=== PATIENT | male | born 1965 | race Caucasian/White ===

== ENCOUNTER 2017-04-10 23:52 | Inpatient (IN) | payer SELFPAY ==
[~2017-04-10] VITALS: Ht 177.8 cm; Wt 84.5 kg
[2017-04-10 23:53] VITALS: BP 140/76; PULSE 131; O2SAT 83
[2017-04-10] MEDS ORDERED: PROPOFOL 500 MG/50 ML INJ 50 ML ONE (23:57)
[2017-04-11] VITALS (26 sets, daily range): BP systolic 83–136; BP diastolic 52–77; PULSE 100–130; RESP 18–32; TEMP 99.9–103.1; O2SAT 92–100
[2017-04-11] MEDS ORDERED: SUCCINYLCHOLINE CHLORIDE 200 MG/10 ML VIAL ONE (00:08)
[2017-04-11] MEDS ORDERED: SODIUM CHLOR 0.9% 1000 ML INJ 1,000 ML IV SCH (00:15)
[2017-04-11] MEDS ORDERED: VANCOMYCIN INJ 1,000 MG in SODIUM CHLOR 0.9% 250 ML INJ 250 ML IV ONE ×2 (00:15→10:00)
[2017-04-11] MEDS ORDERED: SODIUM CHLORIDE 0.9% FLUSH 10 ML FLUSH IV FLUSH PRN (00:15)
[2017-04-11] MEDS ORDERED: SUCCINYLCHOLINE CHLORIDE 100 MG/5 ML SYRINGE IV PUSH ONE ×2 (00:15→02:30)
[2017-04-11] MEDS ORDERED: THIAMINE INJ 100 MG in SODIUM CHLORIDE 0.9% INJ 100 ML IV ONE (00:15)
[2017-04-11] MEDS ORDERED: ETOMIDATE 20 MG/10 ML VIAL IV PUSH ONE (00:15)
[2017-04-11] MEDS ORDERED: PIPERACIL-TAZO 4.5 GM PREMIX 100 ML IV ONE (00:15)
[2017-04-11] MEDS ORDERED: LORazepam 2 MG/ML VIAL IV PUSH ONE ×2 (00:30)
--- NOTE | 2017-04-11 00:32 | PD ---
HPI Chief Complaint: Respiratory Distress Time Seen by Provider: 00:15 Travel History International Travel<30 days: No Contact w/Intl Traveler<30days: No Traveled to known affect area: No History of Present Illness HPI 51-year-old male presents to the emergency department by EMS transport from home where he was identified to have altered mental status and decreasing level of consciousness. Patient was also identified to have temperature elevation and paramedics identified room air O2 saturations to be 72%. Patient was immediately placed on supplemental oxygen without improvement of oxygenation or level of consciousness. Family members were concerned that patient may have overdosed on medications but the medications listed did not show any opiates. Patient's blood sugar was fine. No reported injury or trauma. Paramedics determined patient needed further ventilation support and attempted intubation in the field but this was unsuccessful and patient presents to the emergency department with ambu assisted ventilations. PFSH Past Medical History Narrative Medical Depression hypertension bronchodilator use dyslipidemia; alcohol use; nursing notes in medical record reviewed Depression: Yes Diabetes: No Diminished Hearing: No Seizures: No Social History Alcohol Use: No Tobacco Use: No Substance Use: No Allergies-Medications (Allergen,Severity, Reaction): Coded Allergies: No Allergy Information Available (Unverified , 04/11/17) Reported Meds & Prescriptions Reported Meds & Active Scripts Active Reported Quetiapine (Quetiapine Fumarate) 200 Mg Tab 200 Mg PO HS Simvastatin 20 Mg Tab 20 Mg PO DAILY Gabapentin 300 Mg Cap 300 Mg PO TID Combivent Respimat Inh (Ipratropium-Albuterol Inh) 20-100 Residential/Act Aero 1 Puff INH QID Lamotrigine 200 Mg Tab 200 Mg PO HS Lamotrigine 200 Mg Tab 200 Mg PO BID Lorazepam 1 Mg Tab 1 Mg PO BID PRN Effexor (Venlafaxine HCl) 75 Mg Tab 225 Mg DAILY Seroquel XR (Quetiapine Fumarate) 150 Mg Tab 150 Mg PO DAILY Naproxen Sodium 220 Mg Tab 220 Mg PO BID PRN Hydroxyzine HCl 50 Mg Tab 50 Mg PO BID Fenofibrate 160 Mg Tab 160 Mg PO DAILY Losartan (Losartan Potassium) 100 Mg Tab 100 Mg PO DAILY Review of Systems ROS Limitations: Intubated, Altered Mental Status Except as stated in HPI: all other systems reviewed are Neg Physical Exam Narrative GENERAL: Well-developed well-nourished male with respiratory distress and GCS 8 SKIN: Warm and dry. HEAD: Normocephalic. EYES: No scleral icterus. No injection or drainage. ENT: Left naso-pharyngeal airway in place dried secretions and blood about the nostril and mouth. No lacerations identified. NECK: Supple, trachea midline. No JVD or lymphadenopathy. CARDIOVASCULAR: increased Regular rate and rhythm without murmurs, gallops, or rubs. RESPIRATORY: Breath sounds equal bilaterally with ambu assisted ventilation poor spontaneous respiratory effort. GASTROINTESTINAL: Abdomen soft, non-tender, nondistended. MUSCULOSKELETAL: No cyanosis, or edema. BACK: Nontender without obvious deformity. Data Data Last Documented VS Vital Signs Date Time Temp Pulse Resp B/P (MAP) Pulse Ox O2 Delivery O2 Flow Rate FiO2 04/11/17 02:09 108 126/77 (93) 04/11/17 01:20 18 100 Ventilator 100 04/11/17 00:48 101.5 Orders Orders Propofol 500 Mg/50 Ml Inj (Diprivan 500 (04/10/17 23:57) Succinylcholine Inj (Quelicin Inj) (04/11/17 00:08) Chest, Single Ap (04/11/17 ) Electrocardiogram (04/11/17 00:15) Complete Blood Count With Diff (04/11/17:15) Comprehensive Metabolic Panel (04/11/17:15) Creatine Kinase (Cpk) (04/11/17 00:15) Prothrombin Time / Inr (Pt) (04/11/17:15) Act Partial Throm Time (Ptt) (04/11/17:15) Troponin I (04/11/17:15) Thyroid Stimulating Hormone (04/11/17:15) Urinalysis - C+S If Indicated (04/11/17:15) Lactic Acid Sepsis Protocol (04/11/17:15) Arterial Blood Gas (Abg) (04/11/17:15) Blood Culture (04/11/17:15) Ct Brain W/O Iv Contrast(Rout) (04/11/17 00:15) Blood Glucose (04/11/17 00:15) Ecg Monitoring (04/11/17 00:15) Iv Access Insert/Monitor (04/11/17:15) Oximetry (04/11/17:15) Sodium Chloride 0.9% Flush (Ns Flush) (04/11/17 00:15) Sodium Chlor 0.9% 1000 Ml Inj (Ns 1000 M (04/11/17 00:15) Thiamine Inj (Thiamine Inj) (04/11/17 00:15) Drug Screen, Random Urine (04/11/17 00:15) Alcohol (Ethanol) (04/11/17 00:15) Tylenol (Acetaminophen) (04/11/17 00:15) Salicylates (Aspirin) (04/11/17 00:15) Piperacil-Tazo 4.5 Gm Premix (Zosyn 4.5 (04/11/17 00:15) Vancomycin Inj (Vancomycin Inj) (04/11/17 00:15) Urinary Catheter Insert/Apply (04/11/17 00:15) Propofol 1000 Mg/100 Ml Inj (Diprivan 10 (04/11/17 00:15) Succinylcholine Inj (Quelicin Inj) (04/11/17 00:15) Etomidate Inj (Amidate Inj) (04/11/17 00:15) Magnesium (Mg) (04/11/17 00:15) Electrocardiogram (04/11/17 ) Resp Ventilation- Volume (04/11/17 ) Lorazepam Inj (Ativan Inj) (04/11/17 00:30) Lorazepam Inj (Ativan Inj) (04/11/17 00:30) Influenzae A/B Antigen (04/11/17 01:21) Acetaminophen Supp (Tylenol Supp) (04/11/17 01:30) Succinylcholine Inj (Quelicin Inj) (04/11/17 02:30) Karina-Gastric Tube Insert/Mon (04/11/17 02:28) Place Ng Tube To Low Intermit (04/11/17 02:28) Admit Order (Ed Use Only) (04/11/17 ) Data Recovery Planner / Telemetry JONO.Q8H (04/11/17 02:34) Diet Npo (04/11/17 Breakfast) Activity Bed Rest (04/11/17 02:34) Notify Dr: Other (04/11/17 02:34) Admit To Inpatient (04/11/17 ) Code Status (04/11/17 02:31) Vital Signs (Adult) JONO.Q1H (04/11/17 02:31) Activity Bed Rest (04/11/17 02:31) Elevate Head Of Bed (04/11/17 02:31) Neuro Checks . ORDERED (04/11/17 02:31) Intake + Output Q1H (04/11/17 02:31) Sodium Chlor 0.9% 1000 Ml Inj (Ns 1000 M (04/11/17 02:31) Sodium Chloride 0.9% Flush (Ns Flush) (04/11/17 02:45) Sodium Chloride 0.9% Flush (Ns Flush) (04/11/17 09:00) Acetaminophen (Tylenol) (04/11/17 02:45) Famotidine Inj (Pepcid Inj) (04/11/17 09:00) Artificial Tears Opth Soln (Tears Natura (04/11/17 09:00) Ondansetron Inj (Zofran Inj) (04/11/17 02:45) Albuterol-Ipratropium Neb (Duoneb Neb) (04/11/17 04:00) Albuterol-Ipratropium Neb (Duoneb Neb) (04/11/17 02:45) Complete Blood Count With Diff (04/12/17 04:00) Comprehensive Metabolic Panel (04/12/17 04:00) Act Partial Throm Time (Ptt) (04/12/17 04:00) Prothrombin Time / Inr (Pt) (04/12/17 04:00) Magnesium (Mg) (04/12/17 04:00) Phosphorus (Po4) (04/12/17 04:00) Electrocardiogram (04/11/17 02:31) Electrocardiogram (04/11/17 08:31) Pt Request For Service (04/11/17 02:31) Data Recovery Planner / Telemetry JONO.Q8H (04/11/17 02:31) Heparin Inj (Heparin Inj) (04/11/17 06:00) Scd Bilateral/Knee High JONO.BID (04/11/17 02:31) Anibal Bilateral/Knee High JONO.QSHIFT (04/11/17 02:31) ^ Initiate Protocol (04/11/17 02:31) Instruction (04/11/17 02:31) Misc Nursing Information (04/11/17 02:45) Chlorhexidine 2% Cloth (Chlorhexidine 2% (04/11/17 04:00) Chlorhexidine 2% Cloth (Chlorhexidine 2% (04/11/17 02:45) Mrsa Pcr Surveillance (04/11/17 02:31) Docusate Sodium-Senna (Nisa-Colace) (04/11/17 09:00) Magnesium Hydroxide Liq (Milk Of Magnesi (04/11/17 02:45) Sennosides (Senokot) (04/11/17 02:45) Bisacodyl Supp (Dulcolax Supp) (04/11/17 02:45) Lactulose Liq (Lactulose Liq) (04/11/17 02:45) Elevate Head Of Bed (04/11/17 02:31) Chlorhexidine 0.12% Liq (Peridex 0.12% L (04/11/17 08:00) Oral Hygiene Kit (04/11/17 02:45) Restraints Non-Violent JONO.Q3H (04/11/17 02:31) Ventilator Weaning Readiness JONO.DAILY@0800 (04/11/17 02:31) Propofol 1000 Mg/100 Ml Inj (Diprivan 10 (04/11/17 02:45) Inpatient Certification (04/11/17 ) CKMB (04/11/17 00:12) CKMB% (04/11/17 00:12) Labs Laboratory Tests Test 04/11/17 00:12 04/11/17 00:35 04/11/17 00:38 White Blood Count 16.2 TH/MM3 Red Blood Count 4.14 MIL/MM3 Hemoglobin 14.0 GM/DL Hematocrit 41.3 % Mean Corpuscular Volume 99.6 FL Mean Corpuscular Hemoglobin 33.8 PG Mean Corpuscular Hemoglobin Concent 33.9 % Red Cell Distribution Width 13.5 % Platelet Count 205 TH/MM3 Mean Platelet Volume 9.8 FL Neutrophils (%) (Auto) 86.7 % Lymphocytes (%) (Auto) 6.3 % Monocytes (%) (Auto) 6.9 % Eosinophils (%) (Auto) 0.0 % Basophils (%) (Auto) 0.1 % Neutrophils # (Auto) 14.1 TH/MM3 Lymphocytes # (Auto) 1.0 TH/MM3 Monocytes # (Auto) 1.1 TH/MM3 Eosinophils # (Auto) 0.0 TH/MM3 Basophils # (Auto) 0.0 TH/MM3 CBC Comment AUTO DIFF Differential Total Cells Counted 100 Neutrophils % (Manual) 73 % Band Neutrophils % 17 % Lymphocytes % 5 % Monocytes % 3 % Neutrophils # (Manual) 14.9 TH/MM3 Metamyelocytes 2 % Differential Comment FINAL DIFF MANUAL Platelet Estimate NORMAL Platelet Morphology Comment NORMAL Prothrombin Time 10.7 SEC Prothromb Time International Ratio 1.1 RATIO Activated Partial Thromboplast Time 25.2 SEC Blood Urea Nitrogen 26 MG/DL Creatinine 1.88 MG/DL Random Glucose 119 MG/DL Total Protein 6.8 GM/DL Albumin 3.6 GM/DL Calcium Level 8.4 MG/DL Magnesium Level 2.0 MG/DL Alkaline Phosphatase 51 U/L Aspartate Amino Transf (AST/SGOT) 455 U/L Alanine Aminotransferase (ALT/SGPT) 93 U/L Total Bilirubin 0.7 MG/DL Sodium Level 137 MEQ/L Potassium Level 4.4 MEQ/L Chloride Level 105 MEQ/L Carbon Dioxide Level 23.3 MEQ/L Anion Gap 9 MEQ/L Estimat Glomerular Filtration Rate 38 ML/MIN Total Creatine Kinase 30711 U/L Troponin I LESS THAN 0.02 NG/ML Thyroid Stimulating Hormone 3rd Gen 2.590 uIU/ML Acetaminophen Level LESS THAN 2.0 MCG/ML Ethyl Alcohol Level LESS THAN 3 MG/DL Lactic Acid Level 2.6 mmol/L Urine Opiates Screen NEG Urine Barbiturates Screen NEG Urine Amphetamines Screen NEG Urine Benzodiazepines Screen POS Urine Cocaine Screen NEG Urine Cannabinoids Screen NEG Salicylates Level 4.1 MG/DL MDM Medical Decision Making Medical Screen Exam Complete: Yes Emergency Medical Condition: Yes Medical Record Reviewed: Yes Interpretation(s) EKG: Sinus tachycardia rate [address] elevation injury pattern or ectopy noted Differential Diagnosis Altered mental status delirium respiratory failure pneumonia sepsis aspiration polysubstance ingestion overdose accidental versus intentional metabolic encephalopathy anoxia ICH neuroleptic malignant syndrome serotonin syndrome Narrative Course 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 Additional IV access obtained. Patient administered normal saline bolus along with presumptive IV antibiotic with Zosyn and vancomycin. Bedside glucose 160. Rectal temp 101.5F patient administered acetaminophen. Postintubation chest x-ray performed showing bilateral infiltrates. Patient placed on propofol sedation and administered ativan Patient administered additional IV fluids review of medication bottles at patient's bedside identified multiple antidepressants and [id number] cold preparation medications decongestants and antihistamines; specimens collected for acetaminophen salicylates and tox screen; concerning for neuroleptic malignant syndrome and serotonin syndrome as well as sepsis. At 2:30 AM mother is at bedside states patient has been depressed and has bipolar disorder may have overdosed was drinking alcohol last night all day today when she would walk by his room he was snoring she checked on him reportedly around 6 PM and noticed that he was difficult to arouse sometime thereafter she called EMS patient has also had cold symptoms patient has been taking NyQuil and has consumed 2 bottles in the past several days she does not know if he has had a fever. Patient's case discussed with Dr Bustillo for admission Critical Care Narrative Aggregate critical care time was 40 minutes. Time to perform other separately billable procedures was not included in the critical care time. My time did not include minutes spent treating any other patients simultaneously or on activities that did not directly contribute to the patient's treatment. The services I provided to this patient were to treat and/or prevent clinically significant deterioration that could result in: Respiratory arrest septic shock I provided critical care services requiring my management, as noted below: Chart data review, documentation time, medication orders and management, vital sign assessments/reviewing monitor data, ordering and reviewing lab tests, ordering and interpreting/reviewing x-rays and diagnostic studies, care of the patient and discussion of the patient with the admitting physicians. Sepsis Criteria SIRS Criteria (2 or more): Temp > 100.9 or < 96.8, Heart rate over 90 Sepsis Criteria (SIRS+source): Infect source susp/known (pulmonary) Severe Sepsis (+one): Lactate >2, Acute Oliguria/Renal Failure Physician Communication Physician Communication discussed with Dr Bustillo for admission Diagnosis Primary Impression: Sepsis Qualified Codes: A41.9 - Sepsis, unspecified organism Additional Impressions: Altered mental state Qualified Codes: R41.0 - Disorientation, unspecified Metabolic encephalopathy Bipolar affect, depressed Admitting Information Admitting Physician Requests: Admit Zahraa Anderson MD Apr 11, 2017 00:32
--- NOTE | 2017-04-11 00:54 | RADRPT ---
EXAM DATE/TIME: 04/11/2017 00:26 [facility] COMPARISON: No previous studies available for comparison. INDICATIONS : ET tube placement. Respiratory distress. MEDICAL HISTORY : None. SURGICAL HISTORY : None. ENCOUNTER: Initial ACUITY: 1 day PAIN SCORE: Non-responsive. LOCATION: Bilateral chest FINDINGS: A single view of the chest demonstrates endotracheal tube in good position. NG enters the stomach. Bi lateral mostly perihilar airspace disease present. No effusion. No pneumothorax. Previous fusion lowe r cervical spine. CONCLUSION: 1. Bilateral air space consolidation predominantly perihilar. Nasogastric tube and endotracheal tube in good position. Jone Daly MD on April 11, 2017 at 0:51 Board Certified Radiologist. This report was verified electronically.
[2017-04-11 01:25] LABS: AUTOMATED NEUTROPHIL # 14.1 TH/MM3 (1.8-7.7); BASOPHIL % 0.1 % (0.0-2.0); HEMATOCRIT 41.3 % (39.0-51.0); LYMPH % 6.3 % (9.0-44.0); MEAN CELL VOLUME 99.6 FL (80.0-100.0); MEAN CORPUSCULAR HEMOGLOBIN 33.8 PG (27.0-34.0); MEAN CORPUSCULAR HGB CONC 33.9 % (32.0-36.0); MEAN PLATELET VOLUME 9.8 FL (7.0-11.0); MONO % 6.9 % (0.0-8.0); MONOCYTE # 1.1 TH/MM3 (0-0.9); NEUT % 86.7 % (16.0-70.0); PLATELET COUNT 205 TH/MM3 (150-450); RED BLOOD COUNT 4.14 MIL/MM3 (4.50-5.90); RED CELL DISTRIBUTION WIDTH 13.5 % (11.6-17.2); WHITE BLOOD COUNT 16.2 TH/MM3 (4.0-11.0)
[2017-04-11] MEDS ORDERED: ACETAMINOPHEN 650 MG SUPP RECTAL ONE (01:30)
[2017-04-11 01:41] LABS: LACTIC ACID SEPSIS PROTOCOL 2.6 mmol/L (0.4-2.0)
[2017-04-11] MEDS: PROPOFOL 1000 MG/100 ML INJ 100 ML IV PRN ×7 (01:46→23:05)
[2017-04-11 01:51] LABS: ALBUMIN 3.6 GM/DL (3.4-5.0); ALT (GPT) 93 U/L (12-78); AST (GOT) 455 U/L (15-37); BICARBONATE 23.3 MEQ/L (21.0-32.0); BLOOD UREA NITROGEN 26 MG/DL (7-18); CALCIUM 8.4 MG/DL (8.5-10.1); CHLORIDE 105 MEQ/L (98-107); CREATININE 1.88 MG/DL (0.60-1.30); GLOMERULAR FILTRATION RATE 38 ML/MIN (>89); GLUCOSE,RANDOM 119 MG/DL (74-106); INTERNATIONAL NORMALIZED RATIO 1.1 RATIO; PROTHROMBIN TIME - PATIENT 10.7 SEC (9.8-11.6); SODIUM (NA) 137 MEQ/L (136-145)
[2017-04-11 02:04] LABS: ALKALINE PHOSPHATASE 51 U/L (45-117); TOTAL BILIRUBIN ADULT 0.7 MG/DL (0.2-1.0); TOTAL PROTEIN 6.8 GM/DL (6.4-8.2); TROPONIN I LESS THAN 0.02 NG/ML (0.02-0.05)
[2017-04-11] MEDS ORDERED: SENNOSIDES 8.6 MG TAB PO PRN (02:45)
[2017-04-11] MEDS ORDERED: LACTULOSE SYRUP 20 GM/30 ML CUP PO PRN (02:45)
[2017-04-11] MEDS ORDERED: BISACODYL 10 MG SUPP RECTAL PRN (02:45)
[2017-04-11] MEDS ORDERED: CHLORHEXIDINE GLUCONATE 2 % 1 PACK (2 CLOTHS) TOP PRN (02:45)
[2017-04-11] MEDS ORDERED: MAGNESIUM HYDROXIDE SUSP 30 ML CUP PO PRN (02:45)
[2017-04-11] MEDS ORDERED: ONDANSETRON HCL 4 MG/2 ML VIAL IV PUSH PRN (02:45)
[2017-04-11] MEDS ORDERED: MISCELLANEOUS NURSING INFORMATION XX SCH (02:45)
[2017-04-11] MEDS ORDERED: LORA1TAB12 PO (03:13)
[2017-04-11] MEDS ORDERED: LOSA100T PO (03:13)
[2017-04-11] MEDS ORDERED: VENL75TA (03:13)
[2017-04-11] MEDS ORDERED: HYDR50TA94 PO (03:13)
[2017-04-11] MEDS ORDERED: QUET150XR PO (03:13)
[2017-04-11] MEDS ORDERED: FENO160T PO (03:13)
[2017-04-11] MEDS: RESP: ALBUTEROL 2.5 MG/IPRATROPIUM 0.5 MG NEB (SCH) INH ×4 (03:13→20:29)
[2017-04-11] MEDS ORDERED: MEDI220T PO (03:13)
[2017-04-11] MEDS ORDERED: IPRAAER INH (03:16)
[2017-04-11] MEDS ORDERED: GABA300C5 PO (03:16)
[2017-04-11] MEDS ORDERED: LAMO200T PO ×2 (03:16)
[2017-04-11] MEDS ORDERED: SIMV20TA PO (03:16)
[2017-04-11] MEDS ORDERED: QUET1TAB9 PO (03:16)
[2017-04-11 03:17] LABS: BANDS 17 % (0-6); LYMPHOCYTES 5 % (9-44); METAMYELOCYTES 2 % (0-1); MONOCYTES 3 % (0-8); NEUTROPHIL # MANUAL DIFF 14.9 TH/MM3 (1.8-7.7); POLYS (SEG NEUTROPHILS) 73 % (16-70)
--- NOTE | 2017-04-11 03:57 | RADRPT ---
EXAM DATE/TIME: 04/11/2017 00:53 [facility] COMPARISON: No previous studies available for comparison. INDICATIONS : Altered mental status. RADIATION DOSE: 56.35 CTDIvol (mGy) MEDICAL HISTORY : None SURGICAL HISTORY : None. ENCOUNTER: Initial ACUITY: 1 day PAIN SCALE: Non-responsive LOCATION: cranial TECHNIQUE: Multiple contiguous axial images were obtained of the head. Using automated exposure control and adj ustment of the mA and/or kV according to patient size, radiation dose was kept as low as reasonably a chievable to obtain optimal diagnostic quality images. DICOM format image data is available electro nically for review and comparison. FINDINGS: CEREBRUM: The ventricles are normal for age. No evidence of midline shift, mass lesion, hemorrhage or acute in farction. No extra-axial fluid collections are seen. POSTERIOR FOSSA: The cerebellum and brainstem are intact. The 4th ventricle is midline. The cerebellopontine angle i s unremarkable. EXTRACRANIAL: The visualized portion of the orbits is intact. Air fluid level right maxillary sinus. SKULL: The calvaria is intact. No evidence of skull fracture. CONCLUSION: 1. No acute intracranial abnormality. Right maxillary sinusitis. Mucosal thickening in the ethmoid ai r cells. Jone Daly MD on April 11, 2017 at 3:53 Board Certified Radiologist. This report was verified electronically.
[2017-04-11] MEDS: CHLORHEXIDINE GLUCONATE 2 % 1 PACK (2 CLOTHS) TOP SCH (04:00)
[2017-04-11 04:01] LABS: ACETAMINOPHEN LESS THAN 2.0 MCG/ML (10.0-30.0)
--- NOTE | 2017-04-11 05:33 | HHI.HP ---
HPI Service Critical Care Medicine Primary Care Physician Unknown Admission Diagnosis Sepsis; pneumonia; metabolic/toxic encephalopathy Diagnosis: Travel History International Travel<30 Days: No Contact w/Intl Traveler <30 Da: No Traveled to Known Affected Are: No History of Present Illness 51-year-old male presents from home where he was identified to have altered mental status and decreasing level of consciousness. Patient was also identified to have temperature elevation and paramedics identified room air O2 saturations to be 72%. Patient was immediately placed on supplemental oxygen without improvement of oxygenation or level of consciousness. Family members were concerned that patient may have overdosed on medications but the medications listed did not show any opiates. Patient's blood sugar was fine. No reported injury or trauma. Paramedics determined patient needed further ventilation support and attempted intubation in the field but this was unsuccessful and patient presents to the emergency department with ambu assisted ventilations. Multiple attempts were made in the emergency department intubated the patient for an airway protection, which was extremely difficult and patient was finally intubated by log rider. Review of Systems ROS Unobtainable patient is sedated and intubated Past Family Social History Allergies: Coded Allergies: No Allergy Information Available (Unverified , 04/11/17) Past Medical History Depression Hypertension Dyslipidemia Asthma Past Surgical History Unable to obtain Reported Medications Reported Meds & Active Scripts Active Reported Quetiapine (Quetiapine Fumarate) 200 Mg Tab 200 Mg PO HS Simvastatin 20 Mg Tab 20 Mg PO DAILY Gabapentin 300 Mg Cap 300 Mg PO TID Combivent Respimat Inh (Ipratropium-Albuterol Inh) 20-100 Assisted/Act Aero 1 Puff INH QID Lamotrigine 200 Mg Tab 200 Mg PO HS Lamotrigine 200 Mg Tab 200 Mg PO BID Lorazepam 1 Mg Tab 1 Mg PO BID PRN Effexor (Venlafaxine HCl) 75 Mg Tab 225 Mg DAILY Seroquel XR (Quetiapine Fumarate) 150 Mg Tab 150 Mg PO DAILY Naproxen Sodium 220 Mg Tab 220 Mg PO BID PRN Hydroxyzine HCl 50 Mg Tab 50 Mg PO BID Fenofibrate 160 Mg Tab 160 Mg PO DAILY Losartan (Losartan Potassium) 100 Mg Tab 100 Mg PO DAILY Active Ordered Medications Current Medications Medications (Trade) Dose Ordered Sig/Yoko Route PRN Reason Start Time Stop Time Status Last Admin Dose Admin Sodium Chloride (NS Flush) 2 ml UNSCH PRN IV FLUSH FLUSH AFTER USING IV ACCESS 04/11/17 00:15 Propofol 100 ml @ 0 mls/hr TITRATE PRN IV SEDATION 04/11/17 00:15 04/11/17 05:08 Sodium Chloride 1,000 ml @ 124 mls/hr Q8H4M IV 04/11/17 02:31 Sodium Chloride (NS Flush) 2 ml UNSCH PRN IV FLUSH FLUSH AFTER USING IV ACCESS 04/11/17 02:45 Sodium Chloride (NS Flush) 2 ml BID IV FLUSH 04/11/17 09:00 Acetaminophen (Tylenol) 650 mg Q6H PRN PO PAIN 1-10 AND/OR FEVER >101F 04/11/17 02:45 Famotidine (Pepcid Inj) 20 mg Q12HR IV PUSH 04/11/17 09:00 Artificial Tears (Tears Naturale Opth Soln) 1 drop TID EACH EYE 04/11/17 09:00 Ondansetron HCl (Zofran Inj) 4 mg Q6H PRN IV PUSH NAUSEA OR VOMITING 04/11/17 02:45 Albuterol/ Ipratropium (Duoneb Neb) 1 ampule Q6HR NEB INH 04/11/17 04:00 04/11/17 03:13 Albuterol/ Ipratropium (Duoneb Neb) 1 ampule Q2HR NEB PRN INH WHEEZING 04/11/17 02:45 Heparin Sodium (Porcine) (Heparin Inj) 5,000 units Q8HR SQ 04/11/17 06:00 Miscellaneous Information 1 Q361D XX 04/11/17 02:45 04/11/17 04:00 Chlorhexidine Gluconate (Chlorhexidine 2% Cloth) 3 pack Taper DAILY@04 TOP 04/11/17 04:00 04/07/18 03:59 04/11/17 04:00 Chlorhexidine Gluconate (Chlorhexidine 2% Cloth) 3 pack UNSCH PRN TOP HYGIENIC CARE 04/11/17 02:45 Senna/Docusate Sodium (Nisa-Colace) 1 tab BID PO 04/11/17 09:00 Magnesium Hydroxide (Milk Of Magnesia Liq) 30 ml Q12H PRN PO Mild constipation 04/11/17 02:45 Sennosides (Senokot) 17.2 mg Q12H PRN PO Moderate constipation 04/11/17 02:45 Bisacodyl (Dulcolax Supp) 10 mg DAILY PRN RECTAL SEVERE CONSITIPATION 04/11/17 02:45 Lactulose (Lactulose Liq) 30 ml DAILY PRN PO SEVERE CONSITIPATION 04/11/17 02:45 Chlorhexidine Gluconate (Peridex 0.12% Liq) 15 ml BID@08,20 MT 04/11/17 08:00 Propofol 100 ml @ 0 mls/hr TITRATE PRN IV SEDATION 04/11/17 02:45 Family History Unable to obtain Social History Negative for tobacco, illicit drug, or alcohol abuse Physical Exam Vital Signs Vital Signs Date Time Temp Pulse Resp B/P (MAP) Pulse Ox O2 Delivery O2 Flow Rate FiO2 04/11/17 05:00 102 30 107/57 (74) 94 04/11/17 05:00 94 70 04/11/17 04:00 109 04/11/17 04:00 70 04/11/17 04:00 100.2 109 30 115/77 (90) 100 04/11/17 03:30 04/11/17 03:30 96 100 04/11/17 03:30 96 15.00 100 04/11/17 03:20 108 18 115/77 (90) 100 Ventilator 100 04/11/17 02:09 108 126/77 (93) 04/11/17 01:40 121/73 (89) 04/11/17 01:20 111 18 123/73 (90) 100 Ventilator 100 04/11/17 00:50 116 18 116/64 (81) 100 Ventilator 100 04/11/17 00:48 101.5 04/11/17 00:30 118 130/69 (89) 96 Ventilator 04/11/17 00:17 122 136/74 (94) 95 Ventilator 100 04/11/17 00:12 100 04/10/17 23:53 131 140/76 (97) 83 Physical Exam GENERAL: Well-nourished, well-developed patient. Sedated and intubated SKIN: Warm and dry. HEAD: Normocephalic. EYES: No scleral icterus. No injection or drainage. NECK: Supple, trachea midline. No JVD or lymphadenopathy. CARDIOVASCULAR: Regular rate and rhythm without murmurs, gallops, or rubs. RESPIRATORY: Breath sounds equal bilaterally. No accessory muscle use. GASTROINTESTINAL: Abdomen soft, non-tender, nondistended. MUSCULOSKELETAL: No cyanosis, or edema. BACK: Nontender without obvious deformity. NEURO EXAM: Sedated and intubated middle-aged gentleman Laboratory Laboratory Tests Test 04/11/17 00:12 04/11/17 00:35 04/11/17 00:38 04/11/17 01:09 White Blood Count 16.2 Red Blood Count 4.14 Hemoglobin 14.0 Hematocrit 41.3 Mean Corpuscular Volume 99.6 Mean Corpuscular Hemoglobin 33.8 Mean Corpuscular Hemoglobin Concent 33.9 Red Cell Distribution Width 13.5 Platelet Count 205 Mean Platelet Volume 9.8 Neutrophils (%) (Auto) 86.7 Lymphocytes (%) (Auto) 6.3 Monocytes (%) (Auto) 6.9 Eosinophils (%) (Auto) 0.0 Basophils (%) (Auto) 0.1 Neutrophils # (Auto) 14.1 Lymphocytes # (Auto) 1.0 Monocytes # (Auto) 1.1 Eosinophils # (Auto) 0.0 Basophils # (Auto) 0.0 CBC Comment AUTO DIFF Differential Total Cells Counted 100 Neutrophils % (Manual) 73 Band Neutrophils % 17 Lymphocytes % 5 Monocytes % 3 Neutrophils # (Manual) 14.9 Metamyelocytes 2 Differential Comment FINAL DIFF MANUAL Platelet Estimate NORMAL Platelet Morphology Comment NORMAL Prothrombin Time 10.7 Prothromb Time International Ratio 1.1 Activated Partial Thromboplast Time 25.2 Blood Urea Nitrogen 26 Creatinine 1.88 Random Glucose 119 Total Protein 6.8 Albumin 3.6 Calcium Level 8.4 Magnesium Level 2.0 Alkaline Phosphatase 51 Aspartate Amino Transf (AST/SGOT) 455 Alanine Aminotransferase (ALT/SGPT) 93 Total Bilirubin 0.7 Sodium Level 137 Potassium Level 4.4 Chloride Level 105 Carbon Dioxide Level 23.3 Anion Gap 9 Estimat Glomerular Filtration Rate 38 Total Creatine Kinase 07177 Creatine Kinase MB 56.7 Creatine Kinase MB % 0.2 Troponin I LESS THAN 0.02 Thyroid Stimulating Hormone 3rd Gen 2.590 Acetaminophen Level LESS THAN 2.0 Ethyl Alcohol Level LESS THAN 3 Lactic Acid Level 2.6 Urine Opiates Screen NEG Urine Barbiturates Screen NEG Urine Amphetamines Screen NEG Urine Benzodiazepines Screen POS Urine Cocaine Screen NEG Urine Cannabinoids Screen NEG Salicylates Level 4.1 Blood Gas Puncture Site RT RADIAL Blood Gas Patient Temperature 98.6 Blood Gas HCO3 21 Blood Gas Base Excess -4.0 Blood Gas Oxygen Saturation 95 Arterial Blood pH 7.32 Arterial Blood Partial Pressure CO2 42 Arterial Blood Partial Pressure O2 103 Arterial Blood Oxygen Content 16.4 Arterial Blood Carboxyhemoglobin 1.5 Arterial Blood Methemoglobin 0.9 Blood Gas Hemoglobin 12.2 Oxygen Delivery Device VENT Blood Gas Ventilator Setting SEE COMMENTS Blood Gas Inspired Oxygen 100 Test 04/11/17 04:00 04/11/17 04:24 Lactic Acid Level 1.9 Date/Time Source Procedure Growth Status 04/11/17 00:25 Blood Peripheral Aerobic Blood Culture Pending Received 04/11/17 00:25 Blood Peripheral Anaerobic Blood Culture Pending Received 04/11/17 03:20 Nasal Washing Influenza Types A,B Antigen (JERMAINE) - Final NEGATIVE FOR FLU A AND B ANTIGEN.... Complete Result Diagram: 04/11/17 0012 04/11/17 0012 Imaging Last 24 hours Impressions Chest X-Ray 04/11/17 0000 Signed Impressions: Service Date/Time: Tuesday, April 11, 2017 00:26 - CONCLUSION: 1. Bilateral air space consolidation predominantly perihilar. Nasogastric tube and endotracheal tube in good position. Jone Daly MD Septic Shock Reassessment Septic shock perfusion: reassessment completed Caprini VTE Risk Assessment Caprini VTE Risk Assessment: Mod/High Risk (score >= 2) Caprini Risk Assessment Model Point Value = 1 Point Value = 2 Point Value = 3 Point Value = 5 Age 41-60 Minor surgery BMI > 25 kg/m2 Swollen legs Varicose veins or History of unexplained or recurrent spontaneous Oral contraceptives or hormone replacement Sepsis (< 1 month) Serious lung disease, including pneumonia (< 1 month) Abnormal pulmonary function Acute myocardial infarction Congestive heart failure (< 1 month) History of inflammatory bowel disease Medical patient at bed rest Age 61-74 Arthroscopic surgery Major open surgery (> 45 min) Laparoscopic surgery (> 45 min) Malignancy Confined to bed (> 72 hours) Immobilizing plaster cast Central venous access Age >= 75 History of VTE Family history of VTE Factor V Leiden Prothrombin [id number] Lupus anticoagulant Anticardiolipin antibodies Elevated serum homocysteine Heparin-induced thrombocytopenia Other congenital or acquired thrombophilia Stroke (< 1 month) Elective arthroplasty Hip, pelvis, or leg fracture Acute spinal cord injury (< 1 month) Prophylaxis Regimen Total Risk Factor Score Risk Level Prophylaxis Regimen 0-1 Low Early ambulation 2 Moderate Order ONE of the following: *Sequential Compression Device (SCD) *Heparin 5000 units SQ BID 3-4 Higher Order ONE of the following medications: *Heparin 5000 units SQ TID *Enoxaparin/Lovenox 40 mg SQ daily (WT < 150 kg, CrCl > 30 mL/min) *Enoxaparin/Lovenox 30 mg SQ daily (WT < 150 kg, CrCl > 10-29 mL/min) *Enoxaparin/Lovenox 30 mg SQ BID (WT < 150 kg, CrCl > 30 mL/min) AND/OR *Sequential Compression Device (SCD) 5 or more Highest Order ONE of the following medications: *Heparin 5000 units SQ TID (Preferred with Epidurals) *Enoxaparin/Lovenox 40 mg SQ daily (WT < 150 kg, CrCl > 30 mL/min) *Enoxaparin/Lovenox 30 mg SQ daily (WT < 150 kg, CrCl > 10-29 mL/min) *Enoxaparin/Lovenox 30 mg SQ BID (WT < 150 kg, CrCl > 30 mL/min) AND *Sequential Compression Device (SCD) Assessment and Plan Assessment and Plan Respiratory failure - Intubated for an airway protection - Continue mechanical ventilation - No weaning until neurologically improved - Vent bundle - DuoNeb scheduled and when necessary Altered mental status - CT head negative - Possible overdose - History of depressions other psychological disorders - Supportive care Acute kidney injury - Unknown baseline - IV fluids - Strict I's and O's - Monitor creatinine and electrolytes level Depressions - Effexor - Seroquel - Hydroxyzine - Quetiapine Dyslipidemia - Simvastatin - Fenofibrate Seizure disorder - Lamictal Hypertension - Losartan DVT GI prophylaxis - Teds SCDs - Subcutaneous heparin - Pepcid Critical Care: The total critical care time was 35 minutes. Time to perform other separately billable procedures was not included in the critical care time. Odell Bustillo MD Apr 11, 2017 05:33
[2017-04-11] MEDS: SODIUM CHLOR 0.9% 1000 ML INJ 1,000 ML IV SCH ×3 (05:56→19:43)
[2017-04-11] MEDS: HEPARIN SODIUM - SQ 10,000 UNITS/ML VIAL SQ SCH ×3 (05:58→20:30)
[2017-04-11] MEDS ORDERED: RASS Change Order XX ONE (08:15)
[2017-04-11] MEDS ORDERED: SODIUM CHLOR 0.9% 1000 ML INJ 1,000 ML IV ONE (08:15)
[2017-04-11] MEDS: MIDAZOLAM 100 MG/NS 100 ML DRIP Premix IV PRN (08:44)
[2017-04-11] MEDS: lamoTRIgine 100 MG TAB PO SCH ×2 (08:48→20:29)
[2017-04-11] MEDS: SODIUM CHLORIDE 0.9% FLUSH 10 ML FLUSH IV FLUSH SCH ×2 (08:48→20:28)
[2017-04-11] MEDS: FAMOTIDINE 20 MG/2 ML VIAL IV PUSH SCH ×2 (08:48→20:28)
[2017-04-11] MEDS: GABAPENTIN 300 MG CAP PO SCH ×3 (08:48→18:03)
[2017-04-11] MEDS: hydrOXYzine HCL 50 MG TAB PO SCH ×2 (08:48→20:28)
[2017-04-11] MEDS: FENOFIBRATE 145 MG TAB PO SCH (08:48)
[2017-04-11] MEDS: PRAVASTATIN SOD 40 MG TAB PO SCH (08:48)
[2017-04-11] MEDS: ARTIFICIAL TEARS OPTH SOLN 15 ML BTL EACH EYE SCH ×3 (08:48→18:03)
[2017-04-11] MEDS: LOSARTAN 50 MG TAB PO SCH (08:49)
[2017-04-11] MEDS: DOCUSATE SODIUM 50 MG/SENNA 8.6 MG TAB PO SCH ×2 (08:49→20:29)
[2017-04-11] MEDS: QUEtiapine FUMARATE 25 MG TAB PO SCH ×2 (08:49→21:00)
[2017-04-11] MEDS ORDERED: VENLAFAXINE HCL XR 75 MG CAP PO SCH (09:00)
[2017-04-11] MEDS: CHLORHEXIDINE 0.12% (ORAL KIT) 15 ML CUP MT SCH ×2 (09:06→19:42)
[2017-04-11] MEDS ORDERED: ROCURONIUM INJ 50 MG/5 ML VIAL IV ONE (09:45)
[2017-04-11] MEDS: PIPERACIL-TAZO 4.5 GM PREMIX 100 ML IV SCH ×3 (10:44→20:30)
--- NOTE | 2017-04-11 16:42 | EKG ---
Date Performed: 04/11/2017 Time Performed: 09:19:15 PTAGE: 51 years EKG: SINUS TACHYCARDIA LOW QRS VOLTAGE IN EXTREMITY LEADS ABNORMAL RHYTHM ECG PREVIOUS TRACING : 04/11/2017 00.29 Since the prior tracing, there has been no significant granados DOCTOR: Santhosh Alonso Interpretating Date/Time 04/11/2017 16:41:11
--- NOTE | 2017-04-11 16:59 | EKG ---
Date Performed: 04/11/2017 Time Performed: 00:29:20 PTAGE: 51 years EKG: SINUS TACHYCARDIA LOW QRS VOLTAGE IN EXTREMITY LEADS ABNORMAL RHYTHM ECG NO PREVIOUS TRACING DOCTOR: Santhosh Alonso Interpretating Date/Time 04/11/2017 16:58:37
[2017-04-11] MEDS: ACETAMINOPHEN 325 MG TAB PO PRN (18:03)
[2017-04-11] MEDS: QUEtiapine FUMARATE 200 MG TAB PO SCH (20:29)
[2017-04-11 20:39] LABS: AMORPHOUS SEDIMENT, URINE RARE; BACTERIA, URINE OCC /hpf; BILIRUBIN, URINE NEG (NEG); BLOOD, URINE MOD (NEG); GLUCOSE,URINE NEG (NEG); KETONE, URINE NEG (NEG); MUCUS URINE FEW /lpf (OCC); NITRITE,URINE NEG (NEG); PH, URINE 5.5 (5.0-8.5); SQUAMOUS EPITHELIAL CELL URINE 1 /hpf (0-5); URINE COLOR YELLOW (YELLW/STRAW); URINE LEUKOCYTE ESTERASE SMALL (NEG)
[2017-04-12] VITALS (41 sets, daily range): BP systolic 80–130; BP diastolic 48–84; PULSE 82–115; RESP 17–39; TEMP 98.4–99.3; O2SAT 93–100
[2017-04-12] MEDS: SODIUM CHLOR 0.9% 1000 ML INJ 1,000 ML IV SCH ×5 (01:12→13:41)
[2017-04-12] MEDS: CHLORHEXIDINE GLUCONATE 2 % 1 PACK (2 CLOTHS) TOP SCH (04:00)
[2017-04-12] MEDS: RESP: ALBUTEROL 2.5 MG/IPRATROPIUM 0.5 MG NEB (SCH) INH ×4 (04:03→21:42)
[2017-04-12] MEDS: PIPERACIL-TAZO 4.5 GM PREMIX 100 ML IV SCH ×4 (04:45→20:39)
[2017-04-12] MEDS: HEPARIN SODIUM - SQ 10,000 UNITS/ML VIAL SQ SCH ×3 (04:46→20:42)
[2017-04-12] MEDS ORDERED: ALBUMIN 5% INJ 250 ML IV ONE (05:30)
--- NOTE | 2017-04-12 05:59 | PD.PROCEDR ---
Procedure Note Procedure Centerline placement A time-out was completed verifying correct patient, procedure, site, positioning , and special equipment if applicable. The patient was placed in a dependent position appropriate for central line placement based on the vein to be cannulated. The patients right shoulder was prepped and draped in sterile fashion. 1% Lidocaine was used to anesthetize the surrounding skin area. A triple lumen 9-[place] Cordis catheter was introduced into the the right subclavian vein using the Seldinger technique. The catheter was threaded smoothly over the guide wire and appropriate blood return was obtained. Each lumen of the catheter was evacuated of air and flushed with sterile saline. The catheter was then sutured in place to the skin and a sterile dressing applied. Perfusion to the extremity distal to the point of catheter insertion was checked and found to be adequate. Estimated Blood Loss: 1ml The patient tolerated the procedure well and there were no complications. Odell Bustillo MD Apr 12, 2017 05:59
--- NOTE | 2017-04-12 06:22 | RADRPT ---
EXAM DATE/TIME: 04/12/2017 05:54 [facility] COMPARISON: No previous studies available for comparison. INDICATIONS : Evaluate for central line placement MEDICAL HISTORY : None. SURGICAL HISTORY : None. ENCOUNTER: Subsequent ACUITY: 3 days PAIN SCORE: Non-responsive. LOCATION: Bilateral chest FINDINGS: Right subclavian line tip overlies the expected location the SVC. Cardiomegaly. Endotracheal tube tip at the level of the clavicles. Enteric tube courses beneath the diaphragm. Patchy bilateral airspace disease. Accessory bronchus suspected left upper lung. CONCLUSION: Right subclavian line placement as above. Zacarias Sylvester MD on April 12, 2017 at 6:19 Board Certified Radiologist. This report was verified electronically.
[2017-04-12] MEDS: PROPOFOL 1000 MG/100 ML INJ 100 ML IV PRN ×3 (06:29→20:41)
[2017-04-12] MEDS: MIDAZOLAM 100 MG/NS 100 ML DRIP Premix IV PRN (06:29)
[2017-04-12 07:01] LABS: ALBUMIN 2.2 GM/DL (3.4-5.0); BICARBONATE 20.4 MEQ/L (21.0-32.0); CREATININE 1.45 MG/DL (0.60-1.30); MAGNESIUM 2.1 MG/DL (1.5-2.5); TOTAL BILIRUBIN ADULT 0.4 MG/DL (0.2-1.0); TOTAL PROTEIN 5.2 GM/DL (6.4-8.2)
[2017-04-12 07:05] LABS: AUTOMATED NEUTROPHIL # 7.8 TH/MM3 (1.8-7.7); BASOPHIL % 0.5 % (0.0-2.0); EOSINOPHIL % 0.4 % (0.0-4.0); HEMATOCRIT 32.1 % (39.0-51.0); HEMOGLOBIN 10.5 GM/DL (13.0-17.0); LYMPH % 7.9 % (9.0-44.0); LYMPHOCYTE # 0.7 TH/MM3 (1.0-4.8); MEAN CELL VOLUME 103.6 FL (80.0-100.0); MEAN CORPUSCULAR HEMOGLOBIN 33.9 PG (27.0-34.0); MEAN CORPUSCULAR HGB CONC 32.7 % (32.0-36.0); MEAN PLATELET VOLUME 9.2 FL (7.0-11.0); MONO % 4.2 % (0.0-8.0); MONOCYTE # 0.4 TH/MM3 (0-0.9); PLATELET COUNT 140 TH/MM3 (150-450); RED CELL DISTRIBUTION WIDTH 13.5 % (11.6-17.2)
[2017-04-12 07:15] LABS: INTERNATIONAL NORMALIZED RATIO 1.4 RATIO; PROTHROMBIN TIME - PATIENT 14.4 SEC (9.8-11.6)
[2017-04-12] MEDS: hydrOXYzine HCL 50 MG TAB PO SCH (07:39)
[2017-04-12] MEDS: QUEtiapine FUMARATE 25 MG TAB PO SCH (07:40)
[2017-04-12] MEDS ORDERED: NOREPINEPHRINE INJ 4 MG in SODIUM CHLOR 0.9% 250 ML INJ 246 ML IV PRN (07:45)
[2017-04-12] MEDS ORDERED: TERBUTALINE INJ 1 MG/ML AMP SQ PRN (07:45)
[2017-04-12] MEDS: SODIUM CHLORIDE 0.9% FLUSH 10 ML FLUSH IV FLUSH SCH ×2 (08:28→20:41)
[2017-04-12] MEDS: lamoTRIgine 100 MG TAB PO SCH ×2 (09:00→20:40)
[2017-04-12] MEDS: LOSARTAN 50 MG TAB PO SCH (09:00)
[2017-04-12] MEDS ORDERED: VENLAFAXINE HCL 75 MG TAB PO SCH (10:00)
[2017-04-12] MEDS: ARTIFICIAL TEARS OPTH SOLN 15 ML BTL EACH EYE SCH ×3 (10:05→17:59)
[2017-04-12] MEDS: CHLORHEXIDINE 0.12% (ORAL KIT) 15 ML CUP MT SCH ×2 (10:05→20:41)
[2017-04-12] MEDS ORDERED: SODIUM CHLOR 0.9% 1000 ML INJ 1,000 ML IV ONE (10:30)
[2017-04-12] MEDS ORDERED: VANCOMYCIN INJ 1,000 MG in SODIUM CHLOR 0.9% 250 ML INJ 250 ML IV ONE (10:30)
[2017-04-12] MEDS ORDERED: Vancomycin Consult Pharmacy 1 EA OTHER SCH (10:30)
[2017-04-12] MEDS: GABAPENTIN 300 MG CAP PO SCH ×3 (10:32→17:58)
[2017-04-12] MEDS: DOCUSATE SODIUM 50 MG/SENNA 8.6 MG TAB PO SCH (10:32)
[2017-04-12] MEDS: PRAVASTATIN SOD 40 MG TAB PO SCH (10:32)
[2017-04-12] MEDS: FENOFIBRATE 145 MG TAB PO SCH (10:32)
[2017-04-12] MEDS: FAMOTIDINE 20 MG/2 ML VIAL IV PUSH SCH ×2 (10:33→20:40)
--- NOTE | 2017-04-12 10:39 | HHI.CCPN ---
Subjective Remarks/Hospital Course 51-year-old male presents from home where he was identified to have altered mental status and decreasing level of consciousness. Patient was also identified to have temperature elevation and paramedics identified room air O2 saturations to be 72%. Patient was immediately placed on supplemental oxygen without improvement of oxygenation or level of consciousness. Family members were concerned that patient may have overdosed on medications but the medications listed did not show any opiates. Patient's blood sugar was fine. No reported injury or trauma. Paramedics determined patient needed further ventilation support and attempted intubation in the field but this was unsuccessful and patient presents to the emergency department with ambu assisted ventilations. Multiple attempts were made in the emergency department intubated the patient for an airway protection, which was extremely difficult and patient was finally intubated by construction and maintenance inspector. 04/12: Continues to be critically ill intubated copious amount of ET tube secretions. Chest x-ray continues to show patchy bilateral infiltrates. Started on Levophed overnight to keep map above 65. Creat and WBC count have slightly improved. Gram neg rods in sputum gram stain. Currently on Zosyn, I will add vancomycin Objective Vital Signs Date Time Temp Pulse Resp B/P (MAP) Pulse Ox O2 Delivery O2 Flow Rate FiO2 04/12/17 08:18 98 45 04/12/17 06:00 106 04/12/17 04:00 99.3 28 96/62 (73) 04/11/17 03:30 15.00 04/11/17 03:20 Ventilator Intake and Output 04/12/17 04/12/17 04/12/17 07:59 15:59 23:59 Intake Total 3550 ml Output Total 400 ml Balance 3150 ml Result Diagram: 04/12/17 0530 04/12/17 0530 Other Results Microbiology Date/Time Source Procedure Growth Status 04/11/17 03:20 Nasal Washing Influenza Types A,B Antigen (JERMAINE) - Final NEGATIVE FOR FLU A AND B ANTIGEN.... Complete Imaging Last 24 hours Impressions Chest X-Ray 04/11/17 0000 Signed Impressions: Service Date/Time: Tuesday, April 11, 2017 00:26 - CONCLUSION: 1. Bilateral air space consolidation predominantly perihilar. Nasogastric tube and endotracheal tube in good position. Jone Daly MD Objective Remarks Drips: Propofol Versed Levophed Normal saline infusion GENERAL: Well-nourished, well-developed patient. Sedated and intubated, critically ill SKIN: Warm and dry. HEAD: Normocephalic. EYES: No scleral icterus. No injection or drainage. ENT: Orotracheally intubated with copious yellow secretions from ET tube NECK: Supple, trachea midline. No JVD or lymphadenopathy. CARDIOVASCULAR: Regular rate and rhythm without murmurs, gallops, or rubs. On Levophed for hypotension RESPIRATORY: Breath sounds equal bilaterally. Coarse rhonchi and crackles. GASTROINTESTINAL: Abdomen soft, non-tender, nondistended. MUSCULOSKELETAL: No cyanosis, or edema. NEURO EXAM: Sedated and intubated middle-aged gentleman. Moves extremities spontaneously Urinary Catheter: Yes Assessment to: Continue Vascular Central Line Catheter: Yes Assessment to: Continue A/P Assessment and Plan NEURO: Altered mental status/encephalopathy Possible drug overdose History of depressions other psychological disorders Seizure disorder - CT head negative - Drug screen positive only for benzodiazepines - Continue propofol for sedation wean to DC Versed - Hold Effexor, Seroquel, Hydroxyzine, Quetiapine - Daily sedation medication once respiratory status improves - Continue Lamictal for seizure disorder RESP: Acute hypoxemic respiratory failure Bilateral pneumonia Difficult airway - Intubated for an airway protection - Intubated in ED after multiple attempts by anesthesia - Continue mechanical ventilation, change mode to PC/AC - No weaning until neurologically, resp improved - Vent bundle, DuoNeb scheduled and when necessary - Broad-spectrum antibiotics with vancomycin and Zosyn CVS: Septic shock dyslipidemia - Give additional 1 L fluid bolus and normal saline at 125 mL/h - Levophed to keep map above 65 - Hold Simvastatin, Fenofibrate due to liver enzyme elevation - Hold Losartan GI: Elevated liver enzymes - Start tube feeds with Jevity, IV famotidine - Liver enzymes trending down, possible shock liver : Acute kidney injury Rhabdomyolysis (CPK >25,000) - Unknown baseline creat - IV fluids, monitor creat - Strict I's and O's ID Septic shock Multilobar pneumonia - Continue vancomycin and Zosyn - Follow up on cultures HEME: - Monitor CBC CMP coags ENDO: - Electrolyte replacement per protocol DVT GI prophylaxis - Teds SCDs - Subcutaneous heparin - Pepcid Critical Care: The total critical care time was 35 minutes. Time to perform other separately billable procedures was not included in the critical care time. Jenny Nieves MD Apr 12, 2017 10:39
[2017-04-12] MEDS: DOCUSATE SODIUM 100 MG/10 ML UDC PO SCH ×2 (10:45→20:40)
[2017-04-12] MEDS: VANCOMYCIN 1,500 MG/NS 500 ML IV SCH ×2 (13:41)
[2017-04-13] VITALS (49 sets, daily range): BP systolic 82–118; BP diastolic 50–78; PULSE 82–119; RESP 17–69; TEMP 98.2–101.4; O2SAT 89–100
[2017-04-13] MEDS: PROPOFOL 1000 MG/100 ML INJ 100 ML IV PRN ×4 (00:49→22:00)
[2017-04-13] MEDS: MIDAZOLAM 100 MG/NS 100 ML DRIP Premix IV PRN (01:17)
[2017-04-13] MEDS: SODIUM CHLOR 0.9% 1000 ML INJ 1,000 ML IV SCH ×2 (01:18→10:51)
[2017-04-13] MEDS: CHLORHEXIDINE GLUCONATE 2 % 1 PACK (2 CLOTHS) TOP SCH (04:00)
[2017-04-13] MEDS: RESP: ALBUTEROL 2.5 MG/IPRATROPIUM 0.5 MG NEB (SCH) INH ×4 (04:17→20:14)
[2017-04-13] MEDS: PIPERACIL-TAZO 4.5 GM PREMIX 100 ML IV SCH ×2 (04:52→10:51)
--- NOTE | 2017-04-13 05:01 | RADRPT ---
EXAM DATE/TIME: 04/13/2017 03:55 [facility] COMPARISON: No previous studies available for comparison. INDICATIONS : Short of breath. MEDICAL HISTORY : None. SURGICAL HISTORY : None. ENCOUNTER: Subsequent ACUITY: 2 days PAIN SCORE: 0/10 LOCATION: Bilateral chest FINDINGS: There is stable airspace disease in the upper lobes with stable bilateral lower lobe airspace disease , left greater right. Endotracheal tube, enteric tube and right subclavian line again seen. EKG leads are noted. Cardiomegaly. CONCLUSION: No significant change has occurred. Zacarias Sylvester MD on April 13, 2017 at 4:59 Board Certified Radiologist. This report was verified electronically.
[2017-04-13 06:01] LABS: AUTOMATED NEUTROPHIL # 10.3 TH/MM3 (1.8-7.7); BASOPHIL % 0.4 % (0.0-2.0); EOSINOPHIL # 0.1 TH/MM3 (0-0.4); EOSINOPHIL % 1.2 % (0.0-4.0); HEMATOCRIT 26.1 % (39.0-51.0); HEMOGLOBIN 9.1 GM/DL (13.0-17.0); LYMPH % 4.9 % (9.0-44.0); LYMPHOCYTE # 0.6 TH/MM3 (1.0-4.8); MEAN CORPUSCULAR HEMOGLOBIN 34.6 PG (27.0-34.0); MEAN CORPUSCULAR HGB CONC 34.9 % (32.0-36.0); MEAN PLATELET VOLUME 8.9 FL (7.0-11.0); MONOCYTE # 0.6 TH/MM3 (0-0.9); NEUT % 88.5 % (16.0-70.0); PLATELET COUNT 121 TH/MM3 (150-450); RED BLOOD COUNT 2.64 MIL/MM3 (4.50-5.90); RED CELL DISTRIBUTION WIDTH 13.6 % (11.6-17.2); WHITE BLOOD COUNT 11.6 TH/MM3 (4.0-11.0)
[2017-04-13 06:53] LABS: BICARBONATE 21.3 MEQ/L (21.0-32.0); CALCIUM 7.4 MG/DL (8.5-10.1); CALCIUM-PROTEIN CORRECTED 8.4 MG/DL (8.5-10.1); CREATININE 1.34 MG/DL (0.60-1.30); TOTAL BILIRUBIN ADULT 0.3 MG/DL (0.2-1.0); TOTAL PROTEIN 5.3 GM/DL (6.4-8.2)
[2017-04-13] MEDS: HEPARIN SODIUM - SQ 10,000 UNITS/ML VIAL SQ SCH ×3 (07:26→22:01)
[2017-04-13] MEDS: lamoTRIgine 100 MG TAB PO SCH ×2 (08:23→22:01)
[2017-04-13] MEDS: FAMOTIDINE 20 MG/2 ML VIAL IV PUSH SCH ×2 (08:24→22:01)
[2017-04-13] MEDS: GABAPENTIN 300 MG CAP PO SCH ×3 (08:24→18:21)
[2017-04-13] MEDS: CHLORHEXIDINE 0.12% (ORAL KIT) 15 ML CUP MT SCH (08:24)
[2017-04-13] MEDS: ARTIFICIAL TEARS OPTH SOLN 15 ML BTL EACH EYE SCH ×3 (08:25→18:21)
[2017-04-13] MEDS: VANCOMYCIN 1,500 MG/NS 500 ML IV SCH ×2 (08:25)
[2017-04-13] MEDS: DOCUSATE SODIUM 100 MG/10 ML UDC PO SCH ×2 (08:26→22:00)
[2017-04-13] MEDS: SODIUM CHLORIDE 0.9% FLUSH 10 ML FLUSH IV FLUSH SCH (08:26)
[2017-04-13] MEDS: RESP: ALBUTEROL 2.5 MG/IPRATROPIUM 0.5 MG NEB (PRN) INH (11:39)
[2017-04-13] MEDS ORDERED: ROCURONIUM INJ 50 MG/5 ML VIAL ONE (11:49)
--- NOTE | 2017-04-13 12:41 | HHI.CCPN ---
Subjective Remarks/Hospital Course 51-year-old male presents from home where he was identified to have altered mental status and decreasing level of consciousness. Patient was also identified to have temperature elevation and paramedics identified room air O2 saturations to be 72%. Patient was immediately placed on supplemental oxygen without improvement of oxygenation or level of consciousness. Family members were concerned that patient may have overdosed on medications but the medications listed did not show any opiates. Patient's blood sugar was fine. No reported injury or trauma. Paramedics determined patient needed further ventilation support and attempted intubation in the field but this was unsuccessful and patient presents to the emergency department with ambu assisted ventilations. Multiple attempts were made in the emergency department intubated the patient for an airway protection, which was extremely difficult and patient was finally intubated by account management specialist. 04/12: Continues to be critically ill intubated copious amount of ET tube secretions. Chest x-ray continues to show patchy bilateral infiltrates. Started on Levophed overnight to keep map above 65. Creat and WBC count have slightly improved. Gram neg rods in sputum gram stain. Currently on Zosyn, I will add vancomycin 04/13: Developed severe ventilator asynchrony today with low lung volumes. Most likely secondary to ET tube obstruction from secretions. After multiple suctioning volumes improved but patient remained tachypneic. Neuromuscularly paralyzed for hypoxia and asynchrony. Sputum culture growing Klebsiella Objective Vital Signs Date Time Temp Pulse Resp B/P (MAP) Pulse Ox O2 Delivery O2 Flow Rate FiO2 04/13/17 11:46 100 100 04/13/17 09:30 113 69 108/72 (84) 04/13/17 04:00 98.8 04/11/17 03:30 15.00 04/11/17 03:20 Ventilator Intake and Output 04/13/17 04/13/17 04/14/17 08:00 16:00 00:00 Intake Total 200 ml Output Total 550 ml Balance -350 ml Result Diagram: 04/13/17 0530 04/13/17 0530 Other Results Microbiology Date/Time Source Procedure Growth Status 04/11/17 13:40 Sputum Endotracheal Gram Stain - Final Complete 04/11/17 13:40 Sputum Culture - Final Klebsiella Pneumoniae Complete 04/11/17 03:20 Nasal Washing Influenza Types A,B Antigen (JERMAINE) - Final NEGATIVE FOR FLU A AND B ANTIGEN.... Complete 04/11/17 19:50 Urine Catheterized Urine Urine Culture - Final NO GROWTH IN 48 HOURS. Complete Imaging Last 24 hours Impressions Chest X-Ray 04/11/17 0000 Signed Impressions: Service Date/Time: Tuesday, April 11, 2017 00:26 - CONCLUSION: 1. Bilateral air space consolidation predominantly perihilar. Nasogastric tube and endotracheal tube in good position. Jone Daly MD Objective Remarks Drips: Propofol Versed Levophed Normal saline infusion 124 ml per hour GENERAL: Well-nourished, well-developed patient. Sedated and intubated, critically ill SKIN: Warm and dry. HEAD: Normocephalic. EYES: No scleral icterus. No injection or drainage. ENT: Orotracheally intubated with copious yellow secretions from ET tube NECK: Supple, trachea midline. No JVD or lymphadenopathy. CARDIOVASCULAR: Tachycardic rate and rhythm without murmurs, gallops, or rubs. RESPIRATORY: Breath sounds equal bilaterally. Coarse rhonchi and crackles. Few expiratory wheezes. Tachypneic asynchronous with the ventilator GASTROINTESTINAL: Abdomen soft, non-tender, nondistended. MUSCULOSKELETAL: No cyanosis, or edema. NEURO EXAM: Sedated and intubated middle-aged gentleman. Moves extremities spontaneously A/P Assessment and Plan NEURO: Altered mental status/encephalopathy Possible drug overdose History of depressions other psychological disorders Seizure disorder - CT head negative - Drug screen positive only for benzodiazepines - Continue propofol for sedation wean to DC Versed - Hold Effexor, Seroquel, Hydroxyzine, Quetiapine - Daily sedation medication once respiratory status improves - Continue Lamictal for seizure disorder - Psych consult once extubated RESP: Acute hypoxemic respiratory failure Bilateral pneumonia Difficult airway - Intubated for an airway protection - Intubated in ED after multiple attempts by anesthesia - Continue mechanical ventilation, PC/AC. Intermittent rocuronium for neuromuscular paralysis for vent synchrony - No weaning until neurologically, resp improved - Vent bundle, DuoNeb scheduled and when necessary - Broad-spectrum antibiotics with vancomycin and Zosyn-changed to Rocephin CVS: Septic shock dyslipidemia - Normal saline at 125 mL/h, reduce to 50 ml per hour - Levophed to keep map above 65 - Hold Simvastatin, Fenofibrate due to liver enzyme elevation - Hold Losartan GI: Elevated liver enzymes - Start tube feeds with Jevity, IV famotidine - Liver enzymes trending down, possible shock liver : Acute kidney injury Rhabdomyolysis (CPK >25,000) - Unknown baseline creat, CPK trending down - IV fluids, monitor creat - Strict I's and O's ID Septic shock Multilobar pneumonia/Klebsiella and sputum - Broad-spectrum antibiotics with vancomycin and Zosyn-change to Rocephin - Follow up on cultures HEME: - Monitor CBC CMP coags ENDO: - Electrolyte replacement per protocol DVT GI prophylaxis - Teds SCDs - Subcutaneous heparin - Pepcid Critical Care: The total critical care time was 35 minutes. Time to perform other separately billable procedures was not included in the critical care time. Jenny Nieves MD Apr 13, 2017 12:41
[2017-04-13] MEDS ORDERED: POTASSIUM PHOSPHATE MONOBASIC 500 MG TAB PO PRN (12:45)
[2017-04-13] MEDS ORDERED: MAGNESIUM SULFATE INJ 2 GM in SODIUM CHLORIDE 0.9% INJ 96 ML IV PRN (12:45)
[2017-04-13] MEDS ORDERED: MAGNESIUM OXIDE 400 MG TAB PO PRN (12:45)
[2017-04-13] MEDS ORDERED: SODIUM PHOSPHATE INJ 30 MMOL in SODIUM CHLOR 0.9% 250 ML INJ 240 ML IV PRN (12:45)
[2017-04-13] MEDS ORDERED: MAGNESIUM SULFATE INJ 4 GM in SODIUM CHLORIDE 0.9% INJ 92 ML IV PRN (12:45)
[2017-04-13] MEDS ORDERED: POTASSIUM CHLOR 20 MEQ PREMIX 100 ML IV PRN ×2 (12:45)
[2017-04-13] MEDS ORDERED: POTASSIUM PHOSPHATE MONOBASIC 500 MG TAB PO/TUBE PRN (12:45)
[2017-04-13] MEDS ORDERED: POTASSIUM CHLOR 40 MEQ PREMIX 100 ML IV PRN (12:45)
--- NOTE | 2017-04-13 12:58 | RADRPT ---
EXAM DATE/TIME: 04/13/2017 11:59 [facility] COMPARISON: CHEST SINGLE AP, April 13, 2017, 3:55. INDICATIONS : Shortness of breath. MEDICAL HISTORY : None. SURGICAL HISTORY : None. ENCOUNTER: Subsequent ACUITY: 3 days PAIN SCORE: Non-responsive. LOCATION: Bilateral chest FINDINGS: Portable AP view of the chest demonstrates a normal-sized cardiac silhouette. Endotracheal tube, naso gastric tube, and right subclavian central line remain present. Multiple EKG lines overlie the patien t. There is diffuse left lung airspace consolidation and patchy airspace opacity in the right upper a nd right lower lung zone. No pneumothorax or pleural effusion is visualized. Bones demonstrate no acu te finding. CONCLUSION: Stable chest x-ray with bilateral airspace opacity, left greater than right. Ezequiel Nobles MD on April 13, 2017 at 12:53 Board Certified Radiologist. This report was verified electronically.
--- NOTE | 2017-04-13 12:59 | RADRPT ---
EXAM DATE/TIME: 04/13/2017 12:02 [facility] COMPARISON: No previous studies available for comparison. INDICATIONS : Abdominal distention. MEDICAL HISTORY : None. SURGICAL HISTORY : None. ENCOUNTER: Subsequent ACUITY: 1 day PAIN SCORE: Non-responsive. LOCATION: abdomen FINDINGS: 2 supine frontal views of the abdomen demonstrate air within bowel in a nonobstructive pattern. Nasog astric tube overlies the stomach and Hargrove catheter is present. There is a relative paucity of bowel gas but no features to suggest obstruction. No organomegaly or concerning calcifications are identifi ed. The bones demonstrate no acute finding. CONCLUSION: No acute abdominal abnormality is identified. Ezequiel Nobles MD on April 13, 2017 at 12:55 Board Certified Radiologist. This report was verified electronically.
[2017-04-13] MEDS: cefTRIAXone INJ 2,000 MG in SODIUM CHLORIDE 0.9% INJ 100 ML IV SCH (14:13)
[2017-04-13] MEDS: POTASSIUM CHLOR 40 MEQ PREMIX 100 ML IV PRN (14:14)
--- NOTE | 2017-04-13 15:33 | MG ---
cc: VIOLA SUTTON M.D. Sex: M TECHNIQUE A 17 channel EEG. DESCRIPTION The background rhythm is generally slow mainly in the theta and delta frequencies ranging from 3-4 Hz. Amplitude is 20-30 microvolts. No lateralizing features identified and no epileptiform features are identified. Photic stimulation results in a poor driving response. INTERPRETATION Abnormal study consistent with moderately severe encephalopathy. MD STEVEN Tomas/TERI /2:57 PM /3:09 PM
[2017-04-14] VITALS (52 sets, daily range): BP systolic 93–145; BP diastolic 56–90; PULSE 83–121; RESP 20–45; TEMP 99.2–100; O2SAT 86–100
[2017-04-14] MEDS ORDERED: PHARMACY ORDERED LAB ONE (01:45)
[2017-04-14] MEDS: CHLORHEXIDINE GLUCONATE 2 % 1 PACK (2 CLOTHS) TOP SCH (04:00)
[2017-04-14] MEDS: PROPOFOL 1000 MG/100 ML INJ 100 ML IV PRN ×4 (04:13→18:02)
[2017-04-14] MEDS: SODIUM CHLOR 0.9% 1000 ML INJ 1,000 ML IV SCH (04:13)
[2017-04-14] MEDS: RESP: ALBUTEROL 2.5 MG/IPRATROPIUM 0.5 MG NEB (SCH) INH ×4 (04:19→20:46)
--- NOTE | 2017-04-14 04:35 | RADRPT ---
EXAM DATE/TIME: 04/14/2017 02:58 [facility] COMPARISON: CHEST SINGLE AP, April 13, 2017, 11:59. INDICATIONS : Short of breath. MEDICAL HISTORY : None. SURGICAL HISTORY : None. ENCOUNTER: Subsequent ACUITY: 4 - 6 days PAIN SCORE: 0/10 LOCATION: Bilateral chest FINDINGS: Patchy bilateral airspace disease greatest in the left lower lobe, unchanged. Cardiomegaly, right sub clavian line and endotracheal tube as well as enteric tube again seen. CONCLUSION: No significant change has occurred. Zacarias Sylvester MD on April 14, 2017 at 4:32 Board Certified Radiologist. This report was verified electronically.
[2017-04-14 05:41] LABS: AUTOMATED NEUTROPHIL # 10.9 TH/MM3 (1.8-7.7); BASOPHIL % 0.3 % (0.0-2.0); EOSINOPHIL # 0.2 TH/MM3 (0-0.4); EOSINOPHIL % 1.2 % (0.0-4.0); HEMATOCRIT 25.2 % (39.0-51.0); HEMOGLOBIN 8.8 GM/DL (13.0-17.0); LYMPH % 5.5 % (9.0-44.0); LYMPHOCYTE # 0.7 TH/MM3 (1.0-4.8); MEAN CELL VOLUME 98.8 FL (80.0-100.0); MEAN CORPUSCULAR HEMOGLOBIN 34.3 PG (27.0-34.0); MEAN CORPUSCULAR HGB CONC 34.7 % (32.0-36.0); MEAN PLATELET VOLUME 9.9 FL (7.0-11.0); MONO % 6.3 % (0.0-8.0); MONOCYTE # 0.8 TH/MM3 (0-0.9); NEUT % 86.7 % (16.0-70.0); PLATELET COUNT 151 TH/MM3 (150-450); RED BLOOD COUNT 2.56 MIL/MM3 (4.50-5.90); RED CELL DISTRIBUTION WIDTH 13.8 % (11.6-17.2); WHITE BLOOD COUNT 12.5 TH/MM3 (4.0-11.0)
[2017-04-14 06:24] LABS: ALBUMIN 1.8 GM/DL (3.4-5.0); ALKALINE PHOSPHATASE 61 U/L (45-117); ALT (GPT) 40 U/L (12-78); AST (GOT) 65 U/L (15-37); BICARBONATE 21.1 MEQ/L (21.0-32.0); BLOOD UREA NITROGEN 18 MG/DL (7-18); CHLORIDE 121 MEQ/L (98-107); CREATININE 1.17 MG/DL (0.60-1.30); GLOMERULAR FILTRATION RATE 66 ML/MIN (>89); GLUCOSE,RANDOM 120 MG/DL (74-106); MAGNESIUM 2.8 MG/DL (1.5-2.5); SODIUM (NA) 149 MEQ/L (136-145); TOTAL BILIRUBIN ADULT 0.2 MG/DL (0.2-1.0); TOTAL PROTEIN 5.6 GM/DL (6.4-8.2)
[2017-04-14] MEDS: HEPARIN SODIUM - SQ 10,000 UNITS/ML VIAL SQ SCH ×3 (06:34→23:10)
[2017-04-14 07:45] LABS: BANDS 11 % (0-6); BASOPHILS 1 % (0-2); CORRECTED NUCLEATED RBC 1 /100 WBC (0-0); LYMPHOCYTES 1 % (9-44); MONOCYTES 6 % (0-8); MYELOCYTES 2 % (0-0); NEUTROPHIL # MANUAL DIFF 11.5 TH/MM3 (1.8-7.7); NUCLEATED RED BLOOD CELL 1 (0-0); POLYS (SEG NEUTROPHILS) 79 % (16-70)
[2017-04-14] MEDS: lamoTRIgine 100 MG TAB PO SCH ×2 (09:22→23:10)
[2017-04-14] MEDS: ARTIFICIAL TEARS OPTH SOLN 15 ML BTL EACH EYE SCH ×3 (09:22→17:21)
[2017-04-14] MEDS: FAMOTIDINE 20 MG/2 ML VIAL IV PUSH SCH ×2 (09:22→23:10)
[2017-04-14] MEDS: DOCUSATE SODIUM 100 MG/10 ML UDC PO SCH ×2 (09:22→21:00)
[2017-04-14] MEDS: GABAPENTIN 300 MG CAP PO SCH ×3 (09:22→17:21)
[2017-04-14] MEDS: CHLORHEXIDINE 0.12% (ORAL KIT) 15 ML CUP MT SCH ×2 (09:23→23:08)
[2017-04-14] MEDS: SODIUM CHLORIDE 0.9% FLUSH 10 ML FLUSH IV FLUSH SCH ×2 (09:23→23:11)
--- NOTE | 2017-04-14 09:45 | HHI.CCPN ---
Subjective Remarks/Hospital Course 51-year-old male presents from home where he was identified to have altered mental status and decreasing level of consciousness. Patient was also identified to have temperature elevation and paramedics identified room air O2 saturations to be 72%. Patient was immediately placed on supplemental oxygen without improvement of oxygenation or level of consciousness. Family members were concerned that patient may have overdosed on medications but the medications listed did not show any opiates. Patient's blood sugar was fine. No reported injury or trauma. Paramedics determined patient needed further ventilation support and attempted intubation in the field but this was unsuccessful and patient presents to the emergency department with ambu assisted ventilations. Multiple attempts were made in the emergency department intubated the patient for an airway protection, which was extremely difficult and patient was finally intubated by possum trapper. 04/12: Continues to be critically ill intubated copious amount of ET tube secretions. Chest x-ray continues to show patchy bilateral infiltrates. Started on Levophed overnight to keep map above 65. Creat and WBC count have slightly improved. Gram neg rods in sputum gram stain. Currently on Zosyn, I will add vancomycin 04/13: Developed severe ventilator asynchrony today with low lung volumes. Most likely secondary to ET tube obstruction from secretions. After multiple suctioning volumes improved but patient remained tachypneic. Neuromuscularly paralyzed for hypoxia and asynchrony. Sputum culture growing Klebsiella 04/14: Remains intubated sedated continues to be asynchronous with the ventilator when sedation is lightened. Continues to have copious secretions. Fluid overloaded will start Lasix 20 every 12 with potassium supplementation Objective Vital Signs Date Time Temp Pulse Resp B/P (MAP) Pulse Ox O2 Delivery O2 Flow Rate FiO2 04/14/17 08:03 96 30 04/14/17 06:00 85 04/14/17 04:00 99.4 20 106/56 (73) 04/11/17 03:30 15.00 04/11/17 03:20 Ventilator Intake and Output 04/14/17 04/14/17 04/15/17 08:00 16:00 00:00 Intake Total 1375 ml 100 ml Output Total 2112 ml Balance -737 ml 100 ml Result Diagram: 04/14/17 0430 04/14/17 0430 Other Results Microbiology Date/Time Source Procedure Growth Status 04/11/17 13:40 Sputum Endotracheal Gram Stain - Final Complete 04/11/17 13:40 Sputum Culture - Final Klebsiella Pneumoniae Complete 04/11/17 19:50 Urine Catheterized Urine Urine Culture - Final NO GROWTH IN 48 HOURS. Complete Imaging Last 24 hours Impressions Chest X-Ray 04/11/17 0000 Signed Impressions: Service Date/Time: Tuesday, April 11, 2017 00:26 - CONCLUSION: 1. Bilateral air space consolidation predominantly perihilar. Nasogastric tube and endotracheal tube in good position. Jone Daly MD Objective Remarks Drips: Propofol Normal saline infusion 50 ml per hour GENERAL: Well-nourished, well-developed patient. Sedated and intubated, critically ill SKIN: Warm and dry. HEAD: Normocephalic. EYES: No scleral icterus. No injection or drainage. ENT: Orotracheally intubated with copious yellow secretions from ET tube NECK: Supple, trachea midline. No JVD or lymphadenopathy. CARDIOVASCULAR: Tachycardic rate and rhythm without murmurs, gallops, or rubs. RESPIRATORY: Breath sounds equal bilaterally. Coarse rhonchi and crackles, mild expiratory wheezes. GASTROINTESTINAL: Abdomen soft, non-tender, nondistended. MUSCULOSKELETAL: No cyanosis, or edema. NEURO EXAM: Sedated and intubated middle-aged man. Moves extremities spontaneously A/P Assessment and Plan NEURO: Altered mental status/encephalopathy Possible drug overdose/suicide attempt History of depressions other psychological disorders Seizure disorder - CT head negative - Drug screen positive only for benzodiazepines - Continue propofol for sedation, daily sedation location - Hold Effexor, Seroquel, Hydroxyzine, Quetiapine - Continue Lamictal for seizure disorder - Psych consult once extubated RESP: Acute hypoxemic respiratory failure Bilateral pneumonia Difficult airway - Intubated for an airway protection - Intubated in ED after multiple attempts by anesthesia - Continue mechanical ventilation, PC/AC. Intermittent rocuronium for neuromuscular paralysis for vent synchrony - No weaning until neurologically, resp improved - Vent bundle, DuoNeb scheduled and when necessary - Broad-spectrum antibiotics with vancomycin and Zosyn-changed to Rocephin CVS: Septic shock -resolved Fluid overload dyslipidemia - Discontinue IV fluids, start Lasix 20 mg IV every 12 - Levophed to keep map above 65, now off - Hold Simvastatin, Fenofibrate due to liver enzyme elevation - Hold Losartan GI: Elevated liver enzymes - Tube feeds with Jevity, IV famotidine - Liver enzymes trending down, possible shock liver : Acute kidney injury Rhabdomyolysis (CPK >25,000) - Unknown baseline creat, CPK trending down - IV Lasix as above, monitor creat - Strict I's and O's ID Septic shock improving Multilobar pneumonia/Klebsiella and sputum - Continue Rocephin - Sputum culture growing Klebsiella HEME: - Monitor CBC CMP coags ENDO: - Electrolyte replacement per protocol DVT GI prophylaxis - Teds SCDs - Subcutaneous heparin - Pepcid Critical Care: The total critical care time was 35 minutes. Time to perform other separately billable procedures was not included in the critical care time. Jenny Nieves MD Apr 14, 2017 09:45
[2017-04-14] MEDS: FUROSEMIDE 20 MG/2 ML VIAL IV PUSH SCH ×2 (10:58→17:21)
[2017-04-14] MEDS: ALBUMIN 25% INJ 100 ML IV SCH (10:58)
[2017-04-14] MEDS: POTASSIUM CHLORIDE 25 MEQ EFFERVESCENT TAB PO SCH ×2 (11:00→23:11)
[2017-04-14] MEDS: POTASSIUM CHLORIDE 25 MEQ EFFERVESCENT TAB PO PRN (11:09)
[2017-04-14] MEDS: cefTRIAXone INJ 2,000 MG in SODIUM CHLORIDE 0.9% INJ 100 ML IV SCH (13:58)
[2017-04-14] MEDS: POTASSIUM PHOSPHATE INJ 30 MMOL in SODIUM CHLOR 0.9% 250 ML INJ 250 ML IV PRN (18:07)
[2017-04-14 20:16] LABS: BLOOD, URINE LARGE (NEG); URINE COLOR RED (YELLW/STRAW)
[2017-04-14 20:17] LABS: BILIRUBIN, URINE LARGE (NEG); GLUCOSE,URINE 500 mg/dL (NEG); KETONE, URINE 80 mg/dL (NEG); NITRITE,URINE POS (NEG); PH, URINE GREATER THAN 9.0 (5.0-8.5)
[2017-04-14 20:18] LABS: RBC, URINE INNUM /hpf (0-3); URINE LEUKOCYTE ESTERASE LARGE (NEG)
[2017-04-14 20:19] LABS: BACTERIA, URINE FEW /hpf; SQUAMOUS EPITHELIAL CELL URINE 0-5 /hpf (0-5)
[2017-04-14] MEDS ORDERED: IOHEXOL 350 MG/ML 10 ML VIAL (for RAD DIAG) IVCONTRAST ONE (22:31)
--- NOTE | 2017-04-14 22:48 | RADRPT ---
EXAM DATE/TIME: 04/14/2017 22:16 [facility] COMPARISON: No previous studies available for comparison. INDICATIONS : Patient with sepsis, hematuria. Delayed images to evaluate ureters. IV CONTRAST: 100 cc Omnipaque 350 (iohexol) IV ORAL CONTRAST: No oral contrast ingested. RADIATION DOSE: 16.66 CTDIvol (mGy) MEDICAL HISTORY : None SURGICAL HISTORY : None. ENCOUNTER: Initial ACUITY: 1 day PAIN SCALE: 0/10 LOCATION: Abdomen/pelvis TECHNIQUE: Volumetric scanning of the abdomen and pelvis was performed. Using automated exposure control and ad justment of the mA and/or kV according to patient size, radiation dose was kept as low as reasonably achievable to obtain optimal diagnostic quality images. DICOM format image data is available electro nically for review and comparison. FINDINGS: CT Abdomen: The liver, spleen, pancreas, kidneys, adrenals are unremarkable. There is no evidence for any appreciable pathological adenopathy, free fluid, or bowel obstruction. Tiny bilateral pleural ef fusions are seen. There is dense airspace process in both lung bases nonspecific may be edema and/or pneumonia. CT pelvis: There is no evidence for mass, abscess formation, or any significant adenopathy within the pelvis. The prostate gland is inhomogeneous and measures 2.8 x 3.6 cm in AP and transverse diameters and nonspecific and there appears to be a possibleTURP defect. There is gas within the bladder could be due to Hargrove catheter. Has the patient had a Hargrove catheter in place. In the posterior portion of the bladder makes it there is inhomogeneity of the urine mixing with contrast, however floating debr is is difficult to exclude. There is an area of fluid and air collection within the posterior urethra measures 3.1 cm in maximum AP diameter. CONCLUSION: 1. Bilateral pleural effusions and bibasilar airspace process may represent edema and/or pneumonia. 2. There is an approximate 3.1 cm fluid-containing structure within the posterior urethra nonspecific and the exact etiology is not certain. There is gas within the bladder as well could be related to t he same process or possibly introduced iatrogenically there possibility of abscess in the posterior u rethra is not excluded. Arsen Galicia MD on April 14, 2017 at 22:40 Board Certified Radiologist. This report was verified electronically.
[2017-04-15] VITALS (19 sets, daily range): BP systolic 95–149; BP diastolic 52–90; PULSE 85–104; RESP 20–37; TEMP 99–100.5; O2SAT 92–98
[2017-04-15] MEDS: PROPOFOL 1000 MG/100 ML INJ 100 ML IV PRN ×5 (03:24→21:56)
[2017-04-15] MEDS: ALBUMIN 25% INJ 100 ML IV SCH ×3 (03:24→21:56)
[2017-04-15] MEDS: RESP: ALBUTEROL 2.5 MG/IPRATROPIUM 0.5 MG NEB (SCH) INH ×4 (03:43→19:33)
[2017-04-15] MEDS: CHLORHEXIDINE GLUCONATE 2 % 1 PACK (2 CLOTHS) TOP SCH (04:00)
[2017-04-15] MEDS: HEPARIN SODIUM - SQ 10,000 UNITS/ML VIAL SQ SCH ×2 (06:00→12:40)
[2017-04-15] MEDS: CHLORHEXIDINE 0.12% (ORAL KIT) 15 ML CUP MT SCH ×2 (08:00→20:00)
[2017-04-15] MEDS: DOCUSATE SODIUM 100 MG/10 ML UDC PO SCH ×2 (09:00→21:59)
[2017-04-15] MEDS: FUROSEMIDE 20 MG/2 ML VIAL IV PUSH SCH (09:58)
[2017-04-15] MEDS: FAMOTIDINE 20 MG/2 ML VIAL IV PUSH SCH ×2 (09:58→21:59)
[2017-04-15] MEDS: lamoTRIgine 100 MG TAB PO SCH ×2 (09:59→21:59)
[2017-04-15] MEDS: SODIUM CHLORIDE 0.9% FLUSH 10 ML FLUSH IV FLUSH PRN (09:59)
[2017-04-15] MEDS: SODIUM CHLORIDE 0.9% FLUSH 10 ML FLUSH IV FLUSH SCH ×2 (09:59→22:00)
[2017-04-15] MEDS: GABAPENTIN 300 MG CAP PO SCH ×3 (09:59→17:44)
[2017-04-15] MEDS: POTASSIUM CHLORIDE 25 MEQ EFFERVESCENT TAB PO SCH ×2 (09:59→21:59)
[2017-04-15] MEDS: ARTIFICIAL TEARS OPTH SOLN 15 ML BTL EACH EYE SCH ×3 (10:01→17:45)
--- NOTE | 2017-04-15 12:00 | PD.CONS ---
HPI Service Urology Consult Requested By Dr Nieves Reason for Consult Blood in urine Primary Care Physician Unknown Diagnosis: History of Present Illness Pt is currently sedated and intubated so his HPI was obtained from other Dr's notes: 51-year-old male presents from home where he was identified to have altered mental status and decreasing level of consciousness. Patient was also identified to have temperature elevation and paramedics identified room air O2 saturations to be 72%. Patient was immediately placed on supplemental oxygen without improvement of oxygenation or level of consciousness. Family members were concerned that patient may have overdosed on medications but the medications listed did not show any opiates. Patient's blood sugar was fine. No reported injury or trauma. Paramedics determined patient needed further ventilation support and attempted intubation in the field but this was unsuccessful and patient presents to the emergency department with ambu assisted ventilations. Multiple attempts were made in the emergency department intubated the patient for an airway protection, which was extremely difficult and patient was finally intubated by patient admitting representative. He remains intubated. Creatinine improves, White count is slightly elevated. He is on Heparin. Based on his current diagnoses he has Rhabdo which can cause blood in urine. His UA yesterday showed also pos. Nitrites and UC was sent, still pending. Pt is on antibiotics already. CT scan reviewed and his urethral cyst is a catheter balloon sitting at the prostatic urethra, his guzman was not advanced all the way to the bladder and bladder was still distended. Yesterday we recommended to advance guzman. He is not draining a lot of urine its mostly blood due to urethral trauma from previous guzman insertion. I tried to advanced guzman cath into the bladder but due to resistance was not able to succeed. 18Fr Coude Guzman catheter was used and was placed into the bladder with some difficulties due to the bladder spasms. 10cc ballon was inflated, 1500cc of clear yellow urine was drained right away and continued to drain well, no visible hematuria. Bag was placed to gravity. Review of Systems Except as stated in HPI: all other systems reviewed are Neg Past Family Social History Past Medical History Depression Hypertension Dyslipidemia Asthma Past Surgical History Unable to obtain Allergies: Coded Allergies: No Allergy Information Available (Unverified , 04/11/17) Family History Unable to obtain Social History Negative for tobacco, illicit drug, or alcohol abuse Physical Exam Vital Signs Date Time Temp Pulse Resp B/P (MAP) Pulse Ox O2 Delivery O2 Flow Rate FiO2 04/15/17 10:00 100 04/15/17 10:00 100 31 149/90 (109) 96 04/15/17 09:00 99 30 144/89 (107) 97 04/15/17 09:00 99 04/15/17 08:05 97 40 04/15/17 08:00 99.4 98 30 142/88 (106) 98 04/15/17 08:00 40 04/15/17 08:00 98 04/15/17 07:00 95 04/15/17 07:00 95 30 132/84 (100) 97 04/15/17 04:00 99.0 87 20 105/62 (76) 96 04/15/17 04:00 87 04/15/17 04:00 45 04/15/17 03:43 96 45 04/15/17 02:00 96 04/15/17 00:00 100.2 96 37 127/76 (93) 96 04/15/17 00:00 45 04/15/17 00:00 96 04/14/17 23:30 98 45 04/14/17 22:16 100 04/14/17 20:49 100 45 04/14/17 20:00 35 04/14/17 20:00 100.0 104 42 145/90 (108) 89 04/14/17 18:30 86 04/14/17 18:15 88 04/14/17 18:01 104 04/14/17 18:00 104 04/14/17 17:45 92 04/14/17 17:30 91 04/14/17 17:15 94 04/14/17 17:00 91 04/14/17 16:45 91 18 16:30 91 18 16:15 91 18 16:00 90 04/14/17 16:00 35 04/14/17 16:00 99.2 04/14/17 15:45 84 04/14/17 15:30 84 18 15:15 87 04/14/17 15:06 94 35 04/14/17 15:00 92 04/14/17 14:45 100 04/14/17 14:30 93 04/14/17 14:15 83 04/14/17 14:00 84 04/14/17 12:45 97 04/14/17 12:45 97 33 113/74 (87) 97 04/14/17 12:30 101 04/14/17 12:30 101 45 113/70 (84) 86 04/14/17 12:15 98 04/14/17 12:15 98 35 113/72 (86) 94 04/14/17 12:00 35 04/14/17 12:00 98 36 108/66 (80) 93 04/14/17 12:00 98 04/14/17 11:45 100 04/14/17 11:45 100 36 112/69 (83) 93 Physical Exam GENERAL: This is a well-nourished, well-developed patient, in no apparent distress. SKIN: No rashes, ecchymoses or lesions. Cool and dry. HEAD: Atraumatic. Normocephalic. No temporal or scalp tenderness. CARDIOVASCULAR: Regular rate and rhythm without murmurs, gallops, or rubs. RESPIRATORY: Intubated GASTROINTESTINAL: Abdomen soft, non-tender, ND GENITOURINARY:Bladder was distended, Guzman is not in a good position. normal genital exam. + scrotal edema MUSCULOSKELETAL: Extremities without clubbing, cyanosis, or edema. . NEUROLOGICAL: Sedated Lab results reviewed: Yes Laboratory Tests Test 04/14/17 17:10 Urine Color RED Urine Turbidity TURBID Urine pH GREATER THAN 9.0 Urine Specific [place] LESS THAN 1.005 Urine Protein 300 OR GREATER Urine Glucose (UA) 500 Urine Ketones 80 Urine Occult Blood LARGE Urine Nitrite POS Urine Bilirubin LARGE Urine Urobilinogen GREATER THAN 8.0 Urine Leukocyte Esterase LARGE Urine RBC INNUM Urine WBC 25-49 Urine Squamous Epithelial Cells 0-5 Urine Bacteria FEW Microscopic Urinalysis Comment CATH-CULTURE IND Date/Time Source Procedure Growth Status 04/11/17 00:25 Blood Peripheral Aerobic Blood Culture - Preliminary NO GROWTH IN 4 DAYS Resulted 04/11/17 00:25 Blood Peripheral Anaerobic Blood Culture - Preliminary NO GROWTH IN 4 DAYS Resulted 04/11/17 13:40 Sputum Endotracheal Gram Stain - Final Complete 04/11/17 13:40 Sputum Culture - Final Klebsiella Pneumoniae Complete 04/14/17 17:10 Urine Catheterized Urine Urine Culture Pending Received Result Diagram: 04/14/17 0430 04/14/17 0430 Imaging Last Impressions Chest X-Ray 04/14/17 0600 Signed Impressions: Service Date/Time: Friday, April 14, 2017 02:58 - CONCLUSION: No significant change has occurred. Zacarias Sylvester MD Abdomen/Pelvis CT 04/14/17 0000 Signed Impressions: Service Date/Time: Friday, April 14, 2017 22:16 - CONCLUSION: 1. Bilateral pleural effusions and bibasilar airspace process may represent edema and/or pneumonia. 2. There is an approximate 3.1 cm fluid-containing structure within the posterior urethra nonspecific and the exact etiology is not certain. There is gas within the bladder as well could be related to the same process or possibly introduced iatrogenically there possibility of abscess in the posterior urethra is not excluded. Arsen Galicia MD Abdomen X-Ray 04/13/17 0000 Signed Impressions: Service Date/Time: Thursday, April 13, 2017 12:02 - CONCLUSION: No acute abdominal abnormality is identified. Ezequiel Nobles MD Head CT 04/11/17 0015 Signed Impressions: Service Date/Time: Tuesday, April 11, 2017 00:53 - CONCLUSION: 1. No acute intracranial abnormality. Right maxillary sinusitis. Mucosal thickening in the ethmoid air cells. Jone Daly MD Assessment and Plan Assessment and Plan 51y.o. Male with respiratory distress and sepsis Urology consulted for hematuria. Plan: - Continue care as per CCU team - Pt has no hematuria and not oliguric/anuric His Guzman was not in a good position and he was draining some blood from previous urethral trauma from catheter placements. No urethral cystic structures on CT its his guzman balloon in urethra, bladder was not drained properly and was distended -Urology replaced existed guzman with a 18Fr Coude catheter and 1500cc of clear urine yellow, was drained - Keep Guzman catheter in for at least a week to help urethra heal and for I&O monitoring - Start pt on Flomax and Proscar daily - No additional intervention needed. he will need an outpt follow up with after discharge Urology remains available as needed Discussed Condition With Dr Devin PATEL attending who agrees with this plan Jm Latif Apr 15, 2017 12:00
[2017-04-15] MEDS: ACETAMINOPHEN 325 MG TAB PO PRN (12:39)
[2017-04-15] MEDS ORDERED: DEXMEDETOMIDINE INJ 200 MCG in SODIUM CHLORIDE 0.9% INJ 50 ML IV PRN (13:00)
--- NOTE | 2017-04-15 13:14 | HHI.CCPN ---
Subjective Remarks/Hospital Course 51-year-old male presents from home where he was identified to have altered mental status and decreasing level of consciousness. Patient was also identified to have temperature elevation and paramedics identified room air O2 saturations to be 72%. Patient was immediately placed on supplemental oxygen without improvement of oxygenation or level of consciousness. Family members were concerned that patient may have overdosed on medications but the medications listed did not show any opiates. Patient's blood sugar was fine. No reported injury or trauma. Paramedics determined patient needed further ventilation support and attempted intubation in the field but this was unsuccessful and patient presents to the emergency department with ambu assisted ventilations. Multiple attempts were made in the emergency department intubated the patient for an airway protection, which was extremely difficult and patient was finally intubated by order checker packer processer. 04/12: Continues to be critically ill intubated copious amount of ET tube secretions. Chest x-ray continues to show patchy bilateral infiltrates. Started on Levophed overnight to keep map above 65. Creat and WBC count have slightly improved. Gram neg rods in sputum gram stain. Currently on Zosyn, I will add vancomycin 04/13: Developed severe ventilator asynchrony today with low lung volumes. Most likely secondary to ET tube obstruction from secretions. After multiple suctioning volumes improved but patient remained tachypneic. Neuromuscularly paralyzed for hypoxia and asynchrony. Sputum culture growing Klebsiella 04/14: Remains intubated sedated continues to be asynchronous with the ventilator when sedation is lightened. Continues to have copious secretions. Fluid overloaded will start Lasix 20 every 12 with potassium supplementation 04/15: Oliguric to anuric with hematuria. CT abdomen pelvis 04/14 showing 3.1 cm fluid-containing structure within the posterior urethra nonspecific and there is gas within the bladder. Etiology unclear. Patient remains tachypneic on lightening sedation. Not following commands Objective Vital Signs Date Time Temp Pulse Resp B/P (MAP) Pulse Ox O2 Delivery O2 Flow Rate FiO2 04/15/17 12:08 97 40 04/15/17 12:00 100.5 104 34 149/88 (108) Intake and Output 04/15/17 04/15/17 04/15/17 07:59 15:59 23:59 Intake Total 590 ml Output Total 50 ml Balance 540 ml Result Diagram: 04/14/1742904/14/17 043 Imaging Last 24 hours Impressions Chest X-Ray 04/11/17 0000 Signed Impressions: Service Date/Time: Tuesday, April 11, 2017 00:26 - CONCLUSION: 1. Bilateral air space consolidation predominantly perihilar. Nasogastric tube and endotracheal tube in good position. Jone Daly MD Objective Remarks Drips: Propofol GENERAL: Well-nourished, well-developed patient. Sedated and intubated, critically ill SKIN: Warm and dry. HEAD: Normocephalic. EYES: No scleral icterus. No injection or drainage. ENT: Orotracheally intubated NECK: Supple, trachea midline. No JVD or lymphadenopathy. CARDIOVASCULAR: Tachycardic rate and rhythm without murmurs, gallops, or rubs. RESPIRATORY: Breath sounds equal bilaterally. Coarse rhonchi and crackles, mild expiratory wheezes. GASTROINTESTINAL: Abdomen soft, distended. Nontender : [place] with bloody urine MUSCULOSKELETAL: No cyanosis, or edema. NEURO EXAM: Sedated and intubated middle-aged man. Moves extremities spontaneously, do not follow commands A/P Assessment and Plan NEURO: Altered mental status/encephalopathy Possible drug overdose/suicide attempt History of depressions other psychological disorders Seizure disorder - CT head negative - Drug screen positive only for benzodiazepines - Continue propofol for sedation, daily sedation location. Precedex to facilitate vent weaning - Hold Effexor, Seroquel, Hydroxyzine, Quetiapine - Continue Lamictal for seizure disorder - Psych consult once extubated RESP: Acute hypoxemic respiratory failure Bilateral pneumonia Difficult airway - Intubated for airway protection - Intubated in ED after multiple attempts by anesthesia - Continue mechanical ventilation, PC/AC. Intermittent rocuronium for neuromuscular paralysis for vent synchrony - No weaning until neurologically, respiratory jones improved - Vent bundle, DuoNeb scheduled and when necessary - Continue Rocephin CVS: Septic shock -resolved Fluid overload dyslipidemia - Discontinue Lasix - Levophed to keep map above 65, now off - Hold Simvastatin, Fenofibrate due to liver enzyme elevation - Hold Losartan GI: Elevated liver enzymes - Tube feeds with Jevity, IV famotidine - Liver enzymes trending down, possible shock liver : Acute kidney injury Now with hematuria and acute oliguria Rhabdomyolysis (CPK >25,000) - Unknown baseline creat, CPK trending down - Urology consult for possible obstructive uropathy, 3 cm fluid collection in the posterior urethra, air in blader - Strict I's and O's ID Sepsis Multilobar pneumonia/Klebsiella and sputum - Continue Rocephin - Sputum culture growing Klebsiella HEME: - Monitor CBC CMP coags ENDO: - Electrolyte replacement per protocol DVT GI prophylaxis - Teds SCDs - Subcutaneous heparin-DC due to hematuria - Pepcid Critical Care: The total critical care time was 35 minutes. Time to perform other separately billable procedures was not included in the critical care time. Critically ill encephalopathy process now with oliguria/anuria and severe hematuria. Urology consult is pending Jenny Nieves MD Apr 15, 2017 13:14
[2017-04-15] MEDS: cefTRIAXone INJ 2,000 MG in SODIUM CHLORIDE 0.9% INJ 100 ML IV SCH (13:19)
[2017-04-15 16:11] LABS: ALBUMIN 2.8 GM/DL (3.4-5.0); ALKALINE PHOSPHATASE 63 U/L (45-117); ALT (GPT) 31 U/L (12-78); AST (GOT) 46 U/L (15-37); BICARBONATE 19.8 MEQ/L (21.0-32.0); BLOOD UREA NITROGEN 27 MG/DL (7-18); CALCIUM 8.7 MG/DL (8.5-10.1); CHLORIDE 121 MEQ/L (98-107); GLOMERULAR FILTRATION RATE 40 ML/MIN (>89); GLUCOSE,RANDOM 156 MG/DL (74-106); SODIUM (NA) 150 MEQ/L (136-145); TOTAL BILIRUBIN ADULT 0.4 MG/DL (0.2-1.0); TOTAL PROTEIN 6.7 GM/DL (6.4-8.2)
[2017-04-15] MEDS ORDERED: SODIUM BICARBONATE 8.4% INJ 50 MEQ/50 ML SYR IV PUSH ONE (16:30)
[2017-04-15] MEDS: SODIUM CHLORIDE 23.4% INJ 38.5 MEQ in WATER STERILE FOR INJ 1,000 ML IV SCH (17:43)
[2017-04-15] MEDS: DEXMEDETOMIDINE INJ 1,000 MCG in SODIUM CHLOR 0.9% 250 ML INJ 240 ML IV PRN (22:41)
[2017-04-16] VITALS (18 sets, daily range): BP systolic 106–140; BP diastolic 63–78; PULSE 70–105; RESP 23–30; TEMP 99–102.5; O2SAT 23–96
[2017-04-16] MEDS: PROPOFOL 1000 MG/100 ML INJ 100 ML IV PRN ×5 (00:12→23:18)
--- NOTE | 2017-04-16 02:08 | RADRPT ---
EXAM DATE/TIME: 04/16/2017 01:33 [facility] COMPARISON: CHEST SINGLE AP, April 14, 2017, 2:58. INDICATIONS : Evaluate for pneumonia- Respiratory failure MEDICAL HISTORY : None. SURGICAL HISTORY : None. ENCOUNTER: Subsequent ACUITY: 4 - 6 days PAIN SCORE: Non-responsive. LOCATION: Bilateral chest FINDINGS: There is worsening parenchymal process in both lungs since the prior exam and probable worsening pulm onary edema. Lines and tubes are present not significantly changed. The rest of the examination has n ot significantly changed. CONCLUSION: Probable worsening pulmonary edema. Arsen Galicia MD on April 16, 2017 at 2:05 Board Certified Radiologist. This report was verified electronically.
[2017-04-16] MEDS: RESP: ALBUTEROL 2.5 MG/IPRATROPIUM 0.5 MG NEB (SCH) INH ×4 (03:42→20:00)
[2017-04-16] MEDS: CHLORHEXIDINE GLUCONATE 2 % 1 PACK (2 CLOTHS) TOP SCH (04:00)
[2017-04-16] MEDS: SODIUM CHLORIDE 23.4% INJ 38.5 MEQ in WATER STERILE FOR INJ 1,000 ML IV SCH ×2 (04:06→18:06)
[2017-04-16 06:53] LABS: AUTOMATED NEUTROPHIL # 7.6 TH/MM3 (1.8-7.7); BASOPHIL # 0.1 TH/MM3 (0-0.2); BASOPHIL % 1.1 % (0.0-2.0); EOSINOPHIL # 0.3 TH/MM3 (0-0.4); HEMATOCRIT 22.1 % (39.0-51.0); HEMOGLOBIN 7.7 GM/DL (13.0-17.0); LYMPH % 10.1 % (9.0-44.0); MEAN CELL VOLUME 99.2 FL (80.0-100.0); MEAN CORPUSCULAR HEMOGLOBIN 34.4 PG (27.0-34.0); MEAN CORPUSCULAR HGB CONC 34.7 % (32.0-36.0); MEAN PLATELET VOLUME 9.9 FL (7.0-11.0); MONO % 6.8 % (0.0-8.0); MONOCYTE # 0.7 TH/MM3 (0-0.9); PLATELET COUNT 178 TH/MM3 (150-450); RED BLOOD COUNT 2.23 MIL/MM3 (4.50-5.90); RED CELL DISTRIBUTION WIDTH 14.3 % (11.6-17.2); WHITE BLOOD COUNT 9.7 TH/MM3 (4.0-11.0)
[2017-04-16 07:30] LABS: ALBUMIN 2.4 GM/DL (3.4-5.0); ALT (GPT) 28 U/L (12-78); AST (GOT) 42 U/L (15-37); BICARBONATE 23.4 MEQ/L (21.0-32.0); BLOOD UREA NITROGEN 32 MG/DL (7-18); CALCIUM 8.5 MG/DL (8.5-10.1); CHLORIDE 120 MEQ/L (98-107); CREATININE 1.48 MG/DL (0.60-1.30); GLOMERULAR FILTRATION RATE 50 ML/MIN (>89); GLUCOSE,RANDOM 131 MG/DL (74-106); SODIUM (NA) 151 MEQ/L (136-145)
[2017-04-16 07:31] LABS: ALKALINE PHOSPHATASE 63 U/L (45-117); TOTAL BILIRUBIN ADULT 0.2 MG/DL (0.2-1.0)
[2017-04-16] MEDS: POTASSIUM CHLORIDE 25 MEQ EFFERVESCENT TAB PO SCH ×2 (08:22→23:20)
[2017-04-16] MEDS: FAMOTIDINE 20 MG/2 ML VIAL IV PUSH SCH ×2 (08:23→23:19)
[2017-04-16] MEDS: CHLORHEXIDINE 0.12% (ORAL KIT) 15 ML CUP MT SCH ×2 (08:23→20:00)
[2017-04-16] MEDS: ARTIFICIAL TEARS OPTH SOLN 15 ML BTL EACH EYE SCH ×3 (08:23→18:09)
[2017-04-16] MEDS: lamoTRIgine 100 MG TAB PO SCH ×2 (08:23→23:20)
[2017-04-16] MEDS: GABAPENTIN 300 MG CAP PO SCH ×3 (08:24→18:06)
[2017-04-16 08:34] LABS: BANDS 23 % (0-6); CORRECTED NUCLEATED RBC 2 /100 WBC (0-0); LYMPHOCYTES 5 % (9-44); METAMYELOCYTES 4 % (0-1); MONOCYTES 6 % (0-8); MYELOCYTES 3 % (0-0); NEUTROPHIL # MANUAL DIFF 8.5 TH/MM3 (1.8-7.7); NUCLEATED RED BLOOD CELL 2 (0-0); POLYS (SEG NEUTROPHILS) 58 % (16-70)
[2017-04-16] MEDS: SODIUM CHLORIDE 0.9% FLUSH 10 ML FLUSH IV FLUSH SCH ×2 (08:36→23:19)
--- NOTE | 2017-04-16 08:47 | HHI.CCPN ---
Subjective Remarks/Hospital Course 51-year-old male presents from home where he was identified to have altered mental status and decreasing level of consciousness. Patient was also identified to have temperature elevation and paramedics identified room air O2 saturations to be 72%. Patient was immediately placed on supplemental oxygen without improvement of oxygenation or level of consciousness. Family members were concerned that patient may have overdosed on medications but the medications listed did not show any opiates. Patient's blood sugar was fine. No reported injury or trauma. Paramedics determined patient needed further ventilation support and attempted intubation in the field but this was unsuccessful and patient presents to the emergency department with ambu assisted ventilations. Multiple attempts were made in the emergency department intubated the patient for an airway protection, which was extremely difficult and patient was finally intubated by airfreight operations agent. 04/12: Continues to be critically ill intubated copious amount of ET tube secretions. Chest x-ray continues to show patchy bilateral infiltrates. Started on Levophed overnight to keep map above 65. Creat and WBC count have slightly improved. Gram neg rods in sputum gram stain. Currently on Zosyn, I will add vancomycin 04/13: Developed severe ventilator asynchrony today with low lung volumes. Most likely secondary to ET tube obstruction from secretions. After multiple suctioning volumes improved but patient remained tachypneic. Neuromuscularly paralyzed for hypoxia and asynchrony. Sputum culture growing Klebsiella 04/14: Remains intubated sedated continues to be asynchronous with the ventilator when sedation is lightened. Continues to have copious secretions. Fluid overloaded will start Lasix 20 every 12 with potassium supplementation 04/15: Oliguric to anuric with hematuria. CT abdomen pelvis 04/14 showing 3.1 cm fluid-containing structure within the posterior urethra nonspecific and there is gas within the bladder. Etiology unclear. Patient remains tachypneic on lightening sedation. Not following commands 04/16: Remains intubated sedated encephalopathic. Chest x-ray shows worsening pulmonary edema, bilateral crackles/rales on exam. Currently on Precedex and propofol and slowly weaned off propofol. Urine output increased after replacing Guzman. Apparently catheter balloon was sitting in prostatic urethra, his guzman was not advanced all the way to the bladder. This was replaced by urology with excellent UO now. On 03/04 NS for hyperNa Objective Vital Signs Date Time Temp Pulse Resp B/P (MAP) Pulse Ox O2 Delivery O2 Flow Rate FiO2 2/16/18 08:04 96 35 04/16/17 06:00 75 04/16/17 04:00 100.2 24 116/71 (86) Intake and Output 04/16/17 04/16/17 04/17/17 08:00 16:00 00:00 Intake Total 1643 ml Output Total 850 ml Balance 793 ml Result Diagram: 04/16/17 0520 04/16/17 0520 Other Results Laboratory Tests Test 04/15/17 13:25 Blood Gas Puncture Site RT RADIAL Blood Gas Patient Temperature 98.6 Blood Gas HCO3 19 mmol/L (22-26) Blood Gas Base Excess -5.1 mmol/L (-2-2) Blood Gas Oxygen Saturation 94 % (90-100) Arterial Blood pH 7.41 (7.380-7.420) Arterial Blood Partial Pressure CO2 30 mmHg (38-42) Arterial Blood Partial Pressure O2 82 mmHg (61-120) Arterial Blood Oxygen Content 15.9 Vol % (12.0-20.0) Arterial Blood Carboxyhemoglobin 1.0 % (0-4) Arterial Blood Methemoglobin 1.5 % (0-2) Blood Gas Hemoglobin 12.0 G/DL (12.0-16.0) Oxygen Delivery Device VENTILATOR Blood Gas Ventilator Setting Blood Gas Inspired Oxygen 40 % Imaging Last 24 hours Impressions Chest X-Ray 04/11/17 0000 Signed Impressions: Service Date/Time: Tuesday, April 11, 2017 00:26 - CONCLUSION: 1. Bilateral air space consolidation predominantly perihilar. Nasogastric tube and endotracheal tube in good position. Jone Daly MD Objective Remarks Drips: Propofol Precedex GENERAL: Well-nourished, well-developed patient. Sedated and intubated, critically ill SKIN: Warm and dry. HEAD: Normocephalic. EYES: No scleral icterus. No injection or drainage. ENT: Orotracheally intubated NECK: Supple, trachea midline. No JVD or lymphadenopathy. CARDIOVASCULAR: Tachycardia improved no murmurs, gallops, or rubs. RESPIRATORY: Breath sounds equal bilaterally. Coarse rhonchi and diffuse rales bilaterally GASTROINTESTINAL: Abdomen soft, distended. Nontender : Guzman with bloody urine, now clearing MUSCULOSKELETAL: No cyanosis, or edema. NEURO EXAM: Sedated and intubated middle-aged man. Moves extremities spontaneously, do not follow commands. Opening eyes to noxious stimuli A/P Assessment and Plan NEURO: Altered mental status/encephalopathy Possible drug overdose/suicide attempt History of depressions other psychological disorders Seizure disorder - CT head negative - Drug screen positive only for benzodiazepines - Continue propofol for sedation, daily sedation location. Precedex to facilitate vent weaning - Holding Effexor, Seroquel, Hydroxyzine. resume Seroquel today 04/16 - Continue Lamictal for seizure disorder - Psych consult once extubated RESP: Acute hypoxemic respiratory failure Bilateral pneumonia Difficult airway - Intubated for airway protection - Intubated in ED after multiple attempts by anesthesia - Continue mechanical ventilation, PC/AC. Intermittent rocuronium for neuromuscular paralysis for vent synchrony - No extubation until neurologically, respiratory jones improved. Attempt daily CPAP - Vent bundle, DuoNeb scheduled and when necessary - Continue Rocephin CVS: Septic shock -resolved Fluid overload/pulmonary edema dyslipidemia - Restart IV Lasix, 40 mg now and 20 every 12 due to fluid overload - Levophed to keep map above 65, now off - Hold Simvastatin, Fenofibrate due to liver enzyme elevation - Hold Losartan GI: Elevated liver enzymes - Tube feeds with Jevity, IV famotidine - Liver enzymes trending down, possible shock liver : Acute kidney injury Obstructive uropathy due to Guzman balloon inflated in the urethra Now with hematuria and acute oliguria Rhabdomyolysis (CPK >25,000) - Unknown baseline creat, CPK trending down - Urology consulted, replaced Guzman which was misplaced (Guzman balloon was inflated in the prostatic urethra) - Strict I's and O's ID Sepsis Multilobar pneumonia/Klebsiella and sputum - Continue Rocephin - Sputum culture growing Klebsiella HEME: - Monitor CBC CMP coags ENDO: - Electrolyte replacement per protocol DVT GI prophylaxis - Teds SCDs - Subcutaneous heparin-DCd due to hematuria, will resume today - Pepcid Critical Care: The total critical care time was 35 minutes. Time to perform other separately billable procedures was not included in the critical care time. Critically ill encephalopathic with persistent respiratory failure, pulmoanry edeam and pneumonia. Remains critically ill unable to ventilator wean at this time, requiring full life support Jenny Nieves MD Apr 16, 2017 08:47
[2017-04-16] MEDS: DOCUSATE SODIUM 100 MG/10 ML UDC PO SCH ×2 (09:00→23:20)
[2017-04-16] MEDS ORDERED: FUROSEMIDE 40 MG/4 ML VIAL IV PUSH ONE (09:00)
[2017-04-16] MEDS: cefTRIAXone INJ 2,000 MG in SODIUM CHLORIDE 0.9% INJ 100 ML IV SCH (14:00)
[2017-04-16] MEDS: HEPARIN SODIUM - SQ 10,000 UNITS/ML VIAL SQ SCH ×2 (14:01→23:21)
[2017-04-16] MEDS: ACETAMINOPHEN 325 MG TAB PO PRN (18:06)
[2017-04-16] MEDS: FUROSEMIDE 20 MG/2 ML VIAL IV PUSH SCH (23:19)
[2017-04-16] MEDS: QUEtiapine FUMARATE 200 MG TAB PO SCH (23:20)
[2017-04-16] MEDS: DEXMEDETOMIDINE INJ 1,000 MCG in SODIUM CHLOR 0.9% 250 ML INJ 240 ML IV PRN (23:35)
[2017-04-17] VITALS (42 sets, daily range): BP systolic 111–133; BP diastolic 66–84; PULSE 62–91; RESP 21–53; TEMP 98.4–101.2; O2SAT 19–100
[2017-04-17] MEDS: RESP: ALBUTEROL 2.5 MG/IPRATROPIUM 0.5 MG NEB (SCH) INH ×4 (03:37→21:49)
[2017-04-17] MEDS: CHLORHEXIDINE GLUCONATE 2 % 1 PACK (2 CLOTHS) TOP SCH (04:00)
--- NOTE | 2017-04-17 04:38 | RADRPT ---
EXAM DATE/TIME: 04/17/2017 03:46 [facility] COMPARISON: CHEST SINGLE AP, April 16, 2017, 1:33. INDICATIONS : Shortness of breath, possible pulmonary disease. MEDICAL HISTORY : None. SURGICAL HISTORY : None. ENCOUNTER: Subsequent ACUITY: 1 week PAIN SCORE: Non-responsive. LOCATION: Bilateral chest FINDINGS: There is diffuse bilateral mixed interstitial and alveolar process not significantly changed. Lines a nd tubes are present not significantly changed. The rest of the examination has not significantly león nged. CONCLUSION: No appreciable change. Arsen Galicia MD on April 17, 2017 at 4:36 Board Certified Radiologist. This report was verified electronically.
[2017-04-17] MEDS: PROPOFOL 1000 MG/100 ML INJ 100 ML IV PRN ×6 (05:06→22:25)
[2017-04-17] MEDS: SODIUM CHLORIDE 23.4% INJ 38.5 MEQ in WATER STERILE FOR INJ 1,000 ML IV SCH ×2 (05:07→16:22)
[2017-04-17] MEDS: HEPARIN SODIUM - SQ 10,000 UNITS/ML VIAL SQ SCH ×3 (05:16→19:52)
[2017-04-17 06:40] LABS: BASOPHIL # 0.1 TH/MM3 (0-0.2); BASOPHIL % 1.4 % (0.0-2.0); EOSINOPHIL # 0.3 TH/MM3 (0-0.4); EOSINOPHIL % 3.4 % (0.0-4.0); HEMATOCRIT 22.4 % (39.0-51.0); HEMOGLOBIN 7.6 GM/DL (13.0-17.0); LYMPHOCYTE # 1.1 TH/MM3 (1.0-4.8); MEAN CORPUSCULAR HEMOGLOBIN 33.4 PG (27.0-34.0); MEAN CORPUSCULAR HGB CONC 33.8 % (32.0-36.0); MEAN PLATELET VOLUME 9.8 FL (7.0-11.0); MONOCYTE # 0.6 TH/MM3 (0-0.9); NEUT % 78.2 % (16.0-70.0); PLATELET COUNT 233 TH/MM3 (150-450); RED BLOOD COUNT 2.26 MIL/MM3 (4.50-5.90); RED CELL DISTRIBUTION WIDTH 14.3 % (11.6-17.2); WHITE BLOOD COUNT 10.2 TH/MM3 (4.0-11.0)
[2017-04-17 07:08] LABS: ALBUMIN 2.1 GM/DL (3.4-5.0); ALT (GPT) 34 U/L (12-78); AST (GOT) 51 U/L (15-37); BICARBONATE 26.1 MEQ/L (21.0-32.0); BLOOD UREA NITROGEN 29 MG/DL (7-18); CALCIUM 8.5 MG/DL (8.5-10.1); CHLORIDE 114 MEQ/L (98-107); CREATININE 1.17 MG/DL (0.60-1.30); GLOMERULAR FILTRATION RATE 66 ML/MIN (>89); GLUCOSE,RANDOM 117 MG/DL (74-106); MAGNESIUM 2.8 MG/DL (1.5-2.5); SODIUM (NA) 148 MEQ/L (136-145)
[2017-04-17 07:09] LABS: ALKALINE PHOSPHATASE 66 U/L (45-117); TOTAL BILIRUBIN ADULT 0.3 MG/DL (0.2-1.0); TOTAL PROTEIN 5.8 GM/DL (6.4-8.2)
[2017-04-17] MEDS: CHLORHEXIDINE 0.12% (ORAL KIT) 15 ML CUP MT SCH ×2 (08:00→19:54)
[2017-04-17] MEDS: FUROSEMIDE 20 MG/2 ML VIAL IV PUSH SCH ×2 (08:16→19:52)
[2017-04-17] MEDS: POTASSIUM CHLORIDE 25 MEQ EFFERVESCENT TAB PO SCH ×2 (08:17→19:52)
[2017-04-17] MEDS: FAMOTIDINE 20 MG/2 ML VIAL IV PUSH SCH ×2 (08:17→19:52)
[2017-04-17] MEDS: GABAPENTIN 300 MG CAP PO SCH ×3 (08:18→18:59)
[2017-04-17] MEDS: POTASSIUM CHLORIDE 25 MEQ EFFERVESCENT TAB PO PRN (08:18)
[2017-04-17] MEDS: lamoTRIgine 100 MG TAB PO SCH ×2 (08:19→19:52)
[2017-04-17] MEDS: DOCUSATE SODIUM 100 MG/10 ML UDC PO SCH ×2 (08:25→19:51)
[2017-04-17] MEDS: SODIUM CHLORIDE 0.9% FLUSH 10 ML FLUSH IV FLUSH SCH ×2 (08:25→19:53)
[2017-04-17] MEDS: ARTIFICIAL TEARS OPTH SOLN 15 ML BTL EACH EYE SCH ×3 (08:25→18:58)
[2017-04-17 08:47] LABS: AMORPHOUS SEDIMENT, URINE RARE; BACTERIA, URINE FEW /hpf; BILIRUBIN, URINE NEG (NEG); BLOOD, URINE MOD (NEG); GLUCOSE,URINE NEG (NEG); HYALINE CAST, URINE 1 /lpf (RARE); KETONE, URINE NEG (NEG); MUCUS URINE FEW /lpf (OCC); NITRITE,URINE NEG (NEG); PH, URINE 5.5 (5.0-8.5); URINE COLOR YELLOW (YELLW/STRAW); URINE LEUKOCYTE ESTERASE SMALL (NEG)
[2017-04-17 09:56] LABS: BANDS 17 % (0-6); CORRECTED NUCLEATED RBC 2 /100 WBC (0-0); LYMPHOCYTES 8 % (9-44); METAMYELOCYTES 3 % (0-1); MONOCYTES 4 % (0-8); NEUTROPHIL # MANUAL DIFF 8.7 TH/MM3 (1.8-7.7); NUCLEATED RED BLOOD CELL 2 (0-0); POLYS (SEG NEUTROPHILS) 65 % (16-70)
[2017-04-17] MEDS: DEXMEDETOMIDINE INJ 1,000 MCG in SODIUM CHLOR 0.9% 250 ML INJ 240 ML IV PRN ×2 (12:15→22:24)
[2017-04-17] MEDS: ACETAMINOPHEN 325 MG TAB PO PRN (12:20)
--- NOTE | 2017-04-17 16:27 | HHI.CCPN ---
Subjective Remarks/Hospital Course 51-year-old male presents from home where he was identified to have altered mental status and decreasing level of consciousness. Patient was also identified to have temperature elevation and paramedics identified room air O2 saturations to be 72%. Patient was immediately placed on supplemental oxygen without improvement of oxygenation or level of consciousness. Family members were concerned that patient may have overdosed on medications but the medications listed did not show any opiates. Patient's blood sugar was fine. No reported injury or trauma. Paramedics determined patient needed further ventilation support and attempted intubation in the field but this was unsuccessful and patient presents to the emergency department with ambu assisted ventilations. Multiple attempts were made in the emergency department intubated the patient for an airway protection, which was extremely difficult and patient was finally intubated by publicist. 04/12: Continues to be critically ill intubated copious amount of ET tube secretions. Chest x-ray continues to show patchy bilateral infiltrates. Started on Levophed overnight to keep map above 65. Creat and WBC count have slightly improved. Gram neg rods in sputum gram stain. Currently on Zosyn, I will add vancomycin 04/13: Developed severe ventilator asynchrony today with low lung volumes. Most likely secondary to ET tube obstruction from secretions. After multiple suctioning volumes improved but patient remained tachypneic. Neuromuscularly paralyzed for hypoxia and asynchrony. Sputum culture growing Klebsiella 04/14: Remains intubated sedated continues to be asynchronous with the ventilator when sedation is lightened. Continues to have copious secretions. Fluid overloaded will start Lasix 20 every 12 with potassium supplementation 04/15: Oliguric to anuric with hematuria. CT abdomen pelvis 04/14 showing 3.1 cm fluid-containing structure within the posterior urethra nonspecific and there is gas within the bladder. Etiology unclear. Patient remains tachypneic on lightening sedation. Not following commands 04/16: Remains intubated sedated encephalopathic. Chest x-ray shows worsening pulmonary edema, bilateral crackles/rales on exam. Currently on Precedex and propofol and slowly weaned off propofol. Urine output increased after replacing Guzman. Apparently catheter balloon was sitting in prostatic urethra, his guzman was not advanced all the way to the bladder. This was replaced by urology with excellent UO now. On 03/04 NS for hyperNa. 04/17: Patient remains encephalopathic. Chest x-ray unchanged. Patient continued on Precedex infusion. Urine output within normal limits, creatinine improved today. Sodium level downtrending. Objective Vital Signs Date Time Temp Pulse Resp B/P (MAP) Pulse Ox O2 Delivery O2 Flow Rate FiO2 04/17/17 15:09 96 40 04/17/17 12:30 83 04/17/17 12:30 25 133/76 (95) 04/17/17 12:00 100.3 Intake and Output 04/17/17 04/17/17 04/18/17 08:00 16:00 00:00 Intake Total 1620 ml 90 ml Output Total 1900 ml Balance -280 ml 90 ml Result Diagram: 04/17/17 0510 04/17/17 0510 Other Results Microbiology Date/Time Source Procedure Growth Status 04/14/17 17:10 Urine Catheterized Urine Urine Culture - Final NO GROWTH IN 48 HOURS. Complete Imaging Last Impressions Chest X-Ray 04/17/17 0600 Signed Impressions: Service Date/Time: Monday, April 17, 2017 03:46 - CONCLUSION: No appreciable change. Arsen Galicia MD Abdomen/Pelvis CT 04/14/17 0000 Signed Impressions: Service Date/Time: Friday, April 14, 2017 22:16 - CONCLUSION: 1. Bilateral pleural effusions and bibasilar airspace process may represent edema and/or pneumonia. 2. There is an approximate 3.1 cm fluid-containing structure within the posterior urethra nonspecific and the exact etiology is not certain. There is gas within the bladder as well could be related to the same process or possibly introduced iatrogenically there possibility of abscess in the posterior urethra is not excluded. Arsen Galicia MD Abdomen X-Ray 04/13/17 0000 Signed Impressions: Service Date/Time: Thursday, April 13, 2017 12:02 - CONCLUSION: No acute abdominal abnormality is identified. Ezequiel Nobles MD Head CT 04/11/17 0015 Signed Impressions: Service Date/Time: Tuesday, April 11, 2017 00:53 - CONCLUSION: 1. No acute intracranial abnormality. Right maxillary sinusitis. Mucosal thickening in the ethmoid air cells. Jone Daly MD Last 24 hours Impressions Chest X-Ray 04/11/17 0000 Signed Impressions: Service Date/Time: Tuesday, April 11, 2017 00:26 - CONCLUSION: 1. Bilateral air space consolidation predominantly perihilar. Nasogastric tube and endotracheal tube in good position. Jone Daly MD Objective Remarks Drips: Propofol Precedex GENERAL: Well-nourished, well-developed patient. Sedated and intubated, critically ill SKIN: Warm and dry. HEAD: Normocephalic. EYES: No scleral icterus. No injection or drainage. ENT: Orotracheally intubated NECK: Supple, trachea midline. No JVD or lymphadenopathy. CARDIOVASCULAR: Tachycardia improved no murmurs, gallops, or rubs. RESPIRATORY: Breath sounds equal bilaterally. Coarse rhonchi and diffuse rales bilaterally GASTROINTESTINAL: Abdomen soft, distended. Nontender : Guzman with bloody urine, now clearing MUSCULOSKELETAL: No cyanosis, or edema. NEURO EXAM:RASS -3 Sedated and intubated middle-aged man. Moves extremities spontaneously, do not follow commands. Opening eyes to noxious stimuli A/P Assessment and Plan NEURO: Altered mental status/encephalopathy Possible drug overdose/suicide attempt History of depressions other psychological disorders Seizure disorder - CT head negative - Drug screen positive only for benzodiazepines - Continue propofol for sedation, daily sedation location. Precedex to facilitate vent weaning - Holding Effexor, Seroquel, Hydroxyzine. resume Seroquel today 04/16 - Continue Lamictal for seizure disorder - Psych consult once extubated RESP: Acute hypoxemic respiratory failure Bilateral pneumonia Difficult airway - Intubated for airway protection - Intubated in ED after multiple attempts by anesthesia - Continue mechanical ventilation, PC/AC. Intermittent rocuronium for neuromuscular paralysis for vent synchrony - No extubation until neurologically, respiratory jones improved. Attempt daily CPAP - Vent bundle, DuoNeb scheduled and when necessary - Continue Rocephin CVS: Septic shock -resolved Fluid overload/pulmonary edema dyslipidemia - Restart IV Lasix, 40 mg now and 20 every 12 due to fluid overload - Levophed to keep map above 65, now off - Hold Simvastatin, Fenofibrate due to liver enzyme elevation - Continue to Hold Losartan GI: Elevated liver enzymes - Tube feeds with Jevity, IV famotidine - Liver enzymes trending down, possible shock liver : Acute kidney injury Obstructive uropathy due to Guzman balloon inflated in the urethra Now with hematuria and acute oliguria Rhabdomyolysis (CPK >25,000) - Unknown baseline creat, CPK trending down - Urology consulted, replaced Guzman which was misplaced (Guzman balloon was inflated in the prostatic urethra) - Strict I's and O's ID Sepsis Multilobar pneumonia/Klebsiella and sputum - Continue Rocephin - Sputum culture growing Klebsiella HEME: - Monitor CBC CMP coags ENDO: - Electrolyte replacement per protocol DVT GI prophylaxis - Teds SCDs - Subcutaneous heparin-DCd due to hematuria, will resume today - Pepcid Critical Care: my billing statement This patient remains critically ill with one or more organ systems which are or may become a threat to life. I have spent in excess of 30minutes discontinuously in the care and management of this patient. This time is exclusive of procedures, and includes, but is not limited to, evaluation of the patient, review of the medical record, discussions with family, consultants, nursing staff, or respiratory therapy, and documentation in the medical record. Critically ill encephalopathic with persistent respiratory failure, pulmoanry edeam and pneumonia. Remains critically ill unable to ventilator wean at this time, requiring full life support Discussed possibility of tracheostomy and PEG with patient's mother at bedside, discussed with RECONSTRUCTIVE DENTIST at bedside (Candy) Physician Mecca Randle MD Apr 17, 2017 16:27
[2017-04-17] MEDS: cefTRIAXone INJ 2,000 MG in SODIUM CHLORIDE 0.9% INJ 100 ML IV SCH (16:47)
[2017-04-17] MEDS: QUEtiapine FUMARATE 200 MG TAB PO SCH (19:52)
[2017-04-18] VITALS (53 sets, daily range): BP systolic 111–129; BP diastolic 60–83; PULSE 61–109; RESP 14–40; TEMP 98.6–103.1; O2SAT 92–100
[2017-04-18] MEDS: SODIUM CHLORIDE 23.4% INJ 38.5 MEQ in WATER STERILE FOR INJ 1,000 ML IV SCH ×2 (02:55→17:02)
[2017-04-18] MEDS: PROPOFOL 1000 MG/100 ML INJ 100 ML IV PRN ×7 (02:55→21:25)
[2017-04-18] MEDS: DEXMEDETOMIDINE INJ 1,000 MCG in SODIUM CHLOR 0.9% 250 ML INJ 240 ML IV PRN ×3 (02:56→17:09)
[2017-04-18] MEDS: RESP: ALBUTEROL 2.5 MG/IPRATROPIUM 0.5 MG NEB (SCH) INH ×2 (03:18→07:53)
[2017-04-18] MEDS: CHLORHEXIDINE GLUCONATE 2 % 1 PACK (2 CLOTHS) TOP SCH (04:00)
--- NOTE | 2017-04-18 04:59 | RADRPT ---
EXAM DATE/TIME: 04/18/2017 04:10 [facility] COMPARISON: CHEST SINGLE AP, April 17, 2017, 3:46. INDICATIONS : Shortness of breath, possible pulmonary disease. MEDICAL HISTORY : None. SURGICAL HISTORY : None. ENCOUNTER: Subsequent ACUITY: 1 week PAIN SCORE: Non-responsive. LOCATION: Bilateral chest FINDINGS: A single view of the chest demonstrates endotracheal tube in good position. Right central line in sup erior vena cava. NG enters stomach. Bilateral airspace disease similar to April 17. No significant effusion. No pneumothorax. CONCLUSION: 1. Bilateral air space disease similar to April 17. Support apparatus unchanged. Jone Daly MD on April 18, 2017 at 4:56 Board Certified Radiologist. This report was verified electronically.
[2017-04-18] MEDS: HEPARIN SODIUM - SQ 10,000 UNITS/ML VIAL SQ SCH ×3 (06:00→21:26)
[2017-04-18 06:24] LABS: AUTOMATED NEUTROPHIL # 7.5 TH/MM3 (1.8-7.7); BASOPHIL # 0.1 TH/MM3 (0-0.2); BASOPHIL % 0.9 % (0.0-2.0); EOSINOPHIL # 0.3 TH/MM3 (0-0.4); EOSINOPHIL % 2.9 % (0.0-4.0); HEMATOCRIT 21.9 % (39.0-51.0); LYMPH % 10.7 % (9.0-44.0); MEAN CELL VOLUME 97.4 FL (80.0-100.0); MEAN CORPUSCULAR HEMOGLOBIN 35.5 PG (27.0-34.0); MEAN PLATELET VOLUME 9.1 FL (7.0-11.0); MONO % 4.9 % (0.0-8.0); MONOCYTE # 0.5 TH/MM3 (0-0.9); NEUT % 80.6 % (16.0-70.0); PLATELET COUNT 286 TH/MM3 (150-450); RED BLOOD COUNT 2.25 MIL/MM3 (4.50-5.90); RED CELL DISTRIBUTION WIDTH 13.9 % (11.6-17.2); WHITE BLOOD COUNT 9.4 TH/MM3 (4.0-11.0)
[2017-04-18 06:29] LABS: MEAN CORPUSCULAR HGB CONC 36.4 % (32.0-36.0)
[2017-04-18 06:41] LABS: BICARBONATE 27.5 MEQ/L (21.0-32.0); CALCIUM 8.5 MG/DL (8.5-10.1); CREATININE 0.91 MG/DL (0.60-1.30); MAGNESIUM 2.7 MG/DL (1.5-2.5)
[2017-04-18 06:49] LABS: PHOSPHORUS 4.4 MG/DL (2.5-4.9)
[2017-04-18] MEDS: CHLORHEXIDINE 0.12% (ORAL KIT) 15 ML CUP MT SCH ×2 (08:00→20:00)
[2017-04-18] MEDS: DOCUSATE SODIUM 100 MG/10 ML UDC PO SCH ×2 (08:08→21:25)
[2017-04-18] MEDS: FUROSEMIDE 20 MG/2 ML VIAL IV PUSH SCH ×2 (08:08→21:27)
[2017-04-18] MEDS: SODIUM CHLORIDE 0.9% FLUSH 10 ML FLUSH IV FLUSH SCH ×2 (08:08→21:00)
[2017-04-18] MEDS: POTASSIUM CHLORIDE 25 MEQ EFFERVESCENT TAB PO SCH ×2 (08:09→21:25)
[2017-04-18] MEDS: ARTIFICIAL TEARS OPTH SOLN 15 ML BTL EACH EYE SCH ×3 (08:09→17:03)
[2017-04-18] MEDS: FAMOTIDINE 20 MG/2 ML VIAL IV PUSH SCH ×2 (08:09→21:26)
[2017-04-18] MEDS: POTASSIUM CHLORIDE 25 MEQ EFFERVESCENT TAB PO PRN (08:10)
[2017-04-18] MEDS: lamoTRIgine 100 MG TAB PO SCH ×2 (08:10→21:26)
[2017-04-18] MEDS: GABAPENTIN 300 MG CAP PO SCH ×3 (08:10→17:03)
[2017-04-18 11:02] LABS: BANDS 11 % (0-6); LYMPHOCYTES 14 % (9-44); MONOCYTES 6 % (0-8); MYELOCYTES 2 % (0-0); NEUTROPHIL # MANUAL DIFF 7.1 TH/MM3 (1.8-7.7); POLYS (SEG NEUTROPHILS) 63 % (16-70)
[2017-04-18] MEDS: cefTRIAXone INJ 2,000 MG in SODIUM CHLORIDE 0.9% INJ 100 ML IV SCH (13:02)
[2017-04-18] MEDS: RESP: ALBUTEROL 2.5 MG/IPRATROPIUM 0.5 MG NEB (PRN) INH (14:28)
--- NOTE | 2017-04-18 15:15 | HHI.CCPN ---
Subjective Remarks/Hospital Course 51-year-old male presents from home where he was identified to have altered mental status and decreasing level of consciousness. Patient was also identified to have temperature elevation and paramedics identified room air O2 saturations to be 72%. Patient was immediately placed on supplemental oxygen without improvement of oxygenation or level of consciousness. Family members were concerned that patient may have overdosed on medications but the medications listed did not show any opiates. Patient's blood sugar was fine. No reported injury or trauma. Paramedics determined patient needed further ventilation support and attempted intubation in the field but this was unsuccessful and patient presents to the emergency department with ambu assisted ventilations. Multiple attempts were made in the emergency department intubated the patient for an airway protection, which was extremely difficult and patient was finally intubated by scraper meat. 04/12: Continues to be critically ill intubated copious amount of ET tube secretions. Chest x-ray continues to show patchy bilateral infiltrates. Started on Levophed overnight to keep map above 65. Creat and WBC count have slightly improved. Gram neg rods in sputum gram stain. Currently on Zosyn, I will add vancomycin 04/13: Developed severe ventilator asynchrony today with low lung volumes. Most likely secondary to ET tube obstruction from secretions. After multiple suctioning volumes improved but patient remained tachypneic. Neuromuscularly paralyzed for hypoxia and asynchrony. Sputum culture growing Klebsiella 04/14: Remains intubated sedated continues to be asynchronous with the ventilator when sedation is lightened. Continues to have copious secretions. Fluid overloaded will start Lasix 20 every 12 with potassium supplementation 04/15: Oliguric to anuric with hematuria. CT abdomen pelvis 04/14 showing 3.1 cm fluid-containing structure within the posterior urethra nonspecific and there is gas within the bladder. Etiology unclear. Patient remains tachypneic on lightening sedation. Not following commands 04/16: Remains intubated sedated encephalopathic. Chest x-ray shows worsening pulmonary edema, bilateral crackles/rales on exam. Currently on Precedex and propofol and slowly weaned off propofol. Urine output increased after replacing Guzman. Apparently catheter balloon was sitting in prostatic urethra, his guzman was not advanced all the way to the bladder. This was replaced by urology with excellent UO now. On 03/04 NS for hyperNa. 04/17: Patient remains encephalopathic. Chest x-ray unchanged. Patient continued on Precedex infusion. Urine output within normal limits, creatinine improved today. Sodium level downtrending. 04/18: Patient continues on Precedex and fentanyl infusion, moving extremities spontaneously and following commands. Pt complained of pain, oxycodone 5 mg every 8 hour total dosing, in anticipation of weaning IV fentanyl. Patient tolerated CPAP trials for approximately 3 hours today. Plan to consult general surgery for tracheostomy. Objective Vital Signs Date Time Temp Pulse Resp B/P (MAP) Pulse Ox O2 Delivery O2 Flow Rate FiO2 04/18/17 14:28 99 40 04/18/17 13:01 83 25 127/82 (97) 04/18/17 12:00 98.9 Intake and Output 04/18/17 04/18/17 04/18/17 07:59 15:59 23:59 Intake Total 2069 ml Output Total 3000 ml Balance -931 ml Result Diagram: 04/18/17 0600 04/18/17 0600 Imaging Last Impressions Chest X-Ray 04/17/17 0600 Signed Impressions: Service Date/Time: Monday, April 17, 2017 03:46 - CONCLUSION: No appreciable change. Arsen Galicia MD Abdomen/Pelvis CT 04/14/17 0000 Signed Impressions: Service Date/Time: Friday, April 14, 2017 22:16 - CONCLUSION: 1. Bilateral pleural effusions and bibasilar airspace process may represent edema and/or pneumonia. 2. There is an approximate 3.1 cm fluid-containing structure within the posterior urethra nonspecific and the exact etiology is not certain. There is gas within the bladder as well could be related to the same process or possibly introduced iatrogenically there possibility of abscess in the posterior urethra is not excluded. Arsen Galicia MD Abdomen X-Ray 04/13/17 0000 Signed Impressions: Service Date/Time: Thursday, April 13, 2017 12:02 - CONCLUSION: No acute abdominal abnormality is identified. Ezequiel Nobles MD Head CT 04/11/17 0015 Signed Impressions: Service Date/Time: Tuesday, April 11, 2017 00:53 - CONCLUSION: 1. No acute intracranial abnormality. Right maxillary sinusitis. Mucosal thickening in the ethmoid air cells. Jone Daly MD Last 24 hours Impressions Chest X-Ray 2/11/18 0000 Signed Impressions: Service Date/Time: Tuesday, April 11, 2017 00:26 - CONCLUSION: 1. Bilateral air space consolidation predominantly perihilar. Nasogastric tube and endotracheal tube in good position. Jone Daly MD Objective Remarks Drips: Propofol Precedex GENERAL: Well-nourished, well-developed patient. Sedated and intubated, critically ill SKIN: Warm and dry. HEAD: Normocephalic. EYES: No scleral icterus. No injection or drainage. ENT: Orotracheally intubated NECK: Supple, trachea midline. No JVD or lymphadenopathy. CARDIOVASCULAR: Tachycardia improved no murmurs, gallops, or rubs. RESPIRATORY: Breath sounds equal bilaterally. Coarse rhonchi and diffuse rales bilaterally GASTROINTESTINAL: Abdomen soft, distended. Nontender : Guzman with bloody urine, now clearing MUSCULOSKELETAL: No cyanosis, or edema. NEURO EXAM:RASS -3 Sedated and intubated middle-aged man. Moves extremities spontaneously, do not follow commands. Opening eyes to noxious stimuli A/P Assessment and Plan NEURO: Altered mental status/encephalopathy Possible drug overdose/suicide attempt History of depressions other psychological disorders Seizure disorder Generalized pain - CT head negative - Drug screen positive only for benzodiazepines - Continue propofol for sedation, daily sedation location. Precedex to facilitate vent weaning - Holding Effexor, Seroquel, Hydroxyzine. resume Seroquel today 04/16 - Continue Lamictal for seizure disorder - Psych consult once extubated -Oxycodone 5 milligrams every 8 hours, total dosing, begin weaning fentanyl infusion 04/18-patient following commands nodding head appropriately to yes and no questions RESP: Acute hypoxemic respiratory failure Bilateral pneumonia Difficult airway - Intubated for airway protection - Intubated in ED after multiple attempts by anesthesia - Continue mechanical ventilation, PC/AC. Intermittent rocuronium for neuromuscular paralysis for vent synchrony - No extubation until neurologically, respiratory jones improved. Attempt daily CPAP - Vent bundle, DuoNeb scheduled and when necessary - Continue Rocephin CVS: Septic shock -resolved Fluid overload/pulmonary edema dyslipidemia - Restart IV Lasix, 40 mg now and 20 every 12 due to fluid overload - Levophed to keep map above 65, now off - Hold Simvastatin, Fenofibrate due to liver enzyme elevation - Continue to Hold Losartan GI: Elevated liver enzymes - Tube feeds with Jevity, IV famotidine - Liver enzymes trending down, possible shock liver : Acute kidney injury Obstructive uropathy due to Guzman balloon inflated in the urethra Now with hematuria and acute oliguria Rhabdomyolysis (CPK >25,000) - Unknown baseline creat, CPK trending down - Urology consulted, replaced Guzman which was misplaced (Guzman balloon was inflated in the prostatic urethra) - Strict I's and O's ID Sepsis Multilobar pneumonia/Klebsiella and sputum - Continue Rocephin - Sputum culture growing Klebsiella HEME: - Monitor CBC CMP coags ENDO: - Electrolyte replacement per protocol DVT GI prophylaxis - Teds SCDs - Subcutaneous heparin-DCd due to hematuria, will resume today - Pepcid Critical Care: my billing statement This patient remains critically ill with one or more organ systems which are or may become a threat to life. I have spent in excess of 35 minutes discontinuously in the care and management of this patient. This time is exclusive of procedures, and includes, but is not limited to, evaluation of the patient, review of the medical record, discussions with family, consultants, nursing staff, or respiratory therapy, and documentation in the medical record. Critically ill encephalopathic with persistent respiratory failure, pulmonary edema and pneumonia. Remains critically ill unable to ventilator wean at this time, requiring full life support Discussed possibility of tracheostomy and PEG with patient's mother at bedside, discussed with LIMITED RADIOLOGY TECHNICIAN at bedside (Candy) Physician Mecca Randle MD Apr 18, 2017 15:15
[2017-04-18] MEDS ORDERED: MIDAZOLAM HCL 5 MG/ML VIAL (1 ML) ONE (15:41)
[2017-04-18] MEDS ORDERED: POTASSIUM CHLOR 20 MEQ PREMIX 100 ML IV SCH (17:00)
[2017-04-18] MEDS: ACETAMINOPHEN 325 MG TAB PO PRN (17:24)
[2017-04-18] MEDS ORDERED: VENLAFAXINE HCL 25 MG TAB PO SCH (18:00)
[2017-04-18 19:10] LABS: BILIRUBIN, URINE NEG (NEG); BLOOD, URINE SMALL (NEG); GLUCOSE,URINE NEG (NEG); KETONE, URINE NEG (NEG); NITRITE,URINE NEG (NEG); PH, URINE 5.5 (5.0-8.5); SQUAMOUS EPITHELIAL CELL URINE <1 /hpf (0-5); URINE COLOR YELLOW (YELLW/STRAW); URINE LEUKOCYTE ESTERASE NEG (NEG)
[2017-04-18] MEDS: QUEtiapine FUMARATE 200 MG TAB PO SCH (21:27)
[2017-04-18] MEDS: hydrOXYzine HCL 50 MG TAB PO SCH (21:41)
[2017-04-19] VITALS (18 sets, daily range): BP systolic 107–116; BP diastolic 64–73; PULSE 62–90; RESP 18–22; TEMP 97.6–99.2; O2SAT 94–100
[2017-04-19] MEDS: ACETAMINOPHEN 325 MG TAB PO PRN ×2 (00:08→18:50)
[2017-04-19] MEDS: PROPOFOL 1000 MG/100 ML INJ 100 ML IV PRN ×4 (00:08→07:00)
[2017-04-19] MEDS: DEXMEDETOMIDINE INJ 1,000 MCG in SODIUM CHLOR 0.9% 250 ML INJ 240 ML IV PRN ×5 (03:51→23:49)
[2017-04-19] MEDS: CHLORHEXIDINE GLUCONATE 2 % 1 PACK (2 CLOTHS) TOP SCH ×2 (04:00→22:38)
--- NOTE | 2017-04-19 04:39 | RADRPT ---
EXAM DATE/TIME: 04/19/2017 03:29 [facility] COMPARISON: CHEST SINGLE AP, April 18, 2017, 4:10. INDICATIONS : Shortness of breath, pneumonia. MEDICAL HISTORY : Sepsis. SURGICAL HISTORY : None. ENCOUNTER: Subsequent ACUITY: 1 week PAIN SCORE: Non-responsive. LOCATION: Bilateral chest FINDINGS: A single AP semierect view of the chest was obtained again demonstrates the endotracheal tube in plac e with the tip approximately 3 cm above the demetrius. The nasogastric tube and right subclavian central venous catheter remain in place as well. The heart size remains enlarged with air space opacities in both lungs. This appears slightly increased from the prior study. CONCLUSION: Apparently mild interval increase in airspace opacity from the prior study. Yury Saunders MD on April 19, 2017 at 4:36 Board Certified Radiologist. This report was verified electronically.
[2017-04-19] MEDS: HEPARIN SODIUM - SQ 10,000 UNITS/ML VIAL SQ SCH ×3 (05:31→23:47)
[2017-04-19] MEDS: SODIUM CHLORIDE 23.4% INJ 38.5 MEQ in WATER STERILE FOR INJ 1,000 ML IV SCH ×2 (06:13→18:12)
[2017-04-19] MEDS: CHLORHEXIDINE 0.12% (ORAL KIT) 15 ML CUP MT SCH ×2 (08:00→20:00)
[2017-04-19] MEDS: FUROSEMIDE 20 MG/2 ML VIAL IV PUSH SCH ×2 (08:20→23:47)
[2017-04-19] MEDS: DOCUSATE SODIUM 100 MG/10 ML UDC PO SCH ×2 (08:20→21:00)
[2017-04-19] MEDS: FAMOTIDINE 20 MG/2 ML VIAL IV PUSH SCH ×2 (08:20→21:00)
[2017-04-19] MEDS: POTASSIUM CHLORIDE 25 MEQ EFFERVESCENT TAB PO SCH (08:20)
[2017-04-19] MEDS: lamoTRIgine 100 MG TAB PO SCH ×2 (08:27→23:46)
[2017-04-19] MEDS: VENLAFAXINE HCL 75 MG TAB PO SCH ×3 (08:27→18:06)
[2017-04-19] MEDS: hydrOXYzine HCL 50 MG TAB PO SCH ×2 (08:27→23:46)
[2017-04-19] MEDS: GABAPENTIN 300 MG CAP PO SCH ×3 (08:27→18:06)
[2017-04-19] MEDS: SODIUM CHLORIDE 0.9% FLUSH 10 ML FLUSH IV FLUSH SCH ×2 (08:28→21:00)
[2017-04-19] MEDS: SODIUM CHLORIDE 0.9% FLUSH 10 ML FLUSH IV FLUSH PRN (08:28)
[2017-04-19] MEDS ORDERED: FUROSEMIDE 40 MG/4 ML VIAL IV PUSH ONE (10:30)
[2017-04-19] MEDS ORDERED: POTASSIUM CHLORIDE INJ 40 MEQ in SODIUM CHLORID 0.9% 500 ML INJ 500 ML IV-CENTRAL ONE (10:30)
--- NOTE | 2017-04-19 11:31 | HHI.CCPN ---
Subjective Remarks/Hospital Course 51-year-old male presents from home where he was identified to have altered mental status and decreasing level of consciousness. Patient was also identified to have temperature elevation and paramedics identified room air O2 saturations to be 72%. Patient was immediately placed on supplemental oxygen without improvement of oxygenation or level of consciousness. Family members were concerned that patient may have overdosed on medications but the medications listed did not show any opiates. Patient's blood sugar was fine. No reported injury or trauma. Paramedics determined patient needed further ventilation support and attempted intubation in the field but this was unsuccessful and patient presents to the emergency department with ambu assisted ventilations. Multiple attempts were made in the emergency department intubated the patient for an airway protection, which was extremely difficult and patient was finally intubated by financial investigator. 04/12: Continues to be critically ill intubated copious amount of ET tube secretions. Chest x-ray continues to show patchy bilateral infiltrates. Started on Levophed overnight to keep map above 65. Creat and WBC count have slightly improved. Gram neg rods in sputum gram stain. Currently on Zosyn, I will add vancomycin 04/13: Developed severe ventilator asynchrony today with low lung volumes. Most likely secondary to ET tube obstruction from secretions. After multiple suctioning volumes improved but patient remained tachypneic. Neuromuscularly paralyzed for hypoxia and asynchrony. Sputum culture growing Klebsiella 04/14: Remains intubated sedated continues to be asynchronous with the ventilator when sedation is lightened. Continues to have copious secretions. Fluid overloaded will start Lasix 20 every 12 with potassium supplementation 04/15: Oliguric to anuric with hematuria. CT abdomen pelvis 04/14 showing 3.1 cm fluid-containing structure within the posterior urethra nonspecific and there is gas within the bladder. Etiology unclear. Patient remains tachypneic on lightening sedation. Not following commands 04/16: Remains intubated sedated encephalopathic. Chest x-ray shows worsening pulmonary edema, bilateral crackles/rales on exam. Currently on Precedex and propofol and slowly weaned off propofol. Urine output increased after replacing Guzman. Apparently catheter balloon was sitting in prostatic urethra, his guzman was not advanced all the way to the bladder. This was replaced by urology with excellent UO now. On 03/04 NS for hyperNa. 04/17: Patient remains encephalopathic. Chest x-ray unchanged. Patient continued on Precedex infusion. Urine output within normal limits, creatinine improved today. Sodium level downtrending. 04/18: Patient continues on Precedex and fentanyl infusion, moving extremities spontaneously and following commands. Pt complained of pain, oxycodone 5 mg every 8 hour total dosing, in anticipation of weaning IV fentanyl. Patient tolerated CPAP trials for approximately 3 hours today. Plan to consult general surgery for tracheostomy. 04/19: Tolerating CPAP today, wide awake and following commands. +Ve cuff leak. Chest x-ray shows slight worsening bilateral infiltrates. Lasix 40 mg additional dose given Objective Vital Signs Date Time Temp Pulse Resp B/P (MAP) Pulse Ox O2 Delivery O2 Flow Rate FiO2 04/19/17 10:55 99 40 04/19/17 08:00 62 04/19/17 04:00 97.6 18 107/64 (78) Intake and Output 04/19/17 04/19/17 04/20/17 08:00 16:00 00:00 Intake Total 1133 ml 250 ml Output Total 3600 ml Balance -2467 ml 250 ml Result Diagram: 04/18/17 0604/18/17 06 Other Results Microbiology Date/Time Source Procedure Growth Status 04/17/17 07:00 Urine Catheterized Urine Urine Culture - Final NO GROWTH IN 48 HOURS. Complete Imaging Last Impressions Chest X-Ray 04/17/17 06 Signed Impressions: Service Date/Time: Monday, April 17, 2017 03:46 - CONCLUSION: No appreciable change. Arsen Galicia MD Abdomen/Pelvis CT 04/14/17 0000 Signed Impressions: Service Date/Time: Friday, April 14, 2017 22:16 - CONCLUSION: 1. Bilateral pleural effusions and bibasilar airspace process may represent edema and/or pneumonia. 2. There is an approximate 3.1 cm fluid-containing structure within the posterior urethra nonspecific and the exact etiology is not certain. There is gas within the bladder as well could be related to the same process or possibly introduced iatrogenically there possibility of abscess in the posterior urethra is not excluded. Arsen Galicia MD Abdomen X-Ray 04/13/17 0000 Signed Impressions: Service Date/Time: Thursday, April 13, 2017 12:02 - CONCLUSION: No acute abdominal abnormality is identified. Ezequiel Nobles MD Head CT 04/11/17 0015 Signed Impressions: Service Date/Time: Tuesday, April 11, 2017 00:53 - CONCLUSION: 1. No acute intracranial abnormality. Right maxillary sinusitis. Mucosal thickening in the ethmoid air cells. Jone Daly MD Last 24 hours Impressions Chest X-Ray 04/11/17 0000 Signed Impressions: Service Date/Time: Tuesday, April 11, 2017 00:26 - CONCLUSION: 1. Bilateral air space consolidation predominantly perihilar. Nasogastric tube and endotracheal tube in good position. Jone Daly MD Objective Remarks Drips: Propofol Precedex GENERAL: Well-nourished, well-developed patient. Sedated and intubated, critically ill SKIN: Warm and dry. HEAD: Normocephalic. EYES: No scleral icterus. No injection or drainage. ENT: Orotracheally intubated NECK: Supple, trachea midline. No JVD or lymphadenopathy. CARDIOVASCULAR: No murmurs, gallops, or rubs. RESPIRATORY: Breath sounds equal bilaterally. Coarse rhonchi and diffuse rales bilaterally GASTROINTESTINAL: Abdomen soft, distended. Nontender : Guzman with clear urine MUSCULOSKELETAL: No cyanosis, or edema. NEURO EXAM:RASS 0. On Precedex. Moves extremities spontaneously, following commands. Good muscle strength A/P Assessment and Plan NEURO: Altered mental status/encephalopathy Possible drug overdose/suicide attempt History of depressions other psychological disorders Seizure disorder Generalized pain - CT head negative - Drug screen positive only for benzodiazepines - Continue Precedex to facilitate vent weaning - Holding Effexor, Seroquel, Hydroxyzine. resumed Seroquel 04/16 - Continue Lamictal for seizure disorder - Psych consult once extubated - Oxycodone 5 milligrams every 8 hours, slowly weaning fentanyl. patient following commands nodding head appropriately to yes and no questions RESP: Acute hypoxemic respiratory failure Bilateral pneumonia Difficult airway - Intubated for airway protection. CPAP 5/8 FOR 45 MIN with parameters and ABG - Intubated in ED after multiple attempts by anesthesia - Vent bundle, DuoNeb scheduled and when necessary - Continue Rocephin CVS: Septic shock -resolved Fluid overload/pulmonary edema dyslipidemia - IV Lasix, 20 every 12 due to fluid overload. Give additional 40 mg IV x1 - Hold Simvastatin, Fenofibrate due to liver enzyme elevation - Continue to Hold Losartan GI: Elevated liver enzymes - Tube feeds with Jevity, IV famotidine - Liver enzymes trending down, possible shock liver : Acute kidney injury Obstructive uropathy due to Guzman balloon inflated in the urethra Now with hematuria and acute oliguria Rhabdomyolysis (CPK >25,000) - Unknown baseline creat, CPK trending down - Urology consulted, replaced Guzman which was misplaced (Guzman balloon was inflated in the prostatic urethra) - Strict I's and O's ID Sepsis Multilobar pneumonia/Klebsiella and sputum - Continue Rocephin - Sputum culture growing Klebsiella HEME: - Monitor CBC CMP coags ENDO: - Electrolyte replacement per protocol DVT GI prophylaxis - Teds SCDs - Subcutaneous heparin resumed - Pepcid Critical Care: my billing statement This patient remains critically ill with one or more organ systems which are or may become a threat to life. I have spent in excess of 35 minutes discontinuously in the care and management of this patient. This time is exclusive of procedures, and includes, but is not limited to, evaluation of the patient, review of the medical record, discussions with family, consultants, nursing staff, or respiratory therapy, and documentation in the medical record. Critically ill encephalopathic with persistent respiratory failure, pulmonary edema and pneumonia. Remains critically ill unable to ventilator wean at this time, requiring full life support Discussed possibility of tracheostomy and PEG with patient's mother at bedside, discussed with ELECTRONIC TRANSACTION IMPLEMENTER at bedside (Candy) Level 3. Extubate today Jenny Nieves MD Apr 19, 2017 11:31
--- NOTE | 2017-04-19 11:31 | PD.CONS ---
cc: Yury Bazzi MD HPI Service General Surgery Consult Requested By Dr. Hurley Reason for Consult Percutaneous tracheostomy tube placement Primary Care Physician Unknown History of Present Illness This is a 51-year-old male with past medical history depression, hypertension, dyslipidemia and asthma. The patient came to the Emergency Department via [facility] after patient was found by family with altered mental status and loss of consciousness at home. Several attempts were made to intubate the the patient in the field but was not successful. The patient was brought in using bag mask ventilation. It is reported by the Emergency Department notes that the patient was very difficult to intubate and ultimately intubated by anesthesia. There is a question of a possible intentional vs unintentional overdose. The patient has remained intubated and is currently on CPAP trial this morning. A General Surgery consultation has been requested for evaluation of possible percutaneous tracheostomy tube placement. Review of Systems ROS Limitations: Clinical Condition, Intubated Past Family Social History Past Medical History Depression Hypertension Dyslipidemia Asthma Past Surgical History Unknown Reported Medications Ipratropium-albuterol inhaler Fenofibrate Simvastatin Losartan Naproxen Gabapentin Lamotrigine Effexor Quetiapine Lorazepam Hydralazine Allergies: Coded Allergies: No Allergy Information Available (Unverified , 04/11/17) Active Ordered Medications Current Medications Medications (Trade) Dose Ordered Sig/Yoko Route Start Time Stop Time Status Last Admin (NS Flush) 2 ml UNSCH PRN IV FLUSH 04/11/17 02:45 04/19/17 08:28 (NS Flush) 2 ml BID IV FLUSH 04/11/17 09:00 04/19/17 08:28 (Tylenol) 650 mg Q6H PRN PO 04/11/17 02:45 04/19/17 00:08 (Pepcid Inj) 20 mg Q12HR IV PUSH 04/11/17 09:00 04/19/17 08:20 (Tears Naturale Opth Soln) 1 drop TID EACH EYE 04/11/17 09:00 04/18/17 17:03 (Zofran Inj) 4 mg Q6H PRN IV PUSH 04/11/17 02:45 (Duoneb Neb) 1 ampule Q2HR NEB PRN INH 04/11/17 02:45 04/18/17 14:28 (Heparin Inj) 5,000 units Q8HR SQ 04/11/17 06:00 Future hold 04/19/17 05:31 Miscellaneous Information 1 Q361D XX 04/11/17 02:45 04/11/17 04:00 (Chlorhexidine 2% Cloth) Taper DAILY@04 TOP 04/11/17 04:00 04/07/18 03:59 04/17/17 04:00 (Chlorhexidine 2% Cloth) 3 pack UNSCH PRN TOP 04/11/17 02:45 (Milk Of Magnesia Liq) 30 ml Q12H PRN PO 04/11/17 02:45 (Senokot) 17.2 mg Q12H PRN PO 04/11/17 02:45 (Dulcolax Supp) 10 mg DAILY PRN RECTAL 04/11/17 02:45 (Lactulose Liq) 30 ml DAILY PRN PO 04/11/17 02:45 (Peridex 0.12% Liq) 15 ml BID@08,20 MT 04/11/17 08:00 04/18/17 20:00 Propofol 100 ml @ 2.865 mls/ hr TITRATE PRN IV 04/11/17 02:45 04/19/17 07:00 (Neurontin) 300 mg TID PO 04/11/17 09:00 04/19/17 08:27 (Atarax) 50 mg BID PO 04/11/17 09:00 Future hold 04/19/17 08:27 (LaMICtal) 200 mg BID PO 04/11/17 09:00 04/19/17 08:27 (Cozaar) 100 mg DAILY PO 04/11/17 09:00 Future Hold 04/11/17 08:49 (SEROquel) 200 mg HS PO 04/11/17 21:00 Future hold 04/18/17 21:27 (Tricor) 145 mg DAILY PO 04/11/17 09:00 Future Hold 04/12/17 10:32 Patient Own Medication PT OWN MED: (Ipratropium-Albuter... QID INH 04/11/17 09:00 Future Hold (SEROquel) 75 mg BID PO 04/11/17 09:00 Future Hold 04/11/17 08:49 (Pravachol) 40 mg DAILY PO 04/11/17 09:00 Future Hold 04/12/17 10:32 (Brethine Inj) 1 mg UNSCH PRN SQ 04/12/17 07:45 (Effexor) 225 mg DAILY PO 04/12/17 10:00 Future Hold 04/12/17 10:32 (Colace Liq) 100 mg Q12HR PO 04/12/17 10:45 04/19/17 08:20 Potassium Chloride 100 ml @ 50 mls/hr Q2H PRN IV 04/13/17 12:45 04/13/17 14:14 Potassium Chloride 100 ml @ 50 mls/hr Q2H PRN IV 04/13/17 12:45 (K-Lyte Cl Eff) 50 meq UNSCH PRN PO 04/13/17 12:45 04/18/17 08:10 Potassium Chloride 100 ml @ 25 mls/hr UNSCH PRN IV 04/13/17 12:45 04/15/17 09:59 Potassium Chloride 100 ml @ 50 mls/hr Q2H PRN IV 04/13/17 12:45 Magnesium Sulfate 4 gm/Sodium Chloride 100 ml @ 50 mls/hr UNSCH PRN IV 04/13/17 12:45 (Mag-Ox) 800 mg UNSCH PRN PO 04/13/17 12:45 Magnesium Sulfate 2 gm/Sodium Chloride 100 ml @ 50 mls/hr UNSCH PRN IV 04/13/17 12:45 (K-Phos) 2,000 mg Q4H PRN PO 04/13/17 12:45 Sodium Phosphate 30 mmol/Sodium Chloride 250 ml @ 42 mls/hr UNSCH PRN IV 04/13/17 12:45 (K-Phos) 2,000 mg UNSCH PRN PO/TUBE 04/13/17 12:45 Potassium Phosphate 30 mmol/ Sodium Chloride 260 ml @ 42 mls/hr UNSCH PRN IV 04/13/17 12:45 04/14/17 18:07 Ceftriaxone Sodium 2000 mg/ Sodium Chloride 100 ml @ 200 mls/hr Q24H IV 04/13/17 14:00 04/18/17 13:02 (K-Lyte Cl Eff) 25 meq Q12HR PO 04/14/17 11:00 04/19/17 08:20 Sodium Chloride 38.5 meq/Sterile Water 1,009.625 ml @ 100 mls/hr Q10H6M IV 04/15/17 17:00 Future hold 04/19/17 06:13 Dexmedetomidine HCl 1000 mcg/ Sodium Chloride 250 ml @ 5.37 mls/hr TITRATE PRN IV 04/15/17 22:30 04/19/17 08:04 (Lasix Inj) 20 mg BID IV PUSH 04/16/17 21:00 04/19/17 08:20 (Effexor) 75 mg TID PO 04/19/17 09:00 04/19/17 08:27 (Lasix Inj) 40 mg ONCE ONCE IV PUSH 04/19/17 10:30 04/19/17 10:31 04/19/17 10:54 Potassium Chloride 40 meq/ Sodium Chloride 520 ml @ 130 mls/hr ONCE ONCE IV-CENTRAL 04/19/17 10:30 04/19/17 14:29 04/19/17 11:05 Family History Unable to obtain Social History Unable to obtain Physical Exam Vital Signs Vital Signs Date Time Temp Pulse Resp B/P (MAP) Pulse Ox O2 Delivery O2 Flow Rate FiO2 04/19/17 10:55 99 40 04/19/17 09:07 99 40 04/19/17 09:07 40 04/19/17 08:00 62 04/19/17 07:35 98 40 04/19/17 06:00 62 04/19/17 04:06 97 40 04/19/17 04:00 97.6 67 18 107/64 (78) 97 04/19/17 04:00 40 04/19/17 04:00 68 04/19/17 02:00 65 04/19/17 00:00 99.2 78 21 109/64 (79) 100 04/19/17 00:00 76 04/19/17 00:00 40 04/18/17 23:54 100 40 04/18/17 22:00 85 04/18/17 20:47 98 40 04/18/17 20:00 40 04/18/17 20:00 100.3 82 18 115/68 (84) 95 04/18/17 20:00 82 04/18/17 18:15 95 2/18/18 18:00 100 2/18/18 17:45 101 27 126/74 (91) 93 2/18/18 17:30 102 25 126/72 (90) 98 2/18/18 17:15 101 28 129/76 (93) 98 2/18/18 17:00 106 28 128/72 (90) 93 2/18/18 16:46 102 25 111/60 (77) 99 2/18/18 16:30 101 2/18/18 16:30 101 22 121/69 (86) 99 2/18/18 16:15 102 25 119/66 (83) 99 2/18/18 16:15 102 2/18/18 16:00 108 2/18/18 16:00 40 2/18/18 16:00 103.1 108 30 115/64 (81) 99 2/18/18 15:45 109 2/18/18 15:30 108 2/18/18 15:15 109 2/18/18 15:00 100 2/18/18 14:45 94 2/18/18 14:30 87 2/18/18 14:28 99 40 2/18/18 14:15 88 2/18/18 14:00 88 2/18/18 13:01 83 25 127/82 (97) 98 2/18/18 13:00 78 23 100 2/18/18 12:45 82 34 114/67 (83) 96 2/18/18 12:30 81 34 121/65 (83) 96 2/18/18 12:15 79 2/18/18 12:15 79 26 121/73 (89) 97 2/18/18 12:00 74 2/18/18 12:00 40 2/18/18 12:00 98.9 74 21 127/78 (94) 98 2/18/18 11:45 74 2/18/18 11:41 99 40 2/18/18 11:30 72 19 126/81 (96) 98 2/18/18 11:30 72 Physical Exam GENERAL: 51 year old male; critically ill; orally intubated. SKIN: Warm and dry. HEAD: Atraumatic. Normocephalic. EYES: Pupils equal and round. No scleral icterus. No injection or drainage. ENT: No nasal bleeding or discharge. Mucous membranes pink and moist. NECK: Trachea midline and palpable. No visible scars. CARDIOVASCULAR: Regular rate and rhythm. RESPIRATORY: No accessory muscle use. Clear to auscultation. Breath sounds equal bilaterally. GASTROINTESTINAL: Abdomen soft, non-tender, minimally distended. No visible scars or hernias. MUSCULOSKELETAL: Extremities without clubbing, cyanosis, or edema. No obvious deformities. NEUROLOGICAL: Intubated---unable to examine. PSYCHIATRIC: Intubated---unable to examine. Laboratory Laboratory Tests Test 04/18/17 17:35 Urine Color YELLOW Urine Turbidity CLEAR Urine pH 5.5 Urine Specific Gary 1.015 Urine Protein TRACE Urine Glucose (UA) NEG Urine Ketones NEG Urine Occult Blood SMALL Urine Nitrite NEG Urine Bilirubin NEG Urine Urobilinogen LESS THAN 2.0 Urine Leukocyte Esterase NEG Urine RBC 11 Urine WBC 1 Urine Squamous Epithelial Cells <1 Microscopic Urinalysis Comment CATH-CULT NOT IND Date/Time Source Procedure Growth Status 04/18/17 19:45 Blood Peripheral Aerobic Blood Culture - Preliminary NO GROWTH IN 1 DAY Resulted 04/18/17 19:45 Blood Peripheral Anaerobic Blood Culture - Preliminary NO GROWTH IN 1 DAY Resulted 04/18/17 17:36 Sputum Endotracheal Gram Stain - Final Resulted 04/18/17 17:36 Sputum Endotracheal Sputum Culture Pending Resulted 04/17/17 07:00 Urine Catheterized Urine Urine Culture - Final NO GROWTH IN 48 HOURS. Complete Result Diagram: 04/18/17 0604/18/17 0600 Imaging Last 48 hours Impressions Chest X-Ray 04/19/17 06 Signed Impressions: Service Date/Time: Wednesday, April 19, 2017 03:29 - CONCLUSION: Apparently mild interval increase in airspace opacity from the prior study. Yury Saunders MD Chest X-Ray 04/18/17 06 Signed Impressions: Service Date/Time: Tuesday, April 18, 2017 04:10 - CONCLUSION: 1. Bilateral air space disease similar to April 17. Support apparatus unchanged. Jone Daly MD Assessment and Plan Assessment and Plan 51 year old male with VDRF; on CPAP trial currently -If patient does not pass CPAP trial today will tentatively plan for tracheostomy tube placement tomorrow -Will follow up this afternoon with Dr. Nieves -If fails---will obtain consents, NPO after MN and hold anticoagulation for bedside procedure tomorrow -Thank you for this consult; We will continue to follow Attending Note - Dr. Bazzi Chest CTA Neck appropriate for bedside trach if needed. Dr. Nieves stated he will attempt extubation; if he fails, will be available to trach pt. The exam, history, and the medical decision-making described in the above note were completed with the assistance of the mid-level provider. I reviewed and agree with the findings presented. I attest that I had a [id number] encounter with the patient on the same day, and personally performed and documented my assessment and findings in the medical record. Discussed Condition With Ivana Victor Dr./First Mec[facility] VELAZCO Apr 19, 2017 11:31 Yury Bazzi MD Apr 19, 2017 17:55
[2017-04-19] MEDS: ARTIFICIAL TEARS OPTH SOLN 15 ML BTL EACH EYE SCH ×3 (13:00→18:00)
[2017-04-19] MEDS: cefTRIAXone INJ 2,000 MG in SODIUM CHLORIDE 0.9% INJ 100 ML IV SCH (13:12)
--- NOTE | 2017-04-19 16:45 | HHI.PR ---
Subjective Patient symptoms today Pt is currently sedated and intubated so his HPI was obtained from other Dr's notes: 51-year-old male presents from home where he was identified to have altered mental status and decreasing level of consciousness. Patient was also identified to have temperature elevation and paramedics identified room air O2 saturations to be 72%. Patient was immediately placed on supplemental oxygen without improvement of oxygenation or level of consciousness. Family members were concerned that patient may have overdosed on medications but the medications listed did not show any opiates. Patient's blood sugar was fine. No reported injury or trauma. Paramedics determined patient needed further ventilation support and attempted intubation in the field but this was unsuccessful and patient presents to the emergency department with ambu assisted ventilations. Multiple attempts were made in the emergency department intubated the patient for an airway protection, which was extremely difficult and patient was finally intubated by fabric sourcer. He remains intubated. Creatinine improves, White count is slightly elevated. He is on Heparin. Based on his current diagnoses he has Rhabdo which can cause blood in urine. His UA yesterday showed also pos. Nitrites and UC was sent, still pending. Pt is on antibiotics already. CT scan reviewed and his urethral cyst is a catheter balloon sitting at the prostatic urethra, his guzman was not advanced all the way to the bladder and bladder was still distended. Yesterday we recommended to advance guzman. He is not draining a lot of urine its mostly blood due to urethral trauma from previous guzman insertion. I tried to advanced guzman cath into the bladder but due to resistance was not able to succeed. 18Fr Coude Guzman catheter was used and was placed into the bladder with some difficulties due to the bladder spasms. 10cc ballon was inflated, 1500cc of clear yellow urine was drained right away and continued to drain well, no visible hematuria. Bag was placed to gravity. 04/19/17: Pt is recovering well, extupated, on CPAP now. Not confused, answers questions, NAD H/H is slightly low. VS are stable Guzman is in place draining clear yellow urine Objective Vital Signs Vital Signs Date Time Temp Pulse Resp B/P (MAP) Pulse Ox O2 Delivery O2 Flow Rate FiO2 04/19/17 16:00 88 04/19/17 16:00 99.1 88 18 116/73 (87) 96 04/19/17 14:00 90 04/19/17 12:00 99.1 85 22 115/70 (85) 94 04/19/17 12:00 85 04/19/17 11:55 95 Nasal Cannula 4.00 04/19/17 11:55 95 Nasal Cannula 4 04/19/17 10:55 99 40 04/19/17 10:00 73 04/19/17 09:07 99 40 04/19/17 09:07 40 04/19/17 08:00 62 04/19/17 08:00 40 04/19/17 08:00 98.7 62 19 109/72 (84) 99 04/19/17 07:35 98 40 04/19/17 06:00 62 04/19/17 04:06 97 40 04/19/17 04:00 97.6 67 18 107/64 (78) 97 04/19/17 04:00 40 04/19/17 04:00 68 04/19/17 02:00 65 04/19/17 00:00 99.2 78 21 109/64 (79) 100 04/19/17 00:00 76 04/19/17 00:00 40 04/18/17 23:54 100 40 18 22:00 85 18 20:47 98 40 18 20:00 40 04/18/17 20:00 100.3 82 18 115/68 (84) 95 18 20:00 82 18 18:15 95 18 18:00 100 18 17:45 101 27 126/74 (91) 93 18 17:30 102 25 126/72 (90) 98 1818 17:15 101 28 129/76 (93) 98 18 17:00 106 28 128/72 (90) 93 18 16:46 102 25 111/60 (77) 99 Intake & Output 04/19/17 04/19/17 07:00 19:00 Intake Total 1233 ml 250 ml Output Total 3600 ml Balance -2367 ml 250 ml Intake IV Total 550 ml 250 ml Tube Feeding 383 ml Other 300 ml Output Urine Total 3600 ml # Bowel Movements 0 Result Diagram: 04/18/17 0600 04/18/17 0600 Other Results Physical exam: GENERAL: Well-nourished, well-developed patient. SKIN: Warm and dry. HEAD: Normocephalic. EYES: No scleral icterus. No injection or drainage. CARDIOVASCULAR: No murmurs, gallops, or rubs. RESPIRATORY: Breath sounds equal bilaterally. Coarse rhonchi and diffuse rales bilaterally GASTROINTESTINAL: Abdomen soft, distended. : Guzman with clear urine Imaging Last 24 hours Impressions Chest X-Ray 04/19/17 0600 Signed Impressions: Service Date/Time: Wednesday, April 19, 2017 03:29 - CONCLUSION: Apparently mild interval increase in airspace opacity from the prior study. uYry Saunders MD Medications and IVs Current Medications Medications (Trade) Dose Ordered Sig/Yoko Route Start Time Stop Time Status Last Admin (NS Flush) 2 ml UNSCH PRN IV FLUSH 04/11/17 02:45 04/19/17 08:28 (NS Flush) 2 ml BID IV FLUSH 04/11/17 09:00 04/19/17 08:28 (Tylenol) 650 mg Q6H PRN PO 04/11/17 02:45 04/19/17 00:08 (Pepcid Inj) 20 mg Q12HR IV PUSH 04/11/17 09:00 04/19/17 08:20 (Tears Naturale Opth Soln) 1 drop TID EACH EYE 04/11/17 09:00 04/19/17 13:17 (Zofran Inj) 4 mg Q6H PRN IV PUSH 04/11/17 02:45 (Duoneb Neb) 1 ampule Q2HR NEB PRN INH 04/11/17 02:45 04/18/17 14:28 (Heparin Inj) 5,000 units Q8HR SQ 04/11/17 06:00 Future hold 04/19/17 13:11 Miscellaneous Information 1 Q361D XX 04/11/17 02:45 04/11/17 04:00 (Chlorhexidine 2% Cloth) Taper DAILY@04 TOP 04/11/17 04:00 04/07/18 03:59 04/17/17 04:00 (Chlorhexidine 2% Cloth) 3 pack UNSCH PRN TOP 04/11/17 02:45 (Milk Of Magnesia Liq) 30 ml Q12H PRN PO 04/11/17 02:45 (Senokot) 17.2 mg Q12H PRN PO 04/11/17 02:45 (Dulcolax Supp) 10 mg DAILY PRN RECTAL 04/11/17 02:45 (Lactulose Liq) 30 ml DAILY PRN PO 04/11/17 02:45 (Peridex 0.12% Liq) 15 ml BID@08,20 MT 04/11/17 08:00 04/18/17 20:00 Propofol 100 ml @ 2.865 mls/ hr TITRATE PRN IV 04/11/17 02:45 04/19/17 07:00 (Neurontin) 300 mg TID PO 04/11/17 09:00 04/19/17 08:27 (Atarax) 50 mg BID PO 04/11/17 09:00 Future hold 04/19/17 08:27 (LaMICtal) 200 mg BID PO 04/11/17 09:00 04/19/17 08:27 (Cozaar) 100 mg DAILY PO 04/11/17 09:00 Future Hold 04/11/17 08:49 (SEROquel) 200 mg HS PO 04/11/17 21:00 Future hold 04/18/17 21:27 (Tricor) 145 mg DAILY PO 04/11/17 09:00 Future Hold 04/12/17 10:32 Patient Own Medication PT OWN MED: (Ipratropium-Albuter... QID INH 04/11/17 09:00 Future Hold (SEROquel) 75 mg BID PO 04/11/17 09:00 Future Hold 04/11/17 08:49 (Pravachol) 40 mg DAILY PO 04/11/17 09:00 Future Hold 04/12/17 10:32 (Brethine Inj) 1 mg UNSCH PRN SQ 04/12/17 07:45 (Effexor) 225 mg DAILY PO 04/12/17 10:00 Future Hold 04/12/17 10:32 (Colace Liq) 100 mg Q12HR PO 04/12/17 10:45 04/19/17 08:20 Potassium Chloride 100 ml @ 50 mls/hr Q2H PRN IV 04/13/17 12:45 04/13/17 14:14 Potassium Chloride 100 ml @ 50 mls/hr Q2H PRN IV 04/13/17 12:45 (K-Lyte Cl Eff) 50 meq UNSCH PRN PO 04/13/17 12:45 04/18/17 08:10 Potassium Chloride 100 ml @ 25 mls/hr UNSCH PRN IV 04/13/17 12:45 04/15/17 09:59 Potassium Chloride 100 ml @ 50 mls/hr Q2H PRN IV 04/13/17 12:45 Magnesium Sulfate 4 gm/Sodium Chloride 100 ml @ 50 mls/hr UNSCH PRN IV 04/13/17 12:45 (Mag-Ox) 800 mg UNSCH PRN PO 04/13/17 12:45 Magnesium Sulfate 2 gm/Sodium Chloride 100 ml @ 50 mls/hr UNSCH PRN IV 04/13/17 12:45 (K-Phos) 2,000 mg Q4H PRN PO 04/13/17 12:45 Sodium Phosphate 30 mmol/Sodium Chloride 250 ml @ 42 mls/hr UNSCH PRN IV 04/13/17 12:45 (K-Phos) 2,000 mg UNSCH PRN PO/TUBE 04/13/17 12:45 Potassium Phosphate 30 mmol/ Sodium Chloride 260 ml @ 42 mls/hr UNSCH PRN IV 04/13/17 12:45 04/14/17 18:07 Ceftriaxone Sodium 2000 mg/ Sodium Chloride 100 ml @ 200 mls/hr Q24H IV 04/13/17 14:00 04/19/17 13:12 (K-Lyte Cl Eff) 25 meq Q12HR PO 04/14/17 11:00 04/19/17 08:20 Sodium Chloride 38.5 meq/Sterile Water 1,009.625 ml @ 100 mls/hr Q10H6M IV 04/15/17 17:00 Future hold 04/19/17 06:13 Dexmedetomidine HCl 1000 mcg/ Sodium Chloride 250 ml @ 5.37 mls/hr TITRATE PRN IV 04/15/17 22:30 04/19/17 14:03 (Lasix Inj) 20 mg BID IV PUSH 04/16/17 21:00 04/19/17 08:20 (Effexor) 75 mg TID PO 04/19/17 09:00 04/19/17 08:27 Assessment and Plan Assessment and Plan 51y.o. Male with respiratory distress and sepsis Urology consulted for hematuria. Plan: - Continue care as per CCU team - Guzman was advanced to the bladder at the time of initial consult. Urine remains clear yellow - Keep Guzman catheter for I&O monitoring, once its no longer needed by primary team Guzman can be removed - Please restart Flomax daily due to enlarged prostate. Also its helpful to have pt on Flomax prior to removing Guzman to make sure he will be able to void and empty bladder well. -.Pt to follow up after d/c with urology for further management of BPH - No additional recommendations at this point Jm Latif Apr 19, 2017 16:45
[2017-04-19] MEDS: QUEtiapine FUMARATE 200 MG TAB PO SCH (23:46)
[2017-04-20] VITALS (30 sets, daily range): BP systolic 117–136; BP diastolic 67–81; PULSE 82–110; RESP 20–40; TEMP 98–99.5; O2SAT 86–98
[2017-04-20] MEDS: SODIUM CHLORIDE 23.4% INJ 38.5 MEQ in WATER STERILE FOR INJ 1,000 ML IV SCH ×3 (03:08→13:59)
[2017-04-20] MEDS: HEPARIN SODIUM - SQ 10,000 UNITS/ML VIAL SQ SCH ×3 (06:00→22:00)
--- NOTE | 2017-04-20 06:41 | RADRPT ---
EXAM DATE/TIME: 04/20/2017 05:29 [facility] COMPARISON: CHEST SINGLE AP, April 19, 2017, 3:29. INDICATIONS : Short of breath. Interval extubation.. MEDICAL HISTORY : Sepsis. SURGICAL HISTORY : None. ENCOUNTER: Subsequent ACUITY: 1 week PAIN SCORE: 0/10 LOCATION: Bilateral chest FINDINGS: A single AP portable semierect view of the chest was obtained and demonstrates interval extubation an d removal of the nasogastric tube. The right subclavian central venous line remains in place. Bilater al airspace disease remains greatest in the right upper lobe. This appears improved in the left upper lobe. The heart size is mildly prominent. The left costophrenic angle appears blunted. CONCLUSION: 1. Interval extubation and removal of nasogastric tube. 2. Airspace disease with interval improvement in the left upper lobe. Yury Saunders MD on April 20, 2017 at 6:38 Board Certified Radiologist. This report was verified electronically.
[2017-04-20] MEDS: DEXMEDETOMIDINE INJ 1,000 MCG in SODIUM CHLOR 0.9% 250 ML INJ 240 ML IV PRN ×2 (06:52→13:59)
[2017-04-20 06:58] LABS: AUTOMATED NEUTROPHIL # 12.2 TH/MM3 (1.8-7.7); BASOPHIL # 0.1 TH/MM3 (0-0.2); BASOPHIL % 0.4 % (0.0-2.0); EOSINOPHIL # 0.1 TH/MM3 (0-0.4); HEMATOCRIT 23.8 % (39.0-51.0); HEMOGLOBIN 8.2 GM/DL (13.0-17.0); LYMPH % 9.4 % (9.0-44.0); LYMPHOCYTE # 1.4 TH/MM3 (1.0-4.8); MEAN CELL VOLUME 97.6 FL (80.0-100.0); MEAN CORPUSCULAR HEMOGLOBIN 33.6 PG (27.0-34.0); MEAN CORPUSCULAR HGB CONC 34.4 % (32.0-36.0); MEAN PLATELET VOLUME 9.6 FL (7.0-11.0); MONO % 5.8 % (0.0-8.0); MONOCYTE # 0.8 TH/MM3 (0-0.9); NEUT % 83.4 % (16.0-70.0); PLATELET COUNT 361 TH/MM3 (150-450); RED BLOOD COUNT 2.43 MIL/MM3 (4.50-5.90); RED CELL DISTRIBUTION WIDTH 13.7 % (11.6-17.2); WHITE BLOOD COUNT 14.6 TH/MM3 (4.0-11.0)
[2017-04-20 07:29] LABS: ALBUMIN 2.2 GM/DL (3.4-5.0); AST (GOT) 70 U/L (15-37); BICARBONATE 28.2 MEQ/L (21.0-32.0); CALCIUM 8.7 MG/DL (8.5-10.1); CHLORIDE 102 MEQ/L (98-107); CREATININE 0.79 MG/DL (0.60-1.30); GLOMERULAR FILTRATION RATE 104 ML/MIN (>89); GLUCOSE,RANDOM 83 MG/DL (74-106); MAGNESIUM 2.5 MG/DL (1.5-2.5); SODIUM (NA) 140 MEQ/L (136-145)
[2017-04-20 07:45] LABS: ALKALINE PHOSPHATASE 81 U/L (45-117); ALT (GPT) 60 U/L (12-78); BLOOD UREA NITROGEN 16 MG/DL (7-18); PHOSPHORUS 3.3 MG/DL (2.5-4.9); TOTAL BILIRUBIN ADULT 0.5 MG/DL (0.2-1.0); TOTAL PROTEIN 6.1 GM/DL (6.4-8.2)
[2017-04-20] MEDS: CHLORHEXIDINE 0.12% (ORAL KIT) 15 ML CUP MT SCH ×2 (08:00→20:00)
[2017-04-20 08:49] LABS: BANDS 6 % (0-6); LYMPHOCYTES 11 % (9-44); METAMYELOCYTES 1 % (0-1); MONOCYTES 8 % (0-8); MYELOCYTES 5 % (0-0); NEUTROPHIL # MANUAL DIFF 11.8 TH/MM3 (1.8-7.7); POLYS (SEG NEUTROPHILS) 69 % (16-70); TOXIC VACUOLATION PRESENT (NONE SEEN)
[2017-04-20] MEDS: SODIUM CHLORIDE 0.9% FLUSH 10 ML FLUSH IV FLUSH SCH (09:00)
[2017-04-20] MEDS: DOCUSATE SODIUM 100 MG/10 ML UDC PO SCH ×2 (09:23→21:00)
[2017-04-20] MEDS: GABAPENTIN 300 MG CAP PO SCH ×3 (09:23→18:50)
[2017-04-20] MEDS: lamoTRIgine 100 MG TAB PO SCH (09:23)
[2017-04-20] MEDS: hydrOXYzine HCL 50 MG TAB PO SCH (09:24)
[2017-04-20] MEDS: VENLAFAXINE HCL 75 MG TAB PO SCH ×3 (09:24→18:50)
[2017-04-20] MEDS: ARTIFICIAL TEARS OPTH SOLN 15 ML BTL EACH EYE SCH ×2 (09:24→13:15)
[2017-04-20] MEDS: FAMOTIDINE 20 MG/2 ML VIAL IV PUSH SCH ×2 (09:24→21:00)
[2017-04-20] MEDS: FUROSEMIDE 20 MG/2 ML VIAL IV PUSH SCH ×2 (09:24→21:00)
[2017-04-20] MEDS: POTASSIUM CHLORIDE 25 MEQ EFFERVESCENT TAB PO SCH ×2 (09:25→21:00)
[2017-04-20] MEDS: cefTRIAXone INJ 2,000 MG in SODIUM CHLORIDE 0.9% INJ 100 ML IV SCH (13:16)
--- NOTE | 2017-04-20 14:36 | PD.PSY.CON ---
Provisional Diagnosis Admission Date Apr 11, 2017 at 02:36 Ok[place] I. Bipolar disorder, depressed episode, history of anxiety, depression, alcohol use disorder Oktaha II. Deferred Oktaha III. BPH, DUGLAS, hypoxemia, sepsis, respiratory failure History of Present Illness Service Psychiatry Consult Requested By ICU Reason for Consult Suicidal attempt Primary Care Physician Unknown HPI The patient is a 51-year-old man, domiciled with his brother, single, unemployed, with self-reported psychiatric history of bipolar disorder, 3 previous psychiatric hospitalizations, the last hospitalization was in a hospital in [place], he has established outpatient care in [facility], he isn' t Seroquel 200 mg, Effexor 225, Lamictal 200 mg he has previous suicidal attempts, medical history of BPH, presents from home where he was identified to have altered mental status and decreasing level of consciousness. Patient was also identified to have temperature elevation and paramedics identified room air O2 saturations to be 72%. Patient was immediately placed on supplemental oxygen without improvement of oxygenation or level of consciousness. Family members were concerned that patient may have overdosed on medications but the medications listed did not show any opiates. Patient's blood sugar was fine. No reported injury or trauma. Paramedics determined patient needed further ventilation support and attempted intubation in the field but this was unsuccessful and patient presents to the emergency department with ambu assisted ventilations. Multiple attempts were made in the emergency department intubated the patient for an airway protection, which was extremely difficult and patient was finally intubated by academic interventionist now the patient is extubated, consulted to psychiatry for a potential suicidal attempt. Reviewed. Case discussed with nursing charge. On psychiatric evaluation the patient is kind of agitated, restless, restraint in 2 points, Confused and disorganized, but redirectable. The patient reports that the reason he is here is because after an argument with his brother he tried to commit suicide by overdosing. Patient reports that he has been stressed, overwhelmed, but he feels better now. At this right moment the patient is able to contract for safety in the ICU , he denies suicidal and homicidal ideation, he denies visual and auditory hallucinations. Due to the level of confusion the patient is unable to elaborate about circumstances and emotions behind suicidal attempt. He is partially oriented, oriented in person and place, but disoriented in time. No agitation, no aggressive behavior present or reported. Patient has been taking his medication, and compliant. Review of Systems Constitutional: DENIES: Diaphoretic episodes, Fatigue, Fever, Weight gain, Weight loss, Chills, Dizziness, Change in appetite, Night Sweats Endocrine: DENIES: Heat/cold intolerance, Polydipsia, Polyuria, Polyphagia Eyes: DENIES: Blurred vision, Diplopia, Eye inflammation, Eye pain, Vision loss , Photosensitivity, Double Vision Ears, nose, mouth, throat: DENIES: Tinnitus, Hearing loss, Vertigo, Nasal discharge, Oral lesions, Throat pain, Hoarseness, Ear Pain, Running Nose, Epistaxis, Sinus Pain, Toothache, Odynophagia Respiratory: DENIES: Apneas, Cough, Snoring, Wheezing, Hemoptysis, Sputum production, Shortness of breath Cardiovascular: DENIES: Chest pain, Palpitations, Syncope, Dyspnea on Exertion , PND, Lower Extremity Edema, Orthopnea, Claudication Gastrointestinal: DENIES: Abdominal pain, Black stools, Bloody stools, Constipation, Diarrhea, Nausea, Vomiting, Difficulty Swallowing, Anorexia Genitourinary: DENIES: Sexual dysfunction, Urinary frequency, Urinary incontinence, Urgency, Hematuria, Dysuria, Nocturia, Penile Discharge, Testicular Pain, Testicular Swelling Musculoskeletal: DENIES: Joint pain, Muscle aches, Stiffness, Joint Swelling, Back pain, Neck pain Integumentary: DENIES: Abnormal pigmentation, Nail changes, Pruritus, Rash Hematologic/lymphatic: DENIES: Bruising, Lymphadenopathy Immunologic/allergic: DENIES: Eczema, Urticaria Psychiatric: COMPLAINS OF: Confusion, Suicidal Ideation, Delusions Past Family Social History Coded Allergies: No Allergy Information Available (Unverified , 04/11/17) Reported Medications Quetiapine (Quetiapine) 200 Mg Tab, 200 MG PO HS, #30 TAB 0 Refills 04/11/17 Simvastatin (Simvastatin) 20 Mg Tab, 20 MG PO DAILY for Cholesterol Management, #30 TAB 0 Refills 04/11/17 Gabapentin (Gabapentin) 300 Mg Cap, 300 MG PO TID, #90 CAP 0 Refills 04/11/17 Ipratropium-Albuterol Inh (Combivent Respimat Inh) 20-100 Correction/Act Aero, 1 PUFF INH QID for Asthma Management, #1 INHALER 0 Refills 04/11/17 Lamotrigine (Lamotrigine) 200 Mg Tab, 200 MG PO HS for Control Seizures, #30 TAB 0 Refills 04/11/17 Lamotrigine (Lamotrigine) 200 Mg Tab, 200 MG PO BID for Control Seizures, #60 TAB 0 Refills 04/11/17 Lorazepam (Lorazepam) 1 Mg Tab, 1 MG PO BID Y for ANXIETY AND/OR INSOMNIA, TAB 0 Refills 04/11/17 Venlafaxine (Effexor) 75 Mg Tab, 225 MG DAILY, #30 TAB 0 Refills 04/11/17 Quetiapine XR (Seroquel XR) 150 Mg Tab, 150 MG PO DAILY, #30 TAB 0 Refills 04/11/17 Naproxen Sodium (Naproxen Sodium) 220 Mg Tab, 220 MG PO BID Y for Pain Management, TAB 0 Refills 04/11/17 Hydroxyzine HCl (Hydroxyzine HCl) 50 Mg Tab, 50 MG PO BID, TAB 0 Refills 04/11/17 Fenofibrate (Fenofibrate) 160 Mg Tab, 160 MG PO DAILY, #30 TAB 0 Refills 04/11/17 Losartan (Losartan) 100 Mg Tab, 100 MG PO DAILY for Blood Pressure Management, # 30 TAB 0 Refills 04/11/17 Current Medications Medications (Trade) Dose Ordered Sig/Yoko Route Start Time Stop Time Status Last Admin (NS Flush) 2 ml UNSCH PRN IV FLUSH 04/11/17 02:45 04/19/17 08:28 (NS Flush) 2 ml BID IV FLUSH 04/11/17 09:00 04/20/17 09:00 (Tylenol) 650 mg Q6H PRN PO 04/11/17 02:45 04/19/17 18:50 (Pepcid Inj) 20 mg Q12HR IV PUSH 04/11/17 09:00 04/20/17 09:24 (Tears Naturale Opth Soln) 1 drop TID EACH EYE 04/11/17 09:00 04/20/17 13:15 (Zofran Inj) 4 mg Q6H PRN IV PUSH 04/11/17 02:45 (Duoneb Neb) 1 ampule Q2HR NEB PRN INH 04/11/17 02:45 04/18/17 14:28 (Heparin Inj) 5,000 units Q8HR SQ 04/11/17 06:00 Future hold 04/20/17 13:16 Miscellaneous Information 1 Q361D XX 04/11/17 02:45 04/11/17 04:00 (Chlorhexidine 2% Cloth) Taper DAILY@04 TOP 04/11/17 04:00 04/07/18 03:59 04/17/17 04:00 (Chlorhexidine 2% Cloth) 3 pack UNSCH PRN TOP 04/11/17 02:45 (Milk Of Magnesia Liq) 30 ml Q12H PRN PO 04/11/17 02:45 (Senokot) 17.2 mg Q12H PRN PO 04/11/17 02:45 (Dulcolax Supp) 10 mg DAILY PRN RECTAL 04/11/17 02:45 (Lactulose Liq) 30 ml DAILY PRN PO 04/11/17 02:45 (Peridex 0.12% Liq) 15 ml BID@08,20 MT 04/11/17 08:00 04/20/17 08:00 Propofol 100 ml @ 2.865 mls/ hr TITRATE PRN IV 04/11/17 02:45 04/19/17 07:00 (Neurontin) 300 mg TID PO 04/11/17 09:00 04/20/17 13:16 (Atarax) 50 mg BID PO 04/11/17 09:00 Future hold 04/20/17 09:24 (LaMICtal) 200 mg BID PO 04/11/17 09:00 04/20/17 09:23 (Cozaar) 100 mg DAILY PO 04/11/17 09:00 Future Hold 04/11/17 08:49 (SEROquel) 200 mg HS PO 04/11/17 21:00 Future hold 04/19/17 23:46 (Tricor) 145 mg DAILY PO 04/11/17 09:00 Future Hold 04/12/17 10:32 Patient Own Medication PT OWN MED: (Ipratropium-Albuter... QID INH 04/11/17 09:00 Future Hold (SEROquel) 75 mg BID PO 04/11/17 09:00 Future Hold 04/11/17 08:49 (Pravachol) 40 mg DAILY PO 04/11/17 09:00 Future Hold 04/12/17 10:32 (Brethine Inj) 1 mg UNSCH PRN SQ 04/12/17 07:45 (Effexor) 225 mg DAILY PO 04/12/17 10:00 Future Hold 04/12/17 10:32 (Colace Liq) 100 mg Q12HR PO 04/12/17 10:45 04/20/17 09:23 Potassium Chloride 100 ml @ 50 mls/hr Q2H PRN IV 04/13/17 12:45 04/13/17 14:14 Potassium Chloride 100 ml @ 50 mls/hr Q2H PRN IV 04/13/17 12:45 (K-Lyte Cl Eff) 50 meq UNSCH PRN PO 04/13/17 12:45 04/18/17 08:10 Potassium Chloride 100 ml @ 25 mls/hr UNSCH PRN IV 04/13/17 12:45 04/15/17 09:59 Potassium Chloride 100 ml @ 50 mls/hr Q2H PRN IV 04/13/17 12:45 Magnesium Sulfate 4 gm/Sodium Chloride 100 ml @ 50 mls/hr UNSCH PRN IV 04/13/17 12:45 (Mag-Ox) 800 mg UNSCH PRN PO 04/13/17 12:45 Magnesium Sulfate 2 gm/Sodium Chloride 100 ml @ 50 mls/hr UNSCH PRN IV 04/13/17 12:45 (K-Phos) 2,000 mg Q4H PRN PO 04/13/17 12:45 Sodium Phosphate 30 mmol/Sodium Chloride 250 ml @ 42 mls/hr UNSCH PRN IV 04/13/17 12:45 (K-Phos) 2,000 mg UNSCH PRN PO/TUBE 04/13/17 12:45 Potassium Phosphate 30 mmol/ Sodium Chloride 260 ml @ 42 mls/hr UNSCH PRN IV 04/13/17 12:45 04/14/17 18:07 Ceftriaxone Sodium 2000 mg/ Sodium Chloride 100 ml @ 200 mls/hr Q24H IV 04/13/17 14:00 04/20/17 13:16 (K-Lyte Cl Eff) 25 meq Q12HR PO 04/14/17 11:00 04/20/17 09:25 Sodium Chloride 38.5 meq/Sterile Water 1,009.625 ml @ 100 mls/hr Q10H6M IV 04/15/17 17:00 Future hold 04/20/17 13:59 Dexmedetomidine HCl 1000 mcg/ Sodium Chloride 250 ml @ 5.37 mls/hr TITRATE PRN IV 04/15/17 22:30 04/20/17 13:59 (Lasix Inj) 20 mg BID IV PUSH 04/16/17 21:00 04/20/17 09:24 (Effexor) 75 mg TID PO 04/19/17 09:00 04/20/17 13:16 Family Psych History The patient denies family psychiatric history. Social History Patient was born in [place], he lives with his brother in [facility], he is single , he reports that his "happily singly christianson", he is unemployed at this moment, but he was a realtor in the past. Patient's Strengths (min. 2) Verbal communication Physical Exam Vital Signs Vital Signs Date Time Temp Pulse Resp B/P (MAP) Pulse Ox O2 Delivery O2 Flow Rate FiO2 04/20/17 12:00 87 04/20/17 11:45 29 91 04/20/17 11:00 121/67 (85) 04/20/17 08:00 98.9 04/20/17 07:39 Nasal Cannula 4.00 04/19/17 10:55 40 I/O 04/20/17 04/20/17 04/21/17 08:00 16:00 00:00 Intake Total 250 ml Output Total 800 ml Balance -550 ml Lab Results Test 04/20/17 05:15 White Blood Count 14.6 TH/MM3 Red Blood Count 2.43 MIL/MM3 Hemoglobin 8.2 GM/DL Hematocrit 23.8 % Mean Corpuscular Volume 97.6 FL Mean Corpuscular Hemoglobin 33.6 PG Mean Corpuscular Hemoglobin Concent 34.4 % Red Cell Distribution Width 13.7 % Platelet Count 361 TH/MM3 Mean Platelet Volume 9.6 FL Neutrophils (%) (Auto) 83.4 % Lymphocytes (%) (Auto) 9.4 % Monocytes (%) (Auto) 5.8 % Eosinophils (%) (Auto) 1.0 % Basophils (%) (Auto) 0.4 % Neutrophils # (Auto) 12.2 TH/MM3 Lymphocytes # (Auto) 1.4 TH/MM3 Monocytes # (Auto) 0.8 TH/MM3 Eosinophils # (Auto) 0.1 TH/MM3 Basophils # (Auto) 0.1 TH/MM3 CBC Comment AUTO DIFF Differential Total Cells Counted 100 Neutrophils % (Manual) 69 % Band Neutrophils % 6 % Lymphocytes % 11 % Monocytes % 8 % Neutrophils # (Manual) 11.8 TH/MM3 Metamyelocytes 1 % Myelocytes 5 % Differential Comment FINAL DIFF MANUAL Toxic Vacuolation PRESENT Platelet Estimate NORMAL Platelet Morphology Comment NORMAL Blood Urea Nitrogen 16 MG/DL Creatinine 0.79 MG/DL Random Glucose 83 MG/DL Total Protein 6.1 GM/DL Albumin 2.2 GM/DL Calcium Level 8.7 MG/DL Phosphorus Level 3.3 MG/DL Magnesium Level 2.5 MG/DL Alkaline Phosphatase 81 U/L Aspartate Amino Transf (AST/SGOT) 70 U/L Alanine Aminotransferase (ALT/SGPT) 60 U/L Total Bilirubin 0.5 MG/DL Sodium Level 140 MEQ/L Potassium Level 3.5 MEQ/L Chloride Level 102 MEQ/L Carbon Dioxide Level 28.2 MEQ/L Anion Gap 10 MEQ/L Estimat Glomerular Filtration Rate 104 ML/MIN Date/Time Source Procedure Growth Status 04/18/17 19:45 Blood Peripheral Aerobic Blood Culture - Preliminary NO GROWTH IN 2 DAYS Resulted 04/18/17 19:45 Blood Peripheral Anaerobic Blood Culture - Preliminary NO GROWTH IN 2 DAYS Resulted 04/18/17 17:36 Sputum Endotracheal Gram Stain - Final Complete 04/18/17 17:36 Sputum Culture - Final Klebsiella Pneumoniae Complete 04/17/17 07:00 Urine Catheterized Urine Urine Culture - Final NO GROWTH IN 48 HOURS. Complete Mental Status Examination Appearance: Appropriate Consciousness: Clouded Orientation: Person, Place Motor Activity: Normal gait Speech: Unremarkable Language: Adequate Fund of Knowledge: Adequate Attention and Concentration: Adequate Memory: Impaired Mood: Sad Affect: Sad Thought Process & Associations: Loose associations Thought Content: Bizarre thinking, Racing thoughts Hallucination Type: None Delusion Type: None Suicidal Ideation: No Suicidal Plan: No Suicidal Intention: No Homicidal Ideation: No Homicidal Plan: No Homicidal Intention: No Insight: Poor Judgment: Poor Assessment & Plan Problem List: (1) Bipolar affect, depressed ICD Codes: F31.30 - Bipolar disorder, current episode depressed, mild or moderate severity, unspecified Status: Acute Assessment & Plan: Psychiatric evaluation today the patient presents can of confused, partially oriented, fluctuation of consciousness, periodically lucidity. The patient reports history of bipolar disorder, multiple psychiatric hospitalizations, previous suicidal attempts, he is in psychotropics as mentioned above, he reports that before coming to the hospital he overdosed with the intention is to commit suicide after an argument with his brother. Due to the level of delirium, circumstances and emotions behind suicidal attempts are not clear. He presents some histrionic traits, cluster B. Patient definitely represents a danger to self, but more collateral information is important to complete the psychiatric assessment, but he needs to be admitted in psychiatry for safety and stabilization. Will restart his outpatient psychotropics. Brief supportive psychotherapy provided. Transfer to psychiatry once medically appropriate. Saha act placed. Assessment & Plan Estimated LOS: days Vince Rush MD Apr 20, 2017 14:36
[2017-04-20] MEDS: ACETAMINOPHEN 325 MG TAB PO PRN (15:50)
--- NOTE | 2017-04-20 17:27 | HHI.CCPN ---
Subjective Remarks/Hospital Course 51-year-old male presents from home where he was identified to have altered mental status and decreasing level of consciousness. Patient was also identified to have temperature elevation and paramedics identified room air O2 saturations to be 72%. Patient was immediately placed on supplemental oxygen without improvement of oxygenation or level of consciousness. Family members were concerned that patient may have overdosed on medications but the medications listed did not show any opiates. Patient's blood sugar was fine. No reported injury or trauma. Paramedics determined patient needed further ventilation support and attempted intubation in the field but this was unsuccessful and patient presents to the emergency department with ambu assisted ventilations. Multiple attempts were made in the emergency department intubated the patient for an airway protection, which was extremely difficult and patient was finally intubated by export coordinator. 04/12: Continues to be critically ill intubated copious amount of ET tube secretions. Chest x-ray continues to show patchy bilateral infiltrates. Started on Levophed overnight to keep map above 65. Creat and WBC count have slightly improved. Gram neg rods in sputum gram stain. Currently on Zosyn, I will add vancomycin 04/13: Developed severe ventilator asynchrony today with low lung volumes. Most likely secondary to ET tube obstruction from secretions. After multiple suctioning volumes improved but patient remained tachypneic. Neuromuscularly paralyzed for hypoxia and asynchrony. Sputum culture growing Klebsiella 04/14: Remains intubated sedated continues to be asynchronous with the ventilator when sedation is lightened. Continues to have copious secretions. Fluid overloaded will start Lasix 20 every 12 with potassium supplementation 04/15: Oliguric to anuric with hematuria. CT abdomen pelvis 04/14 showing 3.1 cm fluid-containing structure within the posterior urethra nonspecific and there is gas within the bladder. Etiology unclear. Patient remains tachypneic on lightening sedation. Not following commands 04/16: Remains intubated sedated encephalopathic. Chest x-ray shows worsening pulmonary edema, bilateral crackles/rales on exam. Currently on Precedex and propofol and slowly weaned off propofol. Urine output increased after replacing Guzman. Apparently catheter balloon was sitting in prostatic urethra, his guzman was not advanced all the way to the bladder. This was replaced by urology with excellent UO now. On 03/04 NS for hyperNa. 04/17: Patient remains encephalopathic. Chest x-ray unchanged. Patient continued on Precedex infusion. Urine output within normal limits, creatinine improved today. Sodium level downtrending. 04/18: Patient continues on Precedex and fentanyl infusion, moving extremities spontaneously and following commands. Pt complained of pain, oxycodone 5 mg every 8 hour total dosing, in anticipation of weaning IV fentanyl. Patient tolerated CPAP trials for approximately 3 hours today. Plan to consult general surgery for tracheostomy. 04/19: Tolerating CPAP today, wide awake and following commands. +Ve cuff leak. Chest x-ray shows slight worsening bilateral infiltrates. Lasix 40 mg additional dose given 04/20: Patient extubated yesterday, doing well. O2 saturation 97% on nasal cannula. The patient was Saha acted today secondary to suicidal ideations, with concrete planning of , etc. psychiatry following discussed with Dr. Rush. Patient to be transferred to inpatient psych when bed available. Objective Vital Signs Date Time Temp Pulse Resp B/P (MAP) Pulse Ox O2 Delivery O2 Flow Rate FiO2 04/20/17 15:00 88 26 131/77 (95) 94 04/20/17 12:00 99.5 04/20/17 07:39 Nasal Cannula 4.00 04/19/17 10:55 40 Intake and Output 04/20/17 04/20/17 04/21/17 08:00 16:00 00:00 Intake Total 250 ml Output Total 800 ml Balance -550 ml Result Diagram: 04/20/17 0515 04/20/17 0515 Other Results Microbiology Date/Time Source Procedure Growth Status 04/18/17 17:36 Sputum Endotracheal Gram Stain - Final Complete 04/18/17 17:36 Sputum Culture - Final Klebsiella Pneumoniae Complete Imaging Last Impressions Chest X-Ray 04/17/17 0600 Signed Impressions: Service Date/Time: Monday, April 17, 2017 03:46 - CONCLUSION: No appreciable change. Arsen Galicia MD Abdomen/Pelvis CT 04/14/17 0000 Signed Impressions: Service Date/Time: Friday, April 14, 2017 22:16 - CONCLUSION: 1. Bilateral pleural effusions and bibasilar airspace process may represent edema and/or pneumonia. 2. There is an approximate 3.1 cm fluid-containing structure within the posterior urethra nonspecific and the exact etiology is not certain. There is gas within the bladder as well could be related to the same process or possibly introduced iatrogenically there possibility of abscess in the posterior urethra is not excluded. Arsen Galicia MD Abdomen X-Ray 04/13/17 0000 Signed Impressions: Service Date/Time: Thursday, April 13, 2017 12:02 - CONCLUSION: No acute abdominal abnormality is identified. Ezequiel Nobles MD Head CT 04/11/17 0015 Signed Impressions: Service Date/Time: Tuesday, April 11, 2017 00:53 - CONCLUSION: 1. No acute intracranial abnormality. Right maxillary sinusitis. Mucosal thickening in the ethmoid air cells. Jone Daly MD Last 24 hours Impressions Chest X-Ray 04/11/17 0000 Signed Impressions: Service Date/Time: Tuesday, April 11, 2017 00:26 - CONCLUSION: 1. Bilateral air space consolidation predominantly perihilar. Nasogastric tube and endotracheal tube in good position. Jone Daly MD Objective Remarks GENERAL: Well-nourished, well-developed patient. Alert and oriented, at times tearful SKIN: Warm and dry. HEAD: Normocephalic. EYES: No scleral icterus. No injection or drainage. ENT: Orotracheally intubated NECK: Supple, trachea midline. No JVD or lymphadenopathy. CARDIOVASCULAR: No murmurs, gallops, or rubs. RESPIRATORY: Breath sounds equal bilaterally. Mild expiratory wheezing GASTROINTESTINAL: Abdomen soft, distended. Nontender : Guzman with clear urine MUSCULOSKELETAL: No cyanosis, or edema. NEURO EXAM:RASS). GCS 15. Moves extremities spontaneously, following commands. Good muscle strength A/P Assessment and Plan NEURO: Altered mental status/encephalopathy Possible drug overdose/suicide attempt History of depressions other psychological disorders Seizure disorder Generalized pain - CT head negative - Drug screen positive only for benzodiazepines - Resumed Effexor, Seroquel, Hydroxyzine - Continue Lamictal for seizure disorder - Psych consulted- Dr. Rush- Dustin Saha Acted - Oxycodone 5 milligrams every 8 hours, PRN pain RESP: Acute hypoxemic respiratory failure Bilateral pneumonia Difficult airway - Intubated for airway protection. CPAP 5/8 FOR 45 MIN with parameters and ABG - Intubated in ED after multiple attempts by anesthesia - Vent bundle, DuoNeb scheduled and when necessary - Continue Rocephin CVS: Septic shock -resolved Fluid overload/pulmonary edema dyslipidemia - IV Lasix, 20 every 12 due to fluid overload. Give additional 40 mg IV x1 - Hold Simvastatin, Fenofibrate due to liver enzyme elevation - Continue to Hold Losartan GI: Elevated liver enzymes - Tube feeds with Jevity, IV famotidine - Liver enzymes trending down, possible shock liver : Acute kidney injury Obstructive uropathy due to Guzman balloon inflated in the urethra Now with hematuria and acute oliguria Rhabdomyolysis (CPK >25,000) - Unknown baseline creat, CPK trending down - Urology consulted, replaced Guzman which was misplaced (Guzman balloon was inflated in the prostatic urethra) - Strict I's and O's ID Sepsis Multilobar pneumonia/Klebsiella and sputum - Continue Rocephin - Sputum culture growing Klebsiella HEME: - Monitor CBC CMP coags ENDO: - Electrolyte replacement per protocol DVT GI prophylaxis - Teds SCDs - Subcutaneous heparin resumed - Pepcid Critical Care: Level II follow-up. Plan transfer to [facility] in a.m. And transfer to inpatient psych unit when bed becomes available. Physician Mecca Randle MD Apr 20, 2017 17:27
[2017-04-20] MEDS: QUEtiapine FUMARATE 200 MG TAB PO SCH (21:00)
[2017-04-21] VITALS (14 sets, daily range): BP systolic 125–157; BP diastolic 74–88; PULSE 93–122; RESP 20–38; TEMP 97.7–98.9; O2SAT 94–96
[2017-04-21] MEDS: CHLORHEXIDINE GLUCONATE 2 % 1 PACK (2 CLOTHS) TOP SCH (02:09)
[2017-04-21 04:09] LABS: AUTOMATED NEUTROPHIL # 25.3 TH/MM3 (1.8-7.7); BASOPHIL # 0.1 TH/MM3 (0-0.2); BASOPHIL % 0.4 % (0.0-2.0); EOSINOPHIL % 0.1 % (0.0-4.0); HEMATOCRIT 28.4 % (39.0-51.0); LYMPH % 4.3 % (9.0-44.0); LYMPHOCYTE # 1.2 TH/MM3 (1.0-4.8); MEAN CELL VOLUME 98.1 FL (80.0-100.0); MEAN CORPUSCULAR HEMOGLOBIN 31.2 PG (27.0-34.0); MEAN CORPUSCULAR HGB CONC 31.8 % (32.0-36.0); MEAN PLATELET VOLUME 8.4 FL (7.0-11.0); MONO % 6.2 % (0.0-8.0); MONOCYTE # 1.8 TH/MM3 (0-0.9); PLATELET COUNT 602 TH/MM3 (150-450); RED CELL DISTRIBUTION WIDTH 13.7 % (11.6-17.2); WHITE BLOOD COUNT 28.4 TH/MM3 (4.0-11.0)
[2017-04-21 04:37] LABS: BICARBONATE 24.2 MEQ/L (21.0-32.0); CREATININE 0.62 MG/DL (0.60-1.30)
[2017-04-21] MEDS: HEPARIN SODIUM - SQ 10,000 UNITS/ML VIAL SQ SCH ×3 (06:00→21:15)
[2017-04-21 07:14] LABS: BANDS 6 % (0-6); LYMPHOCYTES 6 % (9-44); METAMYELOCYTES 1 % (0-1); MONOCYTES 6 % (0-8); MYELOCYTES 2 % (0-0); POLYS (SEG NEUTROPHILS) 79 % (16-70)
[2017-04-21] MEDS: CHLORHEXIDINE 0.12% (ORAL KIT) 15 ML CUP MT SCH ×2 (08:00→20:00)
[2017-04-21] MEDS: DOCUSATE SODIUM 100 MG/10 ML UDC PO SCH ×2 (09:00→21:00)
[2017-04-21] MEDS: SODIUM CHLORIDE 0.9% FLUSH 10 ML FLUSH IV FLUSH SCH ×2 (09:00→21:16)
[2017-04-21] MEDS: lamoTRIgine 100 MG TAB PO SCH ×2 (09:00→21:00)
[2017-04-21] MEDS: hydrOXYzine HCL 50 MG TAB PO SCH ×2 (09:00→22:41)
[2017-04-21] MEDS: GABAPENTIN 300 MG CAP PO SCH ×3 (09:56→18:01)
[2017-04-21] MEDS: POTASSIUM CHLORIDE 25 MEQ EFFERVESCENT TAB PO SCH ×2 (09:56→21:00)
[2017-04-21] MEDS: FAMOTIDINE 20 MG/2 ML VIAL IV PUSH SCH ×2 (10:00→21:15)
[2017-04-21] MEDS: FUROSEMIDE 20 MG/2 ML VIAL IV PUSH SCH ×2 (10:00→21:15)
[2017-04-21] MEDS: VENLAFAXINE HCL 75 MG TAB PO SCH ×3 (10:02→18:01)
[2017-04-21] MEDS ORDERED: Vancomycin Consult Pharmacy 1 EA OTHER SCH (12:15)
[2017-04-21] MEDS ORDERED: VANCOMYCIN INJ 1,250 MG in SODIUM CHLOR 0.9% 250 ML INJ 250 ML IV ONE (12:15)
--- NOTE | 2017-04-21 12:24 | HHI.PR ---
Subjective Remarks with sob and currently on oxygen via non-rebreather. tachycardia and tachypneic. afebrile. denies pain. d/w the RN. Objective Vitals Vital Signs Date Time Temp Pulse Resp B/P (MAP) Pulse Ox O2 Delivery O2 Flow Rate FiO2 04/21/17 10:00 116 32 138/83 (101) 96 04/21/17 10:00 116 04/21/17 08:30 95 Non-Rebreather 12.00 04/21/17 08:00 117 04/21/17 08:00 98.8 117 38 145/87 (106) 96 04/21/17 06:00 114 04/21/17 04:00 122 04/21/17 04:00 98.4 122 33 153/88 (109) 04/21/17 02:00 113 04/21/17 00:00 112 04/21/17 00:00 98.1 112 20 157/83 (107) 04/20/17 22:00 110 04/20/17 20:00 98.0 93 33 135/81 (99) 04/20/17 20:00 93 04/20/17 19:00 90 04/20/17 19:00 90 37 129/75 (93) 94 04/20/17 18:00 85 26 124/73 (90) 95 04/20/17 18:00 85 04/20/17 17:00 88 04/20/17 17:00 88 27 131/79 (96) 95 04/20/17 16:00 91 04/20/17 16:00 98.2 91 27 133/80 (97) 94 04/20/17 15:00 88 26 131/77 (95) 94 18 15:00 88 04/20/17 14:00 90 39 128/77 (94) 93 04/20/17 14:00 90 04/20/17 13:00 86 30 124/76 (92) 91 I/O 04/20/17 04/20/17 04/20/17 04/21/17 04/21/17 04/21/17 07:00 15:00 23:00 07:00 15:00 23:00 Intake Total 250 ml 100 ml 1920 ml Output Total 800 ml 2000 ml 1600 ml Balance -550 ml 100 ml -80 ml -1600 ml Intake Oral 1920 ml IV Total 250 ml 100 ml Output Urine Total 800 ml 2000 ml 1600 ml # Bowel Movements 0 1 1 Result Diagram: 04/21/17 0344 04/21/17 0344 Imaging Last Impressions Chest X-Ray 04/20/17 0600 Signed Impressions: Service Date/Time: Thursday, April 20, 2017 05:29 - CONCLUSION: 1. Interval extubation and removal of nasogastric tube. 2. Airspace disease with interval improvement in the left upper lobe. Yury Saunders MD Abdomen/Pelvis CT 04/14/17 0000 Signed Impressions: Service Date/Time: Friday, April 14, 2017 22:16 - CONCLUSION: 1. Bilateral pleural effusions and bibasilar airspace process may represent edema and/or pneumonia. 2. There is an approximate 3.1 cm fluid-containing structure within the posterior urethra nonspecific and the exact etiology is not certain. There is gas within the bladder as well could be related to the same process or possibly introduced iatrogenically there possibility of abscess in the posterior urethra is not excluded. Arsen Galicia MD Abdomen X-Ray 04/13/17 0000 Signed Impressions: Service Date/Time: Thursday, April 13, 2017 12:02 - CONCLUSION: No acute abdominal abnormality is identified. Ezequiel Nobles MD Head CT 04/11/17 0015 Signed Impressions: Service Date/Time: Tuesday, April 11, 2017 00:53 - CONCLUSION: 1. No acute intracranial abnormality. Right maxillary sinusitis. Mucosal thickening in the ethmoid air cells. Jone Daly MD Objective Remarks GENERAL: in respiratory distress- on oxygen via non-rebreather. CARDIOVASCULAR: Regular rate and regular rhythm without murmurs, gallops, or rubs. RESPIRATORY: Clear to auscultation. Breath sounds equal bilaterally. No wheezes , rales, or rhonchi. GASTROINTESTINAL: Abdomen soft, non-tender, nondistended. Normal, active bowel sounds MUSCULOSKELETAL: Extremities without clubbing, cyanosis, or edema. NEURO: Alert & Oriented x4 to person, place, time, situation. Moves all ext x4 Procedures endotracheal intubation. Medications and IVs Inpatient Medications Acetaminophen (Tylenol Supp) 650 mg ONCE ONCE RECTAL Last administered on 04/11at 03:26; Start 04/11/17 at 01:30; Stop 04/11/17 at 01:31; Status DC Acetaminophen (Tylenol) 650 mg Q6H PRN PO PAIN 1-10 AND/OR FEVER >101F Last administered on 04/20/17at 15:50; Start 04/11/17 at 02:45 Albumin Human 100 ml @ 60 mls/hr Q12H IV Last administered on 04/15/17at 21:56 ; Start 04/14/17 at 11:00; Stop 04/16/17 at 10:59; Status DC Albuterol/ Ipratropium (Duoneb Neb) 1 ampule Q6HR NEB INH Last administered on 04/18/17at 07:53; Start 04/14/17 at 10:00; Stop 04/18/17 at 09:59; Status DC Artificial Tears (Tears Naturale Opth Soln) 1 drop TID EACH EYE Last administered on 04/20/17at 13:15; Start 04/11/17 at 09:00; Stop 04/20/17 at 17:18 ; Status DC Bisacodyl (Dulcolax Supp) 10 mg DAILY PRN RECTAL SEVERE CONSITIPATION; Start at 02:45 Ceftriaxone Sodium 2000 mg/ Sodium Chloride 100 ml @ 200 mls/hr Q24H IV Last administered on 04/20/17at 13:16; Start 04/13/17 at 14:00 Chlorhexidine Gluconate (Chlorhexidine 2% Cloth) 3 pack UNSCH PRN TOP HYGIENIC CARE; Start 04/11/17 at 02:45 Chlorhexidine Gluconate (Peridex 0.12% Liq) 15 ml BID@08,20 MT Last administered on 04/20/17at 08:00; Start 04/11/17 at 08:00 Dexmedetomidine HCl 1000 mcg/ Sodium Chloride 250 ml @ 5.37 mls/hr TITRATE PRN IV SEDATION Last administered on 04/20/17at 13:59; Start 04/15/17 at 22:30; Stop 04/20/17 at 19:00; Status DC Dexmedetomidine HCl 200 mcg/ Sodium Chloride 52 ml @ 5.59 mls/hr TITRATE PRN IV SEDATION; Start 04/15/17 at 13:00; Stop 04/15/17 at 22:16; Status DC Docusate Sodium (Colace Liq) 100 mg Q12HR PO Last administered on 04/20/17at 09: 23; Start 04/12/17 at 10:45 Etomidate (Amidate Inj) 20 mg ONCE ONCE IV PUSH Last administered on at 01:38; Start 04/11/17 at 00:15; Stop 04/11/17 at 00:22; Status DC Famotidine (Pepcid Inj) 20 mg Q12HR IV PUSH Last administered on 04/21/17at 10: 00; Start 04/11/17 at 09:00 Fenofibrate (Tricor) 145 mg DAILY PO Last administered on 04/12/17at 10:32; Start 04/11/17 at 09:00; Status Future Hold Fentanyl Citrate (fentaNYL INJ) 100 mcg NOW ONCE IV PUSH ; Start 04/20/17 at 14 :00; Stop 04/20/17 at 14:01; Status DC Furosemide (Lasix Inj) 40 mg ONCE ONCE IV PUSH Last administered on 04/19/17at 10:54; Start 04/19/17 at 10:30; Stop 04/19/17 at 12:30; Status DC Gabapentin (Neurontin) 300 mg TID PO Last administered on 04/21/17at 09:56; Start 04/11/17 at 09:00 Heparin Sodium (Porcine) (Heparin Inj) 5,000 units Q8HR SQ Last administered on 04/21/17at 06:00; Start 04/11/17 at 06:00; Status Future hold Hydroxyzine HCl (Atarax) 50 mg BID PO Last administered on 04/21/17at 09:00; Start 04/11/17 at 09:00; Status Future hold Lactulose (Lactulose Liq) 30 ml DAILY PRN PO SEVERE CONSITIPATION; Start at 02:45 Lamotrigine (LaMICtal) 200 mg BID PO Last administered on 04/21/17at 09:00; Start 04/11/17 at 09:00 Lorazepam (Ativan Inj) 1 mg ONCE ONCE IV PUSH ; Start 04/11/17 at 00:30; Stop 04/11/17 at 00:31; Status DC Losartan Potassium (Cozaar) 100 mg DAILY PO Last administered on 04/11/17at 08: 49; Start 04/11/17 at 09:00; Status Future Hold Magnesium Hydroxide (Milk Of Anthony Liq) 30 ml Q12H PRN PO Mild constipation ; Start 04/11/17 at 02:45 Magnesium Oxide (Mag-Ox) 800 mg UNSCH PRN PO For Magnesium 1.2 - 1.6 mg/dL; Start 04/13/17 at 12:45 Magnesium Sulfate 2 gm/Sodium Chloride 100 ml @ 50 mls/hr UNSCH PRN IV For Magnesium 1.2 - 1.6 mg/dL; Start 04/13/17 at 12:45 Magnesium Sulfate 4 gm/Sodium Chloride 100 ml @ 50 mls/hr UNSCH PRN IV For Magnesium 0.9 - 1.1 mg/dL; Start 04/13/17 at 12:45 Midazolam HCl 100 ml @ 2 mls/hr TITRATE PRN IV SEDATION Last administered on at 01:17; Start 04/11/17 at 08:15; Stop 04/14/17 at 09:38; Status DC Miscellaneous Information SPECIFIC LAB TO BE DRAWN: VANCO TROUGH DATE TO... ONCE ONCE .XX ; Start 04/14/17 at 01:45; Stop 04/14/17 at 01:45; Status DC Miscellaneous Information (RASS Change Order) 1 ea ONCE ONCE XX Last administered on 04/11/17at 08:15; Start 04/11/17 at 08:15; Stop 04/11/17 at 08:16 ; Status DC Norepinephrine Bitartrate 4 mg/ Sodium Chloride 250 ml @ 7.5 mls/hr TITRATE PRN IV Blood pressure management Last administered on 04/12/17at 07:00; Start 02/15 at 07:45; Stop 04/14/17 at 09:38; Status DC Ondansetron HCl (Zofran Inj) 4 mg Q6H PRN IV PUSH NAUSEA OR VOMITING; Start 01/16 at 02:45 Patient Own Medication PT OWN MED: (Ipratropium-Albuter... QID INH ; Start 04/11 at 09:00; Status Future Hold Pharmacy Profile Note 0 ml @ 0 mls/hr UNSCH OTHER ; Start 04/12/17 at 10:30; Stop 04/13/17 at 12:39; Status DC Piperacillin Sod/ Tazobactam Sod 100 ml @ 200 mls/hr Q6H IV Last administered on 04/13/17at 10:51; Start 04/11/17 at 10:00; Stop 04/13/17 at 12:39; Status DC Potassium Chloride 40 meq/ Sodium Chloride 520 ml @ 130 mls/hr ONCE ONCE IV- CENTRAL Last administered on 04/19/17at 11:05; Start 04/19/17 at 10:30; Stop at 14:29; Status DC Potassium Phosphate (K-Phos) 2,000 mg UNSCH PRN PO/TUBE SEE LABEL COMMENTS; Start 04/13/17 at 12:45 Potassium Phosphate 30 mmol/ Sodium Chloride 260 ml @ 42 mls/hr UNSCH PRN IV SEE LABEL COMMENTS Last administered on 04/14/17at 18:07; Start 04/13/17 at 12:45 Potassium Bicarb/ Potassium Chloride (K-Lyte Cl Eff) 25 meq Q12HR PO Last administered on 04/21/17at 09:56; Start 04/14/17 at 11:00 Potassium Chloride 100 ml @ 50 mls/hr NOW IV Last administered on 04/18/17at 17 :03; Start 04/18/17 at 17:00; Stop 04/18/17 at 23:00; Status DC Pravastatin Sodium (Pravachol) 40 mg DAILY PO Last administered on 04/12/17at 10 :32; Start 04/11/17 at 09:00; Status Future Hold Propofol 100 ml @ 2.865 mls/ hr TITRATE PRN IV SEDATION Last administered on at 07:00; Start 04/11/17 at 02:45; Stop 04/20/17 at 17:18; Status DC Quetiapine Fumarate (SEROquel) 75 mg BID PO Last administered on 04/11/17at 08: 49; Start 04/11/17 at 09:00; Status Future Hold Rocuronium [place] (Zemuron Inj) 50 mg BOLUS ONCE IV Last administered on 04/11at 10:46; Start 04/11/17 at 09:45; Stop 04/11/17 at 10:00; Status DC Senna/Docusate Sodium (Nisa-Colace) 1 tab BID PO Last administered on at 10:32; Start 04/11/17 at 09:00; Stop 04/12/17 at 14:25; Status DC Sennosides (Senokot) 17.2 mg Q12H PRN PO Moderate constipation; Start 04/11/17 at 02:45 Sodium Bicarbonate (Sodium Bicarbonate 8.4% Inj) 50 meq ONCE ONCE IV PUSH Last administered on 04/15/17at 17:44; Start 04/15/17 at 16:30; Stop 04/15/17 at 16:33; Status DC Sodium Chloride (NS Flush) 2 ml BID IV FLUSH Last administered on 04/21/17at 09: 00; Start 04/11/17 at 09:00 Sodium Chloride 38.5 meq/Sterile Water 1,009.625 ml @ 100 mls/hr Q10H6M IV Last administered on 04/20/17at 13:59; Start 04/15/17 at 17:00; Status Future Hold Sodium Phosphate 30 mmol/Sodium Chloride 250 ml @ 42 mls/hr UNSCH PRN IV For Phosphorus < 2.5 mg/dL; Start 04/13/17 at 12:45 Succinylcholine Chloride (Quelicin Inj) 100 mg ONCE ONCE IV PUSH Last administered on 04/11/17at 03:42; Start 04/11/17 at 02:30; Stop 04/11/17 at 02:31 ; Status DC Terbutaline Sulfate (Brethine Inj) 1 mg UNSCH PRN SQ For Extravasation; Start 04/12/17 at 07:45 Thiamine HCl 100 mg/Sodium Chloride 101 ml @ 100 mls/hr ONCE ONCE IV ; Start 04/11/17 at 00:15; Stop 04/11/17 at 01:15; Status DC Vancomycin HCl 1000 mg/Sodium Chloride 250 ml @ 250 mls/hr ONCE ONCE IV Last administered on 04/11/17at 10:44; Start 04/11/17 at 10:00; Stop 04/11/17 at 10:59 ; Status DC Vancomycin HCl 1500 mg/Sodium Chloride 515 ml @ 257.5 mls/ hr Q18H IV Last administered on 04/13/17at 08:25; Start 04/12/17 at 14:00; Stop 04/13/17 at 12:39 ; Status DC Venlafaxine HCl (Effexor Xr) 225 mg DAILY PO ; Start 04/11/17 at 09:00; Stop 02/15 at 08:43; Status DC Venlafaxine HCl (Effexor) 75 mg TID PO Last administered on 04/21/17at 10:02; Start 04/19/17 at 09:00 A/P Assessment and Plan Altered mental status/encephalopathy Possible drug overdose/suicide attempt History of depressions other psychological disorders Seizure disorder Generalized pain - CT head negative - Drug screen positive only for benzodiazepines - Resumed Effexor, Seroquel, Hydroxyzine - Continue Lamictal for seizure disorder - Psych consulted- Dr. Rush- Pt Saha Acted - Oxycodone 5 milligrams every 8 hours, PRN pain Acute hypoxemic respiratory failure Bilateral pneumonia/sepsis Difficult airway - Intubated for airway protection. CPAP 5/8 FOR 45 MIN with parameters and ABG - Intubated in ED after multiple attempts by anesthesia - now has been extubated- on oxygen via non-rebreather. - stop Rocephin and change to broad-spectrum IV antibiotics; Vanco and Zosyn. -check ABG and CXR stat. -consult ID and pulmonary. Septic shock -resolved Fluid overload/pulmonary edema dyslipidemia - IV Lasix, 20 every 12 due to fluid overload. - Hold Simvastatin, Fenofibrate due to liver enzyme elevation - Continue to Hold Losartan Elevated liver enzymes - Liver enzymes trending down, possible shock liver Acute kidney injury Obstructive uropathy due to Guzman balloon inflated in the urethra Now with hematuria and acute oliguria Rhabdomyolysis (CPK >25,000) - Unknown baseline creat, CPK trending down - Urology consulted, replaced Guzman which was misplaced (Guzman balloon was inflated in the prostatic urethra) - Strict I's and O's -will guzman cath within the next one-two days when more stable. - Electrolyte replacement per protocol DVT GI prophylaxis - Teds SCDs - Subcutaneous heparin resumed - Pepcid patient is still with respiratory distress. will keep in the ICU for close monitoring with low-threshold for stone rigger reconsult. d/w the and Shannon Tierney MD Apr 21, 2017 12:24
--- NOTE | 2017-04-21 13:12 | RADRPT ---
EXAM DATE/TIME: 04/21/2017 12:42 [facility] COMPARISON: CHEST SINGLE AP, April 20, 2017, 5:29. INDICATIONS : Short of breath. MEDICAL HISTORY : None. SURGICAL HISTORY : None. ENCOUNTER: Subsequent ACUITY: 2 weeks PAIN SCORE: 0/10 LOCATION: Bilateral chest FINDINGS: Presently the central catheter is stable. Diffuse bilateral alveolar opacities persist, slightly more confluent than on yesterday's exam. The visualized cardiac contours are grossly stable. CONCLUSION: Slight interval worsening in aeration Ezeqiuel Eastman MD on April 21, 2017 at 13:09 Board Certified Radiologist. This report was verified electronically.
[2017-04-21] MEDS: ACETAMINOPHEN 325 MG TAB PO PRN (13:35)
--- NOTE | 2017-04-21 15:24 | HHI.PR ---
Addendum to Inpatient Note Additional Information pt seen earlier today full note to follow Rima Tee MD Apr 21, 2017 15:24
[2017-04-21] MEDS: RESP: ALBUTEROL 2.5 MG/IPRATROPIUM 0.5 MG NEB (SCH) NEB ×2 (15:38→19:54)
[2017-04-21] MEDS: PIPERACIL-TAZO 3.375 GM PREMIX 50 ML IV SCH ×2 (17:50→21:15)
[2017-04-21] MEDS: methylPREDNISolone SOD SUCC 40 MG/1 ML VIAL IV PUSH SCH (18:01)
[2017-04-21] MEDS: VANCOMYCIN INJ 1,700 MG in SODIUM CHLORID 0.9% 500 ML INJ 500 ML IV SCH (18:01)
--- NOTE | 2017-04-21 18:14 | MB ---
cc: Shawn CARRERA M.D. DATE OF CONSULTATION 04/21/2017 HISTORY Mr. Everett is a 51-year-old white male who apparently tried to commit suicide the day of this admission, was found by his mother delirious and then nearly obtunded. He was brought in by ambulance, very difficult intubation, but had to be intubated on presentation for airway management and then ended up on mechanical ventilatory support with sepsis and Klebsiella pneumonia. Klebsiella was first identified on the and again on the and again on the from sputum cultures. The patient is a smoker of probably two packs per day. According to his mother he has been smoking since he was in his 20s. Also may be drinking alcohol to excess that is difficult to quantitate, but both he and his mother indicate he has used no other illicit drugs by inhalation or intravenously. He has been followed by critical care and yesterday was extubated. Today on a non-rebreather mask he has had arterial blood gases with a pO2 of 99, pH 7.36 and a pCO2 of 42. His chest x-ray today reveals slight worsening in aeration. He has bilateral infiltrates right greater than left. White count has been trending upward currently 28,000. Electrolytes were normal. He had rhabdomyolysis on admission as well. CK was 25,000. BUN and creatinine were mildly elevated but they have stabilized at 13 and 0.6. I am asked to see the patient for continued pulmonary care. The patient really is not making an awful lot of sense. Does give some details of his history but also clearly has flight of ideas. He does have a psychiatric history at least of depression. He was seen for suicidal ideation here four years ago in the emergency room, temporarily Saha acted and then it was lifted and he went home and he has not been seen here since. No prior cardiovascular history. ALLERGIES No allergies known. MEDICATIONS Current medications reviewed in the EMR. PAST MEDICAL HISTORY 1. One prior surgery on his cervical spine. 2. He had effusion after an accident. PHYSICAL EXAMINATION VITAL SIGNS: 98, respirations 28, pulse is 100, blood pressure is 140/80, O2 saturations are 96-98%. HEENT: Sclerae anicteric. Mucous membranes are moist. NECK: The neck veins are flat. LUNGS: Minimal scattered congestion in his lungs with no wheezing. CARDIOVASCULAR: Regular rhythm. No harsh murmur. EXTREMITIES: No edema or calf tenderness. DISCUSSION Mr. Everett presented presumably after a drug overdose. Precise drugs taken are not known and the only thing on toxicology was benzodiazepines. In any event, he had a critical illness that has improved. He is extubated now but still quite hypoxic with a diffuse pneumonia, probably aspiration but Klebsiella has been documented. Will continue piperacillin along with his vancomycin, nebulized aerosol treatments and in light of the persistent infiltrates and prior history of smoking we will add IV Solu-Medrol for its anti-inflammatory effect. Further diagnostic and/or therapeutic intervention will depend on his ongoing clinical course. I did speak to his mother who is at the bedside at present. R. Meng Carrera MD RSW/KK /4:33 PM /5:57 PM
[2017-04-21] MEDS: QUEtiapine FUMARATE 200 MG TAB PO SCH (22:40)
--- NOTE | 2017-04-21 23:28 | PD.ID.CON ---
History of Present Illness Service ID Consult Requested By Dr Pierce Reason for Consult PNA Primary Care Physician Unknown Diagnoses: History of Present Illness 51m yo male with h/o tobaccoism, ETOH and benzo abuse presented with resp failure 10 days ago dagnosed with PNA grew remy S Klebsiella in multiple samples was extubated yday a dn on NRB His WBC went up to 28 K + diarrhea No fever Review of Systems Except as stated in HPI: all other systems reviewed are Neg Past Family Social History Allergies: Coded Allergies: No Allergy Information Available (Unverified , 04/11/17) Past Medical History Depression Hypertension Dyslipidemia Asthma Past Surgical History C spine surgery Active Ordered Medications Medications where reviewed in EMR Antibiotics Include: zosyn vancomycin Family History reviewed non contributory Social History + tobacco - 1 ppd x 30 yrs + benzos mixing with ETOH no IVDU Physical Exam Vital Signs Vital Signs Date Time Temp Pulse Resp B/P (MAP) Pulse Ox O2 Delivery O2 Flow Rate FiO2 04/21/17 22:00 100 04/21/17 20:00 99 04/21/17 20:00 97.7 99 24 139/83 (101) 94 04/21/17 19:54 95 Non-Rebreather 15.00 04/21/17 18:00 93 04/21/17 16:00 98.5 105 33 131/74 (93) 96 04/21/17 16:00 105 04/21/17 14:00 110 04/21/17 12:00 103 04/21/17 12:00 98.9 103 33 125/88 (100) 96 04/21/17 10:00 116 32 138/83 (101) 96 04/21/17 10:00 116 04/21/17 08:30 95 Non-Rebreather 12.00 04/21/17 08:00 117 04/21/17 08:00 98.8 117 38 145/87 (106) 96 04/21/17 06:00 114 04/21/17 04:00 122 04/21/17 04:00 98.4 122 33 153/88 (109) 04/21/17 02:00 113 04/21/17 00:00 112 04/21/17 00:00 98.1 112 20 157/83 (107) Physical Exam CONSTITUTIONAL/GENERAL: This is an adequately nourished patient, in no apparent distress. TUBES/LINES/DRAINS: SKIN: No jaundice, rashes, or lesions. Skin temperature appropriate. Not diaphoretic. HEAD: Atraumatic. Normocephalic. EYES: Pupils equal and round and reactive. Extraocular motions intact. No scleral icterus. No injection or drainage. Fundi not examined. ENT: Hearing grossly normal. Nose without bleeding or purulent drainage. Throat without visible erythema, exudates, masses, or lesions. NECK: Trachea midline. Supple, nontender. No palpable thyroid enlargement or nodularity. CARDIOVASCULAR: Regular rate and rhythm without murmurs, gallops, or rubs. No JVD. Peripheral pulses symmetric. RESPIRATORY/CHEST: Symmetric, unlabored respirations. Breath sounds equal bilaterally. + b/b rales GASTROINTESTINAL: Abdomen soft, non-tender, + distended. No hepato-splenomegaly , or palpable masses. No guarding. Bowel sounds present. GENITOURINARY: Without palpable bladder distension. Hargrove catheter in place with clear yellow urine MUSCULOSKELETAL: Extremities without clubbing, cyanosis, or edema. No joint tenderness or effusion noted. No calf tenderness. No mottling or clubbing. LYMPHATICS: No palpable cervical or supraclavicular adenopathy. NEUROLOGICAL: Awake and alert. Motor and sensory grossly within normal limits. Follows commands. Clear speech, not alwsays coherent p. Moves all extremities. PSYCHIATRIC: No obvious anxiety/depression. no apparent hallucinations or other psychotic thought process. Laboratory Laboratory Tests Test 04/21/17 03:44 04/21/17 12:45 White Blood Count 28.4 Red Blood Count 2.90 Hemoglobin 9.0 Hematocrit 28.4 Mean Corpuscular Volume 98.1 Mean Corpuscular Hemoglobin 31.2 Mean Corpuscular Hemoglobin Concent 31.8 Red Cell Distribution Width 13.7 Platelet Count 602 Mean Platelet Volume 8.4 Neutrophils (%) (Auto) 89.0 Lymphocytes (%) (Auto) 4.3 Monocytes (%) (Auto) 6.2 Eosinophils (%) (Auto) 0.1 Basophils (%) (Auto) 0.4 Neutrophils # (Auto) 25.3 Lymphocytes # (Auto) 1.2 Monocytes # (Auto) 1.8 Eosinophils # (Auto) 0.0 Basophils # (Auto) 0.1 CBC Comment AUTO DIFF Differential Total Cells Counted 100 Neutrophils % (Manual) 79 Band Neutrophils % 6 Lymphocytes % 6 Monocytes % 6 Neutrophils # (Manual) 25.0 Metamyelocytes 1 Myelocytes 2 Differential Comment FINAL DIFF MANUAL Atypical Lymphocytes Platelet Estimate HIGH Platelet Morphology Comment NORMAL Blood Urea Nitrogen 13 Creatinine 0.62 Random Glucose 96 Calcium Level 9.0 Sodium Level 136 Potassium Level 3.9 Chloride Level 99 Carbon Dioxide Level 24.2 Anion Gap 13 Estimat Glomerular Filtration Rate 137 Total Creatine Kinase 627 Creatine Kinase MB 2.0 Creatine Kinase MB % 0.3 Blood Gas Puncture Site RT RADIAL Blood Gas Patient Temperature 98.6 Blood Gas HCO3 23 Blood Gas Base Excess -1.2 Blood Gas Oxygen Saturation 95 Arterial Blood pH 7.36 Arterial Blood Partial Pressure CO2 43 Arterial Blood Partial Pressure O2 99 Arterial Blood Oxygen Content 11.7 Arterial Blood Carboxyhemoglobin 1.2 Arterial Blood Methemoglobin 1.4 Blood Gas Hemoglobin 8.7 Oxygen Delivery Device Non-Rebreathing Mask Blood Gas Liter Flow 12 Blood Gas Inspired Oxygen 100 Date/Time Source Procedure Growth Status 04/18/17 19:45 Blood Peripheral Aerobic Blood Culture - Preliminary NO GROWTH IN 3 DAYS Resulted 04/18/17 19:45 Blood Peripheral Anaerobic Blood Culture - Preliminary NO GROWTH IN 3 DAYS Resulted 04/18/17 17:36 Sputum Endotracheal Gram Stain - Final Complete 04/18/17 17:36 Sputum Culture - Final Klebsiella Pneumoniae Complete 04/17/17 07:00 Urine Catheterized Urine Urine Culture - Final NO GROWTH IN 48 HOURS. Complete Result Diagram: 04/21/17 0344 04/21/17 0344 Imaging Last Impressions Chest X-Ray 04/21/17 0000 Signed Impressions: Service Date/Time: Friday, April 21, 2017 12:42 - CONCLUSION: Slight interval worsening in aeration Ezequiel Eastman MD Abdomen/Pelvis CT 04/14/17 0000 Signed Impressions: Service Date/Time: Friday, April 14, 2017 22:16 - CONCLUSION: 1. Bilateral pleural effusions and bibasilar airspace process may represent edema and/or pneumonia. 2. There is an approximate 3.1 cm fluid-containing structure within the posterior urethra nonspecific and the exact etiology is not certain. There is gas within the bladder as well could be related to the same process or possibly introduced iatrogenically there possibility of abscess in the posterior urethra is not excluded. Arsen Galicia MD Abdomen X-Ray 04/13/17 0000 Signed Impressions: Service Date/Time: Thursday, April 13, 2017 12:02 - CONCLUSION: No acute abdominal abnormality is identified. Ezequiel Nobles MD Head CT 04/11/17 0015 Signed Impressions: Service Date/Time: Tuesday, April 11, 2017 00:53 - CONCLUSION: 1. No acute intracranial abnormality. Right maxillary sinusitis. Mucosal thickening in the ethmoid air cells. Jone Daly MD Assessment and Plan Assessment and Plan PNA< Kleb pneumo Resp failure, weaned of vent Leukocytosis Abx associated diarrhea cont current abx - fu repeat sputum clx r/o c.diff chk blood and urine clx Discussed Condition With Rima Dalton MD Apr 21, 2017 23:28
[2017-04-22] VITALS (36 sets, daily range): BP systolic 99–133; BP diastolic 58–77; PULSE 54–189; RESP 18–33; TEMP 97.6–99; O2SAT 84–100
[2017-04-22] MEDS: methylPREDNISolone SOD SUCC 40 MG/1 ML VIAL IV PUSH SCH ×3 (02:00→16:56)
[2017-04-22] MEDS: PIPERACIL-TAZO 3.375 GM PREMIX 50 ML IV SCH ×2 (02:00→07:51)
[2017-04-22] MEDS: CHLORHEXIDINE GLUCONATE 2 % 1 PACK (2 CLOTHS) TOP SCH ×2 (04:00→20:53)
[2017-04-22] MEDS: RESP: ALBUTEROL 2.5 MG/IPRATROPIUM 0.5 MG NEB (SCH) NEB ×4 (04:12→20:48)
[2017-04-22 04:44] LABS: AUTOMATED NEUTROPHIL # 20.1 TH/MM3 (1.8-7.7); BASOPHIL # 0.1 TH/MM3 (0-0.2); BASOPHIL % 0.4 % (0.0-2.0); HEMATOCRIT 24.7 % (39.0-51.0); HEMOGLOBIN 8.2 GM/DL (13.0-17.0); LYMPH % 3.3 % (9.0-44.0); LYMPHOCYTE # 0.7 TH/MM3 (1.0-4.8); MEAN CELL VOLUME 98.1 FL (80.0-100.0); MEAN CORPUSCULAR HEMOGLOBIN 32.6 PG (27.0-34.0); MEAN CORPUSCULAR HGB CONC 33.2 % (32.0-36.0); MEAN PLATELET VOLUME 8.4 FL (7.0-11.0); MONO % 6.6 % (0.0-8.0); MONOCYTE # 1.5 TH/MM3 (0-0.9); NEUT % 89.7 % (16.0-70.0); PLATELET COUNT 538 TH/MM3 (150-450); RED BLOOD COUNT 2.52 MIL/MM3 (4.50-5.90); RED CELL DISTRIBUTION WIDTH 13.7 % (11.6-17.2); WHITE BLOOD COUNT 22.4 TH/MM3 (4.0-11.0)
[2017-04-22 05:07] LABS: CREATININE 0.66 MG/DL (0.60-1.30)
[2017-04-22] MEDS: HEPARIN SODIUM - SQ 10,000 UNITS/ML VIAL SQ SCH ×3 (06:00→21:10)
[2017-04-22] MEDS ORDERED: LORazepam 2 MG/ML VIAL IV PUSH ONE (06:15)
[2017-04-22] MEDS ORDERED: DILTIAZEM HCL 25 MG/5 ML VIAL IV ONE ×2 (07:30→09:20)
[2017-04-22] MEDS: GABAPENTIN 300 MG CAP PO SCH ×3 (07:52→16:56)
[2017-04-22] MEDS: FAMOTIDINE 20 MG/2 ML VIAL IV PUSH SCH ×2 (07:52→21:10)
[2017-04-22] MEDS: lamoTRIgine 100 MG TAB PO SCH ×2 (07:52→21:11)
[2017-04-22] MEDS: hydrOXYzine HCL 50 MG TAB PO SCH ×2 (07:53→21:11)
[2017-04-22] MEDS: DOCUSATE SODIUM 100 MG/10 ML UDC PO SCH ×2 (07:53→21:10)
--- NOTE | 2017-04-22 07:58 | HHI.PR ---
Subjective Remarks f/u; respiratory failure still on oxygen via non-rebreather. noted that was placed on restraints. went into a-fib with RVR earleir. denies any chest pain. no fever. d/w the RN at the bedside. Objective Vitals Vital Signs Date Time Temp Pulse Resp B/P (MAP) Pulse Ox O2 Delivery O2 Flow Rate FiO2 04/22/17 06:00 159 04/22/17 04:00 98.0 189 28 110/74 (86) 89 04/22/17 04:00 189 04/22/17 03:00 101 04/22/17 02:00 96 04/22/17 02:00 96 04/22/17 00:00 97.6 96 27 133/69 (90) 98 04/22/17 00:00 96 04/21/17 22:00 100 04/21/17 20:00 99 04/21/17 20:00 97.7 99 24 139/83 (101) 94 04/21/17 19:54 95 Non-Rebreather 15.00 04/21/17 18:00 93 04/21/17 16:00 98.5 105 33 131/74 (93) 96 04/21/17 16:00 105 04/21/17 14:00 110 04/21/17 12:00 103 04/21/17 12:00 98.9 103 33 125/88 (100) 96 04/21/17 10:00 116 32 138/83 (101) 96 04/21/17 10:00 116 04/21/17 08:30 95 Non-Rebreather 12.00 04/21/17 08:00 117 04/21/17 08:00 98.8 117 38 145/87 (106) 96 I/O 04/21/17 04/21/17 04/21/17 04/22/17 04/22/17 04/22/17 07:00 15:00 23:00 07:00 15:00 23:00 Intake Total 250 ml Output Total 1600 ml Balance -1600 ml 250 ml IV Total 250 ml Output Urine Total 1600 ml # Bowel Movements 1 Result Diagram: 04/22/178 04/22/17 0408 Imaging Last Impressions Chest X-Ray 04/21/17 0000 Signed Impressions: Service Date/Time: Friday, April 21, 2017 12:42 - CONCLUSION: Slight interval worsening in aeration Ezequiel Eastman MD Abdomen/Pelvis CT 04/14/17 0000 Signed Impressions: Service Date/Time: Friday, April 14, 2017 22:16 - CONCLUSION: 1. Bilateral pleural effusions and bibasilar airspace process may represent edema and/or pneumonia. 2. There is an approximate 3.1 cm fluid-containing structure within the posterior urethra nonspecific and the exact etiology is not certain. There is gas within the bladder as well could be related to the same process or possibly introduced iatrogenically there possibility of abscess in the posterior urethra is not excluded. Arsen Galicia MD Abdomen X-Ray 04/13/17 0000 Signed Impressions: Service Date/Time: Thursday, April 13, 2017 12:02 - CONCLUSION: No acute abdominal abnormality is identified. Ezequiel Nobles MD Head CT 04/11/17 0015 Signed Impressions: Service Date/Time: Tuesday, April 11, 2017 00:53 - CONCLUSION: 1. No acute intracranial abnormality. Right maxillary sinusitis. Mucosal thickening in the ethmoid air cells. Jone Daly MD Objective Remarks GENERAL: in respiratory distress- on oxygen via non-rebreather. CARDIOVASCULAR: tachycardic RESPIRATORY: Clear to auscultation. Breath sounds equal bilaterally. No wheezes , rales, or rhonchi. GASTROINTESTINAL: Abdomen soft, non-tender, nondistended. Normal, active bowel sounds MUSCULOSKELETAL: Extremities without clubbing, cyanosis, or edema. NEURO: Alert & Oriented x4 to person, place, time, situation. Moves all ext x4 Procedures endotracheal intubation. Medications and IVs Inpatient Medications Acetaminophen (Tylenol Supp) 650 mg ONCE ONCE RECTAL Last administered on 04/11at 03:26; Start 04/11/17 at 01:30; Stop 04/11/17 at 01:31; Status DC Acetaminophen (Tylenol) 650 mg Q6H PRN PO PAIN 1-10 AND/OR FEVER >101F Last administered on 04/20/17at 15:50; Start 04/11/17 at 02:45 Albumin Human 100 ml @ 60 mls/hr Q12H IV Last administered on 04/15/17at 21:56 ; Start 04/14/17 at 11:00; Stop 04/16/17 at 10:59; Status DC Albuterol/ Ipratropium (Duoneb Neb) 1 ampule Q6HR NEB NEB Last administered on 04/22/17at 04:12; Start 04/21/17 at 16:00 Artificial Tears (Tears Naturale Opth Soln) 1 drop TID EACH EYE Last administered on 04/20/17at 13:15; Start 04/11/17 at 09:00; Stop 04/20/17 at 17:18 ; Status DC Bisacodyl (Dulcolax Supp) 10 mg DAILY PRN RECTAL SEVERE CONSITIPATION; Start at 02:45 Ceftriaxone Sodium 2000 mg/ Sodium Chloride 100 ml @ 200 mls/hr Q24H IV Last administered on 04/20/17at 13:16; Start 04/13/17 at 14:00; Stop 04/21/17 at 12:18 ; Status DC Chlorhexidine Gluconate (Chlorhexidine 2% Cloth) 3 pack UNSCH PRN TOP HYGIENIC CARE; Start 04/11/17 at 02:45 Chlorhexidine Gluconate (Peridex 0.12% Liq) 15 ml BID@08,20 MT Last administered on 04/20/17at 08:00; Start 04/11/17 at 08:00 Dexmedetomidine HCl 1000 mcg/ Sodium Chloride 250 ml @ 5.37 mls/hr TITRATE PRN IV SEDATION Last administered on 04/20/17at 13:59; Start 04/15/17 at 22:30; Stop 04/20/17 at 19:00; Status DC Dexmedetomidine HCl 200 mcg/ Sodium Chloride 52 ml @ 5.59 mls/hr TITRATE PRN IV SEDATION; Start 04/15/17 at 13:00; Stop 04/15/17 at 22:16; Status DC Diltiazem HCl (Cardizem Inj) 10 mg BOLUS ONCE IV ; Start 04/22/17 at 07:30; Stop 04/22/17 at 07:31; Status DC Diltiazem HCl 125 mg/Sodium Chloride 125 ml @ 5 mls/hr TITRATE PRN IV Tachycardia; Start 04/22/17 at 08:00 Docusate Sodium (Colace Liq) 100 mg Q12HR PO Last administered on 04/20/17at 09: 23; Start 04/12/17 at 10:45 Etomidate (Amidate Inj) 20 mg ONCE ONCE IV PUSH Last administered on at 01:38; Start 04/11/17 at 00:15; Stop 04/11/17 at 00:22; Status DC Famotidine (Pepcid Inj) 20 mg Q12HR IV PUSH Last administered on 04/21/17at 21: 15; Start 04/11/17 at 09:00 Fenofibrate (Tricor) 145 mg DAILY PO Last administered on 04/12/17at 10:32; Start 04/11/17 at 09:00; Status Future Hold Fentanyl Citrate (fentaNYL INJ) 100 mcg NOW ONCE IV PUSH ; Start 04/20/17 at 14 :00; Stop 04/20/17 at 14:01; Status DC Furosemide (Lasix Inj) 40 mg ONCE ONCE IV PUSH Last administered on 04/19/17at 10:54; Start 04/19/17 at 10:30; Stop 04/19/17 at 12:30; Status DC Gabapentin (Neurontin) 300 mg TID PO Last administered on 04/21/17at 18:01; Start 04/11/17 at 09:00 Heparin Sodium (Porcine) (Heparin Inj) 5,000 units Q8HR SQ Last administered on 04/22/17at 06:00; Start 04/11/17 at 06:00; Status Future hold Hydroxyzine HCl (Atarax) 50 mg BID PO Last administered on 04/21/17at 22:41; Start 04/11/17 at 09:00; Status Future hold Lactulose (Lactulose Liq) 30 ml DAILY PRN PO SEVERE CONSITIPATION; Start at 02:45 Lamotrigine (LaMICtal) 200 mg BID PO Last administered on 04/21/17at 09:00; Start 04/11/17 at 09:00 Lorazepam (Ativan Inj) 2 mg ONCE ONCE IV PUSH Last administered on 04/22/17at 06:15; Start 04/22/17 at 06:15; Stop 04/22/17 at 06:16; Status DC Losartan Potassium (Cozaar) 100 mg DAILY PO Last administered on 04/11/17at 08: 49; Start 04/11/17 at 09:00; Status Future Hold Magnesium Hydroxide (Milk Of Magnesia Liq) 30 ml Q12H PRN PO Mild constipation ; Start 04/11/17 at 02:45 Magnesium Oxide (Mag-Ox) 800 mg UNSCH PRN PO For Magnesium 1.2 - 1.6 mg/dL; Start 04/13/17 at 12:45 Magnesium Sulfate 2 gm/Sodium Chloride 100 ml @ 50 mls/hr UNSCH PRN IV For Magnesium 1.2 - 1.6 mg/dL; Start 04/13/17 at 12:45 Magnesium Sulfate 4 gm/Sodium Chloride 100 ml @ 50 mls/hr UNSCH PRN IV For Magnesium 0.9 - 1.1 mg/dL; Start 04/13/17 at 12:45 Methylprednisolone Sodium Succinate (SoluMEDROL INJ) 40 mg Q8H IV PUSH Last administered on 04/22/17at 02:00; Start 04/21/17 at 18:00 Midazolam HCl 100 ml @ 2 mls/hr TITRATE PRN IV SEDATION Last administered on at 01:17; Start 04/11/17 at 08:15; Stop 04/14/17 at 09:38; Status DC Miscellaneous Information SPECIFIC LAB TO BE DRAWN:VANCOMY... ONCE ONCE .XX ; Start 04/23/17 at 03:45; Stop 04/23/17 at 03:46 Miscellaneous Information (RASS Change Order) 1 ea ONCE ONCE XX Last administered on 04/11/17at 08:15; Start 04/11/17 at 08:15; Stop 04/11/17 at 08:16 ; Status DC Norepinephrine Bitartrate 4 mg/ Sodium Chloride 250 ml @ 7.5 mls/hr TITRATE PRN IV Blood pressure management Last administered on 04/12/17at 07:00; Start 02/15 at 07:45; Stop 04/14/17 at 09:38; Status DC Ondansetron HCl (Zofran Inj) 4 mg Q6H PRN IV PUSH NAUSEA OR VOMITING; Start 01/16 at 02:45 Patient Own Medication PT OWN MED: (Ipratropium-Albuter... QID INH ; Start 04/11 at 09:00; Status Future Hold Pharmacy Profile Note 0 ml @ 0 mls/hr UNSCH OTHER ; Start 04/21/17 at 12:15 Piperacillin Sod/ Tazobactam Sod 50 ml @ 100 mls/hr Q6H IV Last administered on 04/22/17at 02:00; Start 04/21/17 at 14:00 Potassium Chloride 40 meq/ Sodium Chloride 520 ml @ 130 mls/hr ONCE ONCE IV- CENTRAL Last administered on 04/19/17at 11:05; Start 04/19/17 at 10:30; Stop at 14:29; Status DC Potassium Phosphate (K-Phos) 2,000 mg UNSCH PRN PO/TUBE SEE LABEL COMMENTS; Start 04/13/17 at 12:45 Potassium Phosphate 30 mmol/ Sodium Chloride 260 ml @ 42 mls/hr UNSCH PRN IV SEE LABEL COMMENTS Last administered on 04/14/17at 18:07; Start 04/13/17 at 12:45 Potassium Bicarb/ Potassium Chloride (K-Lyte Cl Eff) 25 meq Q12HR PO Last administered on 04/21/17at 09:56; Start 04/14/17 at 11:00 Potassium Chloride 100 ml @ 50 mls/hr NOW IV Last administered on 04/18/17at 17 :03; Start 04/18/17 at 17:00; Stop 04/18/17 at 23:00; Status DC Pravastatin Sodium (Pravachol) 40 mg DAILY PO Last administered on 04/12/17at 10 :32; Start 04/11/17 at 09:00; Status Future Hold Propofol 100 ml @ 2.865 mls/ hr TITRATE PRN IV SEDATION Last administered on at 07:00; Start 04/11/17 at 02:45; Stop 04/20/17 at 17:18; Status DC Quetiapine Fumarate (SEROquel) 75 mg BID PO Last administered on 04/11/17at 08: 49; Start 04/11/17 at 09:00; Status Future Hold Rocuronium Sparks (Zemuron Inj) 50 mg BOLUS ONCE IV Last administered on 04/11at 10:46; Start 04/11/17 at 09:45; Stop 04/11/17 at 10:00; Status DC Senna/Docusate Sodium (Nisa-Colace) 1 tab BID PO Last administered on at 10:32; Start 04/11/17 at 09:00; Stop 04/12/17 at 14:25; Status DC Sennosides (Senokot) 17.2 mg Q12H PRN PO Moderate constipation; Start 04/11/17 at 02:45 Sodium Bicarbonate (Sodium Bicarbonate 8.4% Inj) 50 meq ONCE ONCE IV PUSH Last administered on 04/15/17at 17:44; Start 04/15/17 at 16:30; Stop 04/15/17 at 16:33; Status DC Sodium Chloride (NS Flush) 2 ml BID IV FLUSH Last administered on 04/21/17at 21: 16; Start 04/11/17 at 09:00 Sodium Chloride 38.5 meq/Sterile Water 1,009.625 ml @ 100 mls/hr Q10H6M IV Last administered on 04/20/17at 13:59; Start 04/15/17 at 17:00; Status Future Hold Sodium Phosphate 30 mmol/Sodium Chloride 250 ml @ 42 mls/hr UNSCH PRN IV For Phosphorus < 2.5 mg/dL; Start 04/13/17 at 12:45 Succinylcholine Chloride (Quelicin Inj) 100 mg ONCE ONCE IV PUSH Last administered on 04/11/17at 03:42; Start 04/11/17 at 02:30; Stop 04/11/17 at 02:31 ; Status DC Terbutaline Sulfate (Brethine Inj) 1 mg UNSCH PRN SQ For Extravasation; Start 04/12/17 at 07:45 Thiamine HCl 100 mg/Sodium Chloride 101 ml @ 100 mls/hr ONCE ONCE IV ; Start 04/11/17 at 00:15; Stop 04/11/17 at 01:15; Status DC Vancomycin HCl 1000 mg/Sodium Chloride 250 ml @ 250 mls/hr ONCE ONCE IV Last administered on 04/11/17at 10:44; Start 04/11/17 at 10:00; Stop 04/11/17 at 10:59 ; Status DC Vancomycin HCl 1500 mg/Sodium Chloride 515 ml @ 257.5 mls/ hr Q18H IV Last administered on 04/13/17at 08:25; Start 04/12/17 at 14:00; Stop 04/13/17 at 12:39 ; Status DC Vancomycin HCl 1700 mg/Sodium Chloride 517 ml @ 250 mls/hr Q12H IV Last administered on 04/21/17at 18:01; Start 04/21/17 at 16:00 Venlafaxine HCl (Effexor Xr) 225 mg DAILY PO ; Start 04/11/17 at 09:00; Stop 02/15 at 08:43; Status DC Venlafaxine HCl (Effexor) 75 mg TID PO Last administered on 04/21/17at 18:01; Start 04/19/17 at 09:00 A/P Assessment and Plan Altered mental status/encephalopathy Possible drug overdose/suicide attempt History of depressions other psychological disorders Seizure disorder Generalized pain - CT head negative - Drug screen positive only for benzodiazepines - Resumed Effexor, Seroquel, Hydroxyzine - Continue Lamictal for seizure disorder - Psych consulted- Dr. Rush- Pt Yifan Acted - Oxycodone 5 milligrams every 8 hours, PRN pain -restraints as needed. Acute hypoxemic respiratory failure Bilateral pneumonia/sepsis Difficult airway - Intubated for airway protection. CPAP 5/8 FOR 45 MIN with parameters and ABG - now has been extubated- on oxygen via non-rebreather. - continue broad-spectrum IV antibiotics; Vanco and Zosyn. -follow the cultures - ID and pulmonary consults appreciated. Septic shock -resolved Fluid overload/pulmonary edema dyslipidemia - IV Lasix, 20 every 12 due to fluid overload. - Hold Simvastatin, Fenofibrate due to liver enzyme elevation - Continue to Hold Losartan atrial flutter with RVR start on Cardizem drip- will check echo and consult cardiology. Elevated liver enzymes - Liver enzymes trending down, possible shock liver Acute kidney injury Obstructive uropathy due to Guzman balloon inflated in the urethra Now with hematuria and acute oliguria Rhabdomyolysis (CPK >25,000) - Unknown baseline creat, CPK trending down - Urology consulted, replaced Guzman which was misplaced (Guzman balloon was inflated in the prostatic urethra) - Strict I's and O's -will guzman cath within the next one-two days when more stable. - Electrolyte replacement per protocol DVT GI prophylaxis - Teds SCDs - Subcutaneous heparin resumed - Pepcid patient is still with respiratory distress and tachycardic. will keep in the ICU for close monitoring with low-threshold for [employer] reconsult. not ready for transfer. Shannon Whaley MD Apr 22, 2017 07:58
[2017-04-22] MEDS ORDERED: LORazepam 2 MG/ML VIAL IV PUSH PRN (08:00)
[2017-04-22] MEDS ORDERED: DILTIAZEM 125 MG/NS 100 ML IV PRN ×2 (08:00)
[2017-04-22 08:27] LABS: BANDS 11 % (0-6); LYMPHOCYTES 2 % (9-44); METAMYELOCYTES 1 % (0-1); MONOCYTES 5 % (0-8); NEUTROPHIL # MANUAL DIFF 20.8 TH/MM3 (1.8-7.7); POLYS (SEG NEUTROPHILS) 81 % (16-70); STOMATOCYTES 1+ (NORMAL)
[2017-04-22] MEDS ORDERED: DEXMEDETOMIDINE INJ 200 MCG in SODIUM CHLORIDE 0.9% INJ 50 ML IV PRN (09:00)
[2017-04-22] MEDS: SODIUM CHLORIDE 0.9% FLUSH 10 ML FLUSH IV FLUSH SCH ×2 (09:00→21:11)
[2017-04-22] MEDS: VENLAFAXINE HCL 75 MG TAB PO SCH ×3 (09:00→16:56)
[2017-04-22] MEDS: POTASSIUM CHLORIDE 25 MEQ EFFERVESCENT TAB PO SCH ×2 (09:00→21:10)
[2017-04-22] MEDS ORDERED: ETOMIDATE 40 MG/20 ML VIAL ONE (09:07)
[2017-04-22] MEDS ORDERED: MIDAZOLAM HCL 5 MG/ML VIAL (1 ML) ONE (09:08)
--- NOTE | 2017-04-22 09:19 | RADRPT ---
EXAM DATE/TIME: 04/22/2017 08:59 [facility] COMPARISON: CHEST SINGLE AP, April 21, 2017, 12:42. INDICATIONS : Short of breath. MEDICAL HISTORY : Sepsis. SURGICAL HISTORY : None. ENCOUNTER: Initial ACUITY: 1 week PAIN SCORE: Non-responsive. LOCATION: Bilateral chest FINDINGS: A single portable frontal view the chest shows diffuse bilateral intra-alveolar infiltrates. These morgan ve progressed from the prior exam. No discernible effusions. The heart is enlarged. Right subclavian central line. CONCLUSION: Worsening diffuse infiltrates. Chay Lerner Jr., MD on April 22, 2017 at 9:17 Board Certified Radiologist. This report was verified electronically.
[2017-04-22] MEDS ORDERED: METOPROLOL TARTRATE 5 MG/5 ML VIAL IV PUSH ONE (09:20)
[2017-04-22] MEDS ORDERED: FUROSEMIDE 40 MG/4 ML VIAL IV PUSH ONE (09:20)
[2017-04-22] MEDS ORDERED: PROPOFOL 500 MG/50 ML INJ 50 ML ONE (09:26)
[2017-04-22] MEDS ORDERED: BUMETANIDE INJ 100 ML IV SCH (09:26)
[2017-04-22] MEDS ORDERED: PHENYLEPHRINE INJ 80 MG in DEXTROSE 5% IN WATE 500 ML INJ 492 ML IV PRN ×2 (09:45)
[2017-04-22] MEDS ORDERED: ALBUMIN 25% INJ 100 ML IV ONE (09:45)
[2017-04-22] MEDS: BUMETANIDE 25 MG/100 ML CONTINOUS DRIP IV SCH (09:45)
[2017-04-22] MEDS ORDERED: TERBUTALINE INJ 1 MG/ML AMP SQ PRN (09:45)
--- NOTE | 2017-04-22 09:45 | HHI.CCPN ---
Subjective Remarks/Hospital Course 51-year-old male presents from home where he was identified to have altered mental status and decreasing level of consciousness. Patient was also identified to have temperature elevation and paramedics identified room air O2 saturations to be 72%. Patient was immediately placed on supplemental oxygen without improvement of oxygenation or level of consciousness. Family members were concerned that patient may have overdosed on medications but the medications listed did not show any opiates. Patient's blood sugar was fine. No reported injury or trauma. Paramedics determined patient needed further ventilation support and attempted intubation in the field but this was unsuccessful and patient presents to the emergency department with ambu assisted ventilations. Multiple attempts were made in the emergency department intubated the patient for an airway protection, which was extremely difficult and patient was finally intubated by otm consultant. 04/12: Continues to be critically ill intubated copious amount of ET tube secretions. Chest x-ray continues to show patchy bilateral infiltrates. Started on Levophed overnight to keep map above 65. Creat and WBC count have slightly improved. Gram neg rods in sputum gram stain. Currently on Zosyn, I will add vancomycin 04/13: Developed severe ventilator asynchrony today with low lung volumes. Most likely secondary to ET tube obstruction from secretions. After multiple suctioning volumes improved but patient remained tachypneic. Neuromuscularly paralyzed for hypoxia and asynchrony. Sputum culture growing Klebsiella 04/14: Remains intubated sedated continues to be asynchronous with the ventilator when sedation is lightened. Continues to have copious secretions. Fluid overloaded will start Lasix 20 every 12 with potassium supplementation 04/15: Oliguric to anuric with hematuria. CT abdomen pelvis 04/14 showing 3.1 cm fluid-containing structure within the posterior urethra nonspecific and there is gas within the bladder. Etiology unclear. Patient remains tachypneic on lightening sedation. Not following commands 04/16: Remains intubated sedated encephalopathic. Chest x-ray shows worsening pulmonary edema, bilateral crackles/rales on exam. Currently on Precedex and propofol and slowly weaned off propofol. Urine output increased after replacing Guzman. Apparently catheter balloon was sitting in prostatic urethra, his guzman was not advanced all the way to the bladder. This was replaced by urology with excellent UO now. On 03/04 NS for hyperNa. 04/17: Patient remains encephalopathic. Chest x-ray unchanged. Patient continued on Precedex infusion. Urine output within normal limits, creatinine improved today. Sodium level downtrending. 04/18: Patient continues on Precedex and fentanyl infusion, moving extremities spontaneously and following commands. Pt complained of pain, oxycodone 5 mg every 8 hour total dosing, in anticipation of weaning IV fentanyl. Patient tolerated CPAP trials for approximately 3 hours today. Plan to consult general surgery for tracheostomy. 04/19: Tolerating CPAP today, wide awake and following commands. +Ve cuff leak. Chest x-ray shows slight worsening bilateral infiltrates. Lasix 40 mg additional dose given 04/20: Patient extubated yesterday, doing well. O2 saturation 97% on nasal cannula. The patient was Saha acted today secondary to suicidal ideations, with concrete planning of , etc. psychiatry following discussed with Dr. Rush. Patient to be transferred to inpatient psych when bed available. [facility] RECONSULT NOTE: [facility] reconsulted for severe hypoxemic respiratory failure, severe bilateral infiltrates almost white out of bilateral lung valenzuela. Currently on 100% nonrebreather with PO2 only 79. Patient also developed atrial flutter with RVR overnight. On Cardizem infusion at 15 mg/h with heart rate 150 bpm. I evaluated the patient immediately she appears symptoms are severe respiratory distress, even with minimal movements and if he removes the mask even for a few seconds he desaturates to 60s. Decision made to endotracheally intubate the patient and mechanically ventilated. Known difficult airway. Patient rapidly desaturated after induction, in the few minutes taken for intubation. Intubated with the glide scope #4 blade grade 3 view saturation rapidly came back after intubation and mechanical ventilation. Additional workup with stat echo BNP ordered placed on Bumex infusion. PC/AC vent with high TV and PEEP for lung recruitment Objective Vital Signs Date Time Temp Pulse Resp B/P (MAP) Pulse Ox O2 Delivery O2 Flow Rate FiO2 04/22/17 06:00 159 04/22/17 04:00 98.0 28 110/74 (86) 89 04/21/17 19:54 Non-Rebreather 15.00 04/19/17 10:55 40 Result Diagram: 04/22/17 0408 04/22/17 0408 Other Results Laboratory Tests Test 04/21/17 12:45 04/22/17 07:15 Blood Gas Puncture Site RT RADIAL RT RADIAL Blood Gas Patient Temperature 98.6 98.6 Blood Gas HCO3 23 mmol/L (22-26) 26 mmol/L (22-26) Blood Gas Base Excess -1.2 mmol/L (-2-2) 0.8 mmol/L (-2-2) Blood Gas Oxygen Saturation 95 % (90-100) 92 % (90-100) Arterial Blood pH 7.36 (7.380-7.420) 7.36 (7.380-7.420) Arterial Blood Partial Pressure CO2 43 mmHg (38-42) 46 mmHg (38-42) Arterial Blood Partial Pressure O2 99 mmHg (61-120) 79 mmHg (61-120) Arterial Blood Oxygen Content 11.7 Vol % (12.0-20.0) 10.9 Vol % (12.0-20.0) Arterial Blood Carboxyhemoglobin 1.2 % (0-4) 1.2 % (0-4) Arterial Blood Methemoglobin 1.4 % (0-2) 1.4 % (0-2) Blood Gas Hemoglobin 8.7 G/DL (12.0-16.0) 8.3 G/DL (12.0-16.0) Oxygen Delivery Device Non-Rebreathing Mask NRB Blood Gas Liter Flow 12 L/M Blood Gas Inspired Oxygen 100 % Imaging Last Impressions Chest X-Ray 04/17/17 0600 Signed Impressions: Service Date/Time: Monday, April 17, 2017 03:46 - CONCLUSION: No appreciable change. Arsen Galicia MD Abdomen/Pelvis CT 04/14/17 0000 Signed Impressions: Service Date/Time: Friday, April 14, 2017 22:16 - CONCLUSION: 1. Bilateral pleural effusions and bibasilar airspace process may represent edema and/or pneumonia. 2. There is an approximate 3.1 cm fluid-containing structure within the posterior urethra nonspecific and the exact etiology is not certain. There is gas within the bladder as well could be related to the same process or possibly introduced iatrogenically there possibility of abscess in the posterior urethra is not excluded. Arsen Galicia MD Abdomen X-Ray 04/13/17 0000 Signed Impressions: Service Date/Time: Thursday, April 13, 2017 12:02 - CONCLUSION: No acute abdominal abnormality is identified. Ezequiel Nobles MD Head CT 04/11/17 0015 Signed Impressions: Service Date/Time: Tuesday, April 11, 2017 00:53 - CONCLUSION: 1. No acute intracranial abnormality. Right maxillary sinusitis. Mucosal thickening in the ethmoid air cells. Jone Daly MD Last 24 hours Impressions Chest X-Ray 04/11/17 0000 Signed Impressions: Service Date/Time: Tuesday, April 11, 2017 00:26 - CONCLUSION: 1. Bilateral air space consolidation predominantly perihilar. Nasogastric tube and endotracheal tube in good position. Jone Daly MD Procedures endotracheal intubation. Objective Remarks GENERAL: Well-nourished, well-developed patient. In severe respiratory distress tachypneic diaphoretic can hardly breathe SKIN: Poor, diaphoretic HEAD: Normocephalic. EYES: No scleral icterus. No injection or drainage. ENT: on 100% NRB. NECK: Supple, trachea midline. No JVD or lymphadenopathy. CARDIOVASCULAR: No murmurs, gallops, or rubs. RESPIRATORY: Breath sounds markedly diminished bilaterally with fine crackles throughout the lung valenzuela. Tachypneic breathing 40 breaths per minute, desaturates easily GASTROINTESTINAL: Abdomen soft, distended. Nontender : Guzman with clear urine MUSCULOSKELETAL: No cyanosis, or edema. NEURO EXAM:RASS). GCS 15. Moves extremities spontaneously, following commands. In acute respiratory distress tachypneic Urinary Catheter: Yes Assessment to: Continue Vascular Central Line Catheter: Yes Assessment to: Continue A/P Assessment and Plan NEURO: Altered mental status/encephalopathy Possible drug overdose/suicide attempt History of depressions other psychological disorders Seizure disorder Generalized pain - Propofol and fentanyl for sedation and vent synchrony after intubation - CT head negative on admission - Drug screen positive only for benzodiazepines - Continue Effexor, Seroquel, Hydroxyzine - Continue Lamictal for seizure disorder - Psych Dr. Rush- Dustin Saha Acted - Oxycodone 5 milligrams every 8 hours, PRN pain-Hold while on vent RESP: Acute hypoxemic respiratory failure Severe ARDS Bilateral pneumonia Difficult anterior airway - Intubated for airway protection on admission. Intubated in ED after multiple attempts by anesthesia - Extubated 04/19/17, was tolerating well now with severe hypoxemic respiratory failure - Intubated again 04/22/[address] Nieves. Anterior airway with GlideScope #4 blade Grade 2-3 view - PC/before meals mode of ventilation PEEP 12 IV 1.2 - Repeat sputum culture - Vent bundle, DuoNeb scheduled and when necessary - Start Zosyn and vancomycin to cover for healthcare associated pneumonia CVS: Fluid overload/pulmonary edema Atrial flutter with rapid ventricular response dyslipidemia - Currently on Cardizem infusion at 15 mg/h, give 50 mg bolus and increased to 20 mg/h - Because this is new onset and less than 4 hours duration, will attempt DCCV - Start echo ordered by hospitalist - Hold Simvastatin, Fenofibrate due to liver enzyme elevation - Continue to Hold Losartan - Discontinue Lasix and start Bumex infusion GI: Elevated liver enzymes - NPO, IV famotidine - Liver enzymes trending down, possible shock liver : Acute kidney injury Obstructive uropathy due to Guzman balloon inflated in the urethra Rhabdomyolysis (CPK >25,000) - Unknown baseline creat, CPK trending down - Urology consulted, replaced Guzman which was misplaced (Guzman balloon was inflated in the prostatic urethra) - Strict I's and O's ID Severe Sepsis Multilobar pneumonia/Klebsiella and sputum New HCAP - DC Rocephin. Start Zosyn vancomycin - Sputum culture growing Klebsiella - Repeat sputum and blood cultures HEME: - Monitor CBC CMP coags ENDO: - Electrolyte replacement per protocol DVT GI prophylaxis - Teds SCDs - Subcutaneous heparin. A flutter persists, start IV Heparin - Pepcid Critical Care: CCT 82 MIN, excluding procedures Jenny Nieves MD Apr 22, 2017 09:45
--- NOTE | 2017-04-22 09:52 | RADRPT ---
EXAM DATE/TIME: 04/22/2017 09:24 [facility] COMPARISON: CHEST SINGLE AP, April 22, 2017, 8:59. INDICATIONS : Post intubation. MEDICAL HISTORY : Sepsis. SURGICAL HISTORY : None. ENCOUNTER: Initial ACUITY: 1 week PAIN SCORE: Non-responsive. LOCATION: Bilateral chest FINDINGS: Endotracheal tube is present with tip 5 cm above the demetrius. Right subclavian central line extends to SVC. A nasogastric tube extends to the stomach. There has been slight improvement in aeration with d ecrease in confluence of diffuse bilateral infiltrates. Cardiac contours are grossly satisfactory for technique and projection. CONCLUSION: Intubation. Slight interval improvement in aeration. Ezequiel Eastman MD on April 22, 2017 at 9:50 Board Certified Radiologist. This report was verified electronically.
--- NOTE | 2017-04-22 09:52 | PD.PROCEDR ---
Procedure Note Procedure Indication: acute hypoxemic respiratory failure INTUBATION: The patient was put in optimal position for the procedure. Rapid sequence intubation was initiated by me using 20 milligrams of etomidate IV and 10 milligrams of Versed IV, rocuronium 50 mg given for neuromuscular paralysis. . Bag and mask ventilation conducted to get saturation up to 92%. GlideScope # 4 blade used with Grade 2-3 view.. The patient was intubated with a 8.0 cuffed endotracheal tube. In the few minutes taken for intubation patient desaturated down to mid 30s, rapidly came up with bag and mask ventilation to 90% after intubation, no hemodynamic compromise Tube placement was confirmed by visualization of the tube and balloon passing through the cords, capnometry and subsequent chest x-ray. Breath sounds were equal and well aerated bilaterally postintubation. No breath sounds over stomach. Jenny Nieves MD Apr 22, 2017 09:52
[2017-04-22] MEDS ORDERED: Vancomycin Consult Pharmacy 1 EA OTHER SCH (10:15)
[2017-04-22] MEDS ORDERED: VANCOMYCIN INJ 1,250 MG in SODIUM CHLOR 0.9% 250 ML INJ 250 ML IV ONE (10:15)
[2017-04-22] MEDS: fentaNYL DRIP 250 ML IV PRN ×2 (10:24→19:29)
--- NOTE | 2017-04-22 10:48 | PD.PROCEDR ---
Procedure Note Procedure Procedure: DC cardioversion Indication: new onset atrial flutter with RVR, hypotension, Duration of A Flutter < 6 hours Procedure: Patient was already on sedation with propofol and 50 mcg/min and fentanyl to 50 mcg/h. Additional sedation with 30 mg IV push of propofol provided. Pads placed. DC cardioversion with 50 J. Post cardioversion sinus rhythm heart rate 70 bpm. Jenny Nieves MD Apr 22, 2017 10:48
[2017-04-22 11:14] LABS: ALBUMIN 2.3 GM/DL (3.4-5.0); ALT (GPT) 95 U/L (12-78); AST (GOT) 101 U/L (15-37); BICARBONATE 27.4 MEQ/L (21.0-32.0); BLOOD UREA NITROGEN 17 MG/DL (7-18); CALCIUM 8.8 MG/DL (8.5-10.1); CHLORIDE 103 MEQ/L (98-107); GLOMERULAR FILTRATION RATE 119 ML/MIN (>89); GLUCOSE,RANDOM 132 MG/DL (74-106); MAGNESIUM 2.8 MG/DL (1.5-2.5); SODIUM (NA) 140 MEQ/L (136-145)
[2017-04-22 11:16] LABS: ALKALINE PHOSPHATASE 97 U/L (45-117); TOTAL BILIRUBIN ADULT 0.5 MG/DL (0.2-1.0); TOTAL PROTEIN 6.9 GM/DL (6.4-8.2)
--- NOTE | 2017-04-22 11:17 | HHI.PYPN ---
Subjective Remarks The patient was seen today for psychiatric reevaluation. Case was discussed with nurse in charge. On psychiatric evaluation the patient continues to be very confused, when I asked him if he recognizes me from previous encounter, he told me that "How are you Pro where you have been". Patient is disoriented in time and place, very agitated, presenting active visual hallucinations, stating that there are several people around the room, but he was redirectable. Review of Systems Psychiatric: COMPLAINS OF: Confusion, Hallucinations Mental Status Examination Appearance: Appropriate Consciousness: Clouded Orientation: Person, Place Motor Activity: Normal gait Speech: Unremarkable Language: Adequate Fund of Knowledge: Adequate Attention and Concentration: Adequate Memory: Impaired Mood: Sad Affect: Sad Thought Process & Associations: Loose associations Thought Content: Bizarre thinking, Racing thoughts Hallucination Type: Visual Delusion Type: None Suicidal Ideation: No Suicidal Plan: No Suicidal Intention: No Homicidal Ideation: No Homicidal Plan: No Homicidal Intention: No Insight: Poor Judgment: Poor Results Labs Test 04/21/17 12:45 04/22/17 04:08 04/22/17 07:15 04/22/17 10:00 Blood Gas Puncture Site RT RADIAL RT RADIAL Blood Gas Patient Temperature 98.6 98.6 Blood Gas HCO3 23 mmol/L 26 mmol/L Blood Gas Base Excess -1.2 mmol/L 0.8 mmol/L Blood Gas Oxygen Saturation 95 % 92 % Arterial Blood pH 7.36 7.36 Arterial Blood Partial Pressure CO2 43 mmHg 46 mmHg Arterial Blood Partial Pressure O2 99 mmHg 79 mmHg Arterial Blood Oxygen Content 11.7 Vol % 10.9 Vol % Arterial Blood Carboxyhemoglobin 1.2 % 1.2 % Arterial Blood Methemoglobin 1.4 % 1.4 % Blood Gas Hemoglobin 8.7 G/DL 8.3 G/DL Oxygen Delivery Device Non-Rebreathing Mask NRB Blood Gas Liter Flow 12 L/M Blood Gas Inspired Oxygen 100 % White Blood Count 22.4 TH/MM3 Red Blood Count 2.52 MIL/MM3 Hemoglobin 8.2 GM/DL Hematocrit 24.7 % Mean Corpuscular Volume 98.1 FL Mean Corpuscular Hemoglobin 32.6 PG Mean Corpuscular Hemoglobin Concent 33.2 % Red Cell Distribution Width 13.7 % Platelet Count 538 TH/MM3 Mean Platelet Volume 8.4 FL Neutrophils (%) (Auto) 89.7 % Lymphocytes (%) (Auto) 3.3 % Monocytes (%) (Auto) 6.6 % Eosinophils (%) (Auto) 0.0 % Basophils (%) (Auto) 0.4 % Neutrophils # (Auto) 20.1 TH/MM3 Lymphocytes # (Auto) 0.7 TH/MM3 Monocytes # (Auto) 1.5 TH/MM3 Eosinophils # (Auto) 0.0 TH/MM3 Basophils # (Auto) 0.1 TH/MM3 CBC Comment AUTO DIFF Differential Total Cells Counted 100 Neutrophils % (Manual) 81 % Band Neutrophils % 11 % Lymphocytes % 2 % Monocytes % 5 % Neutrophils # (Manual) 20.8 TH/MM3 Metamyelocytes 1 % Differential Comment FINAL DIFF MANUAL Platelet Estimate HIGH Platelet Morphology Comment NORMAL Stomatocytes 1+ Creatinine 0.66 MG/DL 0.70 MG/DL Estimat Glomerular Filtration Rate 128 ML/MIN 119 ML/MIN B-Type Natriuretic Peptide 449 PG/ML Blood Urea Nitrogen 17 MG/DL Random Glucose 132 MG/DL Albumin 2.3 GM/DL Calcium Level 8.8 MG/DL Magnesium Level 2.8 MG/DL Aspartate Amino Transf (AST/SGOT) 101 U/L Alanine Aminotransferase (ALT/SGPT) 95 U/L Sodium Level 140 MEQ/L Potassium Level 3.8 MEQ/L Chloride Level 103 MEQ/L Carbon Dioxide Level 27.4 MEQ/L Anion Gap 10 MEQ/L Date/Time Source Procedure Growth Status 04/22/17 04:13 Blood Peripheral Aerobic Blood Culture Pending Received 04/22/17 04:13 Blood Peripheral Anaerobic Blood Culture Pending Received 04/18/17 17:36 Sputum Endotracheal Gram Stain - Final Complete 04/18/17 17:36 Sputum Culture - Final Klebsiella Pneumoniae Complete 04/17/17 07:00 Urine Catheterized Urine Urine Culture - Final NO GROWTH IN 48 HOURS. Complete Vitals/IOs Vital Signs Date Time Temp Pulse Resp B/P (MAP) Pulse Ox O2 Delivery O2 Flow Rate FiO2 04/22/17 10:00 65 04/22/17 09:31 97 100 04/22/17 08:00 98.8 28 128/77 (94) 04/21/17 19:54 Non-Rebreather 15.00 Assessment & Plan Problem List: (1) Bipolar affect, depressed ICD Codes: F31.30 - Bipolar disorder, current episode depressed, mild or moderate severity, unspecified Status: Acute Assessment & Plan: Continue current psychotropic regimen. Continue CIWA protocol. Be careful with benzo/alcohol withdrawal. Patient may need psychiatric admission after medically stable. Assessment & Plan Estimated LOS: days Justification for Cont. Inpt. Patient may need psychiatric admission after medically stable. Vince Rush MD Apr 22, 2017 11:17
[2017-04-22 12:46] LABS: MAGNESIUM 2.9 MG/DL (1.5-2.5); PHOSPHORUS 2.8 MG/DL (2.5-4.9)
[2017-04-22 12:51] LABS: TROPONIN I 0.02 NG/ML (0.02-0.05)
[2017-04-22] MEDS: PIPERACIL-TAZO 4.5 GM PREMIX 100 ML IV SCH ×2 (13:02→21:10)
[2017-04-22] MEDS: PROPOFOL 1000 MG/100 ML INJ 100 ML IV PRN ×4 (13:36→22:54)
[2017-04-22] MEDS: VANCOMYCIN INJ 1,700 MG in SODIUM CHLORID 0.9% 500 ML INJ 500 ML IV SCH (16:00)
[2017-04-22 17:51] LABS: BICARBONATE 33.5 MEQ/L (21.0-32.0); CALCIUM 8.6 MG/DL (8.5-10.1); CREATININE 0.88 MG/DL (0.60-1.30)
[2017-04-22 17:54] LABS: TROPONIN I 0.02 NG/ML (0.02-0.05)
[2017-04-22] MEDS: POTASSIUM CHLOR 40 MEQ PREMIX 100 ML IV PRN (18:32)
--- NOTE | 2017-04-22 19:45 | EKG ---
Date Performed: 04/22/2017 Time Performed: 07:27:55 PTAGE: 51 years EKG: ATRIAL FLUTTER/TACHYCARDIA WITH RAPID VENTRICULAR RESPONSE LOW QRS VOLTAGE IN EXTREMITY JORGITO DS MODERATE ST DEPRESSION When compared to previous tracing, the patient is now in atrial Fibrillatio n. ABNORMAL ECG PREVIOUS TRACING : 04/11/2017 09.19 DOCTOR: Lona Kilgore Interpretating Date/Time 04/22/2017 19:44:43
[2017-04-22] MEDS: CHLORHEXIDINE 0.12% (ORAL KIT) 15 ML CUP MT SCH (20:00)
[2017-04-22] MEDS: QUEtiapine FUMARATE 200 MG TAB PO SCH (21:11)
[2017-04-22 22:54] LABS: TROPONIN I LESS THAN 0.02 NG/ML (0.02-0.05)
[2017-04-23] VITALS (46 sets, daily range): BP systolic 107–121; BP diastolic 58–96; PULSE 63–106; RESP 16–37; TEMP 98–99; O2SAT 90–100
[2017-04-23] MEDS: PIPERACIL-TAZO 4.5 GM PREMIX 100 ML IV SCH ×4 (01:59→20:23)
[2017-04-23] MEDS: methylPREDNISolone SOD SUCC 40 MG/1 ML VIAL IV PUSH SCH ×3 (01:59→17:48)
[2017-04-23] MEDS: PROPOFOL 1000 MG/100 ML INJ 100 ML IV PRN ×8 (01:59→23:33)
[2017-04-23] MEDS ORDERED: PHARMACY ORDERED LAB ONE (03:45)
[2017-04-23] MEDS: RESP: ALBUTEROL 2.5 MG/IPRATROPIUM 0.5 MG NEB (SCH) NEB ×4 (04:03→20:00)
[2017-04-23] MEDS: fentaNYL DRIP 250 ML IV PRN ×4 (04:44→22:34)
[2017-04-23] MEDS: HEPARIN SODIUM - SQ 10,000 UNITS/ML VIAL SQ SCH ×3 (04:44→20:23)
[2017-04-23] MEDS: VANCOMYCIN INJ 1,700 MG in SODIUM CHLORID 0.9% 500 ML INJ 500 ML IV SCH ×2 (05:07→17:48)
--- NOTE | 2017-04-23 06:31 | RADRPT ---
EXAM DATE/TIME: 04/23/2017 05:15 [facility] COMPARISON: CHEST SINGLE AP, April 22, 2017, 9:24. INDICATIONS : Evaluate for pneumonia- Respiratory failure MEDICAL HISTORY : Sepsis. SURGICAL HISTORY : None. ENCOUNTER: Subsequent ACUITY: 2 weeks PAIN SCORE: Non-responsive. LOCATION: Bilateral chest FINDINGS: Diffuse bilateral airspace opacities persists without significant change. No large effusion demonstra rohit. No pneumothorax. Endotracheal tube tip is approximately 4 cm above the demetrius. Nasogastric tube coiled in the stomach. Right subclavian central venous catheter again seen, tip in the superior vena cava. CONCLUSION: No significant change. Bilateral airspace opacities persist. Ezequiel Waters MD on April 23, 2017 at 6:28 Board Certified Radiologist. This report was verified electronically.
[2017-04-23 07:05] LABS: AUTOMATED NEUTROPHIL # 10.5 TH/MM3 (1.8-7.7); BASOPHIL # 0.2 TH/MM3 (0-0.2); BASOPHIL % 1.8 % (0.0-2.0); EOSINOPHIL # 0.1 TH/MM3 (0-0.4); EOSINOPHIL % 0.8 % (0.0-4.0); HEMATOCRIT 22.6 % (39.0-51.0); HEMOGLOBIN 7.6 GM/DL (13.0-17.0); LYMPH % 12.3 % (9.0-44.0); LYMPHOCYTE # 1.6 TH/MM3 (1.0-4.8); MEAN CELL VOLUME 98.6 FL (80.0-100.0); MEAN CORPUSCULAR HEMOGLOBIN 33.2 PG (27.0-34.0); MEAN CORPUSCULAR HGB CONC 33.7 % (32.0-36.0); MEAN PLATELET VOLUME 9.5 FL (7.0-11.0); MONO % 5.4 % (0.0-8.0); MONOCYTE # 0.7 TH/MM3 (0-0.9); NEUT % 79.7 % (16.0-70.0); PLATELET COUNT 616 TH/MM3 (150-450); RED BLOOD COUNT 2.29 MIL/MM3 (4.50-5.90); RED CELL DISTRIBUTION WIDTH 13.9 % (11.6-17.2); WHITE BLOOD COUNT 13.2 TH/MM3 (4.0-11.0)
[2017-04-23 07:35] LABS: ALBUMIN 2.6 GM/DL (3.4-5.0); ALKALINE PHOSPHATASE 84 U/L (45-117); ALT (GPT) 71 U/L (12-78); AST (GOT) 48 U/L (15-37); BICARBONATE 34.1 MEQ/L (21.0-32.0); BLOOD UREA NITROGEN 20 MG/DL (7-18); CALCIUM 8.8 MG/DL (8.5-10.1); CHLORIDE 101 MEQ/L (98-107); CREATININE 0.84 MG/DL (0.60-1.30); GLOMERULAR FILTRATION RATE 97 ML/MIN (>89); GLUCOSE,RANDOM 88 MG/DL (74-106); MAGNESIUM 2.5 MG/DL (1.5-2.5); PHOSPHORUS 1.8 MG/DL (2.5-4.9); SODIUM (NA) 142 MEQ/L (136-145); TOTAL BILIRUBIN ADULT 0.4 MG/DL (0.2-1.0); TOTAL PROTEIN 6.7 GM/DL (6.4-8.2)
[2017-04-23] MEDS: CHLORHEXIDINE 0.12% (ORAL KIT) 15 ML CUP MT SCH ×2 (08:00→19:32)
[2017-04-23] MEDS: FAMOTIDINE 20 MG/2 ML VIAL IV PUSH SCH ×2 (08:05→20:23)
[2017-04-23] MEDS: lamoTRIgine 100 MG TAB PO SCH ×2 (08:06→20:23)
[2017-04-23] MEDS: DOCUSATE SODIUM 100 MG/10 ML UDC PO SCH ×2 (08:06→20:23)
[2017-04-23] MEDS: GABAPENTIN 300 MG CAP PO SCH ×3 (08:06→17:48)
[2017-04-23] MEDS: hydrOXYzine HCL 50 MG TAB PO SCH ×2 (08:06→20:26)
[2017-04-23] MEDS: POTASSIUM CHLORIDE 25 MEQ EFFERVESCENT TAB PO SCH ×2 (08:06→20:23)
[2017-04-23] MEDS: VENLAFAXINE HCL 75 MG TAB PO SCH ×3 (08:11→17:48)
[2017-04-23] MEDS: POTASSIUM CHLOR 40 MEQ PREMIX 100 ML IV PRN ×2 (08:11→09:33)
[2017-04-23 08:55] LABS: BANDS 4 % (0-6); CORRECTED NUCLEATED RBC 2 /100 WBC (0-0); LYMPHOCYTES 10 % (9-44); METAMYELOCYTES 1 % (0-1); MONOCYTES 3 % (0-8); MYELOCYTES 6 % (0-0); NEUTROPHIL # MANUAL DIFF 11.2 TH/MM3 (1.8-7.7); NUCLEATED RED BLOOD CELL 2 (0-0); POLYS (SEG NEUTROPHILS) 74 % (16-70)
[2017-04-23 08:56] LABS: STOMATOCYTES 1+ (NORMAL)
[2017-04-23] MEDS: SODIUM CHLORIDE 0.9% FLUSH 10 ML FLUSH IV FLUSH SCH ×2 (09:00→20:30)
--- NOTE | 2017-04-23 11:20 | HHI.CCPN ---
Subjective Remarks/Hospital Course 51-year-old male presents from home where he was identified to have altered mental status and decreasing level of consciousness. Patient was also identified to have temperature elevation and paramedics identified room air O2 saturations to be 72%. Patient was immediately placed on supplemental oxygen without improvement of oxygenation or level of consciousness. Family members were concerned that patient may have overdosed on medications but the medications listed did not show any opiates. Patient's blood sugar was fine. No reported injury or trauma. Paramedics determined patient needed further ventilation support and attempted intubation in the field but this was unsuccessful and patient presents to the emergency department with ambu assisted ventilations. Multiple attempts were made in the emergency department intubated the patient for an airway protection, which was extremely difficult and patient was finally intubated by regulatory affairs coordinator. 04/12: Continues to be critically ill intubated copious amount of ET tube secretions. Chest x-ray continues to show patchy bilateral infiltrates. Started on Levophed overnight to keep map above 65. Creat and WBC count have slightly improved. Gram neg rods in sputum gram stain. Currently on Zosyn, I will add vancomycin 04/13: Developed severe ventilator asynchrony today with low lung volumes. Most likely secondary to ET tube obstruction from secretions. After multiple suctioning volumes improved but patient remained tachypneic. Neuromuscularly paralyzed for hypoxia and asynchrony. Sputum culture growing Klebsiella 04/14: Remains intubated sedated continues to be asynchronous with the ventilator when sedation is lightened. Continues to have copious secretions. Fluid overloaded will start Lasix 20 every 12 with potassium supplementation 04/15: Oliguric to anuric with hematuria. CT abdomen pelvis 04/14 showing 3.1 cm fluid-containing structure within the posterior urethra nonspecific and there is gas within the bladder. Etiology unclear. Patient remains tachypneic on lightening sedation. Not following commands 04/16: Remains intubated sedated encephalopathic. Chest x-ray shows worsening pulmonary edema, bilateral crackles/rales on exam. Currently on Precedex and propofol and slowly weaned off propofol. Urine output increased after replacing Guzman. Apparently catheter balloon was sitting in prostatic urethra, his guzman was not advanced all the way to the bladder. This was replaced by urology with excellent UO now. On 03/04 NS for hyperNa. 04/17: Patient remains encephalopathic. Chest x-ray unchanged. Patient continued on Precedex infusion. Urine output within normal limits, creatinine improved today. Sodium level downtrending. 04/18: Patient continues on Precedex and fentanyl infusion, moving extremities spontaneously and following commands. Pt complained of pain, oxycodone 5 mg every 8 hour total dosing, in anticipation of weaning IV fentanyl. Patient tolerated CPAP trials for approximately 3 hours today. Plan to consult general surgery for tracheostomy. 04/19: Tolerating CPAP today, wide awake and following commands. +Ve cuff leak. Chest x-ray shows slight worsening bilateral infiltrates. Lasix 40 mg additional dose given 04/20: Patient extubated yesterday, doing well. O2 saturation 97% on nasal cannula. The patient was Saha acted today secondary to suicidal ideations, with concrete planning of , etc. psychiatry following discussed with Dr. Rush. Patient to be transferred to inpatient psych when bed available. [facility] RECONSULT NOTE: 04/22: [facility] reconsulted for severe hypoxemic respiratory failure, severe bilateral infiltrates almost white out of bilateral lung valenzuela. Currently on 100% nonrebreather with PO2 only 79. Patient also developed atrial flutter with RVR overnight. On Cardizem infusion at 15 mg/h with heart rate 150 bpm. I evaluated the patient immediately she appears symptoms are severe respiratory distress, even with minimal movements and if he removes the mask even for a few seconds he desaturates to 60s. Decision made to endotracheally intubate the patient and mechanically ventilated. Known difficult airway. Patient rapidly desaturated after induction, in the few minutes taken for intubation. Intubated with the glide scope #4 blade grade 3 view saturation rapidly came back after intubation and mechanical ventilation. Additional workup with stat echo BNP ordered placed on Bumex infusion. PC/AC vent with high TV and PEEP for lung recruitment 04/23: Emergently intubated yesterday for acute hypoxemic respiratory failure and severe hypoxemia. Postintubation placed on Bumex infusion with excellent urine output. Chest x-ray improved today. Patient was cardioverted yesterday for atrial flutter with rapid ventricular response currently in sinus rhythm. Remains critically ill but stable FiO2 is down to 45% PEEP remains at 10 Objective Vital Signs Date Time Temp Pulse Resp B/P (MAP) Pulse Ox O2 Delivery O2 Flow Rate FiO2 04/23/17 10:00 98 04/23/17 08:54 100 45 04/23/17 08:00 98.8 18 114/96 (102) 04/21/17 19:54 Non-Rebreather 15.00 Intake and Output 04/23/17 04/23/17 04/24/17 08:00 16:00 00:00 Intake Total 550 ml Output Total 1300 ml Balance -750 ml Result Diagram: 04/23/17 0600 04/23/17 0600 Other Results Laboratory Tests Test 04/22/17 11:15 Blood Gas Puncture Site RT RADIAL Blood Gas Patient Temperature 98.6 Blood Gas HCO3 27 mmol/L (22-26) Blood Gas Base Excess 2.7 mmol/L (-2-2) Blood Gas Oxygen Saturation 96 % (90-100) Arterial Blood pH 7.44 (7.380-7.420) Arterial Blood Partial Pressure CO2 39 mmHg (38-42) Arterial Blood Partial Pressure O2 123 mmHg (61-120) Arterial Blood Oxygen Content 10.8 Vol % (12.0-20.0) Arterial Blood Carboxyhemoglobin 1.1 % (0-4) Arterial Blood Methemoglobin 1.2 % (0-2) Blood Gas Hemoglobin 7.8 G/DL (12.0-16.0) Oxygen Delivery Device PCAC20/IP30/1.2/+12 Blood Gas Inspired Oxygen 100 % Imaging Last Impressions Chest X-Ray 04/17/17 0600 Signed Impressions: Service Date/Time: Monday, April 17, 2017 03:46 - CONCLUSION: No appreciable change. Arsen Galicia MD Abdomen/Pelvis CT 04/14/17 0000 Signed Impressions: Service Date/Time: Friday, April 14, 2017 22:16 - CONCLUSION: 1. Bilateral pleural effusions and bibasilar airspace process may represent edema and/or pneumonia. 2. There is an approximate 3.1 cm fluid-containing structure within the posterior urethra nonspecific and the exact etiology is not certain. There is gas within the bladder as well could be related to the same process or possibly introduced iatrogenically there possibility of abscess in the posterior urethra is not excluded. Arsen Galicia MD Abdomen X-Ray 04/13/17 0000 Signed Impressions: Service Date/Time: Thursday, April 13, 2017 12:02 - CONCLUSION: No acute abdominal abnormality is identified. Ezequiel Nobles MD Head CT 04/11/17 0015 Signed Impressions: Service Date/Time: Tuesday, April 11, 2017 00:53 - CONCLUSION: 1. No acute intracranial abnormality. Right maxillary sinusitis. Mucosal thickening in the ethmoid air cells. Jone Daly MD Last 24 hours Impressions Chest X-Ray 04/11/17 0000 Signed Impressions: Service Date/Time: Tuesday, April 11, 2017 00:26 - CONCLUSION: 1. Bilateral air space consolidation predominantly perihilar. Nasogastric tube and endotracheal tube in good position. Jone Daly MD Procedures endotracheal intubation. Objective Remarks GENERAL: Well-nourished, well-developed patient. Sedated with propofol weeks obesely SKIN: Cool, diaphoretic HEAD: Normocephalic. EYES: No scleral icterus. No injection or drainage. ENT: Orotracheally intubated NECK: Supple, trachea midline. No JVD or lymphadenopathy. CARDIOVASCULAR: No murmurs, gallops, or rubs. RESPIRATORY: Breath sounds diminished bilaterally with fine crackles throughout the lung valenzuela. PC/AC with PEEP 12 GASTROINTESTINAL: Abdomen soft, distended. Nontender : Guzman with clear urine MUSCULOSKELETAL: No cyanosis, or edema. NEURO EXAM: Intubated sedated with propofol. Wakes up easily, nods to questions and follows commands A/P Assessment and Plan NEURO: Altered mental status/encephalopathy Possible drug overdose/suicide attempt History of depressions other psychological disorders Seizure disorder Generalized pain - Propofol and fentanyl for sedation and vent synchrony after intubation - CT head negative on admission - Drug screen positive only for benzodiazepines - Continue Effexor, Seroquel, Hydroxyzine - Continue Lamictal for seizure disorder - Psych Dr. Rush- Pt Yifan Acted - Oxycodone 5 milligrams every 8 hours, PRN pain-Hold while on vent RESP: Acute hypoxemic respiratory failure Severe ARDS vs cardiogenic pulmonary edema Bilateral pneumonia Difficult anterior airway - Intubated for airway protection on admission. Intubated in ED after multiple attempts by anesthesia - Extubated 04/19/17, was tolerating well developed severe hypoxemic respiratory failure 04/22 - Intubated again 04/22/[address] Nieves. Anterior airway with GlideScope #4 blade Grade 2-3 view - PC/AC with PEEP 12, change to ACV TV 500 PEEP 8 - CPAP trials staring am - Repeat sputum culture - Vent bundle, DuoNeb scheduled and when necessary - Zosyn and vancomycin to cover for healthcare associated pneumonia CVS: Fluid overload/pulmonary edema Atrial flutter with rapid ventricular response dyslipidemia - S/p DCCV on 04/22 with successful return to an maintenance of sinus rhythm. ( DCCV performed due to new onset less than 6 hour duration of a flutter with RVR with hemodynamic compromise) - Off Cardizem infusion. Start PO beta-blockers if needed - Echo report is pending - Hold Simvastatin, Fenofibrate due to liver enzyme elevation - Continue to Hold Losartan - Continue Bumex infusion, increase to 1 mg per hour - Diurese to dry weight GI: Elevated liver enzymes - NPO, IV famotidine. Start tube feeds with Jevity - Liver enzymes trending down, possible shock liver : Acute kidney injury-resolved Obstructive uropathy due to Guzman balloon inflated in the urethra Rhabdomyolysis (CPK >25,000) - Unknown baseline creat, CPK trending down - Urology consulted, replaced Guzman which was misplaced (Guzman balloon was inflated in the prostatic urethra) - Strict I's and O's - Bumex gtt as above ID Severe Sepsis Multilobar pneumonia/Klebsiella and sputum New HCAP - Continue Zosyn vancomycin - Sputum culture growing Klebsiella - F/U Repeat sputum and blood cultures HEME: - Monitor CBC CMP coags ENDO: - Electrolyte replacement per protocol DVT GI prophylaxis - Teds SCDs - Subcutaneous heparin. - Pepcid Critical Care: CCT 40 MIN, excluding procedures Jenny Nieves MD Apr 23, 2017 11:20
[2017-04-23] MEDS: BUMETANIDE 25 MG/100 ML CONTINOUS DRIP IV SCH (14:13)
[2017-04-23 15:33] LABS: ALBUMIN 2.4 GM/DL (3.4-5.0); ALT (GPT) 73 U/L (12-78); AST (GOT) 63 U/L (15-37); BICARBONATE 37.2 MEQ/L (21.0-32.0); BLOOD UREA NITROGEN 17 MG/DL (7-18); CALCIUM 8.2 MG/DL (8.5-10.1); CHLORIDE 101 MEQ/L (98-107); CREATININE 0.92 MG/DL (0.60-1.30); GLOMERULAR FILTRATION RATE 87 ML/MIN (>89); GLUCOSE,RANDOM 88 MG/DL (74-106); SODIUM (NA) 143 MEQ/L (136-145)
[2017-04-23 15:35] LABS: ALKALINE PHOSPHATASE 91 U/L (45-117); TOTAL BILIRUBIN ADULT 0.5 MG/DL (0.2-1.0); TOTAL PROTEIN 6.6 GM/DL (6.4-8.2)
[2017-04-23] MEDS: POTASSIUM PHOSPHATE INJ 30 MMOL in SODIUM CHLOR 0.9% 250 ML INJ 250 ML IV PRN (16:50)
[2017-04-23] MEDS: CHLORHEXIDINE GLUCONATE 2 % 1 PACK (2 CLOTHS) TOP SCH (19:47)
[2017-04-23] MEDS: QUEtiapine FUMARATE 200 MG TAB PO SCH (20:23)
--- NOTE | 2017-04-23 22:29 | HHI.IDPN ---
Subjective Subjective Remarks Intubated Sputum growing again GNB on vent PEEP 8 FiO2 40% afebnrile Antibiotics zosyn vanco Allergies: Coded Allergies: No Allergy Information Available (Unverified , 04/11/17) Objective . Vital Signs Date Time Temp Pulse Resp B/P (MAP) Pulse Ox O2 Delivery O2 Flow Rate FiO2 04/23/17 20:00 94 40 04/23/17 20:00 92 04/23/17 20:00 40 04/23/17 20:00 99.0 92 16 120/71 (87) 94 04/23/17 18:00 78 04/23/17 16:45 93 24 95 04/23/17 16:30 100 36 94 04/23/17 16:15 96 37 92 04/23/17 16:00 40 04/23/17 16:00 82 20 111/61 (78) 97 04/23/17 16:00 98.9 78 18 112/63 (79) 99 04/23/17 16:00 78 04/23/17 15:45 80 17 96 04/23/17 15:44 96 40 04/23/17 15:30 79 19 96 04/23/17 15:15 83 19 98 04/23/17 15:00 82 18 108/58 (75) 98 04/23/17 14:45 83 19 96 04/23/17 14:30 84 18 96 04/23/17 14:15 86 20 97 04/23/17 14:00 81 18 109/58 (75) 92 04/23/17 14:00 94 04/23/17 13:45 80 18 91 04/23/17 13:30 83 19 92 04/23/17 13:15 97 23 04/23/17 13:00 89 25 110/59 (76) 04/23/17 12:45 95 30 04/23/17 12:30 106 29 94 04/23/17 12:30 106 29 94 04/23/17 12:15 100 28 04/23/17 12:15 100 28 04/23/17 12:00 105 24 110/67 (81) 04/23/17 12:00 60 04/23/17 12:00 99.0 94 18 110/67 (81) 99 04/23/17 12:00 105 24 110/67 (81) 04/23/17 12:00 94 04/23/17 11:52 95 40 04/23/17 11:45 96 19 93 04/23/17 11:30 91 19 95 04/23/17 11:15 88 18 92 04/23/17 11:00 99 20 112/59 (76) 90 04/23/17 10:45 84 18 100 04/23/17 10:30 90 24 98 04/23/17 10:15 94 24 95 04/23/17 10:00 92 22 114/58 (76) 90 04/23/17 10:00 98 04/23/17 09:45 94 28 91 04/23/17 09:30 91 25 100 04/23/17 09:15 91 19 97 04/23/17 09:00 88 18 117/66 (83) 97 04/23/17 08:54 100 45 04/23/17 08:45 81 21 100 04/23/17 08:30 83 20 100 04/23/17 08:00 98.8 96 18 114/96 (102) 99 04/23/17 08:00 60 04/23/17 08:00 98 04/23/17 06:00 63 04/23/17 04:03 100 60 04/23/17 04:00 60 04/23/17 04:00 79 04/23/17 04:00 98.0 79 18 121/75 (90) 98 04/23/17 02:00 64 04/23/17 00:00 64 04/23/17 00:00 60 04/23/17 00:00 98.8 64 18 107/68 (81) 100 04/22/17 23:58 100 60 04/23/17 04/23/17 04/24/17 15:00 23:00 07:00 Intake Total 100 ml 870 ml Output Total 4200 ml Balance 100 ml -3330 ml IV Total 100 ml 870 ml Output Urine Total 4200 ml . Laboratory Tests Test 04/22/17 04:08 04/23/17 06:00 White Blood Count 22.4 TH/MM3 13.2 TH/MM3 Red Blood Count 2.52 MIL/MM3 2.29 MIL/MM3 Hemoglobin 8.2 GM/DL 7.6 GM/DL Hematocrit 24.7 % 22.6 % Mean Corpuscular Volume 98.1 FL 98.6 FL Mean Corpuscular Hemoglobin 32.6 PG 33.2 PG Mean Corpuscular Hemoglobin Concent 33.2 % 33.7 % Red Cell Distribution Width 13.7 % 13.9 % Platelet Count 538 TH/MM3 616 TH/MM3 Mean Platelet Volume 8.4 FL 9.5 FL Neutrophils (%) (Auto) 89.7 % 79.7 % Lymphocytes (%) (Auto) 3.3 % 12.3 % Monocytes (%) (Auto) 6.6 % 5.4 % Eosinophils (%) (Auto) 0.0 % 0.8 % Basophils (%) (Auto) 0.4 % 1.8 % Neutrophils # (Auto) 20.1 TH/MM3 10.5 TH/MM3 Lymphocytes # (Auto) 0.7 TH/MM3 1.6 TH/MM3 Monocytes # (Auto) 1.5 TH/MM3 0.7 TH/MM3 Eosinophils # (Auto) 0.0 TH/MM3 0.1 TH/MM3 Basophils # (Auto) 0.1 TH/MM3 0.2 TH/MM3 CBC Comment AUTO DIFF AUTO DIFF Differential Total Cells Counted 100 100 Neutrophils % (Manual) 81 % 74 % Band Neutrophils % 11 % 4 % Lymphocytes % 2 % 10 % Monocytes % 5 % 3 % Neutrophils # (Manual) 20.8 TH/MM3 11.2 TH/MM3 Metamyelocytes 1 % 1 % Differential Comment FINAL DIFF MANUAL FINAL DIFF MANUAL Platelet Estimate HIGH HIGH Platelet Morphology Comment NORMAL NORMAL Stomatocytes 1+ 1+ Eosinophils % 2 % Myelocytes 6 % Nucleated Red Blood Cells 2 /100 WBC Laboratory Tests Test 04/22/17 04:08 04/22/17 10:00 04/22/17 11:58 04/22/17 16:16 Creatinine 0.66 MG/DL 0.70 MG/DL 0.88 MG/DL Estimat Glomerular Filtration Rate 128 ML/MIN 119 ML/MIN 92 ML/MIN B-Type Natriuretic Peptide 449 PG/ML Blood Urea Nitrogen 17 MG/DL 20 MG/DL Random Glucose 132 MG/DL 125 MG/DL Total Protein 6.9 GM/DL Albumin 2.3 GM/DL Calcium Level 8.8 MG/DL 8.6 MG/DL Magnesium Level 2.8 MG/DL 2.9 MG/DL Alkaline Phosphatase 97 U/L Aspartate Amino Transf (AST/SGOT) 101 U/L Alanine Aminotransferase (ALT/SGPT) 95 U/L Total Bilirubin 0.5 MG/DL Sodium Level 140 MEQ/L 140 MEQ/L Potassium Level 3.8 MEQ/L 3.8 MEQ/L Chloride Level 103 MEQ/L 101 MEQ/L Carbon Dioxide Level 27.4 MEQ/L 33.5 MEQ/L Anion Gap 10 MEQ/L 6 MEQ/L Lactic Acid Level 1.2 mmol/L Phosphorus Level 2.8 MG/DL Total Creatine Kinase 280 U/L 207 U/L Creatine Kinase MB 1.8 NG/ML 1.3 NG/ML Troponin I 0.02 NG/ML 0.02 NG/ML Test 04/22/17 22:00 04/23/17 06:00 04/23/17 14:50 Total Creatine Kinase 179 U/L Creatine Kinase MB 1.0 NG/ML Troponin I LESS THAN 0.02 NG/ML Blood Urea Nitrogen 20 MG/DL 17 MG/DL Creatinine 0.84 MG/DL 0.92 MG/DL Random Glucose 88 MG/DL 88 MG/DL Total Protein 6.7 GM/DL 6.6 GM/DL Albumin 2.6 GM/DL 2.4 GM/DL Calcium Level 8.8 MG/DL 8.2 MG/DL Phosphorus Level 1.8 MG/DL Magnesium Level 2.5 MG/DL Alkaline Phosphatase 84 U/L 91 U/L Aspartate Amino Transf (AST/SGOT) 48 U/L 63 U/L Alanine Aminotransferase (ALT/SGPT) 71 U/L 73 U/L Total Bilirubin 0.4 MG/DL 0.5 MG/DL Sodium Level 142 MEQ/L 143 MEQ/L Potassium Level 2.9 MEQ/L 3.0 MEQ/L Chloride Level 101 MEQ/L 101 MEQ/L Carbon Dioxide Level 34.1 MEQ/L 37.2 MEQ/L Anion Gap 7 MEQ/L 5 MEQ/L Estimat Glomerular Filtration Rate 97 ML/MIN 87 ML/MIN Microbiology Date/Time Source Procedure Growth Status 04/22/17 12:09 Blood Peripheral Aerobic Blood Culture - Preliminary NO GROWTH IN 1 DAY Resulted 04/22/17 12:09 Blood Peripheral Anaerobic Blood Culture - Preliminary NO GROWTH IN 1 DAY Resulted 04/22/17 11:58 Blood Peripheral Aerobic Blood Culture - Preliminary NO GROWTH IN 1 DAY Resulted 04/22/17 11:58 Blood Peripheral Anaerobic Blood Culture - Preliminary NO GROWTH IN 1 DAY Resulted 04/22/17 04:13 Blood Peripheral Aerobic Blood Culture - Preliminary NO GROWTH IN 1 DAY Resulted 04/22/17 04:13 Blood Peripheral Anaerobic Blood Culture - Preliminary NO GROWTH IN 1 DAY Resulted 04/22/17 04:08 Blood Peripheral Aerobic Blood Culture - Preliminary NO GROWTH IN 1 DAY Resulted 04/22/17 04:08 Blood Peripheral Anaerobic Blood Culture - Preliminary NO GROWTH IN 1 DAY Resulted 04/22/17 11:15 Sputum Endotracheal Gram Stain - Final Resulted 04/22/17 11:15 Sputum Culture - Preliminary Gram Negative Reyes Resulted 04/22/17 11:20 Urine Catheterized Urine Urine Culture - Preliminary NO GROWTH IN 24 HOURS. Resulted Imaging Last Impressions Chest X-Ray 04/23/17 0000 Signed Impressions: Service Date/Time: Sunday, April 23, 2017 05:15 - CONCLUSION: No significant change. Bilateral airspace opacities persist. Ezequiel Waters MD Abdomen/Pelvis CT 04/14/17 0000 Signed Impressions: Service Date/Time: Friday, April 14, 2017 22:16 - CONCLUSION: 1. Bilateral pleural effusions and bibasilar airspace process may represent edema and/or pneumonia. 2. There is an approximate 3.1 cm fluid-containing structure within the posterior urethra nonspecific and the exact etiology is not certain. There is gas within the bladder as well could be related to the same process or possibly introduced iatrogenically there possibility of abscess in the posterior urethra is not excluded. Arsen Galicia MD Abdomen X-Ray 04/13/17 0000 Signed Impressions: Service Date/Time: Thursday, April 13, 2017 12:02 - CONCLUSION: No acute abdominal abnormality is identified. Ezequiel Nobles MD Head CT 04/11/17 0015 Signed Impressions: Service Date/Time: Tuesday, April 11, 2017 00:53 - CONCLUSION: 1. No acute intracranial abnormality. Right maxillary sinusitis. Mucosal thickening in the ethmoid air cells. Jone Daly MD Physical Exam CONSTITUTIONAL/GENERAL: This is an adequately nourished patient, in no apparent distress. TUBES/LINES/DRAINS: SKIN: No jaundice, rashes, or lesions. Skin temperature appropriate. Not diaphoretic. EYES: Pupils equal and round and reactive. Extraocular motions intact. No scleral icterus. No injection or drainage. Fundi not examined. ENT: Hearing grossly normal. Nose without bleeding or purulent drainage. Throat without visible erythema, exudates, masses, or lesions. Orally intubated NECK: Trachea midline. CARDIOVASCULAR: Regular rate and rhythm without murmurs, gallops, or rubs. No JVD. Peripheral pulses symmetric. RESPIRATORY/CHEST: Symmetric, unlabored respirations. L side rhonchi GASTROINTESTINAL: Abdomen soft, non-tender, + distended. No hepato-splenomegaly , or palpable masses. No guarding. Bowel sounds present. GENITOURINARY: Without palpable bladder distension. Hargrove catheter in place with clear yellow urine MUSCULOSKELETAL: Extremities without clubbing, cyanosis, or edema. No joint tenderness or effusion noted. No calf tenderness. No mottling or clubbing. LYMPHATICS: No palpable cervical or supraclavicular adenopathy. NEUROLOGICAL: Awake and alert. Motor and sensory grossly within normal limits. Follows commands. Clear speech, not alwsays coherent p. Moves all extremities. PSYCHIATRIC: No obvious anxiety/depression. no apparent hallucinations or other psychotic thought process. Assessment & Plan Remarks PNA Kleb pneumo repeat clx with GNB again Resp failure, - reintubated Leukocytosis: improved Abx associated diarrhea cont zosyn high dose - fu repeat sputum clx r/o c.diff if diarrhea recurrs chk blood and urine clx stop vancomycin Rima Tee MD Apr 23, 2017 22:29
[2017-04-24] VITALS (20 sets, daily range): BP systolic 110–122; BP diastolic 61–71; PULSE 67–94; RESP 14–20; TEMP 98.5–99.3; O2SAT 93–100
[2017-04-24] MEDS: methylPREDNISolone SOD SUCC 40 MG/1 ML VIAL IV PUSH SCH ×3 (01:17→17:16)
[2017-04-24] MEDS: PIPERACIL-TAZO 4.5 GM PREMIX 100 ML IV SCH ×4 (01:17→20:00)
[2017-04-24] MEDS: PROPOFOL 1000 MG/100 ML INJ 100 ML IV PRN ×6 (02:15→21:15)
[2017-04-24] MEDS: RESP: ALBUTEROL 2.5 MG/IPRATROPIUM 0.5 MG NEB (SCH) NEB ×3 (03:03→15:22)
[2017-04-24 04:17] LABS: AUTOMATED NEUTROPHIL # 10.6 TH/MM3 (1.8-7.7); BASOPHIL # 0.1 TH/MM3 (0-0.2); BASOPHIL % 0.6 % (0.0-2.0); EOSINOPHIL # 0.3 TH/MM3 (0-0.4); HEMATOCRIT 24.8 % (39.0-51.0); HEMOGLOBIN 8.4 GM/DL (13.0-17.0); LYMPH % 10.7 % (9.0-44.0); LYMPHOCYTE # 1.4 TH/MM3 (1.0-4.8); MEAN CELL VOLUME 98.3 FL (80.0-100.0); MEAN CORPUSCULAR HEMOGLOBIN 33.4 PG (27.0-34.0); MEAN CORPUSCULAR HGB CONC 33.9 % (32.0-36.0); MEAN PLATELET VOLUME 9.4 FL (7.0-11.0); MONO % 6.3 % (0.0-8.0); MONOCYTE # 0.8 TH/MM3 (0-0.9); NEUT % 80.4 % (16.0-70.0); PLATELET COUNT 778 TH/MM3 (150-450); RED BLOOD COUNT 2.53 MIL/MM3 (4.50-5.90); RED CELL DISTRIBUTION WIDTH 13.8 % (11.6-17.2); WHITE BLOOD COUNT 13.2 TH/MM3 (4.0-11.0)
[2017-04-24 04:23] LABS: ALBUMIN 2.7 GM/DL (3.4-5.0); AST (GOT) 59 U/L (15-37); BICARBONATE 39.8 MEQ/L (21.0-32.0); BLOOD UREA NITROGEN 17 MG/DL (7-18); CALCIUM 8.5 MG/DL (8.5-10.1); CHLORIDE 95 MEQ/L (98-107); CREATININE 0.81 MG/DL (0.60-1.30); GLOMERULAR FILTRATION RATE 101 ML/MIN (>89); GLUCOSE,RANDOM 102 MG/DL (74-106); MAGNESIUM 2.3 MG/DL (1.5-2.5); SODIUM (NA) 143 MEQ/L (136-145)
[2017-04-24 04:26] LABS: ALKALINE PHOSPHATASE 104 U/L (45-117); ALT (GPT) 79 U/L (12-78); TOTAL BILIRUBIN ADULT 0.5 MG/DL (0.2-1.0); TOTAL PROTEIN 7.2 GM/DL (6.4-8.2)
[2017-04-24] MEDS: HEPARIN SODIUM - SQ 10,000 UNITS/ML VIAL SQ SCH ×3 (05:33→22:42)
[2017-04-24] MEDS: POTASSIUM CHLOR 40 MEQ PREMIX 100 ML IV PRN ×2 (05:34→07:58)
[2017-04-24 05:46] LABS: BANDS 3 % (0-6); BASOPHILS 1 % (0-2); CORRECTED NUCLEATED RBC 1 /100 WBC (0-0); LYMPHOCYTES 4 % (9-44); METAMYELOCYTES 2 % (0-1); MONOCYTES 6 % (0-8); MYELOCYTES 3 % (0-0); NEUTROPHIL # MANUAL DIFF 11.2 TH/MM3 (1.8-7.7); NUCLEATED RED BLOOD CELL 1 (0-0); POLYS (SEG NEUTROPHILS) 77 % (16-70)
[2017-04-24 05:47] LABS: STOMATOCYTES 1+ (NORMAL)
--- NOTE | 2017-04-24 06:16 | RADRPT ---
EXAM DATE/TIME: 04/24/2017 04:44 [facility] COMPARISON: CHEST SINGLE AP, April 23, 2017, 5:15. INDICATIONS : Shortness of breath, possible pulmonary disease. MEDICAL HISTORY : Sepsis. SURGICAL HISTORY : None. ENCOUNTER: Subsequent ACUITY: 2 weeks PAIN SCORE: Non-responsive. LOCATION: Bilateral chest FINDINGS: Diffuse mild airspace opacities persist. An area of slightly more confluent consolidation again noted left lung base and probably with a small left pleural effusion. These findings are not significantly changed. I don't see a pneumothorax. Mild cardiomegaly is stable. Endotracheal tube tip 4 cm above the demetrius. Nasogastric tube courses into the stomach. CONCLUSION: No significant change. Please see above. Ezequiel Waters MD on April 24, 2017 at 6:14 Board Certified Radiologist. This report was verified electronically.
--- NOTE | 2017-04-24 07:52 | HHI.CCPN ---
Subjective Remarks/Hospital Course 51-year-old male presents from home where he was identified to have altered mental status and decreasing level of consciousness. Patient was also identified to have temperature elevation and paramedics identified room air O2 saturations to be 72%. Patient was immediately placed on supplemental oxygen without improvement of oxygenation or level of consciousness. Family members were concerned that patient may have overdosed on medications but the medications listed did not show any opiates. Patient's blood sugar was fine. No reported injury or trauma. Paramedics determined patient needed further ventilation support and attempted intubation in the field but this was unsuccessful and patient presents to the emergency department with ambu assisted ventilations. Multiple attempts were made in the emergency department intubated the patient for an airway protection, which was extremely difficult and patient was finally intubated by business area director. 04/12: Continues to be critically ill intubated copious amount of ET tube secretions. Chest x-ray continues to show patchy bilateral infiltrates. Started on Levophed overnight to keep map above 65. Creat and WBC count have slightly improved. Gram neg rods in sputum gram stain. Currently on Zosyn, I will add vancomycin 04/13: Developed severe ventilator asynchrony today with low lung volumes. Most likely secondary to ET tube obstruction from secretions. After multiple suctioning volumes improved but patient remained tachypneic. Neuromuscularly paralyzed for hypoxia and asynchrony. Sputum culture growing Klebsiella 04/14: Remains intubated sedated continues to be asynchronous with the ventilator when sedation is lightened. Continues to have copious secretions. Fluid overloaded will start Lasix 20 every 12 with potassium supplementation 04/15: Oliguric to anuric with hematuria. CT abdomen pelvis 04/14 showing 3.1 cm fluid-containing structure within the posterior urethra nonspecific and there is gas within the bladder. Etiology unclear. Patient remains tachypneic on lightening sedation. Not following commands 04/16: Remains intubated sedated encephalopathic. Chest x-ray shows worsening pulmonary edema, bilateral crackles/rales on exam. Currently on Precedex and propofol and slowly weaned off propofol. Urine output increased after replacing Guzman. Apparently catheter balloon was sitting in prostatic urethra, his guzman was not advanced all the way to the bladder. This was replaced by urology with excellent UO now. On 03/04 NS for hyperNa. 04/17: Patient remains encephalopathic. Chest x-ray unchanged. Patient continued on Precedex infusion. Urine output within normal limits, creatinine improved today. Sodium level downtrending. 04/18: Patient continues on Precedex and fentanyl infusion, moving extremities spontaneously and following commands. Pt complained of pain, oxycodone 5 mg every 8 hour total dosing, in anticipation of weaning IV fentanyl. Patient tolerated CPAP trials for approximately 3 hours today. Plan to consult general surgery for tracheostomy. 04/19: Tolerating CPAP today, wide awake and following commands. +Ve cuff leak. Chest x-ray shows slight worsening bilateral infiltrates. Lasix 40 mg additional dose given 04/20: Patient extubated yesterday, doing well. O2 saturation 97% on nasal cannula. The patient was Saha acted today secondary to suicidal ideations, with concrete planning of , etc. psychiatry following discussed with Dr. Rush. Patient to be transferred to inpatient psych when bed available. [facility] RECONSULT NOTE: 04/22: [facility] reconsulted for severe hypoxemic respiratory failure, severe bilateral infiltrates almost white out of bilateral lung valenzuela. Currently on 100% nonrebreather with PO2 only 79. Patient also developed atrial flutter with RVR overnight. On Cardizem infusion at 15 mg/h with heart rate 150 bpm. I evaluated the patient immediately she appears symptoms are severe respiratory distress, even with minimal movements and if he removes the mask even for a few seconds he desaturates to 60s. Decision made to endotracheally intubate the patient and mechanically ventilated. Known difficult airway. Patient rapidly desaturated after induction, in the few minutes taken for intubation. Intubated with the glide scope #4 blade grade 3 view saturation rapidly came back after intubation and mechanical ventilation. Additional workup with stat echo BNP ordered placed on Bumex infusion. PC/AC vent with high TV and PEEP for lung recruitment 04/23: Emergently intubated yesterday for acute hypoxemic respiratory failure and severe hypoxemia. Postintubation placed on Bumex infusion with excellent urine output. Chest x-ray improved today. Patient was cardioverted yesterday for atrial flutter with rapid ventricular response currently in sinus rhythm. Remains critically ill but stable FiO2 is down to 45% PEEP remains at 10 04/24: Diuresis excellent with Bumex more than 8 L in 24 hours. Bicarb increasing- give Diamox 500 mg IV 1. Increase potassium supplementation. On propofol 50 mcg/min patient is awake follows commands. Chest x-ray improved on my review but still has diffuse bilateral infiltrates and left effusion. CT of the chest to further evaluate for effusion and infiltrates Objective Vital Signs Date Time Temp Pulse Resp B/P (MAP) Pulse Ox O2 Delivery O2 Flow Rate FiO2 04/24/17 07:37 97 40 04/24/17 06:00 85 04/24/17 04:00 98.9 20 122/70 (87) 04/21/17 19:54 Non-Rebreather 15.00 Intake and Output 04/24/17 04/24/17 04/25/17 08:00 16:00 00:00 Intake Total 100 ml Output Total 3900 ml Balance -3800 ml Result Diagram: 04/24/17 0230 04/24/17 0230 Imaging Last Impressions Chest X-Ray 04/17/17 0600 Signed Impressions: Service Date/Time: Monday, April 17, 2017 03:46 - CONCLUSION: No appreciable change. Arsen Galicia MD Abdomen/Pelvis CT 04/14/17 0000 Signed Impressions: Service Date/Time: Friday, April 14, 2017 22:16 - CONCLUSION: 1. Bilateral pleural effusions and bibasilar airspace process may represent edema and/or pneumonia. 2. There is an approximate 3.1 cm fluid-containing structure within the posterior urethra nonspecific and the exact etiology is not certain. There is gas within the bladder as well could be related to the same process or possibly introduced iatrogenically there possibility of abscess in the posterior urethra is not excluded. Arsen Galicia MD Abdomen X-Ray 04/13/17 0000 Signed Impressions: Service Date/Time: Thursday, April 13, 2017 12:02 - CONCLUSION: No acute abdominal abnormality is identified. Ezequiel Nobles MD Head CT 04/11/17 0015 Signed Impressions: Service Date/Time: Tuesday, April 11, 2017 00:53 - CONCLUSION: 1. No acute intracranial abnormality. Right maxillary sinusitis. Mucosal thickening in the ethmoid air cells. Jone Daly MD Last 24 hours Impressions Chest X-Ray 04/11/17 0000 Signed Impressions: Service Date/Time: Tuesday, April 11, 2017 00:26 - CONCLUSION: 1. Bilateral air space consolidation predominantly perihilar. Nasogastric tube and endotracheal tube in good position. Jone Daly MD Procedures endotracheal intubation. Objective Remarks GENERAL: Well-nourished, well-developed patient. Sedated with propofol wakes up easily SKIN: Cool, diaphoretic HEAD: Normocephalic. EYES: No scleral icterus. No injection or drainage. ENT: Orotracheally intubated NECK: Supple, trachea midline. No JVD or lymphadenopathy. CARDIOVASCULAR: No murmurs, gallops, or rubs. RESPIRATORY: Breath sounds diminished bilaterally with fine crackles throughout the lung valenzuela. ACV with PEEP 8 GASTROINTESTINAL: Abdomen soft, distended. Nontender : Guzman with clear urine MUSCULOSKELETAL: No cyanosis, or edema. NEURO EXAM: Intubated sedated with propofol. Wakes up easily, nods to questions and follows commands. No focal deficits Urinary Catheter: Yes Assessment to: Continue Vascular Central Line Catheter: Yes Assessment to: Continue A/P Assessment and Plan NEURO: Altered mental status/encephalopathy Drug overdose/suicide attempt History of depressions other psychological disorders Seizure disorder Generalized pain - Propofol and fentanyl for sedation and vent synchrony after intubation - CT head negative on admission - Drug screen positive only for benzodiazepines - Continue Effexor, Seroquel, Hydroxyzine - Continue Lamictal for seizure disorder - Psych Dr. Rush- Pt Yifan Acted - Oxycodone 5 milligrams every 8 hours, PRN pain-Hold while on vent RESP: Acute hypoxemic respiratory failure Severe ARDS vs cardiogenic pulmonary edema Bilateral pneumonia Difficult anterior airway - Intubated for airway protection on admission. Intubated in ED after multiple attempts by anesthesia - Extubated 04/19/17, was tolerating well developed severe hypoxemic respiratory failure/severe pulmonary edema 04/22 - Intubated again 04/22/[address] Nieves. Anterior airway with GlideScope #4 blade , Grade 2-3 view - ACV TV 500 PEEP 8. Titrate FiO2 to keep saturation above 90% - CPAP trials starting today - Sputum culture GNR. Await final ID - Vent bundle, DuoNeb scheduled and when necessary - Zosyn and vancomycin to cover for healthcare associated pneumonia CVS: Fluid overload/pulmonary edema Atrial flutter with rapid ventricular response dyslipidemia - S/p DCCV on 04/22 with successful return to an maintenance of sinus rhythm. ( DCCV performed due to new onset < 6 hour duration of a flutter with RVR with hypotension) - Off Cardizem infusion. Start PO beta-blockers if needed - Echo report is pending-will call Echo lab - Hold Simvastatin, Fenofibrate due to liver enzyme elevation - Continue to Hold Losartan - Continue Bumex infusion, decrease to 0.5 mg per hour. Diamox 500 mg IV x1 - Diurese to dry weight-getting closer to admission weight now GI: Elevated liver enzymes - IV famotidine. Tube feeds with Jevity - Liver enzymes trending down, possible shock liver : Acute kidney injury-resolved Obstructive uropathy due to Guzman balloon inflated in the urethra Rhabdomyolysis (CPK >25,000) - Unknown baseline creat, CPK trending down - Urology consulted, replaced Guzman which was misplaced (Guzman balloon was inflated in the prostatic urethra) - Strict I's and O's - Bumex gtt, Diamox as above ID Severe Sepsis Multilobar pneumonia/Klebsiella and sputum New HCAP - Continue Zosyn vancomycin - Sputum culture growing GNR, previously Klebsiella treated - F/U Repeat sputum and blood cultures HEME: - Monitor CBC CMP coags ENDO: - Electrolyte replacement per protocol DVT GI prophylaxis - Teds SCDs - Subcutaneous heparin. - Pepcid Critical Care: CCT 30 MIN, excluding procedures Jenny Nieves MD Apr 24, 2017 07:52
[2017-04-24] MEDS: POTASSIUM CHLORIDE 25 MEQ EFFERVESCENT TAB PO SCH ×2 (07:58→20:05)
[2017-04-24] MEDS: lamoTRIgine 100 MG TAB PO SCH ×2 (07:58→20:04)
[2017-04-24] MEDS: hydrOXYzine HCL 50 MG TAB PO SCH ×2 (07:59→20:05)
[2017-04-24] MEDS: GABAPENTIN 300 MG CAP PO SCH ×3 (07:59→17:17)
[2017-04-24] MEDS: FAMOTIDINE 20 MG/2 ML VIAL IV PUSH SCH ×2 (07:59→20:04)
[2017-04-24] MEDS: DOCUSATE SODIUM 100 MG/10 ML UDC PO SCH ×2 (07:59→20:04)
[2017-04-24] MEDS: VENLAFAXINE HCL 75 MG TAB PO SCH ×3 (07:59→17:17)
[2017-04-24] MEDS ORDERED: BUMETANIDE INJ 100 ML IV SCH ×2 (08:00→20:00)
[2017-04-24] MEDS: SODIUM CHLORIDE 0.9% FLUSH 10 ML FLUSH IV FLUSH SCH ×2 (08:00→20:04)
[2017-04-24] MEDS: CHLORHEXIDINE 0.12% (ORAL KIT) 15 ML CUP MT SCH ×2 (08:01→20:04)
[2017-04-24] MEDS: BENEPROTEIN POWDER 1 PACK G-TUBE SCH ×3 (08:01→17:16)
[2017-04-24] MEDS: fentaNYL DRIP 250 ML IV PRN ×2 (08:32→18:51)
--- NOTE | 2017-04-24 10:23 | RADRPT ---
EXAM DATE/TIME: 04/24/2017 09:59 [facility] COMPARISON: CHEST SINGLE AP, April 14, 2017, 2:58. CT ABDOMEN & PELVIS W CONTRAST, April 14, 2017, 22:16. CHEST SINGLE AP, April 24, 2017, 4:44. INDICATIONS : Abnormal chest xray. Evaluate for infiltrates. RADIATION DOSE: 9.59 CTDIvol (mGy) MEDICAL HISTORY : None SURGICAL HISTORY : None. ENCOUNTER: Initial ACUITY: 1 day PAIN SCALE: Non-responsive LOCATION: chest TECHNIQUE: Volumetric scanning of the chest was performed. Using automated exposure control and adjustment of t he mA and/or kV according to patient size, radiation dose was kept as low as reasonably achievable to obtain optimal diagnostic quality images. DICOM format image data is available electronically for r eview and comparison. Follow-up recommendations for detected pulmonary nodules are based at a minimum on nodule size and pa tient risk factors according to Fleischner Society Guidelines. FINDINGS: LUNGS: There is diffuse increased interstitial markings throughout. There are multiple areas of confluent al veolar density seen in the periphery of the upper lungs being more prominent on the right and at the bases bilaterally. PLEURAE: There are mild bilateral pleural effusions and worse on the right. MEDIASTINUM: Significant adenopathy is not seen. There is a mild amount of pericardial fluid seen. There is suspec rohit pericardial fluid seen adjacent to the ascending aorta. AXILLAE: Within normal limits. No lymphadenopathy. MUSCULOSKELETAL: Within normal limits for patient age. MISCELLANEOUS: The visualized upper abdominal organs demonstrate no acute abnormality. There is a right internal jug ular central line, ET tube and NG tube in place. CONCLUSION: Diffuse mixed interstitial nodular consolidation with small bilateral pleural effusions. This is nons pecific. This could be secondary to noncardiogenic pulmonary edema. Heart size is not appear enlarged . Diffuse infection, hypersensitivity reactions, or ARDS could have a similar appearance. Ezequiel Hummel MD on April 24, 2017 at 10:15 Board Certified Radiologist. This report was verified electronically.
[2017-04-24 17:39] LABS: ALKALINE PHOSPHATASE 111 U/L (45-117); ALT (GPT) 70 U/L (12-78); AST (GOT) 49 U/L (15-37); BICARBONATE 39.9 MEQ/L (21.0-32.0); BLOOD UREA NITROGEN 21 MG/DL (7-18); CALCIUM 9.4 MG/DL (8.5-10.1); CHLORIDE 96 MEQ/L (98-107); CREATININE 1.12 MG/DL (0.60-1.30); GLOMERULAR FILTRATION RATE 69 ML/MIN (>89); GLUCOSE,RANDOM 151 MG/DL (74-106); SODIUM (NA) 141 MEQ/L (136-145); TOTAL BILIRUBIN ADULT 0.5 MG/DL (0.2-1.0); TOTAL PROTEIN 7.6 GM/DL (6.4-8.2)
--- NOTE | 2017-04-24 18:42 | HHI.IDPN ---
Subjective Subjective Remarks Intubated Sputum growing PSAE on vent afebnrile not much secretions Antibiotics zosyn 4.5 Allergies: Coded Allergies: No Allergy Information Available (Unverified , 04/11/17) Objective . Vital Signs Date Time Temp Pulse Resp B/P (MAP) Pulse Ox O2 Delivery O2 Flow Rate FiO2 04/24/17 18:00 72 04/24/17 16:00 40 04/24/17 16:00 40 04/24/17 16:00 99.3 94 14 114/68 (83) 94 04/24/17 16:00 94 04/24/17 15:22 95 40 04/24/17 15:20 40 04/24/17 14:00 86 04/24/17 12:00 89 04/24/17 12:00 99.1 89 17 113/71 (85) 96 04/24/17 11:14 96 40 04/24/17 10:17 97 100 04/24/17 10:00 67 04/24/17 09:00 40 04/24/17 08:25 40 04/24/17 08:00 99.0 81 20 111/61 (78) 100 04/24/17 08:00 40 04/24/17 08:00 81 04/24/17 07:37 97 40 04/24/17 06:00 85 04/24/17 04:23 95 50 04/24/17 04:00 88 04/24/17 04:00 40 04/24/17 04:00 98.9 88 20 122/70 (87) 96 04/24/17 02:00 84 04/24/17 00:04 95 50 04/24/17 00:00 98.9 79 16 111/64 (80) 97 04/24/17 00:00 79 04/24/17 00:00 40 04/23/17 22:00 77 04/23/17 20:00 94 40 04/23/17 20:00 92 04/23/17 20:00 40 04/23/17 20:00 99.0 92 16 120/71 (87) 94 04/24/17 04/24/17 04/25/17 15:00 23:00 07:00 Intake Total 300 ml 645 ml Output Total 1700 ml 400 ml Balance -1400 ml 245 ml IV Total 300 ml 424 ml Tube Feeding 221 ml Output Urine Total 1700 ml 400 ml . Laboratory Tests Test 04/23/17 06:00 04/24/17 02:30 White Blood Count 13.2 TH/MM3 13.2 TH/MM3 Red Blood Count 2.29 MIL/MM3 2.53 MIL/MM3 Hemoglobin 7.6 GM/DL 8.4 GM/DL Hematocrit 22.6 % 24.8 % Mean Corpuscular Volume 98.6 FL 98.3 FL Mean Corpuscular Hemoglobin 33.2 PG 33.4 PG Mean Corpuscular Hemoglobin Concent 33.7 % 33.9 % Red Cell Distribution Width 13.9 % 13.8 % Platelet Count 616 TH/MM3 778 TH/MM3 Mean Platelet Volume 9.5 FL 9.4 FL Neutrophils (%) (Auto) 79.7 % 80.4 % Lymphocytes (%) (Auto) 12.3 % 10.7 % Monocytes (%) (Auto) 5.4 % 6.3 % Eosinophils (%) (Auto) 0.8 % 2.0 % Basophils (%) (Auto) 1.8 % 0.6 % Neutrophils # (Auto) 10.5 TH/MM3 10.6 TH/MM3 Lymphocytes # (Auto) 1.6 TH/MM3 1.4 TH/MM3 Monocytes # (Auto) 0.7 TH/MM3 0.8 TH/MM3 Eosinophils # (Auto) 0.1 TH/MM3 0.3 TH/MM3 Basophils # (Auto) 0.2 TH/MM3 0.1 TH/MM3 CBC Comment AUTO DIFF AUTO DIFF Differential Total Cells Counted 100 100 Neutrophils % (Manual) 74 % 77 % Band Neutrophils % 4 % 3 % Lymphocytes % 10 % 4 % Monocytes % 3 % 6 % Eosinophils % 2 % 4 % Neutrophils # (Manual) 11.2 TH/MM3 11.2 TH/MM3 Metamyelocytes 1 % 2 % Myelocytes 6 % 3 % Nucleated Red Blood Cells 2 /100 WBC 1 /100 WBC Differential Comment FINAL DIFF MANUAL FINAL DIFF MANUAL Platelet Estimate HIGH HIGH Platelet Morphology Comment NORMAL NORMAL Stomatocytes 1+ 1+ Basophils % 1 % Laboratory Tests Test 04/22/17 22:00 04/23/17 06:00 04/23/17 14:50 04/24/17 02:30 Total Creatine Kinase 179 U/L Creatine Kinase MB 1.0 NG/ML Troponin I LESS THAN 0.02 NG/ML Blood Urea Nitrogen 20 MG/DL 17 MG/DL 17 MG/DL Creatinine 0.84 MG/DL 0.92 MG/DL 0.81 MG/DL Random Glucose 88 MG/DL 88 MG/DL 102 MG/DL Total Protein 6.7 GM/DL 6.6 GM/DL 7.2 GM/DL Albumin 2.6 GM/DL 2.4 GM/DL 2.7 GM/DL Calcium Level 8.8 MG/DL 8.2 MG/DL 8.5 MG/DL Phosphorus Level 1.8 MG/DL Magnesium Level 2.5 MG/DL 2.3 MG/DL Alkaline Phosphatase 84 U/L 91 U/L 104 U/L Aspartate Amino Transf (AST/SGOT) 48 U/L 63 U/L 59 U/L Alanine Aminotransferase (ALT/SGPT) 71 U/L 73 U/L 79 U/L Total Bilirubin 0.4 MG/DL 0.5 MG/DL 0.5 MG/DL Sodium Level 142 MEQ/L 143 MEQ/L 143 MEQ/L Potassium Level 2.9 MEQ/L 3.0 MEQ/L 3.0 MEQ/L Chloride Level 101 MEQ/L 101 MEQ/L 95 MEQ/L Carbon Dioxide Level 34.1 MEQ/L 37.2 MEQ/L 39.8 MEQ/L Anion Gap 7 MEQ/L 5 MEQ/L 8 MEQ/L Estimat Glomerular Filtration Rate 97 ML/MIN 87 ML/MIN 101 ML/MIN Test 04/24/17 05:46 04/24/17 16:00 Phosphorus Level 6.4 MG/DL Blood Urea Nitrogen 21 MG/DL Creatinine 1.12 MG/DL Random Glucose 151 MG/DL Total Protein 7.6 GM/DL Albumin 3.0 GM/DL Calcium Level 9.4 MG/DL Alkaline Phosphatase 111 U/L Aspartate Amino Transf (AST/SGOT) 49 U/L Alanine Aminotransferase (ALT/SGPT) 70 U/L Total Bilirubin 0.5 MG/DL Sodium Level 141 MEQ/L Potassium Level 3.8 MEQ/L Chloride Level 96 MEQ/L Carbon Dioxide Level 39.9 MEQ/L Anion Gap 5 MEQ/L Estimat Glomerular Filtration Rate 69 ML/MIN Microbiology Date/Time Source Procedure Growth Status 04/22/17 12:09 Blood Peripheral Aerobic Blood Culture - Preliminary NO GROWTH IN 2 DAYS Resulted 04/22/17 12:09 Blood Peripheral Anaerobic Blood Culture - Preliminary NO GROWTH IN 2 DAYS Resulted 04/22/17 11:58 Blood Peripheral Aerobic Blood Culture - Preliminary NO GROWTH IN 2 DAYS Resulted 04/22/17 11:58 Blood Peripheral Anaerobic Blood Culture - Preliminary NO GROWTH IN 2 DAYS Resulted 04/22/17 04:13 Blood Peripheral Aerobic Blood Culture - Preliminary NO GROWTH IN 2 DAYS Resulted 04/22/17 04:13 Blood Peripheral Anaerobic Blood Culture - Preliminary NO GROWTH IN 2 DAYS Resulted 04/22/17 04:08 Blood Peripheral Aerobic Blood Culture - Preliminary NO GROWTH IN 2 DAYS Resulted 04/22/17 04:08 Blood Peripheral Anaerobic Blood Culture - Preliminary NO GROWTH IN 2 DAYS Resulted 04/22/17 11:15 Sputum Endotracheal Gram Stain - Final Complete 04/22/17 11:15 Sputum Culture - Final Pseudomonas Aeruginosa Complete 04/22/17 11:20 Urine Catheterized Urine Urine Culture - Final NO GROWTH IN 48 HOURS. Complete Imaging Last Impressions Chest X-Ray 04/24/17 0600 Signed Impressions: Service Date/Time: Monday, April 24, 2017 04:44 - CONCLUSION: No significant change. Please see above. Ezequiel Waters MD Chest CT 04/24/17 0000 Signed Impressions: Service Date/Time: Monday, April 24, 2017 09:59 - CONCLUSION: Diffuse mixed interstitial nodular consolidation with small bilateral pleural effusions. This is nonspecific. This could be secondary to noncardiogenic pulmonary edema. Heart size is not appear enlarged. Diffuse infection, hypersensitivity reactions, or ARDS could have a similar appearance. Ezequiel Hummel MD Abdomen/Pelvis CT 04/14/17 0000 Signed Impressions: Service Date/Time: Friday, April 14, 2017 22:16 - CONCLUSION: 1. Bilateral pleural effusions and bibasilar airspace process may represent edema and/or pneumonia. 2. There is an approximate 3.1 cm fluid-containing structure within the posterior urethra nonspecific and the exact etiology is not certain. There is gas within the bladder as well could be related to the same process or possibly introduced iatrogenically there possibility of abscess in the posterior urethra is not excluded. Arsen Galicia MD Abdomen X-Ray 04/13/17 0000 Signed Impressions: Service Date/Time: Thursday, April 13, 2017 12:02 - CONCLUSION: No acute abdominal abnormality is identified. Ezequiel Nobles MD Head CT 04/11/17 0015 Signed Impressions: Service Date/Time: Tuesday, April 11, 2017 00:53 - CONCLUSION: 1. No acute intracranial abnormality. Right maxillary sinusitis. Mucosal thickening in the ethmoid air cells. Jone Daly MD Physical Exam CONSTITUTIONAL/GENERAL: This is an adequately nourished patient, in no apparent distress. TUBES/LINES/DRAINS: SKIN: No jaundice, rashes, or lesions. Skin temperature appropriate. Not diaphoretic. EYES: Pupils equal and round and reactive. Extraocular motions intact. No scleral icterus. No injection or drainage. Fundi not examined. ENT: Hearing grossly normal. Nose without bleeding or purulent drainage. Throat without visible erythema, exudates, masses, or lesions. Orally intubated CARDIOVASCULAR: Regular rate and rhythm without murmurs, gallops, or rubs. No JVD. Peripheral pulses symmetric. RESPIRATORY/CHEST: Symmetric, unlabored respirations. L side rhonchi GASTROINTESTINAL: Abdomen soft, non-tender, + distended. No hepato-splenomegaly , or palpable masses. No guarding. Bowel sounds present. GENITOURINARY: Without palpable bladder distension. Hargrove catheter in place with clear yellow urine MUSCULOSKELETAL: Extremities without clubbing, cyanosis, or edema. No joint tenderness or effusion noted. No calf tenderness. No mottling or clubbing. LYMPHATICS: No palpable cervical or supraclavicular adenopathy. NEUROLOGICAL: Awake and alert. Motor and sensory grossly within normal limits. Follows commands. Clear speech, not alwsays coherent p. Moves all extremities. PSYCHIATRIC: somewaht agitarted Assessment & Plan Remarks PNA Kleb pneumo repeat clx with GNB again Resp failure, - reintubated Leukocytosis: improved Abx associated diarrhea cont zosyn high dose r/o c.diff if diarrhea recurrs fu blood and urine clx dw Rima Faith MD Apr 24, 2017 18:42
[2017-04-24] MEDS: QUEtiapine FUMARATE 200 MG TAB PO SCH (20:04)
[2017-04-24] MEDS: CHLORHEXIDINE GLUCONATE 2 % 1 PACK (2 CLOTHS) TOP SCH (23:09)
[2017-04-25] VITALS (17 sets, daily range): BP systolic 103–132; BP diastolic 56–82; PULSE 60–100; RESP 14–22; TEMP 98.2–98.9; O2SAT 93–99
[2017-04-25] MEDS: PIPERACIL-TAZO 4.5 GM PREMIX 100 ML IV SCH ×4 (00:35→20:18)
[2017-04-25] MEDS: PROPOFOL 1000 MG/100 ML INJ 100 ML IV PRN ×2 (00:36→04:18)
[2017-04-25] MEDS: methylPREDNISolone SOD SUCC 40 MG/1 ML VIAL IV PUSH SCH ×3 (00:36→16:45)
[2017-04-25] MEDS: RESP: ALBUTEROL 2.5 MG/IPRATROPIUM 0.5 MG NEB (SCH) NEB ×4 (03:45→20:59)
[2017-04-25] MEDS: HEPARIN SODIUM - SQ 10,000 UNITS/ML VIAL SQ SCH ×3 (04:48→20:21)
[2017-04-25] MEDS: fentaNYL DRIP 250 ML IV PRN (04:48)
--- NOTE | 2017-04-25 05:03 | RADRPT ---
EXAM DATE/TIME: 04/25/2017 04:14 [facility] COMPARISON: CHEST SINGLE AP, April 24, 2017, 4:44. INDICATIONS : Shortness of breath, possible pulmonary disease. MEDICAL HISTORY : Sepsis. SURGICAL HISTORY : None. ENCOUNTER: Subsequent ACUITY: 2 weeks PAIN SCORE: Non-responsive. LOCATION: Bilateral chest FINDINGS: Mild diffuse air space opacities are again seen in both lungs. An area of slightly more confluent con solidation of the left base again seen. These findings are not significantly changed. Possible small left pleural effusion. No large effusion demonstrated. No pneumothorax. Heart size stable, mildly enlarged. Endotracheal tube tip is approximately 4 cm above the demetrius. Nasogastric tube has tip in the stomach . There is a right subclavian central venous catheter with tip at the atriocaval junction. CONCLUSION: No significant change. Ezequiel Waters MD on April 25, 2017 at 5:01 Board Certified Radiologist. This report was verified electronically.
[2017-04-25 06:55] LABS: AUTOMATED NEUTROPHIL # 10.1 TH/MM3 (1.8-7.7); BASOPHIL # 0.2 TH/MM3 (0-0.2); BASOPHIL % 1.6 % (0.0-2.0); EOSINOPHIL % 0.1 % (0.0-4.0); HEMATOCRIT 25.6 % (39.0-51.0); HEMOGLOBIN 8.6 GM/DL (13.0-17.0); LYMPH % 6.3 % (9.0-44.0); LYMPHOCYTE # 0.7 TH/MM3 (1.0-4.8); MEAN CELL VOLUME 99.8 FL (80.0-100.0); MEAN CORPUSCULAR HEMOGLOBIN 33.4 PG (27.0-34.0); MEAN CORPUSCULAR HGB CONC 33.5 % (32.0-36.0); MEAN PLATELET VOLUME 9.5 FL (7.0-11.0); MONO % 4.7 % (0.0-8.0); MONOCYTE # 0.5 TH/MM3 (0-0.9); NEUT % 87.3 % (16.0-70.0); PLATELET COUNT 790 TH/MM3 (150-450); RED BLOOD COUNT 2.56 MIL/MM3 (4.50-5.90); RED CELL DISTRIBUTION WIDTH 13.9 % (11.6-17.2); WHITE BLOOD COUNT 11.6 TH/MM3 (4.0-11.0)
[2017-04-25 07:09] LABS: AST (GOT) 36 U/L (15-37); BLOOD UREA NITROGEN 25 MG/DL (7-18); CALCIUM 9.5 MG/DL (8.5-10.1); CHLORIDE 98 MEQ/L (98-107); CREATININE 1.24 MG/DL (0.60-1.30); GLOMERULAR FILTRATION RATE 62 ML/MIN (>89); GLUCOSE,RANDOM 192 MG/DL (74-106); SODIUM (NA) 142 MEQ/L (136-145)
[2017-04-25 07:18] LABS: ALKALINE PHOSPHATASE 106 U/L (45-117); ALT (GPT) 60 U/L (12-78); PHOSPHORUS 5.3 MG/DL (2.5-4.9); TOTAL BILIRUBIN ADULT 0.4 MG/DL (0.2-1.0); TOTAL PROTEIN 7.4 GM/DL (6.4-8.2)
[2017-04-25] MEDS: DOCUSATE SODIUM 100 MG/10 ML UDC PO SCH ×2 (07:58→20:21)
[2017-04-25] MEDS: GABAPENTIN 300 MG CAP PO SCH ×3 (07:59→16:46)
[2017-04-25] MEDS: lamoTRIgine 100 MG TAB PO SCH ×2 (07:59→20:20)
[2017-04-25] MEDS: POTASSIUM CHLORIDE 25 MEQ EFFERVESCENT TAB PO SCH ×2 (07:59→20:19)
[2017-04-25] MEDS: VENLAFAXINE HCL 75 MG TAB PO SCH ×3 (07:59→16:47)
[2017-04-25] MEDS: hydrOXYzine HCL 50 MG TAB PO SCH ×2 (07:59→20:20)
[2017-04-25] MEDS: CHLORHEXIDINE 0.12% (ORAL KIT) 15 ML CUP MT SCH ×2 (08:00→20:00)
[2017-04-25] MEDS: FAMOTIDINE 20 MG/2 ML VIAL IV PUSH SCH ×2 (08:00→20:20)
[2017-04-25] MEDS: BENEPROTEIN POWDER 1 PACK G-TUBE SCH ×3 (08:00→16:45)
[2017-04-25] MEDS: SODIUM CHLORIDE 0.9% FLUSH 10 ML FLUSH IV FLUSH SCH ×2 (08:00→20:19)
--- NOTE | 2017-04-25 09:28 | HHI.CCPN ---
Subjective Remarks/Hospital Course 51-year-old male presents from home where he was identified to have altered mental status and decreasing level of consciousness. Patient was also identified to have temperature elevation and paramedics identified room air O2 saturations to be 72%. Patient was immediately placed on supplemental oxygen without improvement of oxygenation or level of consciousness. Family members were concerned that patient may have overdosed on medications but the medications listed did not show any opiates. Patient's blood sugar was fine. No reported injury or trauma. Paramedics determined patient needed further ventilation support and attempted intubation in the field but this was unsuccessful and patient presents to the emergency department with ambu assisted ventilations. Multiple attempts were made in the emergency department intubated the patient for an airway protection, which was extremely difficult and patient was finally intubated by hide and skin classer. 04/12: Continues to be critically ill intubated copious amount of ET tube secretions. Chest x-ray continues to show patchy bilateral infiltrates. Started on Levophed overnight to keep map above 65. Creat and WBC count have slightly improved. Gram neg rods in sputum gram stain. Currently on Zosyn, I will add vancomycin 04/13: Developed severe ventilator asynchrony today with low lung volumes. Most likely secondary to ET tube obstruction from secretions. After multiple suctioning volumes improved but patient remained tachypneic. Neuromuscularly paralyzed for hypoxia and asynchrony. Sputum culture growing Klebsiella 04/14: Remains intubated sedated continues to be asynchronous with the ventilator when sedation is lightened. Continues to have copious secretions. Fluid overloaded will start Lasix 20 every 12 with potassium supplementation 04/15: Oliguric to anuric with hematuria. CT abdomen pelvis 04/14 showing 3.1 cm fluid-containing structure within the posterior urethra nonspecific and there is gas within the bladder. Etiology unclear. Patient remains tachypneic on lightening sedation. Not following commands 04/16: Remains intubated sedated encephalopathic. Chest x-ray shows worsening pulmonary edema, bilateral crackles/rales on exam. Currently on Precedex and propofol and slowly weaned off propofol. Urine output increased after replacing Guzman. Apparently catheter balloon was sitting in prostatic urethra, his guzman was not advanced all the way to the bladder. This was replaced by urology with excellent UO now. On 03/04 NS for hyperNa. 04/17: Patient remains encephalopathic. Chest x-ray unchanged. Patient continued on Precedex infusion. Urine output within normal limits, creatinine improved today. Sodium level downtrending. 04/18: Patient continues on Precedex and fentanyl infusion, moving extremities spontaneously and following commands. Pt complained of pain, oxycodone 5 mg every 8 hour total dosing, in anticipation of weaning IV fentanyl. Patient tolerated CPAP trials for approximately 3 hours today. Plan to consult general surgery for tracheostomy. 04/19: Tolerating CPAP today, wide awake and following commands. +Ve cuff leak. Chest x-ray shows slight worsening bilateral infiltrates. Lasix 40 mg additional dose given 04/20: Patient extubated yesterday, doing well. O2 saturation 97% on nasal cannula. The patient was Saha acted today secondary to suicidal ideations, with concrete planning of , etc. psychiatry following discussed with Dr. Rush. Patient to be transferred to inpatient psych when bed available. [facility] RECONSULT NOTE: 04/22: [facility] reconsulted for severe hypoxemic respiratory failure, severe bilateral infiltrates almost white out of bilateral lung valenzuela. Currently on 100% nonrebreather with PO2 only 79. Patient also developed atrial flutter with RVR overnight. On Cardizem infusion at 15 mg/h with heart rate 150 bpm. I evaluated the patient immediately she appears symptoms are severe respiratory distress, even with minimal movements and if he removes the mask even for a few seconds he desaturates to 60s. Decision made to endotracheally intubate the patient and mechanically ventilated. Known difficult airway. Patient rapidly desaturated after induction, in the few minutes taken for intubation. Intubated with the glide scope #4 blade grade 3 view saturation rapidly came back after intubation and mechanical ventilation. Additional workup with stat echo BNP ordered placed on Bumex infusion. PC/AC vent with high TV and PEEP for lung recruitment 04/23: Emergently intubated yesterday for acute hypoxemic respiratory failure and severe hypoxemia. Postintubation placed on Bumex infusion with excellent urine output. Chest x-ray improved today. Patient was cardioverted yesterday for atrial flutter with rapid ventricular response currently in sinus rhythm. Remains critically ill but stable FiO2 is down to 45% PEEP remains at 10 04/24: Diuresis excellent with Bumex more than 8 L in 24 hours. Bicarb increasing- give Diamox 500 mg IV 1. Increase potassium supplementation. On propofol 50 mcg/min patient is awake follows commands. Chest x-ray improved on my review but still has diffuse bilateral infiltrates and left effusion. CT of the chest to further evaluate for effusion and infiltrates 04/25: Tolerating CPAP very well today. On 07/03 40% FiO2 saturation 98% following commands. Chest x-ray continues to show bilateral infiltrates but clinically improved and on my review chest x-rays improved compared to day of intubation. Will check ABG CPAP for 2 hours proceed with extubation if meeting parameters. Remains on Bumex infusion at 0.25 mg/h Objective Vital Signs Date Time Temp Pulse Resp B/P (MAP) Pulse Ox O2 Delivery O2 Flow Rate FiO2 04/25/17 07:32 97 40 04/25/17 06:00 75 04/25/17 04:00 98.9 14 103/60 (74) 04/21/17 19:54 Non-Rebreather 15.00 Intake and Output 04/25/17 04/25/17 04/26/17 08:00 16:00 00:00 Intake Total 1240 ml Output Total 1000 ml Balance 240 ml Result Diagram: 04/25/17 0518 04/25/17 0607 Other Results Microbiology Date/Time Source Procedure Growth Status 04/22/17 11:15 Sputum Endotracheal Gram Stain - Final Complete 04/22/17 11:15 Sputum Culture - Final Pseudomonas Aeruginosa Complete 04/22/17 11:20 Urine Catheterized Urine Urine Culture - Final NO GROWTH IN 48 HOURS. Complete Imaging Last Impressions Chest X-Ray 04/17/17 0600 Signed Impressions: Service Date/Time: Monday, April 17, 2017 03:46 - CONCLUSION: No appreciable change. Arsen Galicia MD Abdomen/Pelvis CT 04/14/17 0000 Signed Impressions: Service Date/Time: Friday, April 14, 2017 22:16 - CONCLUSION: 1. Bilateral pleural effusions and bibasilar airspace process may represent edema and/or pneumonia. 2. There is an approximate 3.1 cm fluid-containing structure within the posterior urethra nonspecific and the exact etiology is not certain. There is gas within the bladder as well could be related to the same process or possibly introduced iatrogenically there possibility of abscess in the posterior urethra is not excluded. Arsen Galicia MD Abdomen X-Ray 04/13/17 0000 Signed Impressions: Service Date/Time: Thursday, April 13, 2017 12:02 - CONCLUSION: No acute abdominal abnormality is identified. Ezequiel Nobles MD Head CT 04/11/17 0015 Signed Impressions: Service Date/Time: Tuesday, April 11, 2017 00:53 - CONCLUSION: 1. No acute intracranial abnormality. Right maxillary sinusitis. Mucosal thickening in the ethmoid air cells. Jone Daly MD Last 24 hours Impressions Chest X-Ray 04/11/17 0000 Signed Impressions: Service Date/Time: Tuesday, April 11, 2017 00:26 - CONCLUSION: 1. Bilateral air space consolidation predominantly perihilar. Nasogastric tube and endotracheal tube in good position. Jone Daly MD Procedures endotracheal intubation. Objective Remarks GENERAL: Well-nourished, well-developed patient. Off all sedation SKIN: Cool, diaphoretic HEAD: Normocephalic. EYES: No scleral icterus. No injection or drainage. ENT: Orotracheally intubated. Minimal secretions NECK: Supple, trachea midline. No JVD or lymphadenopathy. CARDIOVASCULAR: No murmurs, gallops, or rubs. RESPIRATORY: Breath sounds diminished bilaterally with fine crackles throughout the lung valenzuela. CPAP 5/5 on 40% FiO2 GASTROINTESTINAL: Abdomen soft, distended. Nontender : Guzman with clear urine MUSCULOSKELETAL: No cyanosis, or edema. NEURO EXAM: Intubated off all sedation. Wakes up easily, nods to questions and follows commands. No focal deficits Urinary Catheter: Yes Assessment to: Continue A/P Assessment and Plan NEURO: Altered mental status/encephalopathy Drug overdose/suicide attempt History of depressions other psychological disorders Seizure disorder Generalized pain - Hold Propofol and fentanyl for weaning trial - CT head negative on admission - Drug screen positive only for benzodiazepines - Continue Effexor, Seroquel, Hydroxyzine - Continue Lamictal for seizure disorder - Psych Dr. Rush- Dustin Saha Acted - Oxycodone 5 milligrams every 8 hours, PRN pain-Hold while on vent RESP: Acute hypoxemic respiratory failure ARDS vs cardiogenic pulmonary edema Bilateral Pseudomonas pneumonia Difficult anterior airway - Intubated for airway protection on admission. Intubated in ED after multiple attempts by anesthesia - Extubated 04/19/17, was tolerating well developed severe hypoxemic respiratory failure/severe pulmonary edema 04/22 - Intubated again 04/22/[address] Nieves. Anterior airway with GlideScope #4 blade , Grade 2-3 view - CPAP trial with probable extubation today - Sputum culture pansensitive Pseudomonas - Vent bundle, DuoNeb scheduled and when necessary - Zosyn to cover for healthcare associated pneumonia CVS: Fluid overload/pulmonary edema Atrial flutter with rapid ventricular response dyslipidemia - S/p DCCV on 04/22 with successful return to an maintenance of sinus rhythm. ( DCCV performed due to new onset < 6 hour duration of a flutter with RVR with hypotension) - Off Cardizem infusion. Start PO beta-blockers if needed - Echo report is pending-prelim EF 40-50%, Mild MR/TR - Hold Simvastatin, Fenofibrate due to liver enzyme elevation - Continue to Hold Losartan - Continue Bumex infusion 0.25 mg per hour. Diamox 500 mg IV x1, repeat dose - Diurese to dry weight GI: Elevated liver enzymes - IV famotidine. Tube feeds with Jevity - Liver enzymes trending down, possible shock liver : Acute kidney injury-resolved Obstructive uropathy due to Guzman balloon inflated in the urethra Rhabdomyolysis (CPK >25,000) - Unknown baseline creat, CPK trending down - Urology consulted, replaced Guzman which was misplaced (Guzman balloon was inflated in the prostatic urethra) - Strict I's and O's - Bumex gtt, Diamox as above ID Severe Sepsis Multilobar pneumonia/Klebsiella and sputum New HCAP with Pseudomonas - Continue Zosyn - Sputum culture growing PSAE, previously Klebsiella treated - F/U Repeat sputum and blood cultures HEME: - Monitor CBC CMP coags ENDO: - Electrolyte replacement per protocol DVT GI prophylaxis - Teds SCDs - Subcutaneous heparin. - Pepcid Critical Care: Level 3 Jenny Nieves MD Apr 25, 2017 09:28
[2017-04-25] MEDS ORDERED: RESP: RACEPINEPHRINE 2.25% 0.5 ML NEB NEB PRN (10:00)
[2017-04-25 10:34] LABS: BANDS 2 % (0-6); CORRECTED NUCLEATED RBC 1 /100 WBC (0-0); LYMPHOCYTES 5 % (9-44); MONOCYTES 6 % (0-8); MYELOCYTES 1 % (0-0); NEUTROPHIL # MANUAL DIFF 10.3 TH/MM3 (1.8-7.7); NUCLEATED RED BLOOD CELL 1 (0-0); POLYS (SEG NEUTROPHILS) 86 % (16-70)
[2017-04-25 10:35] LABS: STOMATOCYTES 1+ (NORMAL)
[2017-04-25 16:21] LABS: ALBUMIN 3.1 GM/DL (3.4-5.0); ALKALINE PHOSPHATASE 106 U/L (45-117); ALT (GPT) 74 U/L (12-78); AST (GOT) 83 U/L (15-37); BICARBONATE 36.6 MEQ/L (21.0-32.0); BLOOD UREA NITROGEN 26 MG/DL (7-18); CALCIUM 9.4 MG/DL (8.5-10.1); CHLORIDE 94 MEQ/L (98-107); CREATININE 1.31 MG/DL (0.60-1.30); GLOMERULAR FILTRATION RATE 58 ML/MIN (>89); GLUCOSE,RANDOM 131 MG/DL (74-106); SODIUM (NA) 137 MEQ/L (136-145); TOTAL BILIRUBIN ADULT 0.4 MG/DL (0.2-1.0); TOTAL PROTEIN 7.5 GM/DL (6.4-8.2)
[2017-04-25] MEDS: POTASSIUM CHLOR 40 MEQ PREMIX 100 ML IV PRN (16:47)
[2017-04-25] MEDS ORDERED: FUROSEMIDE 20 MG/2 ML VIAL IV PUSH SCH (20:00)
[2017-04-25] MEDS: QUEtiapine FUMARATE 200 MG TAB PO SCH (20:20)
[2017-04-26] VITALS (21 sets, daily range): BP systolic 98–116; BP diastolic 61–88; PULSE 57–100; RESP 15–35; TEMP 98–98.8; O2SAT 91–100
[2017-04-26] MEDS: CHLORHEXIDINE GLUCONATE 2 % 1 PACK (2 CLOTHS) TOP SCH (03:30)
[2017-04-26] MEDS: methylPREDNISolone SOD SUCC 40 MG/1 ML VIAL IV PUSH SCH ×3 (03:30→20:32)
[2017-04-26] MEDS: PIPERACIL-TAZO 4.5 GM PREMIX 100 ML IV SCH ×4 (03:30→20:33)
[2017-04-26] MEDS: RESP: ALBUTEROL 2.5 MG/IPRATROPIUM 0.5 MG NEB (SCH) NEB ×4 (03:59→20:41)
[2017-04-26] MEDS: HEPARIN SODIUM - SQ 10,000 UNITS/ML VIAL SQ SCH ×3 (06:00→20:32)
--- NOTE | 2017-04-26 06:06 | RADRPT ---
EXAM DATE/TIME: 04/26/2017 04:12 [facility] COMPARISON: CHEST SINGLE AP, April 25, 2017, 4:14. INDICATIONS : Shortness of breath, possible pulmonary disease. MEDICAL HISTORY : Sepsis. SURGICAL HISTORY : None. ENCOUNTER: Subsequent ACUITY: 2 weeks PAIN SCORE: Non-responsive. LOCATION: Bilateral chest FINDINGS: Patient has been extubated with NG tube removed. There is a stable right subclavian catheter in place . Persistent bilateral diffuse patchy airspace disease, slightly more confluent in the left lower bina g zone. Cardiomediastinal contours are stable. Remainder of the exam is unchanged. CONCLUSION: 1. No significant interval change following extubation. 2. Persistent patchy diffuse airspace disease, slightly more confluent in the left lower lung zone. Foreign Chamorro MD on April 26, 2017 at 6:04 Board Certified Radiologist. This report was verified electronically.
[2017-04-26] MEDS: CHLORHEXIDINE 0.12% (ORAL KIT) 15 ML CUP MT SCH ×2 (08:00→20:00)
--- NOTE | 2017-04-26 08:31 | HHI.CCPN ---
Subjective Remarks/Hospital Course 51-year-old male presents from home where he was identified to have altered mental status and decreasing level of consciousness. Patient was also identified to have temperature elevation and paramedics identified room air O2 saturations to be 72%. Patient was immediately placed on supplemental oxygen without improvement of oxygenation or level of consciousness. Family members were concerned that patient may have overdosed on medications but the medications listed did not show any opiates. Patient's blood sugar was fine. No reported injury or trauma. Paramedics determined patient needed further ventilation support and attempted intubation in the field but this was unsuccessful and patient presents to the emergency department with ambu assisted ventilations. Multiple attempts were made in the emergency department intubated the patient for an airway protection, which was extremely difficult and patient was finally intubated by director speech language. 04/12: Continues to be critically ill intubated copious amount of ET tube secretions. Chest x-ray continues to show patchy bilateral infiltrates. Started on Levophed overnight to keep map above 65. Creat and WBC count have slightly improved. Gram neg rods in sputum gram stain. Currently on Zosyn, I will add vancomycin 04/13: Developed severe ventilator asynchrony today with low lung volumes. Most likely secondary to ET tube obstruction from secretions. After multiple suctioning volumes improved but patient remained tachypneic. Neuromuscularly paralyzed for hypoxia and asynchrony. Sputum culture growing Klebsiella 04/14: Remains intubated sedated continues to be asynchronous with the ventilator when sedation is lightened. Continues to have copious secretions. Fluid overloaded will start Lasix 20 every 12 with potassium supplementation 04/15: Oliguric to anuric with hematuria. CT abdomen pelvis 04/14 showing 3.1 cm fluid-containing structure within the posterior urethra nonspecific and there is gas within the bladder. Etiology unclear. Patient remains tachypneic on lightening sedation. Not following commands 04/16: Remains intubated sedated encephalopathic. Chest x-ray shows worsening pulmonary edema, bilateral crackles/rales on exam. Currently on Precedex and propofol and slowly weaned off propofol. Urine output increased after replacing Guzman. Apparently catheter balloon was sitting in prostatic urethra, his guzman was not advanced all the way to the bladder. This was replaced by urology with excellent UO now. On 03/04 NS for hyperNa. 04/17: Patient remains encephalopathic. Chest x-ray unchanged. Patient continued on Precedex infusion. Urine output within normal limits, creatinine improved today. Sodium level downtrending. 04/18: Patient continues on Precedex and fentanyl infusion, moving extremities spontaneously and following commands. Pt complained of pain, oxycodone 5 mg every 8 hour total dosing, in anticipation of weaning IV fentanyl. Patient tolerated CPAP trials for approximately 3 hours today. Plan to consult general surgery for tracheostomy. 04/19: Tolerating CPAP today, wide awake and following commands. +Ve cuff leak. Chest x-ray shows slight worsening bilateral infiltrates. Lasix 40 mg additional dose given 04/20: Patient extubated yesterday, doing well. O2 saturation 97% on nasal cannula. The patient was Saha acted today secondary to suicidal ideations, with concrete planning of , etc. psychiatry following discussed with Dr. Rush. Patient to be transferred to inpatient psych when bed available. [facility] RECONSULT NOTE: 04/22: [facility] reconsulted for severe hypoxemic respiratory failure, severe bilateral infiltrates almost white out of bilateral lung valenzuela. Currently on 100% nonrebreather with PO2 only 79. Patient also developed atrial flutter with RVR overnight. On Cardizem infusion at 15 mg/h with heart rate 150 bpm. I evaluated the patient immediately she appears symptoms are severe respiratory distress, even with minimal movements and if he removes the mask even for a few seconds he desaturates to 60s. Decision made to endotracheally intubate the patient and mechanically ventilated. Known difficult airway. Patient rapidly desaturated after induction, in the few minutes taken for intubation. Intubated with the glide scope #4 blade grade 3 view saturation rapidly came back after intubation and mechanical ventilation. Additional workup with stat echo BNP ordered placed on Bumex infusion. PC/AC vent with high TV and PEEP for lung recruitment 04/23: Emergently intubated yesterday for acute hypoxemic respiratory failure and severe hypoxemia. Postintubation placed on Bumex infusion with excellent urine output. Chest x-ray improved today. Patient was cardioverted yesterday for atrial flutter with rapid ventricular response currently in sinus rhythm. Remains critically ill but stable FiO2 is down to 45% PEEP remains at 10 04/24: Diuresis excellent with Bumex more than 8 L in 24 hours. Bicarb increasing- give Diamox 500 mg IV 1. Increase potassium supplementation. On propofol 50 mcg/min patient is awake follows commands. Chest x-ray improved on my review but still has diffuse bilateral infiltrates and left effusion. CT of the chest to further evaluate for effusion and infiltrates 04/25: Tolerating CPAP very well today. On 07/03 40% FiO2 saturation 98% following commands. Chest x-ray continues to show bilateral infiltrates but clinically improved and on my review chest x-rays improved compared to day of intubation. Will check ABG CPAP for 2 hours proceed with extubation if meeting parameters. Remains on Bumex infusion at 0.25 mg/h 04/26: Patient breathing comfortably on nasal cannula oxygen saturation 98%. Chest x-ray continues to show bilateral diffuse infiltrates but clinically improving. Bumex drip was discontinued yesterday now on scheduled IV Lasix and Aldactone. Objective Vital Signs Date Time Temp Pulse Resp B/P (MAP) Pulse Ox O2 Delivery O2 Flow Rate FiO2 04/26/17 06:00 75 04/26/17 06:00 110/66 (81) 04/26/17 04:00 98.2 34 100 04/25/17 19:20 Nasal Cannula 3.00 04/25/17 07:32 40 Intake and Output 04/26/17 04/26/17 04/27/17 08:00 16:00 00:00 Output Total 1700 ml Balance -1700 ml Result Diagram: 04/25/17 0518 04/25/17 1441 Other Results Laboratory Tests Test 04/25/17 09:25 Blood Gas Puncture Site RT RADIAL Blood Gas Patient Temperature 98.6 Blood Gas HCO3 36 mmol/L (22-26) Blood Gas Base Excess 10.9 mmol/L (-2-2) Blood Gas Oxygen Saturation 95 % (90-100) Arterial Blood pH 7.38 (7.380-7.420) Arterial Blood Partial Pressure CO2 63 mmHg (38-42) Arterial Blood Partial Pressure O2 115 mmHg (61-120) Arterial Blood Oxygen Content 11.9 Vol % (12.0-20.0) Arterial Blood Carboxyhemoglobin 1.1 % (0-4) Arterial Blood Methemoglobin 1.6 % (0-2) Blood Gas Hemoglobin 8.7 G/DL (12.0-16.0) Oxygen Delivery Device VENTILATOR Blood Gas Ventilator Setting CPAP,PEEP5,PS5 Blood Gas Inspired Oxygen 40 % Imaging Last Impressions Chest X-Ray 04/17/17 0600 Signed Impressions: Service Date/Time: Monday, April 17, 2017 03:46 - CONCLUSION: No appreciable change. Arsen Galicia MD Abdomen/Pelvis CT 04/14/17 0000 Signed Impressions: Service Date/Time: Friday, April 14, 2017 22:16 - CONCLUSION: 1. Bilateral pleural effusions and bibasilar airspace process may represent edema and/or pneumonia. 2. There is an approximate 3.1 cm fluid-containing structure within the posterior urethra nonspecific and the exact etiology is not certain. There is gas within the bladder as well could be related to the same process or possibly introduced iatrogenically there possibility of abscess in the posterior urethra is not excluded. Arsen Galicia MD Abdomen X-Ray 04/13/17 0000 Signed Impressions: Service Date/Time: Thursday, April 13, 2017 12:02 - CONCLUSION: No acute abdominal abnormality is identified. Ezequiel Nobles MD Head CT 04/11/17 0015 Signed Impressions: Service Date/Time: Tuesday, April 11, 2017 00:53 - CONCLUSION: 1. No acute intracranial abnormality. Right maxillary sinusitis. Mucosal thickening in the ethmoid air cells. Jone Daly MD Last 24 hours Impressions Chest X-Ray 04/11/17 0000 Signed Impressions: Service Date/Time: Tuesday, April 11, 2017 00:26 - CONCLUSION: 1. Bilateral air space consolidation predominantly perihilar. Nasogastric tube and endotracheal tube in good position. Jone Daly MD Procedures endotracheal intubation. Objective Remarks GENERAL: Well-nourished, well-developed patient. Alert awake oriented normal speech SKIN: Cool, dry HEAD: Normocephalic. EYES: No scleral icterus. No injection or drainage. ENT: Airway patent NECK: Supple, trachea midline. No JVD or lymphadenopathy. CARDIOVASCULAR: No murmurs, gallops, or rubs. RESPIRATORY: Breath sounds diminished bilaterally with fine crackles at bases GASTROINTESTINAL: Abdomen soft, distended. Nontender : Guzman with clear urine MUSCULOSKELETAL: No cyanosis, or edema. NEURO EXAM: Alert awake oriented 3, normal speech, no focal deficits A/P Assessment and Plan NEURO: Altered mental status/encephalopathy Drug overdose/suicide attempt History of depressions other psychological disorders Seizure disorder Generalized pain - Minimize sedation - CT head negative on admission - Drug screen positive only for benzodiazepines - Continue Effexor, Seroquel, Hydroxyzine - Continue Lamictal for seizure disorder - Psych Dr. Rush- Pt Saha Acted - Oxycodone 5 milligrams every 8 hours, PRN pain RESP: Acute hypoxemic respiratory failure ARDS vs cardiogenic pulmonary edema Bilateral Pseudomonas pneumonia Difficult anterior airway - Intubated for airway protection on admission. Intubated in ED after multiple attempts by anesthesia - Extubated 04/19/17, was tolerating well developed severe hypoxemic respiratory failure/severe pulmonary edema 04/22 - Intubated again 04/22/[address] Nieves. Anterior airway with GlideScope #4 blade , Grade 2-3 view - Extubated 04/25/17, tolerated well - Sputum culture pansensitive Pseudomonas, on Zosyn - DuoNeb scheduled and when necessary CVS: Fluid overload/pulmonary edema Atrial flutter with rapid ventricular response dyslipidemia - S/p DCCV on 04/22 with successful return to an maintenance of sinus rhythm. ( DCCV performed due to new onset < 6 hour duration of a flutter with RVR with hypotension) - Start PO beta-blockers if needed - Echo report is pending-prelim EF 40-50%, Mild MR/TR - Hold Simvastatin, Fenofibrate due to liver enzyme elevation - Continue to Hold Losartan - Off Bumex infusion, continue IV Lasix 20 mg twice daily. Start Aldactone 25 mg twice daily - Diurese to dry weight GI: Elevated liver enzymes - IV famotidine-cahnge to PO. Speech eval and change to heart healthy diet - Liver enzymes trending down, possible shock liver : Acute kidney injury-resolved Obstructive uropathy due to Guzman balloon inflated in the urethra Rhabdomyolysis (CPK >25,000) - Unknown baseline creat, CPK trending down - Urology consulted, replaced Guzman which was misplaced (Guzman balloon was inflated in the prostatic urethra) - Strict I's and O's - IV lasix and Aldactone as above ID Severe Sepsis Multilobar pneumonia/Klebsiella and sputum New HCAP with Pseudomonas - Continue Zosyn - Sputum culture growing PSAE, previously Klebsiella treated - F/U Repeat sputum and blood cultures HEME: - Monitor CBC CMP coags ENDO: - Electrolyte replacement per protocol DVT GI prophylaxis - Teds SCDs - Subcutaneous heparin. - Pepcid Critical Care: Level 3. PT Jenny Pa MD Apr 26, 2017 08:31
[2017-04-26 08:45] LABS: HEMOGLOBIN 8.7 GM/DL (13.0-17.0); MEAN CELL VOLUME 97.9 FL (80.0-100.0); MEAN CORPUSCULAR HEMOGLOBIN 32.5 PG (27.0-34.0); MEAN CORPUSCULAR HGB CONC 33.2 % (32.0-36.0); MEAN PLATELET VOLUME 8.4 FL (7.0-11.0); PLATELET COUNT 899 TH/MM3 (150-450); RED BLOOD COUNT 2.66 MIL/MM3 (4.50-5.90); RED CELL DISTRIBUTION WIDTH 13.5 % (11.6-17.2); WHITE BLOOD COUNT 12.6 TH/MM3 (4.0-11.0)
[2017-04-26] MEDS: BENEPROTEIN POWDER 1 PACK G-TUBE SCH ×3 (09:00→15:59)
[2017-04-26] MEDS ORDERED: SPIRONOLACTONE 25 MG TAB PO SCH (09:00)
[2017-04-26 09:24] LABS: ALBUMIN 2.9 GM/DL (3.4-5.0); ALKALINE PHOSPHATASE 93 U/L (45-117); ALT (GPT) 85 U/L (12-78); BICARBONATE 29.6 MEQ/L (21.0-32.0); BLOOD UREA NITROGEN 23 MG/DL (7-18); CALCIUM 9.2 MG/DL (8.5-10.1); CHLORIDE 98 MEQ/L (98-107); CREATININE 1.05 MG/DL (0.60-1.30); GLOMERULAR FILTRATION RATE 75 ML/MIN (>89); GLUCOSE,RANDOM 97 MG/DL (74-106); MAGNESIUM 2.5 MG/DL (1.5-2.5); PHOSPHORUS 2.9 MG/DL (2.5-4.9); SODIUM (NA) 135 MEQ/L (136-145); TOTAL BILIRUBIN ADULT 0.4 MG/DL (0.2-1.0); TOTAL PROTEIN 7.3 GM/DL (6.4-8.2)
[2017-04-26 09:26] LABS: AST (GOT) 99 U/L (15-37); BANDS 5 % (0-6); CORRECTED NUCLEATED RBC 1 /100 WBC (0-0); LYMPHOCYTES 15 % (9-44); METAMYELOCYTES 3 % (0-1); MONOCYTES 6 % (0-8); MYELOCYTES 3 % (0-0); NUCLEATED RED BLOOD CELL 1 (0-0); POLYS (SEG NEUTROPHILS) 68 % (16-70)
[2017-04-26] MEDS: GABAPENTIN 300 MG CAP PO SCH ×3 (10:11→17:43)
[2017-04-26] MEDS: FAMOTIDINE 20 MG TAB PO SCH ×2 (10:12→20:31)
[2017-04-26] MEDS: POTASSIUM CHLORIDE 25 MEQ EFFERVESCENT TAB PO SCH ×2 (10:12→20:33)
[2017-04-26] MEDS: hydrOXYzine HCL 50 MG TAB PO SCH ×2 (10:12→20:31)
[2017-04-26] MEDS: VENLAFAXINE HCL 75 MG TAB PO SCH ×3 (10:12→17:43)
[2017-04-26] MEDS: SODIUM CHLORIDE 0.9% FLUSH 10 ML FLUSH IV FLUSH SCH ×2 (10:13→20:33)
[2017-04-26] MEDS: lamoTRIgine 100 MG TAB PO SCH ×2 (10:13→20:31)
[2017-04-26] MEDS: DOCUSATE SODIUM 100 MG/10 ML UDC PO SCH ×2 (10:14→20:31)
[2017-04-26] MEDS: FUROSEMIDE 20 MG/2 ML VIAL IV PUSH SCH ×2 (13:43→20:32)
--- NOTE | 2017-04-26 16:03 | ECHRPT ---
Indication: CONCLUSIONS Normal left ventricular size. The left ventricular systolic function is moderately reduced with an estimated ejection fraction in the range of 40-50. Trace mitral valve regurgitation. No aortic valve regurgitation. No aortic valve stenosis. There is mild tricuspid valve regurgitation. The estimated pulmonary arterial pressure is 37.9 mmHg. technically limited study BP: / HR: Rhythm: MEASUREMENTS (Male / Female) Normal Values Technical Quality:Technically difficult study 2D ECHO LV Diastolic Diameter PLAX 3.8 cm 4.2 - 5.9 / 3.9 - 5.3 cm LV Systolic Diameter PLAX 3.2 cm IVS Diastolic Thickness 1.4 cm 0.6 - 1.0 / 0.6 - 0.9 cm LVPW Diastolic Thickness 1.0 cm 0.6 - 1.0 / 0.6 - 0.9 cm LV Relative Wall Thickness 0.6 RV Internal Dim ED PLAX 2.0 cm M-MODE Aortic Root Diameter MM 3.7 cm LA Systolic Diameter MM 4.2 cm LA Ao Ratio MM 1.1 AV Cusp Separation MM 1.6 cm DOPPLER TR Peak Velocity 264.0 cm/s TR Peak Gradient 27.9 mmHg Right Atrial Pressure 10.0 mmHg Pulmonary Artery Systolic Pressu 37.9 mmHg Right Ventricular Systolic Press 37.9 mmHg FINDINGS LEFT VENTRICLE Normal left ventricular size. The left ventricular systolic function is moderately reduced with an estimated ejection fraction in the range of 40-50. RIGHT VENTRICLE Normal right ventricular size and systolic function. LEFT ATRIUM The left atrial size is normal. RIGHT ATRIUM The right atrial size is normal. ATRIAL SEPTUM Normal atrial septal thickness without atrial level shunting by limited color doppler interrogation. AORTA The aortic root and proximal ascending aorta are normal in size on limited imaging. MITRAL VALVE Structurally normal mitral valve. Trace mitral valve regurgitation. AORTIC VALVE Trileaflet aortic valve. No aortic valve regurgitation. No aortic valve stenosis. TRICUSPID VALVE Structurally normal tricuspid valve. There is mild tricuspid valve regurgitation. The estimated pulmonary arterial pressure is 37.9 mmHg. PULMONARY VALVE No pulmonary valve regurgitation or stenosis. VESSELS The inferior vena cava is normal in size. PERICARDIUM No pericardial effusion. Tha Tee MD, FACC, FSCAI Edited by: Measy CV Casino Investigator (Electronically Signed) Final Date:22 April 2017 11:32 Amended: 26 April 2017 16:02
[2017-04-26] MEDS: SPIRONOLACTONE 50 MG TAB PO SCH (17:43)
--- NOTE | 2017-04-26 18:11 | HHI.IDPN ---
Subjective Subjective Remarks Extubated afebnrile OOB in chair doing well Blolod and urine clx are negative Antibiotics zosyn 4.5 Allergies: Coded Allergies: No Allergy Information Available (Unverified , 04/11/17) Objective . Vital Signs Date Time Temp Pulse Resp B/P (MAP) Pulse Ox O2 Delivery O2 Flow Rate FiO2 04/26/17 16:00 81 17 96 04/26/17 16:00 81 04/26/17 14:48 90 04/26/17 14:00 78 04/26/17 12:00 98.8 78 26 100 04/26/17 12:00 78 04/26/17 11:00 78 20 100 04/26/17 10:18 90 04/26/17 10:00 100 35 04/26/17 10:00 100 04/26/17 09:00 79 22 116/69 (85) 99 04/26/17 09:00 79 04/26/17 08:07 80 04/26/17 08:00 81 04/26/17 08:00 98.3 81 23 98 04/26/17 07:00 99 Nasal Cannula 3.00 04/26/17 07:00 70 21 110/66 (81) 91 04/26/17 06:00 75 04/26/17 06:00 75 110/66 (81) 04/26/17 05:00 71 104/61 (75) 04/26/17 04:00 67 111/72 (85) 04/26/17 04:00 98.2 67 34 111/72 (85) 100 04/26/17 04:00 67 04/26/17 03:00 66 98/61 (73) 04/26/17 02:00 78 105/66 (79) 04/26/17 02:00 78 04/26/17 01:00 82 102/75 (84) 04/26/17 00:00 98.3 74 15 104/66 (79) 100 04/26/17 00:00 57 104/66 (79) 04/26/17 00:00 74 04/25/17 22:00 67 04/25/17 20:00 74 04/25/17 20:00 98.2 74 16 123/80 (94) 97 04/25/17 19:20 99 Nasal Cannula 3.00 04/25/17 19:00 97 Nasal Cannula 3.00 . Laboratory Tests Test 04/25/17 05:18 04/26/17 08:30 White Blood Count 11.6 TH/MM3 12.6 TH/MM3 Red Blood Count 2.56 MIL/MM3 2.66 MIL/MM3 Hemoglobin 8.6 GM/DL 8.7 GM/DL Hematocrit 25.6 % 26.0 % Mean Corpuscular Volume 99.8 FL 97.9 FL Mean Corpuscular Hemoglobin 33.4 PG 32.5 PG Mean Corpuscular Hemoglobin Concent 33.5 % 33.2 % Red Cell Distribution Width 13.9 % 13.5 % Platelet Count 790 TH/MM3 899 TH/MM3 Mean Platelet Volume 9.5 FL 8.4 FL Neutrophils (%) (Auto) 87.3 % Lymphocytes (%) (Auto) 6.3 % Monocytes (%) (Auto) 4.7 % Eosinophils (%) (Auto) 0.1 % Basophils (%) (Auto) 1.6 % Neutrophils # (Auto) 10.1 TH/MM3 Lymphocytes # (Auto) 0.7 TH/MM3 Monocytes # (Auto) 0.5 TH/MM3 Eosinophils # (Auto) 0.0 TH/MM3 Basophils # (Auto) 0.2 TH/MM3 CBC Comment AUTO DIFF AUTO DIFF Differential Total Cells Counted 100 100 Neutrophils % (Manual) 86 % 68 % Band Neutrophils % 2 % 5 % Lymphocytes % 5 % 15 % Monocytes % 6 % 6 % Neutrophils # (Manual) 10.3 TH/MM3 10.0 TH/MM3 Myelocytes 1 % 3 % Nucleated Red Blood Cells 1 /100 WBC 1 /100 WBC Differential Comment FINAL DIFF MANUAL FINAL DIFF MANUAL Platelet Estimate HIGH HIGH Platelet Morphology Comment NORMAL NORMAL Basophilic Stippling MOD Stomatocytes 1+ Metamyelocytes 3 % Laboratory Tests Test 04/25/17 06:07 04/25/17 14:41 04/26/17 08:30 Blood Urea Nitrogen 25 MG/DL 26 MG/DL 23 MG/DL Creatinine 1.24 MG/DL 1.31 MG/DL 1.05 MG/DL Random Glucose 192 MG/DL 131 MG/DL 97 MG/DL Total Protein 7.4 GM/DL 7.5 GM/DL 7.3 GM/DL Albumin 3.0 GM/DL 3.1 GM/DL 2.9 GM/DL Calcium Level 9.5 MG/DL 9.4 MG/DL 9.2 MG/DL Phosphorus Level 5.3 MG/DL 2.9 MG/DL Alkaline Phosphatase 106 U/L 106 U/L 93 U/L Aspartate Amino Transf (AST/SGOT) 36 U/L 83 U/L 99 U/L Alanine Aminotransferase (ALT/SGPT) 60 U/L 74 U/L 85 U/L Total Bilirubin 0.4 MG/DL 0.4 MG/DL 0.4 MG/DL Sodium Level 142 MEQ/L 137 MEQ/L 135 MEQ/L Potassium Level 4.1 MEQ/L 3.2 MEQ/L 3.6 MEQ/L Chloride Level 98 MEQ/L 94 MEQ/L 98 MEQ/L Carbon Dioxide Level 38.0 MEQ/L 36.6 MEQ/L 29.6 MEQ/L Anion Gap 6 MEQ/L 6 MEQ/L 7 MEQ/L Estimat Glomerular Filtration Rate 62 ML/MIN 58 ML/MIN 75 ML/MIN Magnesium Level 2.5 MG/DL Imaging Last Impressions Chest X-Ray 04/26/17 0600 Signed Impressions: Service Date/Time: Wednesday, April 26, 2017 04:12 - CONCLUSION: 1. No significant interval change following extubation. 2. Persistent patchy diffuse airspace disease, slightly more confluent in the left lower lung zone. Foreign Chamorro MD Chest CT 04/24/17 0000 Signed Impressions: Service Date/Time: Monday, April 24, 2017 09:59 - CONCLUSION: Diffuse mixed interstitial nodular consolidation with small bilateral pleural effusions. This is nonspecific. This could be secondary to noncardiogenic pulmonary edema. Heart size is not appear enlarged. Diffuse infection, hypersensitivity reactions, or ARDS could have a similar appearance. Ezequiel Hummel MD Abdomen/Pelvis CT 04/14/17 0000 Signed Impressions: Service Date/Time: Friday, April 14, 2017 22:16 - CONCLUSION: 1. Bilateral pleural effusions and bibasilar airspace process may represent edema and/or pneumonia. 2. There is an approximate 3.1 cm fluid-containing structure within the posterior urethra nonspecific and the exact etiology is not certain. There is gas within the bladder as well could be related to the same process or possibly introduced iatrogenically there possibility of abscess in the posterior urethra is not excluded. Arsen Galicia MD Abdomen X-Ray 04/13/17 0000 Signed Impressions: Service Date/Time: Thursday, April 13, 2017 12:02 - CONCLUSION: No acute abdominal abnormality is identified. Ezequiel Nobles MD Head CT 04/11/17 0015 Signed Impressions: Service Date/Time: Tuesday, April 11, 2017 00:53 - CONCLUSION: 1. No acute intracranial abnormality. Right maxillary sinusitis. Mucosal thickening in the ethmoid air cells. Jone Daly MD Physical Exam CONSTITUTIONAL/GENERAL: This is an adequately nourished patient, in no apparent distress. TUBES/LINES/DRAINS: SKIN: No jaundice, rashes, or lesions. Skin temperature appropriate. Not diaphoretic. EYES: Pupils equal and round and reactive. Extraocular motions intact. No scleral icterus. No injection or drainage. Fundi not examined. ENT: Hearing grossly normal. Nose without bleeding or purulent drainage. Throat without visible erythema, exudates, masses, or lesions. Orally intubated CARDIOVASCULAR: Regular rate and rhythm without murmurs, gallops, or rubs. No JVD. Peripheral pulses symmetric. RESPIRATORY/CHEST: Symmetric, unlabored respirations. Clear to auscultation b/ l GASTROINTESTINAL: Abdomen soft, non-tender,not distended. No hepato- splenomegaly, or palpable masses. No guarding. Bowel sounds present. GENITOURINARY: Without palpable bladder distension. Catheter in place with clear yellow urine MUSCULOSKELETAL: Extremities without clubbing, cyanosis, or edema. No joint tenderness or effusion noted. No calf tenderness. No mottling or clubbing. NEUROLOGICAL: Awake and alert. Motor and sensory grossly within normal limits. Follows commands. Clear speech, not alwsays coherent p. Moves all extremities. PSYCHIATRIC: calm and cooperative Assessment & Plan Remarks PNA Kleb pneumo repeat clx with GNB again Resp failure, - reintubated Leukocytosis: improved Abx associated diarrhea cont zosyn high dose 1 week total if cont to do well clinically, longer course if problems r/o c.diff if diarrhea recurrs dw Rima Faith MD Apr 26, 2017 18:11
[2017-04-26] MEDS: QUEtiapine FUMARATE 200 MG TAB PO SCH (20:31)
[2017-04-27] VITALS (13 sets, daily range): BP systolic 93–123; BP diastolic 51–80; PULSE 75–92; RESP 18–25; TEMP 98.2–98.8; O2SAT 87–100
[2017-04-27] MEDS: PIPERACIL-TAZO 4.5 GM PREMIX 100 ML IV SCH ×4 (02:00→20:26)
[2017-04-27] MEDS: RESP: ALBUTEROL 2.5 MG/IPRATROPIUM 0.5 MG NEB (SCH) NEB ×4 (03:50→20:22)
[2017-04-27] MEDS: CHLORHEXIDINE GLUCONATE 2 % 1 PACK (2 CLOTHS) TOP SCH (04:00)
[2017-04-27] MEDS: FUROSEMIDE 20 MG/2 ML VIAL IV PUSH SCH ×2 (05:18→20:27)
[2017-04-27] MEDS: HEPARIN SODIUM - SQ 10,000 UNITS/ML VIAL SQ SCH ×3 (05:19→20:27)
[2017-04-27 05:24] LABS: AUTOMATED NEUTROPHIL # 11.4 TH/MM3 (1.8-7.7); BASOPHIL # 0.1 TH/MM3 (0-0.2); BASOPHIL % 0.6 % (0.0-2.0); EOSINOPHIL # 0.1 TH/MM3 (0-0.4); EOSINOPHIL % 0.4 % (0.0-4.0); HEMATOCRIT 27.5 % (39.0-51.0); HEMOGLOBIN 9.3 GM/DL (13.0-17.0); LYMPH % 15.3 % (9.0-44.0); LYMPHOCYTE # 2.3 TH/MM3 (1.0-4.8); MEAN CELL VOLUME 97.2 FL (80.0-100.0); MEAN CORPUSCULAR HEMOGLOBIN 32.7 PG (27.0-34.0); MEAN CORPUSCULAR HGB CONC 33.7 % (32.0-36.0); MEAN PLATELET VOLUME 8.3 FL (7.0-11.0); MONO % 6.3 % (0.0-8.0); MONOCYTE # 0.9 TH/MM3 (0-0.9); NEUT % 77.4 % (16.0-70.0); PLATELET COUNT 907 TH/MM3 (150-450); RED BLOOD COUNT 2.83 MIL/MM3 (4.50-5.90); RED CELL DISTRIBUTION WIDTH 13.6 % (11.6-17.2); WHITE BLOOD COUNT 14.8 TH/MM3 (4.0-11.0)
--- NOTE | 2017-04-27 05:25 | RADRPT ---
EXAM DATE/TIME: 04/27/2017 03:43 [facility] COMPARISON: CT THORAX W/O CONTRAST, April 24, 2017, 9:59. CHEST SINGLE AP, April 25, 2017, 4:14. CHEST SI NGLE AP, April 26, 2017, 4:12. INDICATIONS : Short of breath. MEDICAL HISTORY : Sepsis. SURGICAL HISTORY : None. ENCOUNTER: Subsequent ACUITY: 3 weeks PAIN SCORE: 0/10 LOCATION: Bilateral chest FINDINGS: Persistent diffuse patchy airspace and interstitial opacities, slightly more confluent in the left lo wer lung zone. Probable trace left pleural effusion. Cardiac silhouette remains enlarged. Remainder o f the exam is unchanged. CONCLUSION: 1. Persistent mixed interstitial and diffuse patchy airspace disease, slightly more confluent in the left lung base with probable trace left effusion. 2. No significant interval change. Foreign Chamorro MD on April 27, 2017 at 5:22 Board Certified Radiologist. This report was verified electronically.
[2017-04-27 05:42] LABS: ALBUMIN 3.1 GM/DL (3.4-5.0); ALT (GPT) 89 U/L (12-78); AST (GOT) 63 U/L (15-37); BICARBONATE 29.9 MEQ/L (21.0-32.0); BLOOD UREA NITROGEN 19 MG/DL (7-18); CALCIUM 9.5 MG/DL (8.5-10.1); CHLORIDE 98 MEQ/L (98-107); CREATININE 0.95 MG/DL (0.60-1.30); GLOMERULAR FILTRATION RATE 84 ML/MIN (>89); GLUCOSE,RANDOM 110 MG/DL (74-106); MAGNESIUM 2.5 MG/DL (1.5-2.5); SODIUM (NA) 135 MEQ/L (136-145)
[2017-04-27 05:43] LABS: ALKALINE PHOSPHATASE 87 U/L (45-117); TOTAL BILIRUBIN ADULT 0.4 MG/DL (0.2-1.0); TOTAL PROTEIN 7.2 GM/DL (6.4-8.2)
[2017-04-27 07:38] LABS: BANDS 6 % (0-6); BASOPHILS 1 % (0-2); LYMPHOCYTES 12 % (9-44); METAMYELOCYTES 7 % (0-1); MONOCYTES 3 % (0-8); NEUTROPHIL # MANUAL DIFF 12.3 TH/MM3 (1.8-7.7); POLYS (SEG NEUTROPHILS) 70 % (16-70)
[2017-04-27] MEDS: CHLORHEXIDINE 0.12% (ORAL KIT) 15 ML CUP MT SCH ×2 (08:00→19:53)
[2017-04-27] MEDS: BENEPROTEIN POWDER 1 PACK G-TUBE SCH ×3 (08:50→17:04)
[2017-04-27] MEDS: POTASSIUM CHLORIDE 25 MEQ EFFERVESCENT TAB PO SCH (08:50)
[2017-04-27] MEDS: SODIUM CHLORIDE 0.9% FLUSH 10 ML FLUSH IV FLUSH SCH ×2 (08:50→20:27)
[2017-04-27] MEDS: lamoTRIgine 100 MG TAB PO SCH ×2 (08:51→20:28)
[2017-04-27] MEDS: FAMOTIDINE 20 MG TAB PO SCH ×2 (08:51→20:28)
[2017-04-27] MEDS: hydrOXYzine HCL 50 MG TAB PO SCH ×2 (08:51→20:28)
[2017-04-27] MEDS: VENLAFAXINE HCL 75 MG TAB PO SCH ×3 (08:51→18:29)
[2017-04-27] MEDS: methylPREDNISolone SOD SUCC 40 MG/1 ML VIAL IV PUSH SCH ×2 (08:51→20:26)
[2017-04-27] MEDS: GABAPENTIN 300 MG CAP PO SCH ×3 (08:51→18:29)
[2017-04-27] MEDS: DOCUSATE SODIUM 100 MG/10 ML UDC PO SCH (08:51)
[2017-04-27] MEDS: SPIRONOLACTONE 50 MG TAB PO SCH ×2 (08:54→18:29)
[2017-04-27] MEDS ORDERED: RESP: ALBUTEROL 2.5 MG/3 ML NEB (PRN) NEB (14:30)
--- NOTE | 2017-04-27 14:34 | HHI.CCPN ---
Subjective Remarks/Hospital Course 51-year-old male presents from home where he was identified to have altered mental status and decreasing level of consciousness. Patient was also identified to have temperature elevation and paramedics identified room air O2 saturations to be 72%. Patient was immediately placed on supplemental oxygen without improvement of oxygenation or level of consciousness. Family members were concerned that patient may have overdosed on medications but the medications listed did not show any opiates. Patient's blood sugar was fine. No reported injury or trauma. Paramedics determined patient needed further ventilation support and attempted intubation in the field but this was unsuccessful and patient presents to the emergency department with ambu assisted ventilations. Multiple attempts were made in the emergency department intubated the patient for an airway protection, which was extremely difficult and patient was finally intubated by early childhood education coordinator. 04/12: Continues to be critically ill intubated copious amount of ET tube secretions. Chest x-ray continues to show patchy bilateral infiltrates. Started on Levophed overnight to keep map above 65. Creat and WBC count have slightly improved. Gram neg rods in sputum gram stain. Currently on Zosyn, I will add vancomycin 04/13: Developed severe ventilator asynchrony today with low lung volumes. Most likely secondary to ET tube obstruction from secretions. After multiple suctioning volumes improved but patient remained tachypneic. Neuromuscularly paralyzed for hypoxia and asynchrony. Sputum culture growing Klebsiella 04/14: Remains intubated sedated continues to be asynchronous with the ventilator when sedation is lightened. Continues to have copious secretions. Fluid overloaded will start Lasix 20 every 12 with potassium supplementation 04/15: Oliguric to anuric with hematuria. CT abdomen pelvis 04/14 showing 3.1 cm fluid-containing structure within the posterior urethra nonspecific and there is gas within the bladder. Etiology unclear. Patient remains tachypneic on lightening sedation. Not following commands 04/16: Remains intubated sedated encephalopathic. Chest x-ray shows worsening pulmonary edema, bilateral crackles/rales on exam. Currently on Precedex and propofol and slowly weaned off propofol. Urine output increased after replacing Guzman. Apparently catheter balloon was sitting in prostatic urethra, his guzman was not advanced all the way to the bladder. This was replaced by urology with excellent UO now. On 03/04 NS for hyperNa. 04/17: Patient remains encephalopathic. Chest x-ray unchanged. Patient continued on Precedex infusion. Urine output within normal limits, creatinine improved today. Sodium level downtrending. 04/18: Patient continues on Precedex and fentanyl infusion, moving extremities spontaneously and following commands. Pt complained of pain, oxycodone 5 mg every 8 hour total dosing, in anticipation of weaning IV fentanyl. Patient tolerated CPAP trials for approximately 3 hours today. Plan to consult general surgery for tracheostomy. 04/19: Tolerating CPAP today, wide awake and following commands. +Ve cuff leak. Chest x-ray shows slight worsening bilateral infiltrates. Lasix 40 mg additional dose given 04/20: Patient extubated yesterday, doing well. O2 saturation 97% on nasal cannula. The patient was S[place] acted today secondary to suicidal ideations, with concrete planning of , etc. psychiatry following discussed with Dr. Rush. Patient to be transferred to inpatient psych when bed available. [facility] RECONSULT NOTE: 04/22: [facility] reconsulted for severe hypoxemic respiratory failure, severe bilateral infiltrates almost white out of bilateral lung valenzuela. Currently on 100% nonrebreather with PO2 only 79. Patient also developed atrial flutter with RVR overnight. On Cardizem infusion at 15 mg/h with heart rate 150 bpm. I evaluated the patient immediately she appears symptoms are severe respiratory distress, even with minimal movements and if he removes the mask even for a few seconds he desaturates to 60s. Decision made to endotracheally intubate the patient and mechanically ventilated. Known difficult airway. Patient rapidly desaturated after induction, in the few minutes taken for intubation. Intubated with the glide scope #4 blade grade 3 view saturation rapidly came back after intubation and mechanical ventilation. Additional workup with stat echo BNP ordered placed on Bumex infusion. PC/AC vent with high TV and PEEP for lung recruitment 04/23: Emergently intubated yesterday for acute hypoxemic respiratory failure and severe hypoxemia. Postintubation placed on Bumex infusion with excellent urine output. Chest x-ray improved today. Patient was cardioverted yesterday for atrial flutter with rapid ventricular response currently in sinus rhythm. Remains critically ill but stable FiO2 is down to 45% PEEP remains at 10 04/24: Diuresis excellent with Bumex more than 8 L in 24 hours. Bicarb increasing- give Diamox 500 mg IV 1. Increase potassium supplementation. On propofol 50 mcg/min patient is awake follows commands. Chest x-ray improved on my review but still has diffuse bilateral infiltrates and left effusion. CT of the chest to further evaluate for effusion and infiltrates 04/25: Tolerating CPAP very well today. On 07/03 40% FiO2 saturation 98% following commands. Chest x-ray continues to show bilateral infiltrates but clinically improved and on my review chest x-rays improved compared to day of intubation. Will check ABG CPAP for 2 hours proceed with extubation if meeting parameters. Remains on Bumex infusion at 0.25 mg/h 04/26: Patient breathing comfortably on nasal cannula oxygen saturation 98%. Chest x-ray continues to show bilateral diffuse infiltrates but clinically improving. Bumex drip was discontinued yesterday now on scheduled IV Lasix and Aldactone. Subjective 04/27: Resting in chair with mother at bedside on room air in no acute distress. Very talkative. Denies chest pain or shortness of breath currently. Objective Vital Signs Date Time Temp Pulse Resp B/P (MAP) Pulse Ox O2 Delivery O2 Flow Rate FiO2 04/27/17 12:00 83 04/27/17 12:00 19 118/68 (85) 95 04/27/17 08:49 21 04/27/17 08:01 98.6 04/27/17 07:00 Room Air 04/26/17 20:45 2.00 Intake and Output 04/27/17 04/27/17 04/28/17 08:00 16:00 00:00 Intake Total 578 ml 100 ml Output Total 1600 ml 250 ml Balance -1022 ml -150 ml Result Diagram: 04/27/17 0445 04/27/17 0445 Other Results Microbiology Date/Time Source Procedure Growth Status 04/22/17 12:09 Blood Peripheral Aerobic Blood Culture - Final NO GROWTH IN 5 DAYS Complete 04/22/17 12:09 Blood Peripheral Anaerobic Blood Culture - Final NO GROWTH IN 5 DAYS Complete 04/22/17 11:15 Sputum Endotracheal Gram Stain - Final Complete 04/22/17 11:15 Sputum Culture - Final Pseudomonas Aeruginosa Complete 04/22/17 11:20 Urine Catheterized Urine Urine Culture - Final NO GROWTH IN 48 HOURS. Complete Imaging Last Impressions Chest X-Ray 04/27/17 0600 Signed Impressions: Service Date/Time: Thursday, April 27, 2017 03:43 - CONCLUSION: 1. Persistent mixed interstitial and diffuse patchy airspace disease, slightly more confluent in the left lung base with probable trace left effusion. 2. No significant interval change. Foreign Chamorro MD Chest CT 04/24/17 0000 Signed Impressions: Service Date/Time: Monday, April 24, 2017 09:59 - CONCLUSION: Diffuse mixed interstitial nodular consolidation with small bilateral pleural effusions. This is nonspecific. This could be secondary to noncardiogenic pulmonary edema. Heart size is not appear enlarged. Diffuse infection, hypersensitivity reactions, or ARDS could have a similar appearance. Ezequiel Hummel MD Abdomen/Pelvis CT 04/14/17 0000 Signed Impressions: Service Date/Time: Friday, April 14, 2017 22:16 - CONCLUSION: 1. Bilateral pleural effusions and bibasilar airspace process may represent edema and/or pneumonia. 2. There is an approximate 3.1 cm fluid-containing structure within the posterior urethra nonspecific and the exact etiology is not certain. There is gas within the bladder as well could be related to the same process or possibly introduced iatrogenically there possibility of abscess in the posterior urethra is not excluded. Arsen Galicia MD Abdomen X-Ray 04/13/17 0000 Signed Impressions: Service Date/Time: Thursday, April 13, 2017 12:02 - CONCLUSION: No acute abdominal abnormality is identified. Ezequiel Nobles MD Head CT 04/11/17 0015 Signed Impressions: Service Date/Time: Tuesday, April 11, 2017 00:53 - CONCLUSION: 1. No acute intracranial abnormality. Right maxillary sinusitis. Mucosal thickening in the ethmoid air cells. Jone Daly MD Procedures endotracheal intubation. Objective Remarks GENERAL: Well-nourished, well-developed patient. Alert awake oriented normal speech SKIN: Cool, dry HEAD: Normocephalic. EYES: No scleral icterus. No injection or drainage. ENT: Airway patent NECK: Supple, trachea midline. No JVD or lymphadenopathy. CARDIOVASCULAR: No murmurs, gallops, or rubs. RESPIRATORY: Breath sounds diminished bilaterally with fine crackles at bases GASTROINTESTINAL: Abdomen soft, distended. Nontender : Guzman with clear urine MUSCULOSKELETAL: No cyanosis, or edema. NEURO EXAM: Alert awake oriented 3, normal speech, no focal deficits A/P Assessment and Plan NEURO/PSYCH: Bipolar disorder Altered mental status/encephalopathy Drug overdose/suicide attempt History of depressions other psychological disorders Seizure disorder Generalized pain Currently on hydroxyzine 50 mg twice daily, quetiapine 200 mg p.o. at bedtime and venlafaxine 75 mg 3 times daily and lamotrigine 200 mg twice daily/home medications\ Lorazepam 1 mg every 6 hours as needed anxiety Home medications are gabapentin 300 3 times daily, lamotrigine 200 mg twice daily, and venlafaxine 225 mg daily and quetiapine 200 mg at night with lorazepam 1 mg twice daily and hydroxyzine 50 mg twice daily - CT head negative on admission - Psych Dr. Rush- Pt Yifan Acted Acetaminophen 650 mg p.o. every 6 hours as needed fever/pain 1 through 10 RESP: Acute hypoxemic respiratory failure ARDS vs cardiogenic pulmonary edema Bilateral Pseudomonas pneumonia Difficult anterior airway - Intubated for airway protection on admission. Intubated in ED after multiple attempts by anesthesia - Extubated 04/19/17, was tolerating well developed severe hypoxemic respiratory failure/severe pulmonary edema 04/22 - Intubated again 04/22/[address] Nieves. Anterior airway with GlideScope #4 blade , Grade 2-3 view - Extubated 04/25/17, tolerated well -Nasal cannula to maintain saturations greater than or equal to 92% -Incentives spirometry while awake - Albuterol/ipratropium aerosols every 6 hours with albuterol aerosols every 2 hours as needed dyspnea -Methylprednisolone succinate 20 mg IV twice daily Follow chest x-ray in a.m. 04/28 CVS: Acute systolic heart failure Atrial flutter with rapid ventricular response Dyslipidemia - S/p DCCV on 04/22 with successful return to an maintenance of sinus rhythm. ( DCCV performed due to new onset < 6 hour duration of a flutter with RVR with hypotension) - Echo report EF 40-50%. Decreased LV systolic motion. PAP 35 mmHg - Hold Simvastatin 20 mg daily/pravastatin 40 mg possible substitution, Fenofibrate 145 mg daily due to liver enzyme elevation - Continue to Hold Losartan 100 mg daily - Off Bumex infusion, continue IV furosemide 20 mg IV twice daily with spironolactone 50 mg p.o. twice daily - Diurese to dry weight GI: Elevated liver enzymes Hypoalbuminemia Heart healthy diet -Famotidine for GI prophylaxis Docusate sodium/senna 1 tablet twice daily for bowel regimen - Liver enzymes trending down, possible shock liver/rhabdo and recheck in a.m. Renal/: Acute kidney injury-resolved Obstructive uropathy due to Guzman balloon inflated in the urethra Rhabdomyolysis (CPK >25,000) -resolved - Unknown baseline creat, CPK trending down - Urology consulted, replaced Guzman which was misplaced (Guzman balloon was inflated in the prostatic urethra) - Strict I's and O's - I recheck BMP in a.m. ID Severe Sepsis Multilobar pneumonia/Klebsiella and sputum New HCAP with Pseudomonas - Continue piperacillin/tazobactam per infectious disease - Sputum culture 04/23 growing PSAE, previously Klebsiella 04/11, 04/16 04/18 treated HEME: Leukocytosis Normocytic anemia Thrombocytosis - Monitor CBC CMP coags FEN/ENDO: - Electrolyte replacement per protocol DVT GI prophylaxis - Teds SCDs - Subcutaneous heparin. Famotidine Level 2 follow-up Lon Herr MD Apr 27, 2017 14:34
[2017-04-27] MEDS: QUEtiapine FUMARATE 200 MG TAB PO SCH (20:27)
[2017-04-27] MEDS: DOCUSATE SODIUM 50 MG/SENNA 8.6 MG TAB PO SCH (20:28)
[2017-04-28] VITALS (17 sets, daily range): BP systolic 103–120; BP diastolic 62–78; PULSE 66–114; RESP 16–35; TEMP 98–98.6; O2SAT 88–98
[2017-04-28] MEDS: PIPERACIL-TAZO 4.5 GM PREMIX 100 ML IV SCH ×4 (02:00→20:08)
[2017-04-28] MEDS: CHLORHEXIDINE GLUCONATE 2 % 1 PACK (2 CLOTHS) TOP SCH (03:40)
[2017-04-28] MEDS: RESP: ALBUTEROL 2.5 MG/IPRATROPIUM 0.5 MG NEB (SCH) NEB ×4 (03:45→19:49)
--- NOTE | 2017-04-28 05:42 | RADRPT ---
EXAM DATE/TIME: 04/28/2017 04:21 [place] COMPARISON: CHEST SINGLE AP, April 27, 2017, 3:43. INDICATIONS : Short of breath. MEDICAL HISTORY : Sepsis. SURGICAL HISTORY : None. ENCOUNTER: Subsequent ACUITY: 1 week PAIN SCORE: 0/10 LOCATION: Bilateral chest FINDINGS: Cardiac silhouette is enlarged. Mild interstitial prominence with apparent interval improvement of pa tchy diffuse airspace disease. Remainder of exam is unchanged. CONCLUSION: 1. Cardiomegaly with mild positive fluid balance. 2. Improving diffuse patchy airspace disease. Foreign Chamorro MD on April 28, 2017 at 5:39 Board Certified Radiologist. This report was verified electronically.
[2017-04-28] MEDS: HEPARIN SODIUM - SQ 10,000 UNITS/ML VIAL SQ SCH ×3 (05:47→22:16)
[2017-04-28 07:26] LABS: AUTOMATED NEUTROPHIL # 12.9 TH/MM3 (1.8-7.7); BASOPHIL # 0.3 TH/MM3 (0-0.2); BASOPHIL % 1.4 % (0.0-2.0); EOSINOPHIL # 0.1 TH/MM3 (0-0.4); EOSINOPHIL % 0.8 % (0.0-4.0); HEMATOCRIT 29.3 % (39.0-51.0); HEMOGLOBIN 9.9 GM/DL (13.0-17.0); LYMPH % 18.7 % (9.0-44.0); LYMPHOCYTE # 3.4 TH/MM3 (1.0-4.8); MEAN CELL VOLUME 97.3 FL (80.0-100.0); MEAN CORPUSCULAR HGB CONC 33.9 % (32.0-36.0); MEAN PLATELET VOLUME 8.3 FL (7.0-11.0); MONO % 7.7 % (0.0-8.0); MONOCYTE # 1.4 TH/MM3 (0-0.9); NEUT % 71.4 % (16.0-70.0); PLATELET COUNT 897 TH/MM3 (150-450); RED BLOOD COUNT 3.01 MIL/MM3 (4.50-5.90); RED CELL DISTRIBUTION WIDTH 13.6 % (11.6-17.2)
[2017-04-28 07:30] LABS: INTERNATIONAL NORMALIZED RATIO 1.1 RATIO; PROTHROMBIN TIME - PATIENT 11.6 SEC (9.8-11.6)
[2017-04-28 07:45] LABS: ALBUMIN 3.4 GM/DL (3.4-5.0); ALT (GPT) 90 U/L (12-78); AST (GOT) 54 U/L (15-37); BICARBONATE 26.1 MEQ/L (21.0-32.0); BLOOD UREA NITROGEN 14 MG/DL (7-18); CALCIUM 9.9 MG/DL (8.5-10.1); CHLORIDE 101 MEQ/L (98-107); CREATININE 0.89 MG/DL (0.60-1.30); GLOMERULAR FILTRATION RATE 90 ML/MIN (>89); GLUCOSE,RANDOM 103 MG/DL (74-106); MAGNESIUM 2.5 MG/DL (1.5-2.5); PHOSPHORUS 3.3 MG/DL (2.5-4.9); SODIUM (NA) 137 MEQ/L (136-145)
[2017-04-28 07:47] LABS: ALKALINE PHOSPHATASE 92 U/L (45-117); C-REACTIVE PROTEIN 3.18 MG/DL (0.00-0.30); TOTAL BILIRUBIN ADULT 0.4 MG/DL (0.2-1.0); TOTAL PROTEIN 7.4 GM/DL (6.4-8.2)
[2017-04-28] MEDS: CHLORHEXIDINE 0.12% (ORAL KIT) 15 ML CUP MT SCH ×2 (08:00→20:00)
[2017-04-28 08:25] LABS: BANDS 2 % (0-6); LYMPHOCYTES 14 % (9-44); METAMYELOCYTES 1 % (0-1); MONOCYTES 12 % (0-8); MYELOCYTES 9 % (0-0); NEUTROPHIL # MANUAL DIFF 13.1 TH/MM3 (1.8-7.7); POLYS (SEG NEUTROPHILS) 61 % (16-70)
[2017-04-28 08:27] LABS: POLYCHROMASIA 2.4 % (0.0-1.9)
[2017-04-28 08:28] LABS: CORRECTED NUCLEATED RBC 1 /100 WBC (0-0); NUCLEATED RED BLOOD CELL 1 (0-0)
[2017-04-28] MEDS: ASPIRIN 81 MG CHEW TAB CHEW SCH (08:42)
[2017-04-28] MEDS: FUROSEMIDE 20 MG/2 ML VIAL IV PUSH SCH (08:43)
[2017-04-28] MEDS: VENLAFAXINE HCL 75 MG TAB PO SCH ×3 (08:43→18:07)
[2017-04-28] MEDS: SODIUM CHLORIDE 0.9% FLUSH 10 ML FLUSH IV FLUSH PRN (08:43)
[2017-04-28] MEDS: hydrOXYzine HCL 50 MG TAB PO SCH ×2 (08:43→20:10)
[2017-04-28] MEDS: SODIUM CHLORIDE 0.9% FLUSH 10 ML FLUSH IV FLUSH SCH ×2 (08:43→20:09)
[2017-04-28] MEDS: lamoTRIgine 100 MG TAB PO SCH ×2 (08:44→20:10)
[2017-04-28] MEDS: DOCUSATE SODIUM 50 MG/SENNA 8.6 MG TAB PO SCH (08:44)
[2017-04-28] MEDS: FAMOTIDINE 20 MG TAB PO SCH ×2 (08:44→20:10)
[2017-04-28] MEDS: GABAPENTIN 300 MG CAP PO SCH ×3 (08:44→18:07)
[2017-04-28] MEDS: SPIRONOLACTONE 50 MG TAB PO SCH ×2 (08:46→18:07)
[2017-04-28] MEDS: BENEPROTEIN POWDER 1 PACK G-TUBE SCH ×3 (08:46→17:55)
[2017-04-28] MEDS: methylPREDNISolone SOD SUCC 40 MG/1 ML VIAL IV PUSH SCH ×2 (10:59→22:16)
--- NOTE | 2017-04-28 14:23 | HHI.CCPN ---
Subjective Remarks/Hospital Course 51-year-old male presents from home where he was identified to have altered mental status and decreasing level of consciousness. Patient was also identified to have temperature elevation and paramedics identified room air O2 saturations to be 72%. Patient was immediately placed on supplemental oxygen without improvement of oxygenation or level of consciousness. Family members were concerned that patient may have overdosed on medications but the medications listed did not show any opiates. Patient's blood sugar was fine. No reported injury or trauma. Paramedics determined patient needed further ventilation support and attempted intubation in the field but this was unsuccessful and patient presents to the emergency department with ambu assisted ventilations. Multiple attempts were made in the emergency department intubated the patient for an airway protection, which was extremely difficult and patient was finally intubated by payment manager. 04/12: Continues to be critically ill intubated copious amount of ET tube secretions. Chest x-ray continues to show patchy bilateral infiltrates. Started on Levophed overnight to keep map above 65. Creat and WBC count have slightly improved. Gram neg rods in sputum gram stain. Currently on Zosyn, I will add vancomycin 04/13: Developed severe ventilator asynchrony today with low lung volumes. Most likely secondary to ET tube obstruction from secretions. After multiple suctioning volumes improved but patient remained tachypneic. Neuromuscularly paralyzed for hypoxia and asynchrony. Sputum culture growing Klebsiella 04/14: Remains intubated sedated continues to be asynchronous with the ventilator when sedation is lightened. Continues to have copious secretions. Fluid overloaded will start Lasix 20 every 12 with potassium supplementation 04/15: Oliguric to anuric with hematuria. CT abdomen pelvis 04/14 showing 3.1 cm fluid-containing structure within the posterior urethra nonspecific and there is gas within the bladder. Etiology unclear. Patient remains tachypneic on lightening sedation. Not following commands 04/16: Remains intubated sedated encephalopathic. Chest x-ray shows worsening pulmonary edema, bilateral crackles/rales on exam. Currently on Precedex and propofol and slowly weaned off propofol. Urine output increased after replacing Guzman. Apparently catheter balloon was sitting in prostatic urethra, his guzman was not advanced all the way to the bladder. This was replaced by urology with excellent UO now. On 03/04 NS for hyperNa. 04/17: Patient remains encephalopathic. Chest x-ray unchanged. Patient continued on Precedex infusion. Urine output within normal limits, creatinine improved today. Sodium level downtrending. 04/18: Patient continues on Precedex and fentanyl infusion, moving extremities spontaneously and following commands. Pt complained of pain, oxycodone 5 mg every 8 hour total dosing, in anticipation of weaning IV fentanyl. Patient tolerated CPAP trials for approximately 3 hours today. Plan to consult general surgery for tracheostomy. 04/19: Tolerating CPAP today, wide awake and following commands. +Ve cuff leak. Chest x-ray shows slight worsening bilateral infiltrates. Lasix 40 mg additional dose given 04/20: Patient extubated yesterday, doing well. O2 saturation 97% on nasal cannula. The patient was S[place] acted today secondary to suicidal ideations, with concrete planning of , etc. psychiatry following discussed with Dr. Rush. Patient to be transferred to inpatient psych when bed available. [facility] RECONSULT NOTE: 04/22: [facility] reconsulted for severe hypoxemic respiratory failure, severe bilateral infiltrates almost white out of bilateral lung valenzuela. Currently on 100% nonrebreather with PO2 only 79. Patient also developed atrial flutter with RVR overnight. On Cardizem infusion at 15 mg/h with heart rate 150 bpm. I evaluated the patient immediately she appears symptoms are severe respiratory distress, even with minimal movements and if he removes the mask even for a few seconds he desaturates to 60s. Decision made to endotracheally intubate the patient and mechanically ventilated. Known difficult airway. Patient rapidly desaturated after induction, in the few minutes taken for intubation. Intubated with the glide scope #4 blade grade 3 view saturation rapidly came back after intubation and mechanical ventilation. Additional workup with stat echo BNP ordered placed on Bumex infusion. PC/AC vent with high TV and PEEP for lung recruitment 04/23: Emergently intubated yesterday for acute hypoxemic respiratory failure and severe hypoxemia. Postintubation placed on Bumex infusion with excellent urine output. Chest x-ray improved today. Patient was cardioverted yesterday for atrial flutter with rapid ventricular response currently in sinus rhythm. Remains critically ill but stable FiO2 is down to 45% PEEP remains at 10 04/24: Diuresis excellent with Bumex more than 8 L in 24 hours. Bicarb increasing- give Diamox 500 mg IV 1. Increase potassium supplementation. On propofol 50 mcg/min patient is awake follows commands. Chest x-ray improved on my review but still has diffuse bilateral infiltrates and left effusion. CT of the chest to further evaluate for effusion and infiltrates 04/25: Tolerating CPAP very well today. On 07/03 40% FiO2 saturation 98% following commands. Chest x-ray continues to show bilateral infiltrates but clinically improved and on my review chest x-rays improved compared to day of intubation. Will check ABG CPAP for 2 hours proceed with extubation if meeting parameters. Remains on Bumex infusion at 0.25 mg/h 04/26: Patient breathing comfortably on nasal cannula oxygen saturation 98%. Chest x-ray continues to show bilateral diffuse infiltrates but clinically improving. Bumex drip was discontinued yesterday now on scheduled IV Lasix and Aldactone. 04/27: Resting in chair with mother at bedside on room air in no acute distress. Very talkative. Denies chest pain or shortness of breath currently. Subjective 04/28: Afebrile. Currently resting in chair in no acute distress. X-ray much improved. Objective Vital Signs Date Time Temp Pulse Resp B/P (MAP) Pulse Ox O2 Delivery O2 Flow Rate FiO2 04/28/17 12:00 98.3 102 30 114/74 (87) 89 04/28/17 08:05 Nasal Cannula 2.00 04/27/17 20:19 21 Intake and Output 04/28/17 04/28/17 04/28/17 07:59 15:59 23:59 Intake Total 240 ml 100 ml Output Total 800 ml Balance -560 ml 100 ml Result Diagram: 04/28/17 0640 04/28/17 0640 Other Results Microbiology Date/Time Source Procedure Growth Status 04/22/17 12:09 Blood Peripheral Aerobic Blood Culture - Final NO GROWTH IN 5 DAYS Complete 04/22/17 12:09 Blood Peripheral Anaerobic Blood Culture - Final NO GROWTH IN 5 DAYS Complete 04/22/17 11:15 Sputum Endotracheal Gram Stain - Final Complete 04/22/17 11:15 Sputum Culture - Final Pseudomonas Aeruginosa Complete 04/22/17 11:20 Urine Catheterized Urine Urine Culture - Final NO GROWTH IN 48 HOURS. Complete Imaging Last Impressions Chest X-Ray 04/28/17 0600 Signed Impressions: Service Date/Time: Friday, April 28, 2017 04:21 - CONCLUSION: 1. Cardiomegaly with mild positive fluid balance. 2. Improving diffuse patchy airspace disease. Foreign Chamorro MD Chest CT 04/24/17 0000 Signed Impressions: Service Date/Time: Monday, April 24, 2017 09:59 - CONCLUSION: Diffuse mixed interstitial nodular consolidation with small bilateral pleural effusions. This is nonspecific. This could be secondary to noncardiogenic pulmonary edema. Heart size is not appear enlarged. Diffuse infection, hypersensitivity reactions, or ARDS could have a similar appearance. Ezequiel Hummel MD Abdomen/Pelvis CT 04/14/17 0000 Signed Impressions: Service Date/Time: Friday, April 14, 2017 22:16 - CONCLUSION: 1. Bilateral pleural effusions and bibasilar airspace process may represent edema and/or pneumonia. 2. There is an approximate 3.1 cm fluid-containing structure within the posterior urethra nonspecific and the exact etiology is not certain. There is gas within the bladder as well could be related to the same process or possibly introduced iatrogenically there possibility of abscess in the posterior urethra is not excluded. Arsen Galicia MD Abdomen X-Ray 04/13/17 0000 Signed Impressions: Service Date/Time: Thursday, April 13, 2017 12:02 - CONCLUSION: No acute abdominal abnormality is identified. Ezequiel Nobles MD Head CT 04/11/17 0015 Signed Impressions: Service Date/Time: Tuesday, April 11, 2017 00:53 - CONCLUSION: 1. No acute intracranial abnormality. Right maxillary sinusitis. Mucosal thickening in the ethmoid air cells. Jone Daly MD Procedures endotracheal intubation. Objective Remarks GENERAL: Well-nourished, well-developed patient. Alert awake oriented normal speech SKIN: Cool, dry HEAD: Normocephalic. EYES: No scleral icterus. No injection or drainage. ENT: Airway patent NECK: Supple, trachea midline. No JVD or lymphadenopathy. CARDIOVASCULAR: No murmurs, gallops, or rubs. RESPIRATORY: Breath sounds diminished bilaterally with fine crackles at bases GASTROINTESTINAL: Abdomen soft, distended. Nontender : Guzman with clear urine MUSCULOSKELETAL: No cyanosis, or edema. NEURO EXAM: Alert awake oriented 3, normal speech, no focal deficits A/P Assessment and Plan NEURO/PSYCH: Bipolar disorder Altered mental status/encephalopathy Drug overdose/suicide attempt History of depressions other psychological disorders Seizure disorder Generalized pain Currently on hydroxyzine 50 mg twice daily, quetiapine 200 mg p.o. at bedtime and venlafaxine 75 mg 3 times daily and lamotrigine 200 mg twice daily/home medications\ Lorazepam 1 mg every 6 hours as needed anxiety Home medications are gabapentin 300 3 times daily, lamotrigine 200 mg twice daily, and venlafaxine 225 mg daily and quetiapine 200 mg at night with lorazepam 1 mg twice daily and hydroxyzine 50 mg twice daily - CT head negative on admission - Psych Dr. Rush- Pt Yifan Acted Acetaminophen 650 mg p.o. every 6 hours as needed fever/pain 1 through 10 RESP: Acute hypoxemic respiratory failure ARDS vs cardiogenic pulmonary edema Bilateral Pseudomonas pneumonia Difficult anterior airway - Intubated for airway protection on admission. Intubated in ED after multiple attempts by anesthesia - Extubated 04/19/17, was tolerating well developed severe hypoxemic respiratory failure/severe pulmonary edema 04/22 - Intubated again 04/22/[address] Nieves. Anterior airway with GlideScope #4 blade , Grade 2-3 view - Extubated 04/25/17, tolerated well -Nasal cannula to maintain saturations greater than or equal to 92% -Incentives spirometry while awake - Albuterol/ipratropium aerosols every 6 hours with albuterol aerosols every 2 hours as needed dyspnea -Methylprednisolone succinate 20 mg IV twice daily Follow chest x-ray in a.m. 04/28 showed improved aeration right lower lobe CVS: Acute systolic heart failure Atrial flutter with rapid ventricular response Dyslipidemia - S/p DCCV on 04/22 with successful return to an maintenance of sinus rhythm. ( DCCV performed due to new onset < 6 hour duration of a flutter with RVR with hypotension) - Echo report EF 40-50%. Decreased LV systolic motion. PAP 35 mmHg - Hold Simvastatin 20 mg daily/pravastatin 40 mg possible substitution, Fenofibrate 145 mg daily due to liver enzyme elevation - Continue to Hold Losartan 100 mg daily - Off Bumex infusion, continue IV furosemide 20 mg once a daily with spironolactone 25 mg p.o. twice daily - Diurese to dry weight GI: Elevated liver enzymes Hypoalbuminemia Heart healthy diet -Famotidine for GI prophylaxis Docusate sodium/senna 1 tablet twice daily for bowel regimen - Liver enzymes trending down, possible shock liver/rhabdo and recheck in a.m. Renal/: Acute kidney injury-resolved Obstructive uropathy due to Guzman balloon inflated in the urethra Rhabdomyolysis (CPK >25,000) -resolved - Unknown baseline creat, CPK trending down - Urology consulted, replaced Guzman which was misplaced (Guzman balloon was inflated in the prostatic urethra) - Strict I's and O's - I recheck BMP in a.m. ID Severe Sepsis Multilobar pneumonia/Klebsiella and sputum New HCAP with Pseudomonas - Continue piperacillin/tazobactam per infectious disease - Sputum culture 04/23 growing PSAE, previously Klebsiella 04/11, 04/16 04/18 treated HEME: Leukocytosis Normocytic anemia Thrombocytosis - Monitor CBC CMP coags FEN/ENDO: - Electrolyte replacement per protocol DVT GI prophylaxis - Teds SCDs - Subcutaneous heparin. Famotidine Level 2 follow-up Lon Herr MD Apr 28, 2017 14:23
[2017-04-28] MEDS: QUEtiapine FUMARATE 200 MG TAB PO SCH (20:09)
[2017-04-29] VITALS (10 sets, daily range): BP systolic 99–119; BP diastolic 52–76; PULSE 80–105; RESP 16–25; TEMP 98–98.4; O2SAT 92–99
[2017-04-29] MEDS: PIPERACIL-TAZO 4.5 GM PREMIX 100 ML IV SCH ×3 (01:02→13:06)
[2017-04-29] MEDS: RESP: ALBUTEROL 2.5 MG/IPRATROPIUM 0.5 MG NEB (SCH) NEB ×3 (03:56→15:54)
[2017-04-29] MEDS: CHLORHEXIDINE GLUCONATE 2 % 1 PACK (2 CLOTHS) TOP SCH (04:00)
[2017-04-29] MEDS: HEPARIN SODIUM - SQ 10,000 UNITS/ML VIAL SQ SCH ×2 (04:34→13:06)
--- NOTE | 2017-04-29 04:52 | RADRPT ---
EXAM DATE/TIME: 04/29/2017 03:43 [place] COMPARISON: CHEST SINGLE AP, April 28, 2017, 4:21. INDICATIONS : Shortness of breath, possible pulmonary disease. MEDICAL HISTORY : Sepsis. SURGICAL HISTORY : None. ENCOUNTER: Subsequent ACUITY: 1 week PAIN SCORE: 0/10 LOCATION: Bilateral chest FINDINGS: Persistent mild diffuse interstitial prominence and patchy mid to lower lung zone airspace disease. C ardiac silhouette is enlarged. Remainder of the exam is unchanged. CONCLUSION: 1. Cardiomegaly with mild positive fluid balance. 2. Minimal persistent patchy mid to lower lung zone airspace disease. Foreign Chamorro MD on April 29, 2017 at 4:50 Board Certified Radiologist. This report was verified electronically.
[2017-04-29 05:10] LABS: AUTOMATED NEUTROPHIL # 11.6 TH/MM3 (1.8-7.7); BASOPHIL # 0.2 TH/MM3 (0-0.2); BASOPHIL % 1.1 % (0.0-2.0); EOSINOPHIL # 0.3 TH/MM3 (0-0.4); EOSINOPHIL % 2.2 % (0.0-4.0); HEMATOCRIT 30.3 % (39.0-51.0); LYMPHOCYTE # 2.4 TH/MM3 (1.0-4.8); MEAN CELL VOLUME 97.4 FL (80.0-100.0); MEAN CORPUSCULAR HEMOGLOBIN 32.3 PG (27.0-34.0); MEAN CORPUSCULAR HGB CONC 33.2 % (32.0-36.0); MEAN PLATELET VOLUME 8.3 FL (7.0-11.0); MONO % 8.2 % (0.0-8.0); MONOCYTE # 1.3 TH/MM3 (0-0.9); NEUT % 73.5 % (16.0-70.0); PLATELET COUNT 793 TH/MM3 (150-450); RED BLOOD COUNT 3.11 MIL/MM3 (4.50-5.90); RED CELL DISTRIBUTION WIDTH 13.5 % (11.6-17.2); WHITE BLOOD COUNT 15.8 TH/MM3 (4.0-11.0)
[2017-04-29 05:29] LABS: BICARBONATE 26.5 MEQ/L (21.0-32.0); CALCIUM 9.9 MG/DL (8.5-10.1); CREATININE 1.02 MG/DL (0.60-1.30); MAGNESIUM 2.4 MG/DL (1.5-2.5)
[2017-04-29 05:30] LABS: PHOSPHORUS 4.4 MG/DL (2.5-4.9)
[2017-04-29 07:11] LABS: BANDS 3 % (0-6); LYMPHOCYTES 13 % (9-44); METAMYELOCYTES 4 % (0-1); MONOCYTES 7 % (0-8); MYELOCYTES 9 % (0-0); NEUTROPHIL # MANUAL DIFF 12.5 TH/MM3 (1.8-7.7); POLYS (SEG NEUTROPHILS) 63 % (16-70)
[2017-04-29] MEDS: ASPIRIN 81 MG CHEW TAB CHEW SCH (08:43)
[2017-04-29] MEDS: lamoTRIgine 100 MG TAB PO SCH (08:44)
[2017-04-29] MEDS: VENLAFAXINE HCL 75 MG TAB PO SCH ×2 (08:44→13:07)
[2017-04-29] MEDS: GABAPENTIN 300 MG CAP PO SCH ×2 (08:44→13:06)
[2017-04-29] MEDS: hydrOXYzine HCL 50 MG TAB PO SCH (08:44)
[2017-04-29] MEDS: FAMOTIDINE 20 MG TAB PO SCH (08:44)
[2017-04-29] MEDS: SODIUM CHLORIDE 0.9% FLUSH 10 ML FLUSH IV FLUSH SCH (08:44)
[2017-04-29] MEDS: SPIRONOLACTONE 50 MG TAB PO SCH (08:47)
[2017-04-29] MEDS: CHLORHEXIDINE 0.12% (ORAL KIT) 15 ML CUP MT SCH (08:49)
[2017-04-29] MEDS: BENEPROTEIN POWDER 1 PACK G-TUBE SCH ×2 (08:49→13:00)
[2017-04-29] MEDS ORDERED: FUROSEMIDE 20 MG/2 ML VIAL IV PUSH SCH (09:00)
--- NOTE | 2017-04-29 09:30 | HHI.CCPN ---
Subjective Remarks/Hospital Course 51-year-old male presents from home where he was identified to have altered mental status and decreasing level of consciousness. Patient was also identified to have temperature elevation and paramedics identified room air O2 saturations to be 72%. Patient was immediately placed on supplemental oxygen without improvement of oxygenation or level of consciousness. Family members were concerned that patient may have overdosed on medications but the medications listed did not show any opiates. Patient's blood sugar was fine. No reported injury or trauma. Paramedics determined patient needed further ventilation support and attempted intubation in the field but this was unsuccessful and patient presents to the emergency department with ambu assisted ventilations. Multiple attempts were made in the emergency department intubated the patient for an airway protection, which was extremely difficult and patient was finally intubated by deputy prosecuting attorney. 04/12: Continues to be critically ill intubated copious amount of ET tube secretions. Chest x-ray continues to show patchy bilateral infiltrates. Started on Levophed overnight to keep map above 65. Creat and WBC count have slightly improved. Gram neg rods in sputum gram stain. Currently on Zosyn, I will add vancomycin 04/13: Developed severe ventilator asynchrony today with low lung volumes. Most likely secondary to ET tube obstruction from secretions. After multiple suctioning volumes improved but patient remained tachypneic. Neuromuscularly paralyzed for hypoxia and asynchrony. Sputum culture growing Klebsiella 04/14: Remains intubated sedated continues to be asynchronous with the ventilator when sedation is lightened. Continues to have copious secretions. Fluid overloaded will start Lasix 20 every 12 with potassium supplementation 04/15: Oliguric to anuric with hematuria. CT abdomen pelvis 04/14 showing 3.1 cm fluid-containing structure within the posterior urethra nonspecific and there is gas within the bladder. Etiology unclear. Patient remains tachypneic on lightening sedation. Not following commands 04/16: Remains intubated sedated encephalopathic. Chest x-ray shows worsening pulmonary edema, bilateral crackles/rales on exam. Currently on Precedex and propofol and slowly weaned off propofol. Urine output increased after replacing Guzman. Apparently catheter balloon was sitting in prostatic urethra, his guzman was not advanced all the way to the bladder. This was replaced by urology with excellent UO now. On 03/04 NS for hyperNa. 04/17: Patient remains encephalopathic. Chest x-ray unchanged. Patient continued on Precedex infusion. Urine output within normal limits, creatinine improved today. Sodium level downtrending. 04/18: Patient continues on Precedex and fentanyl infusion, moving extremities spontaneously and following commands. Pt complained of pain, oxycodone 5 mg every 8 hour total dosing, in anticipation of weaning IV fentanyl. Patient tolerated CPAP trials for approximately 3 hours today. Plan to consult general surgery for tracheostomy. 04/19: Tolerating CPAP today, wide awake and following commands. +Ve cuff leak. Chest x-ray shows slight worsening bilateral infiltrates. Lasix 40 mg additional dose given 04/20: Patient extubated yesterday, doing well. O2 saturation 97% on nasal cannula. The patient was Saha acted today secondary to suicidal ideations, with concrete planning of , etc. psychiatry following discussed with Dr. Rush. Patient to be transferred to inpatient psych when bed available. [facility] RECONSULT NOTE: 04/22: [facility] reconsulted for severe hypoxemic respiratory failure, severe bilateral infiltrates almost white out of bilateral lung valenzuela. Currently on 100% nonrebreather with PO2 only 79. Patient also developed atrial flutter with RVR overnight. On Cardizem infusion at 15 mg/h with heart rate 150 bpm. I evaluated the patient immediately she appears symptoms are severe respiratory distress, even with minimal movements and if he removes the mask even for a few seconds he desaturates to 60s. Decision made to endotracheally intubate the patient and mechanically ventilated. Known difficult airway. Patient rapidly desaturated after induction, in the few minutes taken for intubation. Intubated with the glide scope #4 blade grade 3 view saturation rapidly came back after intubation and mechanical ventilation. Additional workup with stat echo BNP ordered placed on Bumex infusion. PC/AC vent with high TV and PEEP for lung recruitment 04/23: Emergently intubated yesterday for acute hypoxemic respiratory failure and severe hypoxemia. Postintubation placed on Bumex infusion with excellent urine output. Chest x-ray improved today. Patient was cardioverted yesterday for atrial flutter with rapid ventricular response currently in sinus rhythm. Remains critically ill but stable FiO2 is down to 45% PEEP remains at 10 04/24: Diuresis excellent with Bumex more than 8 L in 24 hours. Bicarb increasing- give Diamox 500 mg IV 1. Increase potassium supplementation. On propofol 50 mcg/min patient is awake follows commands. Chest x-ray improved on my review but still has diffuse bilateral infiltrates and left effusion. CT of the chest to further evaluate for effusion and infiltrates 04/25: Tolerating CPAP very well today. On 07/03 40% FiO2 saturation 98% following commands. Chest x-ray continues to show bilateral infiltrates but clinically improved and on my review chest x-rays improved compared to day of intubation. Will check ABG CPAP for 2 hours proceed with extubation if meeting parameters. Remains on Bumex infusion at 0.25 mg/h 04/26: Patient breathing comfortably on nasal cannula oxygen saturation 98%. Chest x-ray continues to show bilateral diffuse infiltrates but clinically improving. Bumex drip was discontinued yesterday now on scheduled IV Lasix and Aldactone. 04/27: Resting in chair with mother at bedside on room air in no acute distress. Very talkative. Denies chest pain or shortness of breath currently. 04/28: Afebrile. Currently resting in chair in no acute distress. X-ray much improved. Subjective 04/29: Currently sitting in chair on 2 L nasal cannula. Discussed with patient liberalizing fluid restriction and cutting back on diuretics. Chest x-ray much improved. Plan for psychiatry to reevaluate for inpatient psychiatry Objective Vital Signs Date Time Temp Pulse Resp B/P (MAP) Pulse Ox O2 Delivery O2 Flow Rate FiO2 04/29/17 06:00 82 04/29/17 04:00 98.0 16 107/76 (86) 96 04/28/17 19:51 Nasal Cannula 2.00 04/27/17 20:19 21 Intake and Output 04/29/17 04/29/17 04/30/17 08:00 16:00 00:00 Intake Total 60 ml Output Total 1050 ml Balance -990 ml Result Diagram: 04/29/17 0420 04/29/17 0420 Other Results Microbiology Date/Time Source Procedure Growth Status 04/22/17 12:09 Blood Peripheral Aerobic Blood Culture - Final NO GROWTH IN 5 DAYS Complete 04/22/17 12:09 Blood Peripheral Anaerobic Blood Culture - Final NO GROWTH IN 5 DAYS Complete 04/22/17 11:15 Sputum Endotracheal Gram Stain - Final Complete 04/22/17 11:15 Sputum Culture - Final Pseudomonas Aeruginosa Complete 04/22/17 11:20 Urine Catheterized Urine Urine Culture - Final NO GROWTH IN 48 HOURS. Complete Imaging Last Impressions Chest X-Ray 04/29/17 0600 Signed Impressions: Service Date/Time: April 03:43 - CONCLUSION: 1. Cardiomegaly with mild positive fluid balance. 2. Minimal persistent patchy mid to lower lung zone airspace disease. Foreign Chamorro MD Chest CT 04/24/17 0000 Signed Impressions: Service Date/Time: Monday, April 24, 2017 09:59 - CONCLUSION: Diffuse mixed interstitial nodular consolidation with small bilateral pleural effusions. This is nonspecific. This could be secondary to noncardiogenic pulmonary edema. Heart size is not appear enlarged. Diffuse infection, hypersensitivity reactions, or ARDS could have a similar appearance. Ezequiel Hummel MD Abdomen/Pelvis CT 04/14/17 0000 Signed Impressions: Service Date/Time: Friday, April 14, 2017 22:16 - CONCLUSION: 1. Bilateral pleural effusions and bibasilar airspace process may represent edema and/or pneumonia. 2. There is an approximate 3.1 cm fluid-containing structure within the posterior urethra nonspecific and the exact etiology is not certain. There is gas within the bladder as well could be related to the same process or possibly introduced iatrogenically there possibility of abscess in the posterior urethra is not excluded. Arsen Galicia MD Abdomen X-Ray 04/13/17 0000 Signed Impressions: Service Date/Time: Thursday, April 13, 2017 12:02 - CONCLUSION: No acute abdominal abnormality is identified. Ezequiel Nobles MD Head CT 04/11/17 0015 Signed Impressions: Service Date/Time: Tuesday, April 11, 2017 00:53 - CONCLUSION: 1. No acute intracranial abnormality. Right maxillary sinusitis. Mucosal thickening in the ethmoid air cells. Jone Daly MD Procedures endotracheal intubation. Objective Remarks GENERAL: 51-year-old male currently resting in bed in no acute distress on nasal cannula SKIN: Warm and dry. No rash. Well perfused. HEAD: Normocephalic. EYES: No scleral icterus. No injection or drainage. ENT: Airway patent NECK: Supple, trachea midline. No JVD or lymphadenopathy. CARDIOVASCULAR: No murmurs, gallops, or rubs. RESPIRATORY: Breath sounds diminished bilaterally with fine crackles at bases GASTROINTESTINAL: Abdomen soft, distended. Nontender MUSCULOSKELETAL: No significant peripheral edema. NEURO EXAM: Alert awake oriented 3, normal speech, no focal deficits Urinary Catheter: No Assessment to: Continue Vascular Central Line Catheter: No Assessment to: Continue A/P Assessment and Plan NEURO/PSYCH: Bipolar disorder Altered mental status/encephalopathy Drug overdose/suicide attempt History of depressions other psychological disorders Seizure disorder Generalized pain Currently on hydroxyzine 50 mg twice daily, quetiapine 200 mg p.o. at bedtime and venlafaxine 75 mg 3 times daily and lamotrigine 200 mg twice daily/home medications\ Lorazepam 1 mg every 6 hours as needed anxiety Home medications are gabapentin 300 3 times daily, lamotrigine 200 mg twice daily, and venlafaxine 225 mg daily and quetiapine 200 mg at night with lorazepam 1 mg twice daily and hydroxyzine 50 mg twice daily - CT head negative on admission - Psych Dr. Rush- Dustin Saha Acted and will reconsult 04/29 as patient currently medically stable and able to interact for possible inpatient psychiatry Acetaminophen 650 mg p.o. every 6 hours as needed fever/pain 1 through 10 RESP: Acute hypoxemic respiratory failure ARDS vs cardiogenic pulmonary edema Bilateral Pseudomonas pneumonia Difficult anterior airway - Intubated for airway protection on admission. Intubated in ED after multiple attempts by anesthesia - Extubated 04/19/17, was tolerating well developed severe hypoxemic respiratory failure/severe pulmonary edema 04/22 - Intubated again 04/22/[address] Nieves. Anterior airway with GlideScope #4 blade , Grade 2-3 view - Extubated 04/25/17, tolerated well -Nasal cannula to maintain saturations greater than or equal to 92% -Incentives spirometry while awake - Albuterol/ipratropium aerosols every 6 hours with albuterol aerosols every 2 hours as needed dyspnea -Methylprednisolone succinate 20 mg IV twice daily will switch to prednisone 20 mg p.o. daily today Follow chest x-ray in a.m. 04/28 showed improved aeration right lower lobe CVS: Acute systolic heart failure Atrial flutter with rapid ventricular response Dyslipidemia - S/p DCCV on 04/22 with successful return to an maintenance of sinus rhythm. ( DCCV performed due to new onset < 6 hour duration of a flutter with RVR with hypotension) - Echo report EF 40-50%. Decreased LV systolic motion. PAP 35 mmHg - Hold Simvastatin 20 mg daily/pravastatin 40 mg possible substitution, Fenofibrate 145 mg daily due to liver enzyme elevation - Continue to Hold Losartan 100 mg daily - Off Bumex infusion, continue IV furosemide 20 mg once a daily but will continue spironolactone 25 mg p.o. twice daily - Diurese to dry weight GI: Elevated liver enzymes Hypoalbuminemia Heart healthy diet -Famotidine for GI prophylaxis Docusate sodium/senna 1 tablet twice daily for bowel regimen currently being held - Liver enzymes trending down, possible shock liver/rhabdo and recheck in a.m. Renal/: Acute kidney injury-resolved Obstructive uropathy due to Guzman balloon inflated in the urethra Rhabdomyolysis (CPK >25,000) -resolved - Unknown baseline creat, CPK trending down - Urology consulted, replaced Guzman which was misplaced (Guzman balloon was inflated in the prostatic urethra) - Strict I's and O's - recheck BMP in a.m. ID Severe Sepsis Multilobar pneumonia/Klebsiella and sputum New HCAP with Pseudomonas - Continue piperacillin/tazobactam per infectious disease - Sputum culture 04/23 growing PSAE, previously Klebsiella 04/11, 04/16 04/18 treated HEME: Leukocytosis Normocytic anemia Thrombocytosis - Monitor CBC CMP coags FEN/ENDO: - Electrolyte replacement per protocol DVT GI prophylaxis - Teds SCDs - Subcutaneous heparin. Famotidine Level 2 follow-up Patient stable from a critical care medicine standpoint. We will assign care to hospitalist in a.m. 04/30. Okay to transfer to general medical floor. Lon Herr MD Apr 29, 2017 09:30
--- NOTE | 2017-04-29 12:12 | HHI.DS ---
Discharge Summary Admission Date Apr 11, 2017 at 02:36 Discharge Date: Apr 29, 2017 Admitting Diagnosis Sepsis; pneumonia; metabolic/toxic encephalopathy Procedures endotracheal intubation. Brief History 51-year-old male presents from home where he was identified to have altered mental status and decreasing level of consciousness. Patient was also identified to have temperature elevation and paramedics identified room air O2 saturations to be 72%. Patient was immediately placed on supplemental oxygen without improvement of oxygenation or level of consciousness. Family members were concerned that patient may have overdosed on medications but the medications listed did not show any opiates. Patient's blood sugar was fine. No reported injury or trauma. Paramedics determined patient needed further ventilation support and attempted intubation in the field but this was unsuccessful and patient presents to the emergency department with ambu assisted ventilations. Multiple attempts were made in the emergency department intubated the patient for an airway protection, which was extremely difficult and patient was finally intubated by box estimator. CBC/BMP: 04/29/17 0420 04/29/17 0420 Significant Findings Laboratory Tests Test 04/27/17 04:45 04/28/17 06:40 04/29/17 04:20 04/29/17 09:20 White Blood Count 14.8 TH/MM3 (4.0-11.0) 18.0 TH/MM3 (4.0-11.0) 15.8 TH/MM3 (4.0-11.0) Red Blood Count 2.83 MIL/MM3 (4.50-5.90) 3.01 MIL/MM3 (4.50-5.90) 3.11 MIL/MM3 (4.50-5.90) Hemoglobin 9.3 GM/DL (13.0-17.0) 9.9 GM/DL (13.0-17.0) 10.0 GM/DL (13.0-17.0) Hematocrit 27.5 % (39.0-51.0) 29.3 % (39.0-51.0) 30.3 % (39.0-51.0) Platelet Count 907 TH/MM3 (150-450) 897 TH/MM3 (150-450) 793 TH/MM3 (150-450) Neutrophils (%) (Auto) 77.4 % (16.0-70.0) 71.4 % (16.0-70.0) 73.5 % (16.0-70.0) Neutrophils # (Auto) 11.4 TH/MM3 (1.8-7.7) 12.9 TH/MM3 (1.8-7.7) 11.6 TH/MM3 (1.8-7.7) Neutrophils # (Manual) 12.3 TH/MM3 (1.8-7.7) 13.1 TH/MM3 (1.8-7.7) 12.5 TH/MM3 (1.8-7.7) Metamyelocytes 7 % (0-1) 4 % (0-1) Platelet Estimate HIGH (NORMAL) HIGH (NORMAL) HIGH (NORMAL) Blood Urea Nitrogen 19 MG/DL (7-18) Random Glucose 110 MG/DL (74-106) 113 MG/DL (74-106) Albumin 3.1 GM/DL (3.4-5.0) Aspartate Amino Transf (AST/SGOT) 63 U/L (15-37) 54 U/L (15-37) Alanine Aminotransferase (ALT/SGPT) 89 U/L (12-78) 90 U/L (12-78) Sodium Level 135 MEQ/L (136-145) Estimat Glomerular Filtration Rate 84 ML/MIN (>89) 77 ML/MIN (>89) Monocytes # (Auto) 1.4 TH/MM3 (0-0.9) 1.3 TH/MM3 (0-0.9) Basophils # (Auto) 0.3 TH/MM3 (0-0.2) Monocytes % 12 % (0-8) Myelocytes 9 % (0-0) 9 % (0-0) Nucleated Red Blood Cells 1 /100 WBC (0-0) Polychromasia 2.4 % (0.0-1.9) Basophilic Stippling FAINT (NORMAL) C-Reactive Protein 3.18 MG/DL (0.00-0.30) Monocytes (%) (Auto) 8.2 % (0.0-8.0) Imaging Last Impressions Chest X-Ray 04/29/17 0600 Signed Impressions: Service Date/Time: April 03:43 - CONCLUSION: 1. Cardiomegaly with mild positive fluid balance. 2. Minimal persistent patchy mid to lower lung zone airspace disease. Foreign Chamorro MD Chest CT 04/24/17 0000 Signed Impressions: Service Date/Time: Monday, April 24, 2017 09:59 - CONCLUSION: Diffuse mixed interstitial nodular consolidation with small bilateral pleural effusions. This is nonspecific. This could be secondary to noncardiogenic pulmonary edema. Heart size is not appear enlarged. Diffuse infection, hypersensitivity reactions, or ARDS could have a similar appearance. Ezequiel Hummel MD Abdomen/Pelvis CT 04/14/17 0000 Signed Impressions: Service Date/Time: Friday, April 14, 2017 22:16 - CONCLUSION: 1. Bilateral pleural effusions and bibasilar airspace process may represent edema and/or pneumonia. 2. There is an approximate 3.1 cm fluid-containing structure within the posterior urethra nonspecific and the exact etiology is not certain. There is gas within the bladder as well could be related to the same process or possibly introduced iatrogenically there possibility of abscess in the posterior urethra is not excluded. Arsen Galicia MD Abdomen X-Ray 04/13/17 0000 Signed Impressions: Service Date/Time: Thursday, April 13, 2017 12:02 - CONCLUSION: No acute abdominal abnormality is identified. Ezequiel Nobles MD Head CT 04/11/17 0015 Signed Impressions: Service Date/Time: Tuesday, April 11, 2017 00:53 - CONCLUSION: 1. No acute intracranial abnormality. Right maxillary sinusitis. Mucosal thickening in the ethmoid air cells. Jone Daly MD PE at Discharge GENERAL: 51-year-old male currently resting in bed in no acute distress on nasal cannula SKIN: Warm and dry. No rash. Well perfused. HEAD: Normocephalic. EYES: No scleral icterus. No injection or drainage. ENT: Airway patent NECK: Supple, trachea midline. No JVD or lymphadenopathy. CARDIOVASCULAR: No murmurs, gallops, or rubs. RESPIRATORY: Breath sounds diminished bilaterally with fine crackles at bases GASTROINTESTINAL: Abdomen soft, distended. Nontender MUSCULOSKELETAL: No significant peripheral edema. NEURO EXAM: Alert awake oriented 3, normal speech, no focal deficits Transfer Summary NEURO/PSYCH: Bipolar disorder Altered mental status/encephalopathy Drug overdose/suicide attempt History of depressions other psychological disorders Seizure disorder Generalized pain Currently on hydroxyzine 50 mg twice daily, quetiapine 200 mg p.o. at bedtime and venlafaxine 75 mg 3 times daily and lamotrigine 200 mg twice daily/home medications\ Lorazepam 1 mg every 6 hours as needed anxiety Home medications are gabapentin 300 3 times daily, lamotrigine 200 mg twice daily, and venlafaxine 225 mg daily and quetiapine 200 mg at night with lorazepam 1 mg twice daily and hydroxyzine 50 mg twice daily - CT head negative on admission - Psych Dr. Rush- Dustin Saha Acted and will reconsult 04/29 as patient currently medically stable and able to interact for possible inpatient psychiatry Acetaminophen 650 mg p.o. every 6 hours as needed fever/pain 1 through 10 RESP: Acute hypoxemic respiratory failure ARDS vs cardiogenic pulmonary edema Bilateral Pseudomonas pneumonia Difficult anterior airway - Intubated for airway protection on admission. Intubated in ED after multiple attempts by anesthesia - Extubated 04/19/17, was tolerating well developed severe hypoxemic respiratory failure/severe pulmonary edema 04/22 - Intubated again 04/22/[address] Nieves. Anterior airway with GlideScope #4 blade , Grade 2-3 view - Extubated 04/25/17, tolerated well -Nasal cannula to maintain saturations greater than or equal to 92% -Incentives spirometry while awake - Albuterol/ipratropium aerosols every 6 hours with albuterol aerosols every 2 hours as needed dyspnea -Methylprednisolone succinate 20 mg IV twice daily will switch to prednisone 20 mg p.o. daily today Follow chest x-ray in a.m. 04/28 showed improved aeration right lower lobe CVS: Acute systolic heart failure Atrial flutter with rapid ventricular response Dyslipidemia - S/p DCCV on 04/22 with successful return to an maintenance of sinus rhythm. ( DCCV performed due to new onset < 6 hour duration of a flutter with RVR with hypotension) - Echo report EF 40-50%. Decreased LV systolic motion. PAP 35 mmHg - Hold Simvastatin 20 mg daily/pravastatin 40 mg possible substitution, Fenofibrate 145 mg daily due to liver enzyme elevation - Continue to Hold Losartan 100 mg daily - Off Bumex infusion, continue IV furosemide 20 mg once a daily but will continue spironolactone 25 mg p.o. twice daily - Diurese to dry weight GI: Elevated liver enzymes Hypoalbuminemia Heart healthy diet -Famotidine for GI prophylaxis Docusate sodium/senna 1 tablet twice daily for bowel regimen currently being held - Liver enzymes trending down, possible shock liver/rhabdo and recheck in a.m. Renal/: Acute kidney injury-resolved Obstructive uropathy due to Guzman balloon inflated in the urethra Rhabdomyolysis (CPK >25,000) -resolved - Unknown baseline creat, CPK trending down - Urology consulted, replaced Guzman which was misplaced (Guzman balloon was inflated in the prostatic urethra) - Strict I's and O's - recheck BMP in a.m. ID Severe Sepsis Multilobar pneumonia/Klebsiella and sputum New HCAP with Pseudomonas - Continue piperacillin/tazobactam per infectious disease - Sputum culture 04/23 growing PSAE, previously Klebsiella 04/11, 04/16 04/18 treated HEME: Leukocytosis Normocytic anemia Thrombocytosis - Monitor CBC CMP coags FEN/ENDO: - Electrolyte replacement per protocol DVT GI prophylaxis - Teds SCDs - Subcutaneous heparin. Famotidine Hospital Course 51-year-old male presents from home where he was identified to have altered mental status and decreasing level of consciousness. Patient was also identified to have temperature elevation and paramedics identified room air O2 saturations to be 72%. Patient was immediately placed on supplemental oxygen without improvement of oxygenation or level of consciousness. Family members were concerned that patient may have overdosed on medications but the medications listed did not show any opiates. Patient's blood sugar was fine. No reported injury or trauma. Paramedics determined patient needed further ventilation support and attempted intubation in the field but this was unsuccessful and patient presents to the emergency department with ambu assisted ventilations. Multiple attempts were made in the emergency department intubated the patient for an airway protection, which was extremely difficult and patient was finally intubated by box estimator. 04/12: Continues to be critically ill intubated copious amount of ET tube secretions. Chest x-ray continues to show patchy bilateral infiltrates. Started on Levophed overnight to keep map above 65. Creat and WBC count have slightly improved. Gram neg rods in sputum gram stain. Currently on Zosyn, I will add vancomycin 04/13: Developed severe ventilator asynchrony today with low lung volumes. Most likely secondary to ET tube obstruction from secretions. After multiple suctioning volumes improved but patient remained tachypneic. Neuromuscularly paralyzed for hypoxia and asynchrony. Sputum culture growing Klebsiella 04/14: Remains intubated sedated continues to be asynchronous with the ventilator when sedation is lightened. Continues to have copious secretions. Fluid overloaded will start Lasix 20 every 12 with potassium supplementation 04/15: Oliguric to anuric with hematuria. CT abdomen pelvis 04/14 showing 3.1 cm fluid-containing structure within the posterior urethra nonspecific and there is gas within the bladder. Etiology unclear. Patient remains tachypneic on lightening sedation. Not following commands 04/16: Remains intubated sedated encephalopathic. Chest x-ray shows worsening pulmonary edema, bilateral crackles/rales on exam. Currently on Precedex and propofol and slowly weaned off propofol. Urine output increased after replacing Guzman. Apparently catheter balloon was sitting in prostatic urethra, his guzman was not advanced all the way to the bladder. This was replaced by urology with excellent UO now. On 03/04 NS for hyperNa. 04/17: Patient remains encephalopathic. Chest x-ray unchanged. Patient continued on Precedex infusion. Urine output within normal limits, creatinine improved today. Sodium level downtrending. 04/18: Patient continues on Precedex and fentanyl infusion, moving extremities spontaneously and following commands. Pt complained of pain, oxycodone 5 mg every 8 hour total dosing, in anticipation of weaning IV fentanyl. Patient tolerated CPAP trials for approximately 3 hours today. Plan to consult general surgery for tracheostomy. 04/19: Tolerating CPAP today, wide awake and following commands. +Ve cuff leak. Chest x-ray shows slight worsening bilateral infiltrates. Lasix 40 mg additional dose given 04/20: Patient extubated yesterday, doing well. O2 saturation 97% on nasal cannula. The patient was Saha acted today secondary to suicidal ideations, with concrete planning of , etc. psychiatry following discussed with Dr. Rush. Patient to be transferred to inpatient psych when bed available. [facility] RECONSULT NOTE: 04/22: [facility] reconsulted for severe hypoxemic respiratory failure, severe bilateral infiltrates almost white out of bilateral lung valenzuela. Currently on 100% nonrebreather with PO2 only 79. Patient also developed atrial flutter with RVR overnight. On Cardizem infusion at 15 mg/h with heart rate 150 bpm. I evaluated the patient immediately she appears symptoms are severe respiratory distress, even with minimal movements and if he removes the mask even for a few seconds he desaturates to 60s. Decision made to endotracheally intubate the patient and mechanically ventilated. Known difficult airway. Patient rapidly desaturated after induction, in the few minutes taken for intubation. Intubated with the glide scope #4 blade grade 3 view saturation rapidly came back after intubation and mechanical ventilation. Additional workup with stat echo BNP ordered placed on Bumex infusion. PC/AC vent with high TV and PEEP for lung recruitment 04/23: Emergently intubated yesterday for acute hypoxemic respiratory failure and severe hypoxemia. Postintubation placed on Bumex infusion with excellent urine output. Chest x-ray improved today. Patient was cardioverted yesterday for atrial flutter with rapid ventricular response currently in sinus rhythm. Remains critically ill but stable FiO2 is down to 45% PEEP remains at 10 04/24: Diuresis excellent with Bumex more than 8 L in 24 hours. Bicarb increasing- give Diamox 500 mg IV 1. Increase potassium supplementation. On propofol 50 mcg/min patient is awake follows commands. Chest x-ray improved on my review but still has diffuse bilateral infiltrates and left effusion. CT of the chest to further evaluate for effusion and infiltrates 04/25: Tolerating CPAP very well today. On 07/03 40% FiO2 saturation 98% following commands. Chest x-ray continues to show bilateral infiltrates but clinically improved and on my review chest x-rays improved compared to day of intubation. Will check ABG CPAP for 2 hours proceed with extubation if meeting parameters. Remains on Bumex infusion at 0.25 mg/h 04/26: Patient breathing comfortably on nasal cannula oxygen saturation 98%. Chest x-ray continues to show bilateral diffuse infiltrates but clinically improving. Bumex drip was discontinued yesterday now on scheduled IV Lasix and Aldactone. 04/27: Resting in chair with mother at bedside on room air in no acute distress. Very talkative. Denies chest pain or shortness of breath currently. 04/28: Afebrile. Currently resting in chair in no acute distress. X-ray much improved. Subjective 04/29: Currently sitting in chair on 2 L nasal cannula. Discussed with patient liberalizing fluid restriction and cutting back on diuretics. Chest x-ray much improved. Plan for psychiatry to reevaluate for inpatient psychiatry Pt Condition on Discharge: Stable Discharge Disposition: Disc to Psych Care Fac Discharge Instructions DIET: Follow Instructions for: As Tolerated, No Restrictions Speech Therapy-Diet Recommends: Regular Fluid Restrictions: 1500 cc Activities you can perform: Regular-No Restrictions Lon Herr MD Apr 29, 2017 12:12
[2017-04-29] MEDS ORDERED: ZOSY4.5P IV (12:19)
[2017-04-29] MEDS ORDERED: PRED20 PO (12:19)
[2017-04-29] MEDS ORDERED: FAMO20TA2 PO (12:19)
[2017-04-29] MEDS ORDERED: ALDA50TA2 PO (12:19)
[2017-04-29] MEDS ORDERED: ASPI81 CHEW (12:19)
[2017-04-29] MEDS ORDERED: Albuterol Neb NEB (12:19)
--- NOTE | 2017-04-29 12:44 | HHI.PYPN ---
Subjective Remarks The patient was seen today for psychiatric reevaluation. Chart was reviewed. Case discussed with nursing charge medical students Alex and Linsey. He was for consulted by critical care because he has been expressing suicidal ideation on and off. On psychiatric evaluation today the patient is more alert, oriented 3 , more talkative, and a good spirit. The patient clarifies that he tried to commit suicide by overdosing with alcohol and Seroquel, also with Ativan, after an argument with his brother and some differences with his family. He says that he has been for 2 weeks now in the hospital, he had time to have some reflection about his situation, about the relationship with his family and his future. Patient says that at this moment he is not suicidal, is not homicidal, he denies visual and auditory hallucinations. Different than my last evaluation , the patient is now oriented 3, without no attention deficit, no fluctuation of consciousness. Patient reports as protective factors for suicidality future plans, good relationship with his family at this moment. Patient is future oriented, he says that he has several plans, like writing a book, he wants to play in a comedy, and many other plans. Review of Systems Endocrine: DENIES: Heat/cold intolerance, Polydipsia, Polyuria, Polyphagia Eyes: DENIES: Blurred vision, Diplopia, Eye inflammation, Eye pain, Vision loss , Photosensitivity, Double Vision Ears, nose, mouth, throat: DENIES: Tinnitus, Hearing loss, Vertigo, Nasal discharge, Oral lesions, Throat pain, Hoarseness, Ear Pain, Running Nose, Epistaxis, Sinus Pain, Toothache, Odynophagia Respiratory: DENIES: Apneas, Cough, Snoring, Wheezing, Hemoptysis, Sputum production, Shortness of breath Cardiovascular: DENIES: Chest pain, Palpitations, Syncope, Dyspnea on Exertion , PND, Lower Extremity Edema, Orthopnea, Claudication Gastrointestinal: DENIES: Abdominal pain, Black stools, Bloody stools, Constipation, Diarrhea, Nausea, Vomiting, Difficulty Swallowing, Anorexia Genitourinary: DENIES: Sexual dysfunction, Urinary frequency, Urinary incontinence, Urgency, Hematuria, Dysuria, Nocturia, Penile Discharge, Testicular Pain, Testicular Swelling Musculoskeletal: DENIES: Joint pain, Muscle aches, Stiffness, Joint Swelling, Back pain, Neck pain Integumentary: DENIES: Abnormal pigmentation, Nail changes, Pruritus, Rash Hematologic/lymphatic: DENIES: Bruising, Lymphadenopathy Neurologic: DENIES: Abnormal gait, Headache, Localized weakness, Paresthesias, Seizures, Speech Problems, Tremor, Poor Balance Psychiatric: COMPLAINS OF: Delusions, DENIES: Anxiety, Confusion, Mood changes , Depression, Hallucinations, Agitation, Suicidal Ideation, Homicidal Ideation Mental Status Examination Appearance: Appropriate Consciousness: Clouded Orientation: Person, Place Motor Activity: Normal gait Speech: Unremarkable Language: Adequate Fund of Knowledge: Adequate Attention and Concentration: Adequate Memory: Impaired Mood: Irritable Affect: Other (elevated) Thought Process & Associations: Loose associations Thought Content: Bizarre thinking, Racing thoughts Delusion Type: None Suicidal Ideation: No Suicidal Plan: No Suicidal Intention: No Homicidal Ideation: No Homicidal Plan: No Homicidal Intention: No Insight: Poor Judgment: Poor Results Labs Test 04/29/17 04:20 04/29/17 09:20 White Blood Count 15.8 TH/MM3 Red Blood Count 3.11 MIL/MM3 Hemoglobin 10.0 GM/DL Hematocrit 30.3 % Mean Corpuscular Volume 97.4 FL Mean Corpuscular Hemoglobin 32.3 PG Mean Corpuscular Hemoglobin Concent 33.2 % Red Cell Distribution Width 13.5 % Platelet Count 793 TH/MM3 Mean Platelet Volume 8.3 FL Neutrophils (%) (Auto) 73.5 % Lymphocytes (%) (Auto) 15.0 % Monocytes (%) (Auto) 8.2 % Eosinophils (%) (Auto) 2.2 % Basophils (%) (Auto) 1.1 % Neutrophils # (Auto) 11.6 TH/MM3 Lymphocytes # (Auto) 2.4 TH/MM3 Monocytes # (Auto) 1.3 TH/MM3 Eosinophils # (Auto) 0.3 TH/MM3 Basophils # (Auto) 0.2 TH/MM3 CBC Comment AUTO DIFF Differential Total Cells Counted 100 Neutrophils % (Manual) 63 % Band Neutrophils % 3 % Lymphocytes % 13 % Monocytes % 7 % Eosinophils % 1 % Neutrophils # (Manual) 12.5 TH/MM3 Metamyelocytes 4 % Myelocytes 9 % Differential Comment FINAL DIFF MANUAL Platelet Estimate HIGH Platelet Morphology Comment NORMAL Blood Urea Nitrogen 13 MG/DL Creatinine 1.02 MG/DL Random Glucose 113 MG/DL Calcium Level 9.9 MG/DL Phosphorus Level 4.4 MG/DL Magnesium Level 2.4 MG/DL Sodium Level 138 MEQ/L Potassium Level 3.6 MEQ/L Chloride Level 100 MEQ/L Carbon Dioxide Level 26.5 MEQ/L Anion Gap 12 MEQ/L Estimat Glomerular Filtration Rate 77 ML/MIN Urine Eosinophils NONE SEEN /HPF Date/Time Source Procedure Growth Status 04/22/17 12:09 Blood Peripheral Aerobic Blood Culture - Final NO GROWTH IN 5 DAYS Complete 04/22/17 12:09 Blood Peripheral Anaerobic Blood Culture - Final NO GROWTH IN 5 DAYS Complete 04/22/17 11:15 Sputum Endotracheal Gram Stain - Final Complete 04/22/17 11:15 Sputum Culture - Final Pseudomonas Aeruginosa Complete 04/22/17 11:20 Urine Catheterized Urine Urine Culture - Final NO GROWTH IN 48 HOURS. Complete Vitals/IOs Vital Signs Date Time Temp Pulse Resp B/P (MAP) Pulse Ox O2 Delivery O2 Flow Rate FiO2 04/29/17 12:00 105 04/29/17 12:00 98.4 23 118/74 (89) 92 04/29/17 09:29 Nasal Cannula 2.00 04/27/17 20:19 21 Intake and Output 04/29/17 04/29/17 04/30/17 08:00 16:00 00:00 Intake Total 60 ml Output Total 1050 ml Balance -990 ml Assessment & Plan Problem List: (1) Bipolar affect, depressed ICD Codes: F31.30 - Bipolar disorder, current episode depressed, mild or moderate severity, unspecified Status: Acute Assessment & Plan: The patient has been expressing ambivalent suicidal ideation , hypomanic features in the ICU, he denies suicidal ideation at this moment. The patient has tried to commit suicide by overdosing after an argument with his family, circumstances around this suicidal attempts are not clear at this moment. More collateral information from family and outpatient psychiatrist are very important to complete psychiatric assessment. Patient will be transferred to [facility] to continue psychiatric care and for safety. Assessment & Plan Estimated LOS: days Justification for Cont. Inpt. Transfer to psychiatry. Vince Rush MD Apr 29, 2017 12:44
--- NOTE | 2017-04-29 17:10 | HHI.IDPN ---
Subjective Subjective Remarks Pt is doing very well Floor transfer no fever no cough on RA Antibiotics zosyn 4.5 Allergies: Coded Allergies: No Allergy Information Available (Unverified , 04/11/17) Objective . Vital Signs Date Time Temp Pulse Resp B/P (MAP) Pulse Ox O2 Delivery O2 Flow Rate FiO2 04/29/17 16:00 98.2 104 22 115/74 (88) 92 04/29/17 16:00 104 04/29/17 12:00 105 04/29/17 12:00 98.4 92 23 118/74 (89) 92 04/29/17 09:29 96 Nasal Cannula 2.00 04/29/17 09:00 96 19 115/73 (87) 97 04/29/17 08:00 80 04/29/17 08:00 98.3 80 21 110/72 (85) 99 04/29/17 07:00 92 Nasal Cannula 2.00 04/29/17 07:00 98 25 119/68 (85) 96 04/29/17 06:00 82 04/29/17 04:00 98.0 93 16 107/76 (86) 96 04/29/17 04:00 93 04/29/17 02:00 83 04/29/17 00:00 81 04/29/17 00:00 98.3 81 17 99/52 (68) 96 04/28/17 22:00 78 04/28/17 20:00 98.1 87 16 116/71 (86) 95 04/28/17 20:00 87 04/28/17 19:51 Nasal Cannula 2.00 04/28/17 19:00 96 Nasal Cannula 2.00 04/28/17 18:00 77 04/28/17 18:00 77 28 117/70 (86) 91 04/29/17 04/29/17 04/30/17 15:00 23:00 07:00 Intake Total 100 ml 1100 ml Output Total 551 ml Balance 100 ml 549 ml Intake Oral 1000 ml IV Total 100 ml 100 ml Output Urine Total 550 ml Stool Total 1 ml . Laboratory Tests Test 04/28/17 06:40 04/29/17 04:20 White Blood Count 18.0 TH/MM3 15.8 TH/MM3 Red Blood Count 3.01 MIL/MM3 3.11 MIL/MM3 Hemoglobin 9.9 GM/DL 10.0 GM/DL Hematocrit 29.3 % 30.3 % Mean Corpuscular Volume 97.3 FL 97.4 FL Mean Corpuscular Hemoglobin 33.0 PG 32.3 PG Mean Corpuscular Hemoglobin Concent 33.9 % 33.2 % Red Cell Distribution Width 13.6 % 13.5 % Platelet Count 897 TH/MM3 793 TH/MM3 Mean Platelet Volume 8.3 FL 8.3 FL Neutrophils (%) (Auto) 71.4 % 73.5 % Lymphocytes (%) (Auto) 18.7 % 15.0 % Monocytes (%) (Auto) 7.7 % 8.2 % Eosinophils (%) (Auto) 0.8 % 2.2 % Basophils (%) (Auto) 1.4 % 1.1 % Neutrophils # (Auto) 12.9 TH/MM3 11.6 TH/MM3 Lymphocytes # (Auto) 3.4 TH/MM3 2.4 TH/MM3 Monocytes # (Auto) 1.4 TH/MM3 1.3 TH/MM3 Eosinophils # (Auto) 0.1 TH/MM3 0.3 TH/MM3 Basophils # (Auto) 0.3 TH/MM3 0.2 TH/MM3 CBC Comment AUTO DIFF AUTO DIFF Differential Total Cells Counted 100 100 Neutrophils % (Manual) 61 % 63 % Band Neutrophils % 2 % 3 % Lymphocytes % 14 % 13 % Monocytes % 12 % 7 % Eosinophils % 1 % 1 % Neutrophils # (Manual) 13.1 TH/MM3 12.5 TH/MM3 Metamyelocytes 1 % 4 % Myelocytes 9 % 9 % Nucleated Red Blood Cells 1 /100 WBC Differential Comment FINAL DIFF MANUAL FINAL DIFF MANUAL Platelet Estimate HIGH HIGH Platelet Morphology Comment NORMAL NORMAL Polychromasia 2.4 % Basophilic Stippling FAINT Blood Smear Pathologist Review Laboratory Tests Test 04/28/17 06:40 04/29/17 04:20 Blood Urea Nitrogen 14 MG/DL 13 MG/DL Creatinine 0.89 MG/DL 1.02 MG/DL Random Glucose 103 MG/DL 113 MG/DL Total Protein 7.4 GM/DL Albumin 3.4 GM/DL Calcium Level 9.9 MG/DL 9.9 MG/DL Phosphorus Level 3.3 MG/DL 4.4 MG/DL Magnesium Level 2.5 MG/DL 2.4 MG/DL Alkaline Phosphatase 92 U/L Aspartate Amino Transf (AST/SGOT) 54 U/L Alanine Aminotransferase (ALT/SGPT) 90 U/L Total Bilirubin 0.4 MG/DL Sodium Level 137 MEQ/L 138 MEQ/L Potassium Level 3.7 MEQ/L 3.6 MEQ/L Chloride Level 101 MEQ/L 100 MEQ/L Carbon Dioxide Level 26.1 MEQ/L 26.5 MEQ/L Anion Gap 10 MEQ/L 12 MEQ/L Estimat Glomerular Filtration Rate 90 ML/MIN 77 ML/MIN C-Reactive Protein 3.18 MG/DL Imaging Last Impressions Chest X-Ray 04/29/17 0600 Signed Impressions: Service Date/Time: April 03:43 - CONCLUSION: 1. Cardiomegaly with mild positive fluid balance. 2. Minimal persistent patchy mid to lower lung zone airspace disease. Foreign Chamorro MD Chest CT 04/24/17 0000 Signed Impressions: Service Date/Time: Monday, April 24, 2017 09:59 - CONCLUSION: Diffuse mixed interstitial nodular consolidation with small bilateral pleural effusions. This is nonspecific. This could be secondary to noncardiogenic pulmonary edema. Heart size is not appear enlarged. Diffuse infection, hypersensitivity reactions, or ARDS could have a similar appearance. Ezequiel Hummel MD Abdomen/Pelvis CT 04/14/17 0000 Signed Impressions: Service Date/Time: Friday, April 14, 2017 22:16 - CONCLUSION: 1. Bilateral pleural effusions and bibasilar airspace process may represent edema and/or pneumonia. 2. There is an approximate 3.1 cm fluid-containing structure within the posterior urethra nonspecific and the exact etiology is not certain. There is gas within the bladder as well could be related to the same process or possibly introduced iatrogenically there possibility of abscess in the posterior urethra is not excluded. Arsen Galicia MD Abdomen X-Ray 04/13/17 0000 Signed Impressions: Service Date/Time: Thursday, April 13, 2017 12:02 - CONCLUSION: No acute abdominal abnormality is identified. Ezequiel Nobles MD Head CT 04/11/17 0015 Signed Impressions: Service Date/Time: Tuesday, April 11, 2017 00:53 - CONCLUSION: 1. No acute intracranial abnormality. Right maxillary sinusitis. Mucosal thickening in the ethmoid air cells. Jone Daly MD Physical Exam CONSTITUTIONAL/GENERAL: This is an adequately nourished patient, in no apparent distress. TUBES/LINES/DRAINS: SKIN: No jaundice, rashes, or lesions. Skin temperature appropriate. Not diaphoretic. EYES: Pupils equal and round and reactive. Extraocular motions intact. No scleral icterus. No injection or drainage. Fundi not examined. ENT: Hearing grossly normal. Nose without bleeding or purulent drainage. Throat without visible erythema, exudates, masses, or lesions. CARDIOVASCULAR: Regular rate and rhythm without murmurs, gallops, or rubs. No JVD. Peripheral pulses symmetric. RESPIRATORY/CHEST: Symmetric, unlabored respirations. Clear to auscultation b/ l GASTROINTESTINAL: Abdomen soft, non-tender,not distended. No hepato- splenomegaly, or palpable masses. No guarding. Bowel sounds present. GENITOURINARY: Without palpable bladder distension. MUSCULOSKELETAL: Extremities without clubbing, cyanosis, or edema. NEUROLOGICAL: Awake and alert. Motor and sensory grossly within normal limits. Follows commands. Clear speech, Moves all extremities. PSYCHIATRIC: calm and cooperative Assessment & Plan Remarks PNA Kleb pneumo repeat clx with GNB again Resp failure, - resolved; extubated. on RA Leukocytosis: probably 2/2 sterroids Abx associated diarrhea complete zosyn r/o c.diff if diarrhea recurrs will sign off; call me if any new issue occur Rima Roberson RN, MD Apr 29, 2017 17:10
[2017-04-30] MEDS ORDERED: predniSONE 20 MG TAB PO SCH (09:00)
== END 2017-04-29 17:14 | DRG 870 ==
LOC: NEPC 23:52 → NEDA 04-11 02:36 → HIMN 04-11 03:45
PROVIDERS: ADMIT Internal Medicine; ATTEND Internal Medicine
PROC: 0BH17EZ Insertion of Endotracheal Airway into Trachea, Via Natural or Artificial Opening (ICD-10-PCS; principal; 2017-04-11)
PROC: 5A1955Z Respiratory Ventilation, Greater than 96 Consecutive Hours (ICD-10-PCS; 2017-04-11)
PROC: 02HV33Z Insertion of Infusion Device into Superior Vena Cava, Percutaneous Approach (ICD-10-PCS; 2017-04-11)
PROC: 0T2BX0Z Change Drainage Device in Bladder, External Approach (ICD-10-PCS; 2017-04-15)
PROC: 0BH18EZ Insertion of Endotracheal Airway into Trachea, Via Natural or Artificial Opening Endoscopic (ICD-10-PCS; 2017-04-22)
PROC: 5A1945Z Respiratory Ventilation, 24-96 Consecutive Hours (ICD-10-PCS; 2017-04-22)
PROC: 5A2204Z Restoration of Cardiac Rhythm, Single (ICD-10-PCS; 2017-04-22)
DX: A41.9 Sepsis, unspecified organism (principal); J96.01 Acute respiratory failure with hypoxia; K72.00 Acute and subacute hepatic failure without coma; R65.21 Severe sepsis with septic shock; G92 Toxic encephalopathy; I50.21 Acute systolic (congestive) heart failure; J15.0 Pneumonia due to Klebsiella pneumoniae; K52.1 Toxic gastroenteritis and colitis; J80 Acute respiratory distress syndrome; J15.1 Pneumonia due to Pseudomonas; I48.92 Unspecified atrial flutter; M62.82 Rhabdomyolysis; N13.8 Other obstructive and reflux uropathy; N17.9 Acute kidney failure, unspecified; E87.0 Hyperosmolality and hypernatremia; F31.30 Bipolar disorder, current episode depressed, mild or moderate severity, unspecified; R34 Anuria and oliguria; I11.0 Hypertensive heart disease with heart failure; T50.902A Poisoning by unspecified drugs, medicaments and biological substances, intentional self-harm, initial encounter; I48.91 Unspecified atrial fibrillation; E78.5 Hyperlipidemia, unspecified; G40.909 Epilepsy, unspecified, not intractable, without status epilepticus; E87.70 Fluid overload, unspecified; Y95 Nosocomial condition; T83.098A Other mechanical complication of other urinary catheter, initial encounter; Y84.6 Urinary catheterization as the cause of abnormal reaction of the patient, or of later complication, without mention of misadventure at the time of the procedure; R31.9 Hematuria, unspecified; N40.1 Benign prostatic hyperplasia with lower urinary tract symptoms; T36.95XA Adverse effect of unspecified systemic antibiotic, initial encounter; R52 Pain, unspecified; E88.09 Other disorders of plasma-protein metabolism, not elsewhere classified; D64.9 Anemia, unspecified; J45.909 Unspecified asthma, uncomplicated; F17.210 Nicotine dependence, cigarettes, uncomplicated
CPT/HCPCS: 31500; 36556; 36600; 43753; 51702; 70450; 71045; 71250; 74018; 74177; 76937; 80048; 80053; 80202; 80307; 81001; 82140; 82550; 82552; 82565; 82805; 82948; 83605; 83735; 83880; 84100; 84443; 84484; 85007; 85025; 85027; 85384; 85610; 85730; 86140; 87040; 87070; 87077; 87086; 87186; 87205; 87641; 87804; 92960; 93005; 93306; 94002; 94003; 94150; 94640; 94664; 94667; 94668; 95819; 96365; 96368; 96375; J0330; J0696; J1120; J1644; J1940; J2060; J2250; J2543; J2920; J3010; J3370; J3480; J7030; J7040; J7050; P9045; P9047; Q9967

== ENCOUNTER 2017-04-29 17:30 | Inpatient (IN) | payer SELFPAY ==
[~2017-04-29 17:30] MED LIST: ALDA50TA2 PO; ASPI81 CHEW; Albuterol Neb NEB; FAMO20TA2 PO; FENO160T PO; GABA300C5 PO; HYDR50TA94 PO; IPRAAER INH; LAMO200T PO; LORA1TAB12 PO; LOSA100T PO; MEDI220T PO; PRED20 PO; QUET150XR PO; QUET1TAB9 PO; SIMV20TA PO; VENL75TA; ZOSY4.5P IV
[2017-04-29 18:47] VITALS: BP 125/82; PULSE 99; RESP 16; TEMP 99.2; O2SAT 97
[2017-04-29] MEDS ORDERED: MAGNESIUM HYDROXIDE SUSP 30 ML CUP PO PRN (21:15)
[2017-04-29] MEDS ORDERED: ACETAMINOPHEN 325 MG TAB PO PRN (21:15)
[2017-04-29] MEDS ORDERED: LORazepam 1 MG TAB PO PRN (21:15)
[2017-04-29] MEDS ORDERED: LORazepam 2 MG/ML VIAL IM PRN (21:15)
[2017-04-29 22:12] VITALS: O2SAT 97
[2017-04-29] MEDS: diphenhydrAMINE HCL 50 MG CAP PO PRN (22:37)
[2017-04-30 06:00] VITALS: BP 132/62; PULSE 101; RESP 16; TEMP 98.5; O2SAT 94
--- NOTE | 2017-04-30 08:29 | HHI.HP ---
Provisional Diagnosis Admission Date Apr 29, 2017 at 17:30 [place] I. Bipolar disorder Certification of Person's Competence To Provide Express and Informed Consent I have personally examined Alex Everett , a person being served at [facility] on, Apr 30, 2017 08:17. Express and informed consent means consent voluntarily given in writing, by a competent person, after sufficient explanation and disclosure of the subject matter involved to enable the person to make a knowing and willful decision without any element of force, fraud, deceit, duress, or other form of constraint or coercion. This person is 18 years of age or older, is not now known to be incompetent to consent to treatment with a guardian advocate, and does not have a health care surrogate or proxy currently making medical treatment decisions. I have found this person to be one of the following: [xxx] Competent to provide express and informed consent, as defined above, for voluntary admission to this facility and is competent to provide express and informed consent for treatment. He/she has the consistent capacity to make well reasoned, willful, and knowing decisions concerning his or her medical or mental health treatment. The person fully and consistently understands the purpose of the admission for examination/placement and is fully capable of personally exercising all rights assured under [place] Incompetent to provide express and informed consent to voluntary admission, and this is incompetent to provide express and informed consent to treatment. The person must be transferred to involuntary status and a petition for a guardian advocate filed with the Circuit Court. [] Refusing to provide express and informed consent to voluntary admission but is competent to provide express and informed consent for treatment. The person must be discharged or transferred to involuntary status. Form shall be completed within 24 hours of a person's arrival at the receiving facility and filed in the clinical record of each person: 1. Admitted on a voluntary basis 2. Permitted to provide express and informed consent to his/her own treatment 3. Allowed to transfer from involuntary to voluntary status 4. Prior to permitting a person to consent to his or her own treatment after having been previously found incompetent to consent to treatment. History of Present Illness Capacity: Has Capacity HPI The patient is a 51-year-old man, domiciled with mother and brother, single, unemployed, with self-reported psychiatric history of bipolar disorder, 3 previous psychiatric hospitalizations, the last hospitalization was in a hospital in [place], he has established outpatient care in [facility], 3 previous suicide attempts, last time being in the year 1999 all of which have been via overdose, no history of self-injurious behavior, medical history of BPH , HLD, presents from home where he was identified to have altered mental status and decreasing level of consciousness, secondary to alcohol intoxication and overdose with his medications in a suicide attempt which patient was admitted to the medical service, stabilized and now transferred to the inpatient psychiatry for further evaluation and management. Patient was found sitting hospital bed noted become cooperative. Patient states that he did attempt to commit suicide prior to his admission stated that he drank a lot of wine (2 bottles) along with having taken half a bottle of Ativan medications as well as a handful of Seroquel tablets. Patient states he did not recall all specifics prior to his admission stated that he did lose consciousness at some point but was aware that mother had called EMS and was brought to the ED with subsequent admission to ICU. Patient states that prior to his attempt he had been feeling very stressed about not having a job, financial difficulties, feeling desperate of his financial this situation, feeling depressed along with increased use of alcohol. Patient states that "I kind of gave up" but was not able to recall any specific stressor. As per chart there was reported the patient had an argument with his brother which she did not mention. Patient reports that for the past couple of weeks he had had any difficulty with sleep, appetite energy or concentration but did report feeling depressed, helpless and hopeless. At this time patient states he is feeling "great" denies any SI or HI, AVH or delusions. Review of Systems Except as stated in HPI: all other systems reviewed are Neg Past Psych History Violence risk - others (6 mos) Low Violence risk - self (6 mos) Elevated due to recent suicide attempt as well as history of previous suicide attempts Substance Abuse History Drugs/Alcohol past 12 months Tobacco use (+), alcohol use "socially" usually 2-3 times a week, denies use of any other drugs. Past Family Social History Coded Allergies: No Allergy Information Available (Unverified , 04/11/17) Active Scripts Piperacillin-Tazobactam Inj (Zosyn Inj) 4.5 Gram Inj, 4.5 GM IV Q6H for Infection for 7 Days, #28 BAG 0 Refills Prov:Biga,Lon M. MD 04/29/17 Prednisone (Prednisone) 20 Mg Tab, 20 MG PO DAILY for pna for 5 Days, #5 TAB 0 Refills Prov:Lon Herr MD 04/29/17 Famotidine (Famotidine) 20 Mg Tab, 20 MG PO BID for gerd for 28 Days, #56 TAB 0 Refills Prov:Lon Herr MD 04/29/17 Aspirin (Tgt Aspirin) 81 Mg Chw, 81 MG CHEW DAILY for htn for 30 Days, #30 EA 0 Refills Prov:Lon Herr MD 04/29/17 Spironolactone (Aldactone) 50 Mg Tab, 25 MG PO BID@0900,1800 for htn for 28 Days , #60 TAB 0 Refills Prov:Lon Herr MD 04/29/17 [Albuterol Neb] 2.5 MG/3 ML NEBU No Conflict Check, 2.5 MG NEB Q2HR NEB Y for dyspnea for 1 Day, #1 BANDAGE 0 Refills Prov:Lon Herr MD 04/29/17 Reported Medications Quetiapine (Quetiapine) 200 Mg Tab, 200 MG PO HS, #30 TAB 0 Refills 04/11/17 Simvastatin (Simvastatin) 20 Mg Tab, 20 MG PO DAILY for Cholesterol Management, #30 TAB 0 Refills 04/11/17 Gabapentin (Gabapentin) 300 Mg Cap, 300 MG PO TID, #90 CAP 0 Refills 04/11/17 Ipratropium-Albuterol Inh (Combivent Respimat Inh) 20-100 Shelter/Act Aero, 1 PUFF INH QID for Asthma Management, #1 INHALER 0 Refills 04/11/17 Lamotrigine (Lamotrigine) 200 Mg Tab, 200 MG PO BID for Control Seizures, #60 TAB 0 Refills 04/11/17 Venlafaxine (Effexor) 75 Mg Tab, 225 MG DAILY, #30 TAB 0 Refills 04/11/17 Hydroxyzine HCl (Hydroxyzine HCl) 50 Mg Tab, 50 MG PO BID, TAB 0 Refills 04/11/17 Fenofibrate (Fenofibrate) 160 Mg Tab, 160 MG PO DAILY, #30 TAB 0 Refills 04/11/17 Discontinued Reported Medications Lamotrigine (Lamotrigine) 200 Mg Tab, 200 MG PO HS for Control Seizures, #30 TAB 0 Refills 04/11/17 Lorazepam (Lorazepam) 1 Mg Tab, 1 MG PO BID Y for ANXIETY AND/OR INSOMNIA, TAB 0 Refills 04/11/17 Quetiapine XR (Seroquel XR) 150 Mg Tab, 150 MG PO DAILY, #30 TAB 0 Refills 04/11/17 Naproxen Sodium (Naproxen Sodium) 220 Mg Tab, 220 MG PO BID Y for Pain Management, TAB 0 Refills 04/11/17 Losartan (Losartan) 100 Mg Tab, 100 MG PO DAILY for Blood Pressure Management, # 30 TAB 0 Refills 04/11/17 Current Medications Medications (Trade) Dose Ordered Sig/Yoko Route Start Time Stop Time Status Last Admin (Flu (Quadrivalent) Vaccine Inj) 0.5 ml ONCE ONCE IM 04/30/17 10:00 04/30/17 10:01 (Ativan) 1 mg Q6H PRN PO 04/29/17 21:15 04/29/17 22:37 (Ativan Inj) 1 mg Q6H PRN IM 04/29/17 21:15 (Benadryl) 50 mg HS PRN PO 04/29/17 21:15 04/29/17 22:37 (Tylenol) 650 mg Q4H PRN PO 04/29/17 21:15 (Milk Of Magnesia Liq) 30 ml DAILY PRN PO 04/29/17 21:15 (Mag-Al Plus Susp Liq) 30 ml Q6H PRN PO 04/29/17 21:15 (LaMICtal) 200 mg Q12HR PO 04/30/17 09:00 (Effexor) 75 mg TID PO 04/30/17 09:00 (Neurontin) 300 mg TID PO 04/30/17 09:00 (Aldactone) 25 mg BID@18 PO 04/30/17 09:00 (Ecotrin Ec) 81 mg DAILY PO 04/30/17 09:00 Social History Born in [place], domiciled [facility] with mother and brother, single, unemployed. Physical Exam Patient not noted to be in acute distress, no gross motor abnormalities, no tremors or EPS, no noted psychomotor retardation or agitation. Vital Signs Vital Signs Date Time Temp Pulse Resp B/P (MAP) Pulse Ox O2 Delivery O2 Flow Rate FiO2 3/2/18 06:00 98.5 101 16 132/62 (85) 94 04/29/17 22:12 Nasal Cannula 2.00 Mental Status Examination Appearance: Appropriate Consciousness: Alert Orientation: Person, Place, Date/Time Motor Activity: Normal gait Speech: Unremarkable Language: Adequate Fund of Knowledge: Inadequate Attention and Concentration: Adequate Memory: Unremarkable Mood: Sad Affect: Sad Thought Process & Associations: Linear Thought Content: Appropriate Hallucination Type: None Delusion Type: None Suicidal Ideation: Yes (Denies today) Suicidal Plan: No Suicidal Intention: No Homicidal Ideation: No Homicidal Plan: No Homicidal Intention: No Insight: Fair Judgment: Impulsive Assessment & Plan Problem List: (1) Bipolar affect, depressed ICD Codes: F31.30 - Bipolar disorder, current episode depressed, mild or moderate severity, unspecified Status: Acute Assessment & Plan Estimated LOS: 3-5 days. Patient is a 51-year-old man who carries a diagnosis of bipolar disorder, multiple psychiatric admissions, multiple suicide attempts, who was admitted to the ICU after suicide attempt and currently on inpatient psychiatry for stabilization. We will continue Lamictal 200 mg p.o. twice daily, Effexor 75 mg p.o. daily, gabapentin 300 mg 3 times daily, continue recommendations as per prior medical team. Collateral formation pending. Social work intervention for psychosocial assessment. Patient will be under voluntary status for this admission. Discharge planning in progress. Discharge Planning Return back to his residence when psychiatrically stable. Des Thorpe MD Apr 30, 2017 08:29
[2017-04-30 09:14] LABS: CHOLESTEROL 329 MG/DL (120-200)
[2017-04-30 09:16] LABS: CHOLESTEROL/ HDL RATIO 11.19 RATIO; HDL CHOLESTEROL 29.4 MG/DL (40.0-60.0); TRIGLYCERIDES 632 MG/DL (42-150)
[2017-04-30 09:19] LABS: BICARBONATE 22.8 MEQ/L (21.0-32.0); BLOOD UREA NITROGEN 10 MG/DL (7-18); CALCIUM 9.9 MG/DL (8.5-10.1); CHLORIDE 97 MEQ/L (98-107); GLOMERULAR FILTRATION RATE 89 ML/MIN (>89); GLUCOSE,RANDOM 101 MG/DL (74-106); SODIUM (NA) 133 MEQ/L (136-145)
[2017-04-30] MEDS ORDERED: INFLUENZA VIRUS VACCINE (QUADRIVALENT) 0.5 ML SYR IM ONE (10:00)
[2017-04-30] MEDS: SPIRONOLACTONE 25 MG TAB PO SCH ×2 (10:18→18:00)
[2017-04-30] MEDS: VENLAFAXINE HCL 25 MG TAB PO SCH ×2 (10:18→13:00)
[2017-04-30] MEDS: ASPIRIN EC 81 MG TABEC PO SCH (10:19)
[2017-04-30] MEDS: lamoTRIgine 100 MG TAB PO SCH ×2 (10:19→21:13)
[2017-04-30] MEDS: GABAPENTIN 300 MG CAP PO SCH ×3 (10:27→18:00)
--- NOTE | 2017-04-30 13:47 | PD.CONS ---
[facility] Request[facility] By Reason for Consult Recent Pneumonia, h/o HTN Primary Care Physician Unknown Diagnoses: History of Present Illness This is a 51-year-old male who was admitted 3 weeks ago following a suicide attempt involving the ingestion of Risperdal, Lorazepam, and alcohol. At the time he showed poor airway management and was intubated for safety. Subsequent chest x-ray showed pneumonia. He remained intubated for a week, remained in the ICU for a following week, and was recently on a medical floor until being transferred to [facility] where he resides currently. During most of his stay at our hospital he has been on IV antibiotics for treatment of pneumonia. Recent chest x-ray shows scattered airspace disease but no definite infiltration. Patient is afebrile and breathing well. He states he has lost 40 pounds and no longer suffers from hypertension. He is interested in going home soon and recognizes that he made a mistake in attempting suicide. Review of Systems Constitutional: COMPLAINS OF: Weight loss, DENIES: Fatigue, Fever, Weight gain , Chills Eyes: DENIES: Blurred vision, Diplopia, Eye inflammation, Eye pain, Vision loss Ears, nose, mouth, throat: DENIES: Hearing loss, Vertigo, Nasal discharge, Throat pain, Hoarseness, Running Nose Respiratory: DENIES: Cough, Wheezing, Hemoptysis, Sputum production, Shortness of breath Cardiovascular: DENIES: Chest pain, Palpitations, Syncope Gastrointestinal: DENIES: Abdominal pain, Black stools, Bloody stools, Constipation, Diarrhea, Nausea, Vomiting Musculoskeletal: DENIES: Joint pain, Muscle aches, Stiffness Neurologic: DENIES: Abnormal gait, Headache, Localized weakness, Paresthesias, Seizures, Speech Problems, Tremor, Poor Balance Psychiatric: COMPLAINS OF: Depression, DENIES: Anxiety, Confusion Past Family Social History Allergies: Coded Allergies: No Allergy Information Available (Unverified , 04/11/17) Past Medical History Recent suicide attempt Bipolar depression Pneumonia Hypertension Past Surgical History No previous surgeries Family History Hypertension Social History Previously 1 pack per day cigarettes. Previously infrequent drinker. He states he has quit both of these and will no longer resume them after discharge Physical Exam Vital Signs Vital Signs Date Time Temp Pulse Resp B/P (MAP) Pulse Ox O2 Delivery O2 Flow Rate FiO2 04/30/17 06:00 98.5 101 16 132/62 (85) 94 3/1/18 22:12 97 Nasal Cannula 2.00 04/29/17 20:00 Nasal Cannula 2.00 04/29/17 18:47 99.2 99 16 125/82 (96) 97 Physical Exam GENERAL: This is a well-nourished, well-developed patient, in no apparent distress. SKIN: No rashes, ecchymoses or lesions. Cool and dry. HEAD: Atraumatic. Normocephalic. No temporal or scalp tenderness. EYES: Pupils equal round and reactive. Extraocular motions intact. No scleral icterus. No injection or drainage. ENT: Nose without bleeding, purulent drainage or septal hematoma. Throat without erythema, tonsillar hypertrophy or exudate. Uvula midline. Airway patent. NECK: Trachea midline. No JVD or lymphadenopathy. Supple, nontender, no meningeal signs. CARDIOVASCULAR: Regular rate and rhythm without murmurs, gallops, or rubs. RESPIRATORY: Clear to auscultation. Breath sounds equal bilaterally. No wheezes , rales, or rhonchi. GASTROINTESTINAL: Abdomen soft, non-tender, nondistended. No hepato-splenomegaly , or palpable masses. No guarding. MUSCULOSKELETAL: Extremities without clubbing, cyanosis, or edema. No joint tenderness, effusion, or edema noted. No calf tenderness. Negative Homans sign bilaterally. NEUROLOGICAL: Awake and alert. Cranial nerves II through XII intact. Motor and sensory grossly within normal limits. Five out of 5 muscle strength in all muscle groups. Normal speech. Laboratory Laboratory Tests Test 04/30/17 07:55 Blood Urea Nitrogen 10 Creatinine 0.90 Random Glucose 101 Calcium Level 9.9 Sodium Level 133 Potassium Level 3.3 Chloride Level 97 Carbon Dioxide Level 22.8 Anion Gap 13 Estimat Glomerular Filtration Rate 89 Triglycerides Level 632 Cholesterol Level 329 LDL Cholesterol HDL Cholesterol 29.4 Cholesterol/HDL Ratio 11.19 Result Diagram: 04/30/17 1976 Assessment and Plan Assessment and Plan Bipolar depression with recent suicide attempt Apparently he has had multiple suicide attempts, usually having to do with alcohol abuse Management and medication choices per psychiatry Recent pneumonia Patient is status post treatment with IV antibiotics for nearly 3 weeks He is currently afebrile, no cough, no infiltrates on yesterday's chest x-ray Recommend treating if symptoms recur otherwise monitor for fever, cough, or shortness of breath Will obtain CBC for monitoring of white blood cell level h/o hypertension Stable DVT prophylaxis Patient is ambulatory and ambulating halls Discharge planning Medically stable for discharge, pending psychiatric clearance Moshe Bearden MD Apr 30, 2017 13:47
[2017-04-30 14:38] LABS: HEMOGLOBIN A1C 5.2 % (4.3-6.0)
--- NOTE | 2017-04-30 17:55 | EKG ---
Date Performed: 04/30/2017 Time Performed: 09:46:01 PTAGE: 51 years EKG: SINUS TACHYCARDIA NONSPECIFIC T-WAVE ABNORMALITY ABNORMAL RHYTHM ECG Compared to PREVIOUS TRACING , the patient is back in Sinus rhythm . PREVIOUS TRACIN04/22/2017 07.27 DOCTOR: Lona Kilgore Interpretating Date/Time 04/30/2017 17:54:56
[2017-04-30 18:13] VITALS: BP 130/83; PULSE 97; RESP 16; TEMP 97.5; O2SAT 98
[2017-04-30] MEDS: VENLAFAXINE HCL 75 MG TAB PO SCH (18:30)
[2017-04-30] MEDS: diphenhydrAMINE HCL 50 MG CAP PO PRN (21:13)
[2017-05-01 05:30] VITALS: BP 106/51; PULSE 109; RESP 17; TEMP 98.3; O2SAT 96
[2017-05-01] MEDS: ASPIRIN EC 81 MG TABEC PO SCH (09:25)
[2017-05-01] MEDS: SPIRONOLACTONE 25 MG TAB PO SCH ×2 (09:25→18:00)
[2017-05-01] MEDS: lamoTRIgine 100 MG TAB PO SCH ×2 (09:25→21:30)
[2017-05-01] MEDS: GABAPENTIN 300 MG CAP PO SCH ×3 (09:25→18:00)
[2017-05-01] MEDS: VENLAFAXINE HCL 75 MG TAB PO SCH ×3 (09:26→18:00)
[2017-05-01 09:33] LABS: AUTOMATED NEUTROPHIL # 9.5 TH/MM3 (1.8-7.7); BASOPHIL # 0.1 TH/MM3 (0-0.2); BASOPHIL % 1.1 % (0.0-2.0); EOSINOPHIL # 0.6 TH/MM3 (0-0.4); EOSINOPHIL % 4.3 % (0.0-4.0); HEMATOCRIT 32.3 % (39.0-51.0); HEMOGLOBIN 10.8 GM/DL (13.0-17.0); LYMPH % 13.9 % (9.0-44.0); LYMPHOCYTE # 1.9 TH/MM3 (1.0-4.8); MEAN CELL VOLUME 97.1 FL (80.0-100.0); MEAN CORPUSCULAR HEMOGLOBIN 32.4 PG (27.0-34.0); MEAN CORPUSCULAR HGB CONC 33.4 % (32.0-36.0); MONO % 11.1 % (0.0-8.0); MONOCYTE # 1.5 TH/MM3 (0-0.9); NEUT % 69.6 % (16.0-70.0); PLATELET COUNT 581 TH/MM3 (150-450); RED BLOOD COUNT 3.32 MIL/MM3 (4.50-5.90); RED CELL DISTRIBUTION WIDTH 14.1 % (11.6-17.2); WHITE BLOOD COUNT 13.7 TH/MM3 (4.0-11.0)
[2017-05-01 10:43] LABS: BANDS 8 % (0-6); LYMPHOCYTES 12 % (9-44); METAMYELOCYTES 3 % (0-1); MONOCYTES 11 % (0-8); MYELOCYTES 1 % (0-0); NEUTROPHIL # MANUAL DIFF 10.4 TH/MM3 (1.8-7.7); POLYS (SEG NEUTROPHILS) 64 % (16-70)
--- NOTE | 2017-05-01 10:44 | HHI.PR ---
Subjective Remarks Pt seen and examined. AFVSS. No acute events. Reports he is feeling much better. Denies cough, fever, chills, chest pain, or shortness of breath. Feels ready to go home. States he never wants to hurt himself ever again and he is in a much better place mentally. Objective Vital Signs Date Time Temp Pulse Resp B/P (MAP) Pulse Ox O2 Delivery O2 Flow Rate FiO2 05/01/17 05:30 98.3 109 17 106/51 (69) 96 04/30/17 18:13 97.5 97 16 130/83 (99) 98 I/O 04/30/17 04/30/17 04/30/17 05/01/17 05/01/17 05/01/17 07:00 15:00 23:00 07:00 15:00 23:00 Intake Total 720 ml 360 ml Balance 720 ml 360 ml Intake Oral 720 ml 360 ml Result Diagram: 05/01/17 0820 04/30/17 0755 Objective Remarks GENERAL: WN, WD male in NAD. SKIN: Warm and dry. HEENT: Pupils equal and round. MMM. NECK: Supple no tender LAD or JVD. HEART: RRR no m/r/g. LUNGS: CTAB without wheezes or crackles. ABDOMEN: Soft, NT, ND. EXTREMITIES: No LE edema or calf tenderness. NEURO: Awake and alert. PSYCH: Appropriate mood and affect. A/P Problem List: (1) Hypertension ICD Code: I10 - Essential (primary) hypertension Status: Chronic (2) Suicide attempt ICD Code: T14.91XA - Suicide attempt, initial encounter Status: Acute (3) Pneumonia ICD Code: J18.9 - Pneumonia, unspecified organism Status: Resolved Assessment and Plan 51 YOWM admitted to the psychiatric unit after suicide attempt via overdose. Initially he required intubation and admission to the ICU. He was subsequently treated for PNA and was discharged to the psychiatric unit once stable. Bipolar depression with recent suicide attempt Apparently he has had multiple suicide attempts, usually having to do with alcohol abuse Management and medication choices per psychiatry Recent pneumonia Patient is status post treatment with IV antibiotics for nearly 3 weeks He is currently afebrile with no cough Repeat CXR with no infiltrates HTN Stable. Continue home spironolactone DVT prophylaxis Patient is ambulatory Discharge planning Medically stable for discharge, pending psychiatric clearance Kacie Navarro MD May 01, 2017 10:44
--- NOTE | 2017-05-01 13:21 | HHI.PYPN ---
Subjective Remarks Patient was seen and case discussed with nursing. Patient continues to be followed by the medical team. It appears that patient had a potassium of 3.3 yesterday it is unclear if it was corrected. I will order another CMP. Patient is alert and oriented 4, and continues to improve. He now finds reasons to live is goal oriented. He does of guilty feelings concerning his attempts but is no longer feeling hopeless or helpless. Mental Status Examination Appearance: Appropriate Consciousness: Alert Orientation: Person, Place, Date/Time Motor Activity: Normal gait Speech: Unremarkable Language: Adequate Fund of Knowledge: Inadequate Attention and Concentration: Adequate Memory: Unremarkable Mood: Sad Affect: Sad Thought Process & Associations: Linear Thought Content: Appropriate Hallucination Type: None Delusion Type: None Suicidal Ideation: No Suicidal Plan: No Suicidal Intention: No Homicidal Ideation: No Homicidal Plan: No Homicidal Intention: No Insight: Fair Judgment: Impulsive Results Labs Test 05/01/17 08:20 White Blood Count 13.7 TH/MM3 Red Blood Count 3.32 MIL/MM3 Hemoglobin 10.8 GM/DL Hematocrit 32.3 % Mean Corpuscular Volume 97.1 FL Mean Corpuscular Hemoglobin 32.4 PG Mean Corpuscular Hemoglobin Concent 33.4 % Red Cell Distribution Width 14.1 % Platelet Count 581 TH/MM3 Mean Platelet Volume 9.0 FL Neutrophils (%) (Auto) 69.6 % Lymphocytes (%) (Auto) 13.9 % Monocytes (%) (Auto) 11.1 % Eosinophils (%) (Auto) 4.3 % Basophils (%) (Auto) 1.1 % Neutrophils # (Auto) 9.5 TH/MM3 Lymphocytes # (Auto) 1.9 TH/MM3 Monocytes # (Auto) 1.5 TH/MM3 Eosinophils # (Auto) 0.6 TH/MM3 Basophils # (Auto) 0.1 TH/MM3 CBC Comment AUTO DIFF Differential Total Cells Counted 100 Neutrophils % (Manual) 64 % Band Neutrophils % 8 % Lymphocytes % 12 % Monocytes % 11 % Eosinophils % 1 % Neutrophils # (Manual) 10.4 TH/MM3 Metamyelocytes 3 % Myelocytes 1 % Differential Comment FINAL DIFF MANUAL Platelet Estimate HIGH Platelet Morphology Comment NORMAL Vitals/IOs Vital Signs Date Time Temp Pulse Resp B/P (MAP) Pulse Ox O2 Delivery O2 Flow Rate FiO2 05/01/17 05:30 98.3 109 17 106/51 (69) 96 04/29/17 22:12 Nasal Cannula 2.00 Assessment & Plan Problem List: (1) Bipolar affect, depressed ICD Codes: F31.30 - Bipolar disorder, current episode depressed, mild or moderate severity, unspecified Status: Acute Assessment & Plan Continue medical treatment as indicated, CMP ordered Justification for Cont. Inpt. Patient would decompensate in a less restrictive setting Benjie Martinez DO May 01, 2017 13:21
[2017-05-01 14:20] LABS: ALBUMIN 3.5 GM/DL (3.4-5.0); ALT (GPT) 60 U/L (12-78); AST (GOT) 33 U/L (15-37); BICARBONATE 24.7 MEQ/L (21.0-32.0); BLOOD UREA NITROGEN 9 MG/DL (7-18); CALCIUM 9.7 MG/DL (8.5-10.1); CHLORIDE 100 MEQ/L (98-107); CREATININE 0.96 MG/DL (0.60-1.30); GLOMERULAR FILTRATION RATE 83 ML/MIN (>89); GLUCOSE,RANDOM 128 MG/DL (74-106); SODIUM (NA) 134 MEQ/L (136-145)
[2017-05-01 14:23] LABS: ALKALINE PHOSPHATASE 89 U/L (45-117); TOTAL BILIRUBIN ADULT 0.5 MG/DL (0.2-1.0); TOTAL PROTEIN 7.2 GM/DL (6.4-8.2)
[2017-05-01 18:20] VITALS: BP 114/72; PULSE 96; RESP 16; TEMP 97.8; O2SAT 95
[2017-05-01] MEDS: diphenhydrAMINE HCL 50 MG CAP PO PRN (21:30)
[2017-05-02 04:55] VITALS: BP 108/70; PULSE 94; RESP 16; TEMP 99.1; O2SAT 94
[2017-05-02] MEDS: SPIRONOLACTONE 25 MG TAB PO SCH ×2 (08:24→17:05)
[2017-05-02] MEDS: lamoTRIgine 100 MG TAB PO SCH ×2 (08:24→21:15)
[2017-05-02] MEDS: VENLAFAXINE HCL 75 MG TAB PO SCH ×3 (08:24→17:05)
[2017-05-02] MEDS: GABAPENTIN 300 MG CAP PO SCH ×3 (08:25→17:05)
[2017-05-02] MEDS: ASPIRIN EC 81 MG TABEC PO SCH (08:25)
--- NOTE | 2017-05-02 10:32 | HHI.PYPN ---
Subjective Remarks Patient was seen and case discussed with nursing. Labwork reviewed and potassium was low at 3.1 yesterday. Patient continues to improve. He continues to develop better insight into his mental health. Denies suicidal homicidal ideation intent or plan. Eating and sleeping well. Behaving well on the unit Mental Status Examination Appearance: Appropriate Consciousness: Alert Orientation: Person, Place, Date/Time Motor Activity: Normal gait Speech: Unremarkable Language: Adequate Fund of Knowledge: Inadequate Attention and Concentration: Adequate Memory: Unremarkable Mood: Sad Affect: Sad Thought Process & Associations: Linear Thought Content: Appropriate Hallucination Type: None Delusion Type: None Suicidal Ideation: No Suicidal Plan: No Suicidal Intention: No Homicidal Ideation: No Homicidal Plan: No Homicidal Intention: No Insight: Fair Judgment: Impulsive Results Vitals/IOs Vital Signs Date Time Temp Pulse Resp B/P (MAP) Pulse Ox O2 Delivery O2 Flow Rate FiO2 05/02/17 04:55 99.1 94 16 108/70 (83) 94 04/29/17 22:12 Nasal Cannula 2.00 Assessment & Plan Problem List: (1) Bipolar affect, depressed ICD Codes: F31.30 - Bipolar disorder, current episode depressed, mild or moderate severity, unspecified Status: Acute Assessment & Plan Administer potassium 30 mEq, repeat potassium level, consult medicine Justification for Cont. Inpt. Patient will decompensate in a less restrictive setting Benjie Martinez DO May 02, 2017 10:32
[2017-05-02] MEDS ORDERED: POTASSIUM CHLORIDE 10 MEQ CONTROLLED RELEASE TAB PO ONE (10:45)
[2017-05-02] MEDS ORDERED: POTASSIUM CHLORIDE 20 MEQ CONTROLLED RELEASE TAB PO ONE (14:00)
--- NOTE | 2017-05-02 14:00 | HHI.PR ---
Subjective Remarks Hospitalist service reconsulted for hypokalemia and anemia. Patient states he is doing well and has no complaints. Looking forward to being able to go home. Reports he feels overall weak but improving every day and building strength. Denies dizziness, lightheadedness, palpitations, chest pain, or shortness of breath unless he is more active than usual. Objective Vital Signs Date Time Temp Pulse Resp B/P (MAP) Pulse Ox O2 Delivery O2 Flow Rate FiO2 05/02/17 04:55 99.1 94 16 108/70 (83) 94 05/01/17 18:20 97.8 96 16 114/72 (86) 95 Result Diagram: 05/01/1781905/01/17 08 Objective Remarks GENERAL: WN, WD pleasant male in NAD. SKIN: Warm and dry. HEENT: Pupils equal and round. MMM. NECK: Supple no tender LAD or JVD. HEART: RRR no m/r/g. LUNGS: CTAB without wheezes or crackles. ABDOMEN: Soft, NT, ND. EXTREMITIES: No LE edema or calf tenderness. NEURO: Awake and alert. PSYCH: Appropriate mood and affect. A/P Problem List: (1) Hypertension ICD Code: I10 - Essential (primary) hypertension Status: Chronic (2) Suicide attempt ICD Code: T14.91XA - Suicide attempt, initial encounter Status: Acute (3) Pneumonia ICD Code: J18.9 - Pneumonia, unspecified organism Status: Resolved (4) Hypokalemia ICD Code: E87.6 - Hypokalemia (5) Anemia ICD Code: D64.9 - Anemia, unspecified Assessment and Plan 51 YOWM admitted to the psychiatric unit after suicide attempt via overdose. Initially he required intubation and admission to the ICU. He was subsequently treated for PNA and was discharged to the psychiatric unit once stable. Hypokalemia Potassium mildly low at 3.1 Start KCl 20 meq daily Anemia Normochromic anemia with reactive thrombocytosis He is hemodynamically stable with no active bleeding Patient was critically ill in the ICU from 04/11 until 04/29 and was treated for pneumonia, severe hypoxia, and respiratory failure His hemoglobin was as low as 7.6 and at one time he had hematuria from an incorrectly placed [place] His acute illness and urethral trauma/hematuria all likely contributed to his anemia His hemoglobin is much better at 10.8 and is expected to continue to normalize Platelets are also downtrending (elevated secondary to anemia) Can check CBC tomorrow and if stable no further intervention Bipolar depression with recent suicide attempt Apparently he has had multiple suicide attempts, usually having to do with alcohol abuse Management and medication choices per psychiatry HTN Stable. Continue home spironolactone Recent pneumonia Patient is status post treatment with IV antibiotics for nearly 3 weeks He is currently afebrile with no cough Repeat CXR on 04/29 with no infiltrates DVT prophylaxis Patient is ambulatory Discharge planning Medically stable for discharge, pending psychiatric clearance Kacie Navarro MD May 02, 2017 14:00
[2017-05-02 16:48] VITALS: BP 120/78; PULSE 102; RESP 18; TEMP 97.9; O2SAT 97
[2017-05-02] MEDS: ALUMINUM/MAGNESIUM/SIMETH 30 ML CUP PO PRN (18:13)
[2017-05-03 05:33] VITALS: BP 115/66; PULSE 92; RESP 16; TEMP 98.3; O2SAT 95
[2017-05-03] MEDS: ASPIRIN EC 81 MG TABEC PO SCH (08:52)
[2017-05-03] MEDS: GABAPENTIN 300 MG CAP PO SCH ×2 (08:52→14:05)
[2017-05-03] MEDS: lamoTRIgine 100 MG TAB PO SCH (08:52)
[2017-05-03] MEDS: VENLAFAXINE HCL 75 MG TAB PO SCH ×2 (08:52→14:05)
[2017-05-03] MEDS: SPIRONOLACTONE 25 MG TAB PO SCH (08:52)
[2017-05-03] MEDS ORDERED: POTASSIUM CHLORIDE 20 MEQ CONTROLLED RELEASE TAB PO SCH (09:00)
[2017-05-03 09:01] LABS: AUTOMATED NEUTROPHIL # 8.8 TH/MM3 (1.8-7.7); BASOPHIL # 0.1 TH/MM3 (0-0.2); EOSINOPHIL # 0.4 TH/MM3 (0-0.4); EOSINOPHIL % 3.2 % (0.0-4.0); HEMATOCRIT 32.7 % (39.0-51.0); LYMPH % 14.3 % (9.0-44.0); LYMPHOCYTE # 1.8 TH/MM3 (1.0-4.8); MEAN CELL VOLUME 97.3 FL (80.0-100.0); MEAN CORPUSCULAR HEMOGLOBIN 32.6 PG (27.0-34.0); MEAN CORPUSCULAR HGB CONC 33.5 % (32.0-36.0); MEAN PLATELET VOLUME 8.8 FL (7.0-11.0); MONOCYTE # 1.2 TH/MM3 (0-0.9); NEUT % 71.5 % (16.0-70.0); PLATELET COUNT 469 TH/MM3 (150-450); RED BLOOD COUNT 3.37 MIL/MM3 (4.50-5.90); RED CELL DISTRIBUTION WIDTH 13.9 % (11.6-17.2); WHITE BLOOD COUNT 12.3 TH/MM3 (4.0-11.0)
[2017-05-03 09:42] LABS: ALBUMIN 3.6 GM/DL (3.4-5.0); AST (GOT) 26 U/L (15-37); BICARBONATE 26.7 MEQ/L (21.0-32.0); BLOOD UREA NITROGEN 5 MG/DL (7-18); CALCIUM 9.1 MG/DL (8.5-10.1); CHLORIDE 95 MEQ/L (98-107); CREATININE 1.01 MG/DL (0.60-1.30); GLOMERULAR FILTRATION RATE 78 ML/MIN (>89); GLUCOSE,RANDOM 121 MG/DL (74-106); SODIUM (NA) 132 MEQ/L (136-145)
[2017-05-03 09:44] LABS: ALT (GPT) 45 U/L (12-78)
[2017-05-03 09:45] LABS: ALKALINE PHOSPHATASE 100 U/L (45-117); TOTAL BILIRUBIN ADULT 0.4 MG/DL (0.2-1.0); TOTAL PROTEIN 7.5 GM/DL (6.4-8.2)
[2017-05-03 10:27] LABS: LYMPHOCYTES 16 % (9-44); MONOCYTES 16 % (0-8); MYELOCYTES 3 % (0-0); NEUTROPHIL # MANUAL DIFF 8.4 TH/MM3 (1.8-7.7); POLYS (SEG NEUTROPHILS) 65 % (16-70)
[2017-05-03] MEDS: ALUMINUM/MAGNESIUM/SIMETH 30 ML CUP PO PRN (10:59)
[2017-05-03] MEDS ORDERED: FAMOTIDINE 20 MG TAB PO ONE (11:15)
[2017-05-03] MEDS ORDERED: POTA20TA5 PO ×2 (12:43→12:47)
--- NOTE | 2017-05-03 13:24 | HHI.DS ---
Psychiatry Discharge Summary Inpatient Psychiatric care?: Yes Advance Directive: No Reason Not Provided: refused Mental Health AdvanceDirective: No Health Care Proxy: No Admission Admission Date Apr 29, 2017 at 17:30 Admission Diagnosis: (1) Bipolar 1 disorder ICD Code: F31.9 - Bipolar disorder, unspecified Brief History The patient is a 51-year-old man, domiciled with mother and brother, single, unemployed, with self-reported psychiatric history of bipolar disorder, 3 previous psychiatric hospitalizations, the last hospitalization was in a hospital in [place], he has established outpatient care in [facility], 3 previous suicide attempts, last time being in the year 1999 all of which have been via overdose, no history of self-injurious behavior, medical history of BPH , HLD, presents from home where he was identified to have altered mental status and decreasing level of consciousness, secondary to alcohol intoxication and overdose with his medications in a suicide attempt which patient was admitted to the medical service, stabilized and now transferred to the inpatient psychiatry for further evaluation and management. Patient was found sitting hospital bed noted become cooperative. Patient states that he did attempt to commit suicide prior to his admission stated that he drank a lot of wine (2 bottles) along with having taken half a bottle of Ativan medications as well as a handful of Seroquel tablets. Patient states he did not recall all specifics prior to his admission stated that he did lose consciousness at some point but was aware that mother had called EMS and was brought to the ED with subsequent admission to ICU. Patient states that prior to his attempt he had been feeling very stressed about not having a job, financial difficulties, feeling desperate of his financial this situation, feeling depressed along with increased use of alcohol. Patient states that "I kind of gave up" but was not able to recall any specific stressor. As per chart there was reported the patient had an argument with his brother which she did not mention. Patient reports that for the past couple of weeks he had had any difficulty with sleep, appetite energy or concentration but did report feeling depressed, helpless and hopeless. At this time patient states he is feeling "great" denies any SI or HI, AVH or delusions. Tobacco Use In Past 30 Days: No Tobacco Past 30 Days Alcohol Use: 4 or More Times Per Week Hospital Course Mr. Everett was admitted to locked inpatient psychiatric unit after being discharged from the medical side after an attempted overdose. There were appropriate precautions in place throughout his stay. He was examined daily by psychiatry and followed by a counselor as well. His medications were adjusted during his stay. He is tolerated these adjustments well and denies any side effects or complications at this time. He reports improvement in his condition and states that he would like to go home. Upon examination today he denies having any thoughts of self-harm, homicidal ideation, auditory or visual hallucinations. No delusions can be elicited at this time. He is future oriented stating that he wants to get into a support group, stop smoking, and stop drinking. At this point patient seems to have achieved maximal results from an inpatient stay. He no longer meets criteria for inpatient admission and does not appear to be an imminent threat to himself or others. He will be discharged with an outpatient appointment at [facility] as well as instructions to follow-up with his primary care physician. He contracts for safety, and has verbalized that should he feel suicidal again he will be "open with his mother". Mr. Everett was advised that this condition should worsen he should return to this facility. Results Blood Pressure 115 / 66 Vital Signs Date Time Temp Pulse Resp B/P (MAP) Pulse Ox O2 Delivery O2 Flow Rate FiO2 05/03/17 05:33 98.3 92 16 115/66 (82) 95 04/29/17 22:12 Nasal Cannula 2.00 Laboratory Tests Test 05/01/17 08:20 05/03/17 08:19 White Blood Count 13.7 TH/MM3 (4.0-11.0) 12.3 TH/MM3 (4.0-11.0) Red Blood Count 3.32 MIL/MM3 (4.50-5.90) 3.37 MIL/MM3 (4.50-5.90) Hemoglobin 10.8 GM/DL (13.0-17.0) 11.0 GM/DL (13.0-17.0) Hematocrit 32.3 % (39.0-51.0) 32.7 % (39.0-51.0) Platelet Count 581 TH/MM3 (150-450) 469 TH/MM3 (150-450) Monocytes (%) (Auto) 11.1 % (0.0-8.0) 10.0 % (0.0-8.0) Eosinophils (%) (Auto) 4.3 % (0.0-4.0) Neutrophils # (Auto) 9.5 TH/MM3 (1.8-7.7) 8.8 TH/MM3 (1.8-7.7) Monocytes # (Auto) 1.5 TH/MM3 (0-0.9) 1.2 TH/MM3 (0-0.9) Eosinophils # (Auto) 0.6 TH/MM3 (0-0.4) Band Neutrophils % 8 % (0-6) Monocytes % 11 % (0-8) 16 % (0-8) Neutrophils # (Manual) 10.4 TH/MM3 (1.8-7.7) 8.4 TH/MM3 (1.8-7.7) Metamyelocytes 3 % (0-1) Myelocytes 1 % (0-0) 3 % (0-0) Platelet Estimate HIGH (NORMAL) HIGH (NORMAL) Random Glucose 128 MG/DL (74-106) 121 MG/DL (74-106) Sodium Level 134 MEQ/L (136-145) 132 MEQ/L (136-145) Potassium Level 3.1 MEQ/L (3.5-5.1) Estimat Glomerular Filtration Rate 83 ML/MIN (>89) 78 ML/MIN (>89) Neutrophils (%) (Auto) 71.5 % (16.0-70.0) Blood Urea Nitrogen 5 MG/DL (7-18) Chloride Level 95 MEQ/L (98-107) Laboratory Results Test 04/30/17 07:55 Cholesterol Level 329 MG/DL (120-200) HDL Cholesterol 29.4 MG/DL (40.0-60.0) Hemoglobin A1c 5.2 % (4.3-6.0) LDL Cholesterol MG/DL (0-99) Triglycerides Level 632 MG/DL (42-150) Summary of Procedures None Pending results at discharge: No Medications # of Antipsychotic meds at D/C: 0 Approp Antipsych med options 1 - Minimum of three failed multiple trials of monotherapy. 2 - Documented plan to taper to monotherapy due to previous use of multiple meds OR cross-taper in progress at D/C. 3 - Documentation of augmentation of Clozapine. 4 - Justification other than those listed in allowable values 1-3, document here : Discharge Discharge Date: May 03, 2017 Discharge Diagnosis: (1) Bipolar 1 disorder Diagnosis: Principal ICD Code: F31.9 - Bipolar disorder, unspecified Pt Condition on Discharge: Stable Discharge Disposition: Discharge Home Discharge Instructions Diet Instructions: As Tolerated, No Restrictions Activities you can perform: Regular-No Restrictions (As tolerated) Discharge Time > 30 minutes Mental Status Examination Appearance: Appropriate Consciousness: Alert Orientation: Person, Place, Date/Time Motor Activity: Normal gait Speech: Unremarkable Language: Adequate Fund of Knowledge: Inadequate Attention and Concentration: Adequate Memory: Unremarkable Mood: Sad Affect: Sad Thought Process & Associations: Linear Thought Content: Appropriate Hallucination Type: None Delusion Type: None Suicidal Ideation: No Suicidal Plan: No Suicidal Intention: No Homicidal Ideation: No Homicidal Plan: No Homicidal Intention: No Insight: Fair Judgment: Impulsive Discharge/Advance Care Plan Health Problems: (1) Bipolar affect, depressed Goals to promote your health * To prevent worsening of your condition and complications * To maintain your health at the optimal level Directions to meet your goals Take your medications as prescribed Follow your dietary instruction Follow activity as directed Keep your appointments as scheduled Take your immunizations and boosters as scheduled If your symptoms worsen call your PCP, if no PCP go to Urgent Care Center or Emergency Room For 21/09 questions related to your inpatient stay or results of tests pending at discharge, please contact Dr. Rayna Lacey at Smoking is Dangerous to Your Health. Avoid second hand smoking Rayna Lacey May 03, 2017 13:24
== END 2017-05-03 15:20 | disposition home or self-care (01) | DRG 885 ==
LOC: H4EA 17:30 → H260 04-30 17:27
PROVIDERS: ADMIT Student in an Organized Health Care Education/Training Program; ATTEND Student in an Organized Health Care Education/Training Program
DX: F31.9 Bipolar disorder, unspecified (principal); E87.6 Hypokalemia; Z87.01 Personal history of pneumonia (recurrent); Z87.891 Personal history of nicotine dependence; D64.9 Anemia, unspecified
CPT/HCPCS: 80048; 80053; 80061; 83036; 85007; 85027; 93005; Q0163